=== PATIENT | male | born 1940 | race Caucasian/White ===

== ENCOUNTER → 2018-05-24 09:06 | Outpatient (CLI) | payer MEDICARE, OTHER, SELFPAY ==
[2018-05-24 10:06] LABS: ESR 19 MM/HR (1-20)
[2018-05-24 20:46] LABS: CRP, High Sensitivity 0.93 mg/L
== END ==
PROVIDERS: PCP Nurse Practitioner Family; Visit Provider Internal Medicine Rheumatology
DX: M35.3 Polymyalgia rheumatica (principal)
CPT/HCPCS: 36415; 85652; 86141

== ENCOUNTER → 2018-06-06 08:30 | Outpatient (CLI) | payer MEDICARE, OTHER, SELFPAY | PROVIDERS: PCP Nurse Practitioner Family; Visit Provider Psychiatry & Neurology Neurology | DX: M48.062 Spinal stenosis, lumbar region with neurogenic claudication (principal); E11.42 Type 2 diabetes mellitus with diabetic polyneuropathy; G56.03 Carpal tunnel syndrome, bilateral upper limbs; Z79.4 Long term (current) use of insulin; E53.0 Riboflavin deficiency; D64.9 Anemia, unspecified | CPT/HCPCS: 99213 ==

== ENCOUNTER 2018-06-22 11:29 | Outpatient (RCR) | payer SELFPAY | END 2018-06-22 23:59 | disposition home or self-care (01) | LOC: CR 11:29 | PROVIDERS: PCP Nurse Practitioner Family; Visit Provider Family Medicine | DX: I25.2 Old myocardial infarction (principal); Z95.5 Presence of coronary angioplasty implant and graft; Z51.89 Encounter for other specified aftercare | CPT/HCPCS: S9472 ==

== ENCOUNTER 2018-07-20 10:38 | Outpatient (CLI) | payer MEDICARE, SELFPAY ==
[2018-07-20 12:44] LABS: ESR 16 MM/HR (1-20)
[2018-07-20 21:28] LABS: CRP, High Sensitivity 0.85 mg/L
== END 2018-07-20 10:58 ==
PROVIDERS: PCP Nurse Practitioner Family; Visit Provider Internal Medicine Rheumatology
DX: M35.3 Polymyalgia rheumatica (principal)
CPT/HCPCS: 36415; 85652; 86141

== ENCOUNTER 2018-07-20 13:17 | Outpatient (RCR) | payer SELFPAY | END 2018-07-22 23:59 | disposition home or self-care (01) | LOC: CR 13:17 | PROVIDERS: PCP Nurse Practitioner Family; Visit Provider Family Medicine | DX: Z51.89 Encounter for other specified aftercare (principal) | CPT/HCPCS: S9472 ==

== ENCOUNTER → 2018-08-06 12:24 | Outpatient (BNVA) | payer MEDICARE, OTHER, SELFPAY | PROVIDERS: Visit Provider Internal Medicine Interventional Cardiology | DX: I25.10 Atherosclerotic heart disease of native coronary artery without angina pectoris (principal); I50.30 Unspecified diastolic (congestive) heart failure; I42.9 Cardiomyopathy, unspecified; R06.02 Shortness of breath; I11.0 Hypertensive heart disease with heart failure; E11.9 Type 2 diabetes mellitus without complications; Z79.4 Long term (current) use of insulin | CPT/HCPCS: 99213 ==

== ENCOUNTER 2018-08-22 11:00 | Outpatient (RCR) | payer SELFPAY | END 2018-08-22 23:59 | disposition home or self-care (01) | LOC: CR 11:00 | PROVIDERS: PCP Nurse Practitioner Family; Visit Provider Family Medicine | DX: Z51.89 Encounter for other specified aftercare (principal) | CPT/HCPCS: S9472 ==

== ENCOUNTER 2018-09-21 13:24 | Outpatient (RCR) | payer SELFPAY | END 2018-09-21 23:59 | disposition home or self-care (01) | LOC: CR 13:24 | PROVIDERS: PCP Nurse Practitioner Family; Visit Provider Family Medicine | DX: Z51.89 Encounter for other specified aftercare (principal) | CPT/HCPCS: S9472 ==

== ENCOUNTER 2019-01-15 07:00 | Outpatient (CLI) | payer MEDICARE, OTHER, SELFPAY ==
[2019-01-15 07:38] LABS: HCT 38.8 % (40.0-50.0); HGB 12.6 g/dL (13.5-17.5); Mean Corp. HGB Concentration 32.5 g/dL (32.0-36.0); Mean Corpuscular Hemoglobin 29.6 pg (27.0-33.0); Mean Corpuscular Volume 91.3 fL (80-95); Mean Platelet Volume 9.7 fL (8.0-11.0); Platelet Count 226 x1000/uL (130-400); RBC 4.25 m/cumm (4.50-6.00); RBC Distribution Width 13.9 % (11.8-14.1); White Blood Cell Count 5.47 k/cumm (4.4-10.8)
[2019-01-15 08:36] LABS: ALT 31 U/L (12-78); AST 17 U/L (15-37); Albumin 3.5 g/dL (3.4-5.0); Alkaline Phosphatase 107 U/L (46-116); Anion Gap 6.9 mmol/L (3-11); BUN 28 mg/dL (7-18); Bilirubin, Total 0.4 mg/dL (0.2-1.0); CO2 32.1 mmol/L (21.0-32.0); CREATININE 1.14 mg/dL (0.70-1.30); Calcium 8.8 mg/dL (8.5-10.1); Chloride 104 mmol/L (98-107); Cholesterol 114 mg/dL (50-200); Glucose 103 mg/dL (70-100); HDL Cholesterol 31 mg/dL (40-60); LDL CHOLESTEROL 61 mg/dL (<100); Potassium 4.3 mmol/L (3.5-5.1); Sodium 143 mmol/L (136-145); Total Protein 6.8 g/dL (6.4-8.2); Triglyceride 121 mg/dL (30-150)
[2019-01-15 08:49] LABS: COMMENT (LAB VIEW ONLY) 151.91 mg/dL; Microalb ug/mg Crea 34.9 ug/mg Cr
[2019-01-15 10:51] LABS: Hemoglobin A1C 7.4 % (4.5-6.2)
== END 2019-01-15 07:20 ==
PROVIDERS: PCP Nurse Practitioner Family; Visit Provider Nurse Practitioner Family
DX: E11.40 Type 2 diabetes mellitus with diabetic neuropathy, unspecified (principal); Z79.4 Long term (current) use of insulin; E78.5 Hyperlipidemia, unspecified; Z51.81 Encounter for therapeutic drug level monitoring
CPT/HCPCS: 36415; 80053; 80061; 83721; 85027; 82043; 82570; 83036

== ENCOUNTER 2019-01-18 12:46 | Outpatient (RCR) | payer SELFPAY | END 2019-01-20 23:59 | disposition home or self-care (01) | LOC: CR 12:46 | PROVIDERS: PCP Nurse Practitioner Family; Visit Provider Family Medicine | DX: Z51.89 Encounter for other specified aftercare (principal) ==

== ENCOUNTER 2019-02-13 11:00 | Outpatient (RCR) | payer SELFPAY | END 2019-02-19 23:59 | disposition home or self-care (01) | LOC: CR 11:00 | PROVIDERS: PCP Nurse Practitioner Family; Visit Provider Family Medicine | DX: Z51.89 Encounter for other specified aftercare (principal) | CPT/HCPCS: S9472 ==

== ENCOUNTER → 2019-02-15 09:49 | Outpatient (BNVA) | payer MEDICARE, OTHER, SELFPAY | PROVIDERS: PCP Nurse Practitioner Family; Visit Provider Urology | DX: N40.1 Benign prostatic hyperplasia with lower urinary tract symptoms (principal); E11.40 Type 2 diabetes mellitus with diabetic neuropathy, unspecified; I11.0 Hypertensive heart disease with heart failure; I50.30 Unspecified diastolic (congestive) heart failure; R35.1 Nocturia | CPT/HCPCS: 99213 ==

== ENCOUNTER 2019-03-03 10:23 | Emergency (ER) | payer MEDICARE, OTHER, SELFPAY ==
[2019-03-03 10:21] VITALS: PULSE 75; RESP 13; O2SAT 96
[2019-03-03 10:27] VITALS: BP 159/69; PULSE 68; RESP 17; TEMP 36.8; O2SAT 96
[2019-03-03 10:30] VITALS: PULSE 64; RESP 20; O2SAT 95
[2019-03-03 10:31] VITALS: BP 125/73; PULSE 65; PULSE 70; RESP 12; O2SAT 94
--- NOTE | 2019-03-03 10:39 | DI.RAD_ITS ---
SYMPTOMS/DIAGNOSIS: LEFT EPIGASTRIC CHEST PAIN PA AND LATERAL CHEST: Comparison is made with 1May18. The heart is enlarged and the aorta is mildly tortuous, unchanged. The left diaphragm is again noted to be elevated. There are minimal streaky densities at the left lower lobe which could represent atelectasis or scarring. No definite infiltrate is seen. There is no evidence of effusion or pulmonary edema. Degenerative changes are seen in the spine. IMPRESSION: Left lower lobe atelectasis vs scarring.
[2019-03-03 10:40] VITALS: PULSE 68; RESP 20; O2SAT 94
[2019-03-03 10:40] LABS: Abs Immature Grans 0.01 k/cumm (0.0-0.09); Absolute Basophil Count 0.03 k/cumm (0.0-0.2); Absolute Eosinophil Count 0.21 k/cumm (0.0-0.7); Absolute Lymphocyte Count 0.96 k/cumm (1.2-3.4); Absolute Monocyte Count 0.58 k/cumm (0.11-0.7); Absolute Neutrophil Count 4.89 k/cumm (1.2-6.7); Basophils % 0.4; Eosinophils % 3.1; HGB 13.4 g/dL (13.5-17.5); Immature Grans % 0.1; Lymphocytes % 14.4; Mean Corp. HGB Concentration 34.4 g/dL (32.0-36.0); Mean Corpuscular Hemoglobin 31.5 pg (27.0-33.0); Mean Corpuscular Volume 91.5 fL (80-95); Mean Platelet Volume 9.6 fL (8.0-11.0); Monocytes % 8.7; Neutrophils % 73.3; Platelet Count 234 x1000/uL (130-400); RBC 4.26 m/cumm (4.50-6.00); RBC Distribution Width 13.3 % (11.8-14.1); White Blood Cell Count 6.68 k/cumm (4.4-10.8)
[2019-03-03] MEDS: Mylanta Suspension 30 ML CUP (10:45)
[2019-03-03] MEDS: Lidocaine 2% Viscous 15 ML CUP (10:45)
--- NOTE | 2019-03-03 10:48 | ED.GENADUL_ITS ---
Discharge Plan Disposition Patient Disposition: HOME Condition: Good Discharge Details Chief Complaint: Chest Pain Clinical Impression: Chest pain, GERD (gastroesophageal reflux disease) Primary Care Provider: Michell Bishop ED Provider: [place] Home Meds and New Rx's Prescriptions: No Action dulaglutide 0.75 mg/0.5 mL pen injector 0.75 mg subcut QWEEK Qty: 12 RF: 0 losartan 25 mg tablet 25 mg PO DAILY Qty: 90 RF: 3 Lantus Solostar U-100 Insulin 100 unit/mL (3 mL) insulin pen 60 unit subcut HS Qty: 2 RF: 11 multivitamin [One Daily Multivitamin] 1 EACH tablet 1 ea PO DAILY RF: 0 aspirin [Aspirin Low-Strength] 81 MG tablet,chewable 81 mg PO DAILY RF: 0 OneTouch Ultra Test 1 EACH strip 1 ea Miscellaneous BID RF: 0 cholecalciferol (vitamin D3) 2,000 UNIT tablet 2,000 unit PO DAILY RF: 0 atorvastatin 80 MG tablet 80 mg PO DAILY RF: 0 pantoprazole 20 MG tablet,delayed release (DR/EC) 20 mg PO DAILY Qty: 90 RF: 3 sennosides-docusate sodium [Senna-S] 1 EACH tablet 1 ea PO BID RF: 0 lancets [OneTouch UltraSoft Lancets] 1 EACH misc 1 ea Miscellaneous BID Qty: 200 RF: 11 nitroglycerin 0.4 MG tablet, sublingual 0.4 mg Sublingual PRN Qty: 30 RF: 11 ezetimibe [Zetia] 10 MG tablet 10 mg PO DAILY Qty: 90 RF: 4 Metoprolol Succinate 25 MG TAB.ER.24H 3 tab-cap PO DAILY Qty: 270 RF: 0 isosorbide mononitrate 30 MG tablet extended release 24 hr 60 mg PO DAILY Qty: 180 RF: 3 spironolactone 25 mg tablet 12.5 mg PO DAILY Qty: 90 RF: 0 metformin 1,000 mg tablet 1,000 mg PO BID Qty: 180 RF: 3 hydralazine 10 mg tablet 10 mg PO BID Qty: 180 RF: 3 clopidogrel [Plavix] 75 mg tablet 75 mg PO DAILY Qty: 90 RF: 3 furosemide 20 mg tablet 40 mg PO BID Qty: 180 RF: 3 alfuzosin 10 mg tablet extended release 24 hr 10 mg PO DAILY Qty: 90 RF: 4 finasteride 5 mg tablet 5 mg PO HS Qty: 90 RF: 4 Discharge Instructions Instructions: Chest Pain (ED), Gastroesophageal Reflux Disease (ED) Additional Instructions: Please continue taking your home antiacid medications. Please feel free to add Pepto-Bismol or Maalox as needed for symptomatic relief. Please avoid any spicy foods, tomato-based foods, or citrus foods. Please follow-up promptly with your primary care provider for reassessment. If you notice any worsening of your symptoms, or any new symptoms such as vomiting, diarrhea, fever, chills, shortness of breath, chest pain, numbness, weakness, or fainting , please return immediately to the emergency department for reevaluation. Please follow up with your primary care provider as soon as possible for reassessment and reevaluation. As always, it was a pleasure participating in your medical care today. Referrals: Michell Bishop NP [Primary Care Provider] - Medical Decision Making This is a pleasant 79-year-old male with a past medical history of cardiac disease with 7 stents who takes daily Plavix as well as history of high cholesterol, congestive heart failure diabetes. He presents today for evaluation of atypical chest pain, started at 7 AM and was described as a mild burning sensation. He drank some coffee and this did not improve his symptoms and had a slight progression towards the upward direction in his left chest. There is no exertional component, no associated shortness of breath or pleuritic chest pain. He states that the symptoms are atypical from his previous cardiac episodes. He did take an omeprazole but this did not help his symptoms. He presents now for further evaluation. Pain at this time is very minimal. He still describes it as burning. Exam demonstrates no calf tenderness, reassuring vital signs, and no significant reproducible external chest wall or abdominal tenderness. He has had no vomiting or diarrhea. We will perform a cardiac work-up to rule out ACS with his notable history, as well as started GI cocktail out of concern that his symptoms may be secondary to mild gastritis. Initial EKG shows left bundle branch block is unchanged from prior EKGs. 11:51 AM The patient is feeling much better and his symptoms have completely resolved after GI cocktail. Initial EKG is unchanged, vital signs are notably reassuring. Laboratory work-up demonstrates no white count, no left shift, no bandemia, no fever, historically he has no fever chills. Electrolytes are norm al with a normal lipase, normal troponin. Chest x-ray results do demonstrate evidence of mild opacity in the left lower lobe which may be atelectasis or pneumonia, per virtual radiologist. Pneumonia certainly seems inconsistent with his current presentation with his lack of fever, chills, cough, or sputum production. I feel this is most likely atelectasis versus scarring. With no hypoxemia, or tachypnea and no other signs or symptoms consistent with infectious etiology, I do not think that antibiotic administration is indicated. We will recommend close follow-up and observation on an outpatient basis for any worsening of his symptoms regards to her respiratory component. Currently he has no respiratory complaints whatsoever. 2:18 PM Serial troponins have returned within normal limits, EKGs remain consistently unchanged. Persistent left bundle branch block is there, no other changes or significant abnormalities. The patient's pain is completely resolved after administration of GI cocktail, and he continues to feel very well. He does have an outpatient stress test already scheduled with [facility], we have encouraged him to continue follow-up with this. I feel that his signs and symptoms are clinically inconsistent with ACS, feel that he is stable to be discharged home after negative serial troponins and EKGs and a benign laboratory work-up. Additionally he still shows no clinical evidence of infectious pneumonia. I feel the reading is secondary to scarring and atelectasis but not an infectious etiology I discussed red flags which to return. I have extensively reviewed the treatment plan and discharge instructions with the patient. I have addressed all patient concerns at this time. The patient was made aware of what symptoms to monitor for that would warrant a return to the emergency department. Discussed the plan with the patient, they demonstrate verbal understanding and agreement with our assessment and plan at this time. EKG 10: 28 Rate 66, intervals VA 210, QTc 455, QRS 162, left bundle branch block, negative for SCARBOSSA criteria. EKG 13: 29 Rate 64, VA 208, QTc 470, QRS 164, sinus rhythm, left bundle branch block, negative for SCARBOSSA criteria. Unchanged from prior EKG. EXAM: XR Chest, 2 Views EXAM DATE/TIME: 03/03/2019 10:41 AM CLINICAL HISTORY: 79 years old, male; Signs and symptoms; Other: Left epigastric cp TECHNIQUE: Imaging protocol: XR of the chest, 2 views. COMPARISON: CR CHEST 2 VIEWS PA,LAT 02/20/2018 2:43 PM FINDINGS: Lungs: Mild opacity in the left lower lobe may represent atelectasis or pneumonia. Pleural space: Unremarkable. No pleural effusion. No pneumothorax. Heart/Mediastinum: Stable cardiac silhouette Bones/joints: Osseous structures are stable IMPRESSION: Mild opacity in the left lower lobe may represent atelectasis or pneumonia. Dictated and Authenticated by: Yoanna Merida MD. Ordering:MELISSA Keith MD HPI General Date/Time Provider Initiated Documentation: 03/03/19 10:24 . HPI Narrative: This is an 79-year-old male with a past medical history of 7 cardiac stents, high cholesterol, diabetes, congestive heart failure, who presents today for evaluation of chest pain. The patient states that this morning when he woke up he felt a mild burning sensation in his left upper epigastric region and left lower chest. He ate some food and this did not make it any better. Over the next few hours the pain got slightly worse and moved up into his chest a little bit further, still describing it as a burning pinching-like sensation. He states this is notably different than the previous times when he had his stents placed. He denies any exertional difficulty or worsening of his symptoms with exertion. He denies any shortness of breath, pleuritic chest pain, cough, hemoptysis, fever or chills. He denies any tearing sensation, or radiation to his arm neck or shoulders. He did take a Zantac, but this did not improve his symptoms. He does drink alcohol, 2 to 3 cups of wine per night. He denies any other complaints or modifying factors. Related Data Home Medications Medication Instructions Recorded Confirmed multivitamin [One Daily 1 ea PO DAILY 01/23/13 03/03/19 Multivitamin] aspirin [Aspirin Low-Strength] 81 mg PO DAILY tab 04/03/14 03/03/19 OneTouch Ultra Test strip 12/24/14 03/03/19 cholecalciferol (vitamin D3) 2,000 unit PO DAILY 08/17/16 03/03/19 atorvastatin 80 mg PO DAILY tab-cap 06/08/17 03/03/19 pantoprazole 20 mg PO DAILY #90 tab-cap 07/20/17 03/03/19 sennosides-docusate sodium 1 ea PO BID 10/09/17 03/03/19 [Senna-S] lancets [Onetouch Lancets] #200 ea 04/04/18 03/03/19 nitroglycerin 0.4 mg SUBLINGUAL PRN #30 tab 04/30/18 03/03/19 ezetimibe [Zetia] 10 mg PO DAILY #90 tab-cap 05/21/18 03/03/19 isosorbide mononitrate 60 mg PO DAILY #180 tab 06/18/18 03/03/19 spironolactone 25 mg tablet 12.5 mg PO DAILY #90 tab-cap 07/30/18 03/03/19 metformin 1,000 mg tablet 1,000 mg PO BID #180 tab-cap 08/20/18 03/03/19 dulaglutide 0.75 mg/0.5 mL 0.75 mg SUBCUT QWEEK #12 syringe 09/06/18 03/03/19 subcutaneous pen injector hydralazine 10 mg tablet 10 mg PO BID #180 tab-cap 11/14/18 03/03/19 clopidogrel 75 mg tablet 75 mg PO DAILY #90 tab-cap 12/31/18 03/03/19 insulin glargine (U-100) 100 60 unit SUBCUT HS #2 ml 01/21/19 03/03/19 unit/mL (3 mL) subcutaneous pen losartan 25 mg tablet 25 mg PO DAILY #90 tab-cap 01/21/19 03/03/19 furosemide 20 mg tablet 40 mg PO BID #180 tab-cap 01/23/19 03/03/19 alfuzosin ER 10 mg tablet,extended 10 mg PO DAILY #90 tab-cap 02/18/19 03/03/19 release 24 hr finasteride 5 mg tablet 5 mg PO HS #90 tab-cap 02/18/19 03/03/19 Previous Rx's Medication Instructions Recorded pantoprazole 20 mg PO DAILY #90 tab-cap 07/20/17 lancets [Onetouch Lancets] #200 ea 04/04/18 nitroglycerin 0.4 mg SUBLINGUAL PRN #30 tab 04/30/18 ezetimibe [Zetia] 10 mg PO DAILY #90 tab-cap 05/21/18 isosorbide mononitrate 60 mg PO DAILY #180 tab 06/18/18 spironolactone 25 mg tablet 12.5 mg PO DAILY #90 tab-cap 07/30/18 metformin 1,000 mg tablet 1,000 mg PO BID #180 tab-cap 08/20/18 dulaglutide 0.75 mg/0.5 mL 0.75 mg SUBCUT QWEEK #12 syringe 09/06/18 subcutaneous pen injector hydralazine 10 mg tablet 10 mg PO BID #180 tab-cap 11/14/18 clopidogrel 75 mg tablet 75 mg PO DAILY #90 tab-cap 12/31/18 losartan 25 mg tablet 25 mg PO DAILY #90 tab-cap 01/21/19 furosemide 20 mg tablet 40 mg PO BID #180 tab-cap 01/23/19 alfuzosin ER 10 mg tablet,extended 10 mg PO DAILY #90 tab-cap 02/18/19 release 24 hr finasteride 5 mg tablet 5 mg PO HS #90 tab-cap 02/18/19 Allergies Allergy/AdvReac Type Severity Reaction Status Date / Time No Known Allergies Allergy Unverified 03/03/19 10:29 General Stated Complaint: Chest Pain EDUARDO: 2 Review of Systems Review of Systems All systems reviewed & are unremarkable except as noted in HPI and below PFSH Medical History LBBB (left bundle branch block) (Chronic) BPH (benign prostatic hyperplasia) (Chronic) Type 2 diabetes mellitus with diabetic neuropathy, with long-term current use of insulin (Chronic) Hearing loss, conductive (Chronic) ASCVD (arteriosclerotic cardiovascular disease) (Chronic) Hyperlipidemia, unspecified (Chronic) Obesity (BMI 30-39.9) (Chronic) Severe obstructive sleep apnea (Chronic 04/10/17) Polymyalgia rheumatica (Chronic 08/17/16) 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) Migraine (Chronic 12/15/11) Interstitial lung disease (Chronic 07/28/16) Hypoxemia (Chronic 04/02/17) Essential hypertension (Chronic 02/05/13) Erectile dysfunction (Chronic 12/15/11) Diastolic heart failure (Chronic 02/27/15) Diabetic peripheral neuropathy (Chronic 02/21/18) Carpal tunnel syndrome on both sides (Chronic 03/28/18) GERD (gastroesophageal reflux disease) (Chronic) Hearing loss, sensorineural (Chronic) Actinic keratosis (Resolved 08/04/17) Anemia (Resolved) Basal cell carcinoma of back (Resolved 08/04/17) Coronary syndrome, acute (Resolved) Rectal bleeding (Resolved) UTI (lower urinary tract infection) (Resolved) CAD (coronary artery disease) (09/22/17) DM type 2 (diabetes mellitus, type 2) Diastolic heart failure KS (myocardial infarction) PMR (polymyalgia rheumatica) Unspecified sleep apnea Social History Smoking/Tobacco Use Status: Former Tobacco Use Alcohol Intake: current Alcohol Intake frequency: 0-2 drinks per day Drug use: Never Substance use type: does not use Caregiver/Support person: No Household members: spouse Number of Children: 2 Communication Needs: Hard of Hearing Education Level: high school Pets and animals: Yes Pets and animals: cat(s) Current gender identity: male What type of physical activity do you participate in: other Details: cardiac rehab Frequency: 3-4 times per week Seatbelt use: always Do you feel safe at home: Yes Do you feel safe in your relationship?: Yes Exam Narrative Exam Narrative: 1.Const: Well-nourished, Well-developed, appearing stated age 2.Eyes: PERRL, no conjunctival injection, and symmetrical lids. 3.ENT: Atraumatic external nose and ears. Moist MM. Neck: Symmetric, trachea midline, No thyromegaly. 4.CVS: +S1/S2, No murmurs or gallops. Peripheral pulses 2+ and equal in all extremities. Brisk capillary refill in all extremities. 5.RESP: Unlabored respiratory effort. Clear to auscultation bilaterally. No wheezes rales or rhonchi, no reproducible tenderness 6.GI: Soft, Nontender/Nondistended, No hepatosplenomegaly. No guarding or rebound. 7.MSK: Normocephalic/Atraumatic, Extremities w/o deformity or ttp No cyanosis or clubbing, Normal movement of all extremities, no pain in his calves. 8.Skin: Warm, Dry. No rashes or lesions. 9.Neuro: sports marketing internship II-XII grossly intact. Sensation grossly intact, no focal neurologic deficits. 10.Psych: (AAO) x3. Appropriate mood and affect Course Vital Signs Temperature 36.8 C 03/03/19 10:27 Pulse 68 03/03/19 10:27 Respiratory Rate 17 03/03/19 10:27 Blood Pressure 159/69 H 03/03/19 10:27 Pulse Oximetry 96 03/03/19 10:27 Temperature 36.8 C 03/03/19 10:27 Temperature Source Temporal Artery Scan 03/03/19 10:27 Pulse 68 03/03/19 10:27 Respiratory Rate 20 03/03/19 10:30 Respiratory Effort Non-Labored 03/03/19 10:30 Respiratory Depth Normal 03/03/19 10:30 Respiratory Pattern Normal 03/03/19 10:30 Blood Pressure 159/69 H 03/03/19 10:27 Blood Pressure Position Sitting 03/03/19 10:27 Pulse Oximetry 96 03/03/19 10:27 Oxygen Delivery Method Room Air 03/03/19 10:27 Oxygen Flow Rate 0 03/03/19 10:27 Pain Level 8 03/03/19 10:30 Lab/Test Results Lab/Test Results: Laboratory Tests Range/Units 03/03/19 10:30 WBC (4.4-10.8) k/cumm 6.68 RBC (4.50-6.00) m/cumm 4.26 L Hgb (13.5-17.5) g/dL 13.4 L Hct (40.0-50.0) % 39.0 L MCV (80-95) fL 91.5 MCH (27.0-33.0) pg 31.5 MCHC (32.0-36.0) g/dL 34.4 RDW (11.8-14.1) % 13.3 Plt Count (130-400) x1000/uL 234 MPV (8.0-11.0) fL 9.6 Immature Gran % 0.1 Neutrophils % 73.3 Lymphocytes % 14.4 Monocytes % 8.7 Eosinophils % 3.1 Basophils % 0.4 Absolute Neutrophils (1.2-6.7) k/cumm 4.89 Absolute Lymphocytes (1.2-3.4) k/cumm 0.96 L Absolute Monocytes (0.11-0.7) k/cumm 0.58 Absolute Eosinophils (0.0-0.7) k/cumm 0.21 Absolute Basophils (0.0-0.2) k/cumm 0.03
[2019-03-03 10:55] LABS: ALT 41 U/L (12-78); AST 17 U/L (15-37); Albumin 3.7 g/dL (3.4-5.0); Alkaline Phosphatase 110 U/L (46-116); Anion Gap 7.7 mmol/L (3-11); BUN 26 mg/dL (7-18); Bilirubin, Total 0.4 mg/dL (0.2-1.0); CO2 30.3 mmol/L (21.0-32.0); CREATININE 1.04 mg/dL (0.70-1.30); Calcium 8.8 mg/dL (8.5-10.1); Chloride 100 mmol/L (98-107); Glucose 132 mg/dL (70-100); Sodium 138 mmol/L (136-145); Total Protein 7.6 g/dL (6.4-8.2)
[2019-03-03 10:58] LABS: Lipase 177 U/L (73-393); Troponin I < 0.02 ng/mL (0.00-0.06)
--- NOTE | 2019-03-03 11:26 | DI.VRAD_ITS ---
EXAM: XR Chest, 2 Views EXAM DATE/TIME: 03/03/2019 10:41 AM CLINICAL HISTORY: 79 years old, male; Signs and symptoms; Other: Left epigastric cp TECHNIQUE: Imaging protocol: XR of the chest, 2 views. COMPARISON: CR CHEST 2 VIEWS PA,LAT 02/20/2018 2:43 PM FINDINGS: Lungs: Mild opacity in the left lower lobe may represent atelectasis or pneumonia. Pleural space: Unremarkable. No pleural effusion. No pneumothorax. Heart/Mediastinum: Stable cardiac silhouette Bones/joints: Osseous structures are stable IMPRESSION: Mild opacity in the left lower lobe may represent atelectasis or pneumonia. Dictated and Authenticated by: Yoanna Merida MD. Ordering:MELISSA Keith MD
[2019-03-03 13:47] LABS: Troponin I < 0.02 ng/mL (0.00-0.06)
[2019-03-03 14:22] VITALS: BP 128/61; PULSE 68; RESP 16; O2SAT 98
== END 2019-03-03 14:26 | disposition home or self-care (01) ==
PROVIDERS: Emergency Provider Student in an Organized Health Care Education/Training Program; PCP Nurse Practitioner Family
DX: R07.89 Other chest pain (principal); K21.9 Gastro-esophageal reflux disease without esophagitis; I44.7 Left bundle-branch block, unspecified; I50.9 Heart failure, unspecified; E11.9 Type 2 diabetes mellitus without complications; R91.8 Other nonspecific abnormal finding of lung field; Z79.4 Long term (current) use of insulin
CPT/HCPCS: 36415; 80053; 83690; 93005; 99285; 71046; 84484; 85025; 93010

== ENCOUNTER 2019-03-22 11:58 | Outpatient (RCR) | payer SELFPAY | END 2019-03-22 23:59 | disposition home or self-care (01) | LOC: CR 11:58 | PROVIDERS: PCP Nurse Practitioner Family; Visit Provider Family Medicine | DX: Z51.89 Encounter for other specified aftercare (principal) | CPT/HCPCS: S9472 ==

== ENCOUNTER 2019-04-19 11:31 | Outpatient (RCR) | payer SELFPAY | END 2019-04-21 23:59 | disposition home or self-care (01) | LOC: CR 11:31 | PROVIDERS: PCP Nurse Practitioner Family; Visit Provider Family Medicine | DX: Z51.89 Encounter for other specified aftercare (principal) | CPT/HCPCS: S9472 ==

== ENCOUNTER 2019-05-22 13:38 | Outpatient (RCR) | payer SELFPAY | END 2019-05-22 23:59 | disposition home or self-care (01) | LOC: CR 13:38 | PROVIDERS: PCP Nurse Practitioner Family; Visit Provider Family Medicine | DX: Z51.89 Encounter for other specified aftercare (principal) | CPT/HCPCS: S9472 ==

== ENCOUNTER 2019-06-12 13:13 | Outpatient (RCR) | payer SELFPAY | END 2019-06-22 23:59 | disposition home or self-care (01) | LOC: CR 13:13 | PROVIDERS: PCP Nurse Practitioner Family; Visit Provider Family Medicine | DX: Z51.89 Encounter for other specified aftercare (principal) | CPT/HCPCS: S9472 ==

== ENCOUNTER 2019-06-12 20:52 | Observation (INO) | payer MEDICARE, OTHER, SELFPAY ==
[2019-06-12] VITALS (34 sets, daily range): BP systolic 99–166; BP diastolic 53–78; PULSE 76–106; RESP 15–28; TEMP 36.3–36.6; O2SAT 89–97
--- NOTE | 2019-06-12 20:57 | W.ED.GENAD ---
Discharge Plan Disposition Patient Disposition: [facility] INPATIENT Condition: Good Discharge Details Chief Complaint: Chest Pain Clinical Impression: Chest pain Primary Care Provider: Michell Bishop ED Provider: Tonio Rosenberg [place] Meds and New Rx's Prescriptions: No Action dulaglutide 0.75 mg/0.5 mL pen injector 0.75 mg subcut QWEEK Qty: 12 RF: 0 losartan 25 mg tablet 25 mg PO DAILY Qty: 90 RF: 3 Lantus Solostar U-100 Insulin 100 unit/mL (3 mL) insulin pen 60 unit subcut HS Qty: 2 RF: 11 isosorbide mononitrate 30 mg tablet extended release 24 hr 30 mg PO DAILY Qty: 90 RF: 3 multivitamin [One Daily Multivitamin] 1 EACH tablet 1 ea PO DAILY RF: 0 aspirin [Aspirin Low-Strength] 81 MG tablet,chewable 81 mg PO DAILY RF: 0 (DME) OneTouch Ultra Test 1 EACH strip 1 ea Miscellaneous BID RF: 0 cholecalciferol (vitamin D3) 2,000 UNIT tablet 2,000 unit PO DAILY RF: 0 atorvastatin 80 MG tablet 80 mg PO DAILY RF: 0 pantoprazole 20 MG tablet,delayed release (DR/EC) 20 mg PO DAILY Qty: 90 RF: 3 sennosides-docusate sodium [Senna-S] 1 EACH tablet 1 ea PO BID RF: 0 (DME) lancets [OneTouch UltraSoft Lancets] 1 EACH misc 1 ea Miscellaneous BID Qty: 200 RF: 11 nitroglycerin 0.4 MG tablet, sublingual 0.4 mg Sublingual PRN Qty: 30 RF: 11 ezetimibe [Zetia] 10 MG tablet 10 mg PO DAILY Qty: 90 RF: 4 Metoprolol Succinate 25 MG TAB.ER.24H 3 tab-cap PO DAILY Qty: 270 RF: 0 spironolactone 25 mg tablet 12.5 mg PO DAILY Qty: 90 RF: 0 metformin 1,000 mg tablet 1,000 mg PO BID Qty: 180 RF: 3 alfuzosin 10 mg tablet extended release 24 hr 10 mg PO DAILY Qty: 90 RF: 4 finasteride 5 mg tablet 5 mg PO HS Qty: 90 RF: 4 clopidogrel [Plavix] 75 mg tablet 75 mg PO DAILY Qty: 90 RF: 3 furosemide 20 mg tablet 40 mg PO BID Qty: 180 RF: 3 acetaminophen 500 mg tablet 1,000 mg PO BID PRNRF: 0 hydralazine 10 mg tablet 10 mg PO BID Qty: 180 RF: 3 ranitidine HCl 150 mg tablet 150 mg PO BID Qty: 180 RF: 3 Medical Decision Making Patient presenting with substernal chest pain that reminds him of previous non-STEMI's. Zantac and nitroglycerin at home did not seem to help. Pain ongoing for about 90 minutes. It does seem to have let up now that he is here. His EKG is an old left bundle branch block. He is mildly tachycardic and hypertensive. Will give aspirin, nitroglycerin and lopressor here. Laboratory studies sent. Portable chest x-ray ordered. 22:30 - Patient's labs are good. Anemia is baseline. Troponin is negative. Glucose is high with history of diabetes. Gap and bicarb are fine. Portable chest per prelim radiology report unchanged. Patient is pain free currently after aspirin, NTG and lopressor. Heart rate now in the 80's . Given the patient's cardiac history recommend observation admission for trending of troponin and whether pain recurs or not. Discussed with Dr. Pineda. We did find a scanned stress ECHO from March of this year done at [facility]. This did not show evidence of ischemia at that time. This is reassuring. Patient accepted for observation admission. Medical Records Medical records reviewed: Yes I reviewed the patient's medical records. Lab Data Lab results reviewed: Yes I reviewed the patient's lab results. ECG Data Attestation: I personally reviewed and interpreted this ECG (s) as follows: Prior ECG tracings: available for review Interpretation: Normal sinus rhythm at a rate of 101. Left bundle branch block present. No significant change from previous. HPI General Mode of arrival: ambulatory. Date/Time Provider Initiated Documentation: 06/12/19 20:53. Limitations to Documentation: no limitations. Information obtained by: patient, RN notes reviewed and old records reviewed. HPI Narrative: Patient presents to ED with substernal chest pain ongoing for about 90 minutes now. At its worse there was a little bit of radiation to the left shoulder. It has subsequently become a little bit better. He did take Zantac at home as well as nitroglycerin which he does not think helped. He had a little bit of lightheadedness and sweatiness. He does not feel short of breath. He has no nausea vomiting. He has known coronary disease and has [address] This pain reminds him a little bit of his previous non-STEMI's. He denies any radiation to the neck or back. He denies any fevers or cough. He denies any leg pain or leg swelling. Related Data Home Medications Medication Instructions Recorded Confirmed multivitamin [One Daily 1 ea PO DAILY 01/23/13 06/12/19 Multivitamin] aspirin [Aspirin Low-Strength] 81 mg PO DAILY tab 04/03/14 06/12/19 OneTouch Ultra Test strip 12/24/14 04/22/19 cholecalciferol (vitamin D3) 2,000 unit PO DAILY 08/17/16 06/12/19 atorvastatin 80 mg PO DAILY tab-cap 06/08/17 06/12/19 pantoprazole 20 mg PO DAILY #90 tab-cap 07/20/17 06/12/19 sennosides-docusate sodium 1 ea PO BID 10/09/17 06/12/19 [Senna-S] lancets [Onetouch Lancets] #200 ea 04/04/18 04/22/19 nitroglycerin 0.4 mg SUBLINGUAL PRN #30 tab 04/30/18 06/12/19 ezetimibe [Zetia] 10 mg PO DAILY #90 tab-cap 05/21/18 06/12/19 spironolactone 25 mg tablet 12.5 mg PO DAILY #90 tab-cap 07/30/18 06/12/19 metformin 1,000 mg tablet 1,000 mg PO BID #180 tab-cap 08/20/18 06/12/19 dulaglutide 0.75 mg/0.5 mL 0.75 mg SUBCUT QWEEK #12 syringe 09/06/18 06/12/19 subcutaneous pen injector insulin glargine 100 unit/mL (3 60 unit SUBCUT HS #2 ml 01/21/19 06/12/19 mL) subcutaneous pen losartan 25 mg tablet 25 mg PO DAILY #90 tab-cap 01/21/19 06/12/19 alfuzosin 10 mg tablet,extended 10 mg PO DAILY #90 tab-cap 02/18/19 06/12/19 release 24 hr finasteride 5 mg tablet 5 mg PO HS #90 tab-cap 02/18/19 06/12/19 clopidogrel 75 mg tablet 75 mg PO DAILY #90 tab-cap 03/25/19 06/12/19 furosemide 20 mg tablet 40 mg PO BID #180 tab-cap 03/25/19 06/12/19 acetaminophen 500 mg tablet 1,000 mg PO BID PRN tab 03/29/19 06/12/19 isosorbide mononitrate 30 mg 30 mg PO DAILY #90 tab-cap 04/22/19 06/12/19 tablet,extended release 24 hr hydralazine 10 mg tablet 10 mg PO BID #180 tab-cap 06/03/19 06/12/19 ranitidine HCl 150 mg tablet 150 mg PO BID #180 tab-cap 06/03/19 06/12/19 Previous Rx's Medication Instructions Recorded pantoprazole 20 mg PO DAILY #90 tab-cap 07/20/17 lancets [Onetouch Lancets] #200 ea 04/04/18 nitroglycerin 0.4 mg SUBLINGUAL PRN #30 tab 04/30/18 ezetimibe [Zetia] 10 mg PO DAILY #90 tab-cap 05/21/18 spironolactone 25 mg tablet 12.5 mg PO DAILY #90 tab-cap 07/30/18 metformin 1,000 mg tablet 1,000 mg PO BID #180 tab-cap 08/20/18 dulaglutide 0.75 mg/0.5 mL 0.75 mg SUBCUT QWEEK #12 syringe 09/06/18 subcutaneous pen injector losartan 25 mg tablet 25 mg PO DAILY #90 tab-cap 01/21/19 alfuzosin 10 mg tablet,extended 10 mg PO DAILY #90 tab-cap 02/18/19 release 24 hr finasteride 5 mg tablet 5 mg PO HS #90 tab-cap 02/18/19 clopidogrel 75 mg tablet 75 mg PO DAILY #90 tab-cap 03/25/19 furosemide 20 mg tablet 40 mg PO BID #180 tab-cap 03/25/19 isosorbide mononitrate 30 mg 30 mg PO DAILY #90 tab-cap 04/22/19 tablet,extended release 24 hr hydralazine 10 mg tablet 10 mg PO BID #180 tab-cap 06/03/19 ranitidine HCl 150 mg tablet 150 mg PO BID #180 tab-cap 06/03/19 Allergies Allergy/AdvReac Type Severity Reaction Status Date / Time No Known Allergies Allergy Unverified 06/12/19 20:58 General Stated Complaint: Chest Pain EDUARDO: 2 Review of Systems Review of Systems 08/05 Review of Systems completed and is negative except as stated above in HPI (Systems reviewed: Const, Eyes, ENT, Resp, CV, GI, , MSK, Skin, Neuro) [facility] Medical History Actinic keratosis (Resolved 08/04/17) Anemia (Resolved) ASCVD (arteriosclerotic cardiovascular disease) (Chronic) Basal cell carcinoma of back (Resolved 08/04/17) BPH (benign prostatic hyperplasia) (Chronic) Carpal tunnel syndrome on both sides (Chronic 03/28/18) Diabetic peripheral neuropathy (Chronic 02/21/18) Diastolic heart failure (Chronic 02/27/15) DM type 2 (diabetes mellitus, type 2) Erectile dysfunction (Chronic 12/15/11) Essential hypertension (Chronic 02/05/13) GERD (gastroesophageal reflux disease) (Chronic) Hearing loss, conductive (Chronic) Hearing loss, sensorineural (Chronic) Hyperlipidemia, unspecified (Chronic) Hypoxemia (Chronic 04/02/17) Interstitial lung disease (Chronic 07/28/16) LBBB (left bundle branch block) (Chronic) Migraine (Chronic 12/15/11) 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) Obesity (BMI 30-39.9) (Chronic) Polymyalgia rheumatica (Chronic 08/17/16) Severe obstructive sleep apnea (Chronic 04/10/17) Type 2 diabetes mellitus with diabetic neuropathy, with long-term current use of insulin (Chronic) Surgical History History of heart artery stent (Chronic) Social History Smoking/Tobacco Use Status: Former Tobacco Use Alcohol Intake: current Alcohol Intake frequency: 0-2 drinks per day Drug use: Never Substance use type: does not use Caregiver/Support person: No Household members: spouse Number of Children: 2 Communication Needs: Hard of Hearing Education Level: high school Pets and animals: Yes Pets and animals: cat(s) Current gender identity: male What type of physical activity do you participate in: other Details: cardiac rehab Frequency: 3-4 times per week Seatbelt use: always Do you feel safe at home: Yes Do you feel safe in your relationship?: Yes Exam Narrative Exam Narrative: Vitals: Afebrile. Mildly tachycardic at 101. Hypertensive at 166/73. Normal respiratory rate and room air pulse oximetry. Const: Obese male in NAD. HEENT: NC/AT. Normal facial exam. Eyes: Normal conjunctiva and sclera. Neck: Supple. Trachea midline. Lungs: Normal respiratory effort. Lungs with few crackles at bases. Cor: RRR without murmur/gallop. Good radial pulses. GI: Soft. NT/ND. No guarding or rebound. Neuro: A+O x 3. CN grossly in tact. Good strength and no focal deficit. Ext: No C/C/E. No deformity or tenderness. No calf tenderness. Skin: Warm and dry without rash. Course Vital Signs Temperature 97.9 F 06/12/19 20:54 Pulse 101 H 06/12/19 20:54 Respiratory Rate 18 06/12/19 20:54 Blood Pressure 166/73 H 06/12/19 20:54 Pulse Oximetry 97 06/12/19 20:54 Temperature 97.9 F 06/12/19 20:54 Temperature Source Tympanic 06/12/19 20:54 Pulse 101 H 06/12/19 20:54 Respiratory Rate 18 06/12/19 20:54 Blood Pressure 166/73 H 06/12/19 20:54 Pulse Oximetry 97 06/12/19 20:54 Oxygen Delivery Method Room Air 06/12/19 20:54 Oxygen Flow Rate 0 06/12/19 20:54 Pain Level 6 06/12/19 20:54
[2019-06-12] MEDS: Aspirin 81 MG CHEW (21:11)
[2019-06-12 21:18] LABS: Abs Immature Grans 0.02 k/cumm (0.0-0.09); Absolute Basophil Count 0.03 k/cumm (0.0-0.2); Absolute Eosinophil Count 0.14 k/cumm (0.0-0.7); Absolute Lymphocyte Count 1.29 k/cumm (1.2-3.4); Absolute Monocyte Count 0.66 k/cumm (0.11-0.7); Basophils % 0.4; HCT 38.4 % (40.0-50.0); HGB 12.7 g/dL (13.5-17.5); Immature Grans % 0.3; Lymphocytes % 18.3; Mean Corp. HGB Concentration 33.1 g/dL (32.0-36.0); Mean Corpuscular Volume 93.7 fL (80-95); Mean Platelet Volume 9.8 fL (8.0-11.0); Monocytes % 9.4; Neutrophils % 69.6; Platelet Count 250 x1000/uL (130-400); RBC Distribution Width 13.6 % (11.8-14.1); White Blood Cell Count 7.04 k/cumm (4.4-10.8)
--- NOTE | 2019-06-12 21:21 | DI.RAD_ITS ---
SYMPTOM/DIAGNOSIS: CHEST PAIN CHEST X-RAY: Portable AP view. Comparison 03/03/19 Heart size and pulmonary vasculature are within normal limits. The lungs are clear. There is again seen mild elevation of the left hemidiaphragm which is stable. No effusions or pneumothoraces are identified. No acute osseous abnormality is appreciated. IMPRESSION: No acute pulmonary process.
[2019-06-12 21:35] LABS: INR 0.9 (0.9-1.1); PTT Activated 20.7 sec (21.0-31.4); Prothrombin Time 9.2 sec (9.3-11.0)
[2019-06-12] MEDS: Metoprolol 5 MG/5 ML VIAL IVP (21:38)
[2019-06-12 21:39] LABS: ALT 43 U/L (12-78); AST 12 U/L (15-37); Albumin 3.5 g/dL (3.4-5.0); Alkaline Phosphatase 102 U/L (46-116); Anion Gap 11.1 mmol/L (3-11); BUN 31 mg/dL (7-18); Bilirubin, Total 0.2 mg/dL (0.2-1.0); CO2 25.9 mmol/L (21.0-32.0); CREATININE 1.25 mg/dL (0.70-1.30); Calcium 8.2 mg/dL (8.5-10.1); Chloride 103 mmol/L (98-107); Estimated GFR 55.57 (mL/min/1.73m2); Glucose 338 mg/dL (70-100); Potassium 3.6 mmol/L (3.5-5.1); Sodium 140 mmol/L (136-145); Total Protein 7.1 g/dL (6.4-8.2)
[2019-06-12 21:40] LABS: Troponin I < 0.05 ng/mL (0.00-0.06)
--- NOTE | 2019-06-12 22:00 | DI.VRAD_ITS ---
EXAM: XR Chest, 1 View EXAM DATE/TIME: 06/12/2019 9:11 PM CLINICAL HISTORY: 79 years old, male; Chest pain; Type not specified TECHNIQUE: Imaging protocol: XR of the chest, 1 view. COMPARISON: CR XR CHEST 2V PA LATERAL 03/03/2019 10:55 AM FINDINGS: Lungs: Unremarkable. No consolidation. Pleural space: Unremarkable. No pleural effusion. No pneumothorax. Heart/Mediastinum: Unremarkable. No cardiomegaly. Diaphragm: Persistent minimal elevation of left hemidiaphragm. Bones/joints: Unremarkable. IMPRESSION: No acute findings. Dictated and Authenticated by: Shahriar Tee MD. Ordering:PIO Elizalde MD
--- NOTE | 2019-06-12 22:25 | HPE_ITS ---
Date of service: 06/12/19 Time of Service: 22:25 Assessment and Plan (1) Chest pain at rest: Current visit: Yes Status: Acute unclear as to etiology. While his symptoms (SSCP-pressure w/ heaviness down his left arm) and response to NTG and lack of response to Zantac are concerning for ACS rather than GERD, nevertheless his troponin was negative and he had recent stress dobutamine echo that failed to demonstrate ischemia. I will monitor his rhythm and his symptoms and serial troponin levels. If all troponin levels are negative and he has no further chest pain, then a decision needs to be made as to whether to proceed w/ cath or repeat stress test w/ Lexiscan. The fact that he does not have chest pressure w/ 40 minutes of cardiac rehab 3 x per week bodes against ischemic pain. This still could have been his reflux and he may have had esophageal spasm which would respond to NTG but not necessarily to Zantac. I will keep him on all of his current CV meds (BB, statin, ASA, isosorbide mononitrate) and the day hospitalist can contact his program director/air personality in the a.m. to see what he would want him to do. The patient ordinarily sees Dr. Snell but has not seen him since 2017. The patient is scheduled to see the new [facility] program director/air personality at [facility] in July. (2) ASCVD (arteriosclerotic cardiovascular disease): Current visit: No Status: Chronic as above (3) GERD (gastroesophageal reflux disease): Current visit: No Status: Chronic continue Zantac and Protonix; question of whether or not he needs EGD. May be needed especially in light of negative stress dobutamine. (4) Type 2 diabetes mellitus with diabetic neuropathy, with long-term current use of insulin: Current visit: No Status: Chronic continue his home meds except hold metformin until we have ruled out ACS event. will check A1c and cover w/ sliding scale insulin. History of Present Illness Chief Complaint: chest pain Narrative: 79 yr old male w/ PMH of GERD, CAD s/p 7 prior stents, HTN, type 2 DM complicated by retinopathy, CHF (HFpEF), PMR and exertional dyspnea for which he has had a pulmonary workup demonstrating restrictive lung disease probably secondary to obesity, mild early subpleural ground glass changes c/w ILD, and mild obstructive lung disease and a recent dobutamine stress echo (04/02/2019 @ [facility]) that failed to show any ischemic abimael nges. His medical language specialist put him on Zantac in addition to his Protonix to treat his cough which was felt to be d/t his GERD. Tonight, he presented to the ER w/ acute chest pain occurring after dinner around 7:30 pm after dietary indiscretion of eating pizza, wine, cheese and crackers and ice cream. Initially he thought that this was indigestion so he took his Zantac w/out relief. When he experienced substernal chest tightness w/ some radiating heaviness down his left arm to his elbow, he decided to try NTG x 2 tabs w/out relief of his CP. At that point he decided to come to the hospital. Dr. Tonio Rosenberg treated him w/ lopressor 5 mg IVP, NTG 0.4 mg x 1 tab and ASA 324 mg. His CP resolved. His EKG demonstrates sinus tachycardia at 101 bpm and LBBB (not new). His troponin is <0.05. His CMP is remarkable for elevated glucose of 331 but otherwise is unremarkable. His CBC demonstrates a stable mild anemia w/ Hb 12.7 gm. His CXR showed no acute findings. He remains free of any chest pressure or pain and does not feel dyspneic. He is admitted overnight to monitor his rhythm and symptoms and serial troponin levels. Review of Systems Review of Systems All systems reviewed & are unremarkable except as noted in HPI and below Constitutional Reports system reviewed and no additional complaints, except as docu Cardiovascular Reports as per HPI, Reports chest pain, Reports chest pain at rest, Denies chest pain with activity (pt states that he attends cardiac rehab 3x/wk and does 40 minutes w/o CP), Denies syncope, Reports pedal edema (controlled w/ his diuretics), Denies lightheadedness, Reports radiating jaw, neck or arm pain, Denies palpitations and Reports dyspnea on exertion Respiratory Denies change in phlegm color, Denies chest congestion, Reports cough, Denies excessive phlegm production and Reports dyspnea on exertion Gastrointestinal Denies abdominal pain, Reports belching, Denies melena, Reports dyspepsia, Reports heartburn, Denies nausea and Denies vomiting Neurologic Denies syncope Endocrine Denies palpitations [facility] Medical History (Updated 06/13/19 @ 01:28 by Nikhil Pineda) Actinic keratosis (Resolved 08/04/17) Anemia (Resolved) ASCVD (arteriosclerotic cardiovascular disease) (Chronic) Basal cell carcinoma of back (Resolved 08/04/17) BPH (benign prostatic hyperplasia) (Chronic) Carpal tunnel syndrome on both sides (Chronic 03/28/18) Diabetic peripheral neuropathy (Chronic 02/21/18) Diastolic heart failure (Chronic 02/27/15) DM type 2 (diabetes mellitus, type 2) Erectile dysfunction (Chronic 12/15/11) Essential hypertension (Chronic 02/05/13) GERD (gastroesophageal reflux disease) (Chronic) Hearing loss, conductive (Chronic) Hearing loss, sensorineural (Chronic) Hyperlipidemia, unspecified (Chronic) Hypoxemia (Chronic 04/02/17) Interstitial lung disease (Chronic 07/28/16) LBBB (left bundle branch block) (Chronic) Migraine (Chronic 12/15/11) 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) Obesity (BMI 30-39.9) (Chronic) Polymyalgia rheumatica (Chronic 08/17/16) Severe obstructive sleep apnea (Chronic 04/10/17) Type 2 diabetes mellitus with diabetic neuropathy, with long-term current use of insulin (Chronic) Surgical History (Updated 06/13/19 @ 01:16 by Nikhil Pineda) History of cataract extraction with lens replacement (Acute) History of heart artery stent (Chronic) History of repair of retinal defect by laser photocoagulation (Acute) History of YAG laser capsulotomy of lens (Acute) Family History (Updated 06/13/19 @ 01:17 by Nikhil Pineda) Father Congestive heart failure Brother Congestive heart failure Mother No problems noted. Sister No problems noted. Social History Smoking/Tobacco Use Status: Former Tobacco Use Alcohol Intake: current Alcohol Intake frequency: 0-2 drinks per day Drug use: Never Substance use type: does not use Caregiver/Support person: No Household members: spouse Number of Children: 2 Communication Needs: Hard of Hearing Education Level: high school Pets and animals: Yes Pets and animals: cat(s) Current gender identity: male What type of physical activity do you participate in: other Details: cardiac rehab Frequency: 3-4 times per week Seatbelt use: always Do you feel safe at home: Yes Do you feel safe in your relationship?: Yes Meds Home Medications Medication Instructions Recorded Confirmed Type multivitamin [One Daily 1 ea PO DAILY 01/23/13 06/12/19 History Multivitamin] aspirin [Aspirin Low-Strength] 81 mg PO DAILY tab 04/03/14 06/12/19 History OneTouch Ultra Test strip 12/24/14 04/22/19 History cholecalciferol (vitamin D3) 2,000 unit PO DAILY 08/17/16 06/12/19 History atorvastatin 80 mg PO DAILY tab-cap 06/08/17 06/12/19 History pantoprazole 20 mg PO DAILY #90 tab-cap 07/20/17 06/12/19 Rx sennosides-docusate sodium 1 ea PO BID 10/09/17 06/12/19 History [Senna-S] lancets [Onetouch Lancets] #200 ea 04/04/18 04/22/19 Rx nitroglycerin 0.4 mg SUBLINGUAL PRN #30 tab 04/30/18 06/12/19 Rx Metoprolol Succinate 3 tab-cap PO DAILY #270 tab-cap 05/21/18 06/12/19 Clinic ezetimibe [Zetia] 10 mg PO DAILY #90 tab-cap 05/21/18 06/12/19 Rx spironolactone 25 mg tablet 12.5 mg PO DAILY #90 tab-cap 07/30/18 06/12/19 Rx metformin 1,000 mg tablet 1,000 mg PO BID #180 tab-cap 08/20/18 06/12/19 Rx dulaglutide 0.75 mg/0.5 mL 0.75 mg SUBCUT QWEEK #12 syringe 09/06/18 06/12/19 Rx subcutaneous pen injector insulin glargine 100 unit/mL (3 60 unit SUBCUT HS #2 ml 01/21/19 06/12/19 History mL) subcutaneous pen losartan 25 mg tablet 25 mg PO DAILY #90 tab-cap 01/21/19 06/12/19 Rx alfuzosin 10 mg tablet,extended 10 mg PO DAILY #90 tab-cap 02/18/19 06/12/19 Rx release 24 hr finasteride 5 mg tablet 5 mg PO HS #90 tab-cap 02/18/19 06/12/19 Rx clopidogrel 75 mg tablet 75 mg PO DAILY #90 tab-cap 03/25/19 06/12/19 Rx furosemide 20 mg tablet 40 mg PO BID #180 tab-cap 03/25/19 06/12/19 Rx acetaminophen 500 mg tablet 1,000 mg PO BID PRN tab 03/29/19 06/12/19 History isosorbide mononitrate 30 mg 30 mg PO DAILY #90 tab-cap 04/22/19 06/12/19 Rx tablet,extended release 24 hr hydralazine 10 mg tablet 10 mg PO BID #180 tab-cap 06/03/19 06/12/19 Rx ranitidine HCl 150 mg tablet 150 mg PO BID #180 tab-cap 06/03/19 06/12/19 Rx Allergies Allergy/AdvReac Type Severity Reaction Status Date / Time No Known Allergies Allergy Unverified 06/12/19 20:58 Exam Const General: cooperative, comfortable, no acute distress, well developed and well groomed Nutritional Appearance: obese morbidly obese Orientation: alert, awake and oriented x3 HENMT Head: normal to inspection, no palpable skull fracture, normocephalic and atraumatic General nose exam: external nose normal and nares normal Face and sinus: normal facial exam and face symmetric Mouth: oral mucosae normal, lip normal, tongue normal, oropharynx normal and moist mucous membranes Throat: posterior oropharynx normal and uvula midline Eyes General: appearance normal, both eyes and all related structures Alignment and Position: alignment normal Periorbital: periorbital findings normal Eyelids: eyelids normal Conjunctivae: conjunctivae normal Sclera: sclerae normal Cornea: corneas normal Pupils: PERRL, normal by confrontation and accommodation normal EOM: EOM intact bilaterally Direct ophthalmoscopy: normal light reflex Neck Neck: normal visual inspection, full ROM, no lymphadenopathy, trachea midline, supple and No no JVD Thyroid: thyroid normal Carotids: normal carotid upstroke Lymphatic: no lymphadenopathy noted Resp Effort & Inspection: normal respiratory effort, able to speak in complete sentences and prolonged expiratory phase Auscultation: crackles bilaterally at the base Percussion: percussion normal Cardio Jugular venous pressure: no JVD Palpation: normal PMI Rate: regular rate Rhythm: abnormal rhythm with ectopic beats Heart Sounds: S1 normal, abnormal opening sounds fixed, split S2, no gallops, no murmurs and no rubs Bruits: no abdominal aortic bruits and no carotid bruits Pulses: posterior tibial pulses present bilaterally 1+ and diminished and dorsalis pedis pulses present bilaterally 1+ and diminished General: No CVA tenderness Back/Spine/Pelvis Back: no CVA tenderness Cervical Spine: normal cervical lordosis Thoracic/Lumbar Spine: thoracic and lumbar spine normal to inspection Skin General skin exam: no rashes or lesions noted, elasticity normal and turgor normal Neuro General: alert, awake, oriented x3, moves all extremities and no focal motor deficits Cranial Nerves: PERRL, accommodation normal, EOM intact bilaterally, no nystagmus, facial strength normal, tongue midline, able to rotate head bilaterally, able to elevate shoulders bilaterally and Symmetric palate elevation Cognition: normal cognition Speech: speech normal Motor: muscle tone normal throughout, strength 5/5 throughout and no movement abnormalities noted Extrem General: full ROM, normal capillary refill, no joint enlargement, no clubbing, cyanosis or edema and no calf tenderness Psych Appearance: grossly normal Mental Status: mental status grossly normal Speech and Movement: speech and movement normal Mood: congruent mood Affect: normal affect Attitude: cooperative Thought Process: normal Thought Content: normal Insight: insight good Judgment: judgment good Results Labs : 06/12/19 21:04 06/12/19 21:04 Laboratory Results - last 24 hr 06/12/19 06/12/19 06/12/19 21:04 21:04 21:04 WBC 7.04 RBC 4.10 L Hgb 12.7 L Hct 38.4 L MCV 93.7 MCH 31.0 MCHC 33.1 RDW 13.6 Plt Count 250 MPV 9.8 Immature Gran % 0.3 Neutrophils % 69.6 Lymphocytes % 18.3 Monocytes % 9.4 Eosinophils % 2.0 Basophils % 0.4 Absolute Neutrophils 4.90 Absolute Lymphocytes 1.29 Absolute Monocytes 0.66 Absolute Eosinophils 0.14 Absolute Basophils 0.03 PT 9.2 L INR 0.9 APTT 20.7 L Sodium 140 Potassium 3.6 Chloride 103 Carbon Dioxide 25.9 Anion Gap 11.1 H BUN 31 H Creatinine 1.25 Estimated GFR/1.73 m2 55.57 Glucose 338 H Calcium 8.2 L Magnesium 2.0 Total Bilirubin 0.2 AST 12 L ALT 43 Alkaline Phosphatase 102 Troponin I < 0.05 Total Protein 7.1 Albumin 3.5 Last Vital Signs Temp 36.6 C 06/12/19 20:54 Pulse 89 06/12/19 22:00 Resp 17 06/12/19 22:01 BP 134/72 06/12/19 22:00 Pulse Ox 92 L 06/12/19 22:01
[2019-06-13] VITALS (38 sets, daily range): BP systolic 110–144; BP diastolic 52–113; PULSE 53–163; RESP 14–21; TEMP 36–36.9; O2SAT 91–97
[2019-06-13] MEDS: Enoxaparin 40 MG/0.4 ML SYR SC (00:44)
--- NOTE | 2019-06-13 01:10 | NUR.NOTE ---
Nursing Note: Pt admitted as observation status in Rm 212. Hard of hearing noticed has hearing aides but left it at home. Pt did not want to take lantus as ordered tonight, he claimed that insulin was administered this morning. Latest FS is 194. Denied of chest pain until this time. Both feet is net coordinator colored compared to other parts of the body. Pulses are within normal limit. Call lights at reach.
[2019-06-13 02:10] LABS: NT-proBNP 329 pg/mL
[2019-06-13 02:22] LABS: Troponin I 1.13 ng/mL (0.00-0.06)
[2019-06-13] MEDS: Normal Saline Flush 10 ML SYR IVP ×2 (03:23→15:52)
[2019-06-13 06:55] LABS: Calculated LDL 71 mg/dL; Cholesterol 119 mg/dL (50-200); HDL Cholesterol 38 mg/dL (40-60); TSH (W/Ref FT4) 2.91 uIU/mL (0.36-3.74); Triglyceride 50 mg/dL (30-150)
[2019-06-13 07:04] LABS: Troponin I 2.83 ng/mL (0.00-0.06)
[2019-06-13 07:16] LABS: Hemoglobin A1C 7.9 % (4.5-6.2)
--- NOTE | 2019-06-13 08:17 | INITIAL_ITS ---
- If Service Date Differs Date of service: 06/13/19 Time of Service: 08:17 Care Management Initial Assess REASON FOR HOSPITALIZATION:: Chest Pain PAST MEDICAL HISTORY/PAST SURGICAL HISTORY:: Medical History (Updated 06/13/19 @ 01:28 by Nikhil Pineda). Actinic keratosis (Resolved 08/04/17). Anemia (Resolved). ASCVD (arteriosclerotic cardiovascular disease) (Chronic). Basal cell carcinoma of back (Resolved 08/04/17). BPH (benign prostatic hyperplasia) (Chronic). Carpal tunnel syndrome on both sides (Chronic 03/28/18). Diabetic peripheral neuropathy (Chronic 02/21/18). Diastolic heart failure (Chronic 02/27/15). DM type 2 (diabetes mellitus, type 2). Erectile dysfunction (Chronic 12/15/11). Essential hypertension (Chronic 02/05/13). GERD (gastroesophageal reflux disease) (Chronic). Hearing loss, conductive (Chronic). Hearing loss, sensorineural (Chronic). Hyperlipidemia, unspecified (Chronic). Hypoxemia (Chronic 04/02/17). Interstitial lung disease (Chronic 07/28/16). LBBB (left bundle branch block) (Chronic). Migraine (Chronic 12/15/11). 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 Obesity (BMI 30-39.9) (Chronic). Polymyalgia rheumatica (Chronic 08/17/16). Severe obstructive sleep apnea (Chronic 04/10/17). Type 2 diabetes mellitus with diabetic neuropathy, with long-term current use of insulin (Chronic). Surgical History (Updated 06/13/19 @ 01:16 by Nikhil Pineda). History of cataract extraction with lens replacement (Acute). History of heart artery stent (Chronic). History of repair of retinal defect by laser photocoagulation (Acute). History of YAG laser capsulotomy of lens (Acute) PREVIOUS FUNCTIONAL STATUS/SOCIAL/FAMILY SUPPORTS:: Lasha lives in a single family home in [facility] with his Ceci. They enjoy single level living but do have a large finished recreation area/office in the finished basement. Lasha and Ceci have 2 children that live locally and one grandson. They also own a home in [place] and have a place on [address]. Lasha and his are active and independent and both still drive. 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 CURRENT FUNCTIONAL STATUS:: Lasha was sitting up in bed when CM came to meet with him. He was pleasant and readily engaged in conversation. Lasha is being transferred to [facility] this afternoon for additional testing and possibe intervention for his coronary disease. ADVANCE DIRECTIVES:: None on file Has patient been provided with information about the portal?: No Did the patient sign up for the portal?: Yes (previously) CODE STATUS:: Full Code INSURANCE COVERAGE / FINANCIAL ISSUES:: Medicare. [employer] CURRENT HOME/COMMUNITY SERVICES/EQUIPMENT:: none currently PRIMARY CARE PHYSICIAN:: Michell Bishop POTENTIAL DISCHARGE NEEDS:: follow up with PCP, Cardiology and discharge plan of care PATIENT/FAMILY EDUCATION NEEDS:: Discharge plan, limitations, follow up plan, Ask Me Three. ANTICIPATED BARRIERS TO DISCHARGE:: none TRANSPORTATION:: via private vehicle with family PLAN:: Lasha will be transferred to [facility] this afternoon for further evaluation and treatment of his chest pain. Lasha has an extensiver cardiac history with 7 stents. He states he expects he will have an eighth stent placed tomorrow. Transport will be by ambulance coordinated by the nursing transportation maintenance supervisor.
--- NOTE | 2019-06-13 09:00 | MERGE_ITS ---
*[facility]* *[facility]* [address] [place] [address] Date of study: 06/13/2019 Transthoracic Echocardiography M-mode, complete 2D, complete spectral Doppler, and color Doppler *STUDY CONCLUSIONS* Summary: 1. Left ventricle: The cavity size was normal. Wall thickness was increased in a pattern of moderate to severe LVH. Systolic function was at the lower limits of normal. The estimated ejection fraction was 50-55%. Severe hypokinesis of the inferolateral and inferior myocardium. Hypokinesis of the apicalinferoseptal and apical myocardium. 2. Right ventricle: The cavity size was normal. Systolic function was low normal. 3. Ventricular septum: Septal motion showed paradoxical motion consistent with Bundle Branch Block. 4. Pulmonary arteries: Pulmonary systolic pressure was increased, in the range of 40mm Hg to 45mm Hg. 5. Inferior vena cava: The vessel was patent and normal in size. The respirophasic diameter changes were in the normal range (greater than or equal to 50%), consistent with normal central venous pressure. *PATIENT PRESENTATION* Height: 182.9cm (72in ) S/D Pressure: 137 / 58 Weight: 107kg (235.5lb ) BSA: 2.36m^2 Test start time: 09:20 AM. Test stop time: 10:15 AM. PERFORMING Unknown PERFORMING [facility] CONSULTING Yoan Pineda ORDERING Yoan Pineda REFERRING Yoan Pineda MANAGER OF ENGINEERING RT Loy (R)(CT), JEAN *PROCEDURE DATA* Procedure information: The patient was identified by two identifiers. This study was interpreted by [facility]. Pertinent images and digital data are archived for permanent storage and are available for subsequent review. Comparison was made to the study of 01/30/2018. Study status: Routine. Transthoracic echocardiography. M-mode, complete 2D, complete spectral Doppler, and color Doppler. A Transthoracic Echocardiogram was performed. Scanning was performed from the parasternal, apical, subcostal, and suprasternal notch acoustic windows. Images were obtained using an [id number] cardiac ultrasound machine. Image quality was adequate. Study completion: The patient tolerated the procedure well. There were no complications. History: PMH: Elevated troponin. *CARDIAC ANATOMY* Left ventricle: The cavity size was normal. Wall thickness was increased in a pattern of moderate to severe LVH. Systolic function was at the lower limits of normal. The estimated ejection fraction was 50-55%. Regional wall motion abnormalities: Severe hypokinesis of the inferolateral and inferior myocardium. Hypokinesis of the apicalinferoseptal and apical myocardium. Aortic valve: Trileaflet; mildly thickened leaflets. Mobility was not restricted. Doppler: Transvalvular velocity was within the normal range. There was no stenosis. There was no significant regurgitation. VTI ratio of LVOT to aortic valve: 0.86. Valve area (VTI): 2.9cm^2. Indexed valve area (VTI): 1.2cm^2/m^2. Peak velocity ratio of LVOT to aortic valve: 0.87. Valve area (Vmax): 2.9cm^2. Indexed valve area (Vmax): 1.2cm^2/m^2. Mean velocity ratio of LVOT to aortic valve: 0.83. Valve area (Vmean): 2.8cm^2. Indexed valve area (Vmean): 1.2cm^2/m^2. Mean gradient (S): 3.4mm Hg. Peak gradient (S): 5.4mm Hg. Aorta: Aortic root: The aortic root was mildly dilated. Ascending aorta: The ascending aorta was normal in size. Mitral valve: Mildly calcified annulus. Mildly thickened leaflets. Mobility was not restricted. Doppler: Transvalvular velocity was within the normal range. There was no evidence for stenosis. There was mild regurgitation. Valve area by pressure half-time: 3.2cm^2. Indexed valve area by pressure half-time: 1.4cm^2/m^2. Peak gradient (D): 2.1mm Hg. Left atrium: The atrium was normal in size. Right ventricle: The cavity size was normal. Systolic function was low normal. Ventricular septum: Septal motion showed paradoxical motion consistent with Bundle Branch Block. Pulmonic valve: The pulmonary valve appears to be grossly normal. Doppler: Transvalvular velocity was within the normal range. There was no evidence for stenosis. There was trivial regurgitation. Tricuspid valve: Structurally normal valve. Doppler: Transvalvular velocity was within the normal range. There was no evidence for stenosis. There was mild-moderate regurgitation. Pulmonary artery: Poorly visualized. Pulmonary systolic pressure was increased, in the range of 40mm Hg to 45mm Hg. Right atrium: The atrium was normal in size. Pericardium: There was no pericardial effusion. Systemic veins: Inferior vena cava: Well visualized. The vessel was patent and normal in size. The respirophasic diameter changes were in the normal range (greater than or equal to 50%), consistent with normal central venous pressure. Measurements Left ventricle Value 01/30/2018 Reference LV ID, ED, PLAX 5.2 cm 5.0 3.5 - 6.0 LV ID, ES, PLAX 3.9 cm 3.6 2.1 - 4.0 LV PW thickness, ED, PLAX 1.5 cm 1.5 LV end-diastolic volume, 109 ml 100 1-p A2C LV ejection fraction, 1-p 58 % 49 A2C LV end-diastolic volume, 178 ml 106 1-p A4C LV ejection fraction, 1-p 53 % 51 A4C LV e', lateral 0.056 m/sec 0.057 LV E/e', lateral 13 10 LV e', medial 0.047 m/sec 0.039 LV E/e', medial 15 15 LV e', average 0.052 m/sec 0.048 LV E/e', average 14 12 Ventricular septum Value 01/30/2018 Reference IVS thickness, ED, PLAX 1.8 cm 1.7 LVOT Value 01/30/2018 Reference LVOT ID, A-P 2.1 cm 2.1 LVOT area 3.4 cm^2 3.5 LVOT peak velocity, S 1.01 m/sec 1.01 LVOT mean velocity, S 0.75 m/sec 0.64 LVOT VTI, S 24.2 cm 19.8 LVOT peak gradient, S 4.1 mm Hg 4.1 LVOT mean gradient, S 2.4 mm Hg 1.9 Stroke volume (SV), LVOT 82 ml 69 DP Stroke index (SV/bsa), 35 ml/m^2 30 LVOT DP Aortic valve Value 01/30/2018 Reference Aortic valve peak 1.2 m/sec 1.2 velocity, S Aortic valve mean 0.9 m/sec 0.9 velocity, S Aortic valve VTI, S 28.0 cm 24.4 Aortic mean gradient, S 3.4 mm Hg 3.4 Aortic peak gradient, S 5.4 mm Hg VTI ratio, LVOT/AV 0.86 0.81 Aortic valve area, VTI 2.9 cm^2 2.8 Velocity ratio, peak, 0.87 0.84 LVOT/AV Aortic valve area, peak 2.9 cm^2 2.9 velocity Velocity ratio, mean, 0.83 0.72 LVOT/AV Aortic valve area, mean 2.8 cm^2 2.5 velocity Aortic valve area/bsa, 1.2 cm^2/m^2 1.1 mean velocity Aorta Value 01/30/2018 Reference Aortic root ID, ED 3.8 cm 3.9 Ascending aorta ID, A-P, S 3.7 cm 3.5 Left atrium Value 01/30/2018 Reference LA ID, A-P, ES 4.0 cm 3.6 LA ID/bsa, A-P 1.7 cm/m^2 1.6 <=2.2 LA volume/bsa, ES, 1-p A4C 29 ml/m^2 25 LA volume, ES, 2-p 62 ml 41 LA volume/bsa, ES, 2-p 26 ml/m^2 18 LA/aortic root ratio 1.04 0.93 Mitral valve Value 01/30/2018 Reference Mitral E-wave peak 0.72 m/sec 0.59 velocity Mitral A-wave peak 1.05 m/sec 1.04 velocity Mitral deceleration time (H) 234 ms 235 150 - 230 Mitral pressure half-time 68 ms 68 Mitral peak gradient, D 2.1 mm Hg Mitral E/A ratio, peak 0.69 0.57 Mitral valve area, PHT, DP 3.2 cm^2 3.2 Pulmonary veins Value 01/30/2018 Reference Pulmonary vein peak 0.75 m/sec 0.66 velocity, S Pulmonary vein peak 0.46 m/sec 0.41 velocity, D Pulmonary vein velocity 1.61 1.6 ratio, peak, S/D Pulmonary vein A-wave 0.46 m/sec 0.39 reversal peak velocity Pulmonary vein A-wave 152 ms 182 reversal duration Tricuspid valve Value 01/30/2018 Reference Tricuspid regurg peak 3.2 m/sec 2.9 velocity Tricuspid peak RV-RA 41.6 mm Hg 34.4 gradient Right atrium Value 01/30/2018 Reference RA area, ES, A4C 12.6 cm^2 12.8 8.3 - 19.5 Legend: (L) and (H) rachel values outside specified reference range. I have personally reviewed the images and have reviewed and edited the reported findings. Electronically signed by Harinder Brush 06/13/2019 11:47
[2019-06-13] MEDS: Spironolactone 25 MG TAB 12.5 MG PO (09:04)
[2019-06-13] MEDS: Ezetimibe 10 MG TAB PO (09:05)
[2019-06-13] MEDS: predniSONE 5 MG TAB PO (09:05)
[2019-06-13] MEDS: Clopidogrel 75 MG TAB PO (09:05)
[2019-06-13] MEDS: Potassium Chloride 20 MEQ TABCR 40 MEQ PO (09:05)
[2019-06-13] MEDS: Sennosides/Docusate Sodium TAB 1 TAB PO (09:06)
[2019-06-13] MEDS: hydrALAZINE 10 MG TAB PO (09:07)
[2019-06-13] MEDS: Furosemide 20 MG TAB 40 MG PO (09:07)
[2019-06-13] MEDS: Multivitamin TAB 1 TAB PO (09:07)
[2019-06-13] MEDS: Pantoprazole 20 MG TABCR PO (09:08)
[2019-06-13] MEDS: Losartan 25 MG TAB PO (09:08)
[2019-06-13] MEDS: Isosorbide Mononitrate 30 MG TABCR PO (09:08)
[2019-06-13] MEDS: Atorvastatin 40 MG TAB 80 MG PO (09:08)
[2019-06-13] MEDS: Aspirin 81 MG CHEW PO (09:09)
[2019-06-13] MEDS: Metoprolol CR 25 MG TABCR 75 MG PO (09:09)
[2019-06-13 09:45] LABS: PTT Activated 49.9 sec (21.0-31.4)
[2019-06-13 11:33] LABS: Troponin I 2.63 ng/mL (0.00-0.06)
[2019-06-13] MEDS: Insulin Aspart 300 UNITS/3 ML PEN SC (11:54)
--- NOTE | 2019-06-13 13:59 | W.PM.DS.N ---
Date of service: 06/13/19 Time of Service: 13:59 DS: Diagnosis Discharge Diagnosis (1) Chest pain at rest: Status: Acute (2) ASCVD (arteriosclerotic cardiovascular disease): Status: Chronic (3) GERD (gastroesophageal reflux disease): Status: Chronic (4) Type 2 diabetes mellitus with diabetic neuropathy, with long-term current use of insulin: Status: Chronic (5) NSTEMI (non-ST elevated myocardial infarction): Status: Acute Discharge Plan Disposition Patient Disposition: [facility] Condition: Stable Discharge Details Chief Complaint: Chest Pain Clinical Impression: Chest pain Reason For Visit: CHEST PAIN Admit Date/Time: 06/12/19 22:26 Admit Provider: Nikhil Pineda Attending Provider: Nikhil Pineda Primary Care Provider: Michell Bishop ED Provider: Tonio Rosenberg [facility] Course Hospital Course: Chief Complaint: Chest Pain HPI: 79 year old man with a prior history of CAD and DM, admitted from [facility] Emergency Department on 06/12 with complaints of Chest Pain. Mr. Pedro has a Past Medical History significant for CAD with a reported 7 prior stent. 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 Review of other records indicates probable mild or early pulmonary fibrosis on the basis of potential chronic aspiration in the setting of significant GERD. The patient presented with complaints of substernal chest pain following dinner, with radiation down his LUE. NTG at home failed to relieve his discomfort. Upon presentation to the ED he was noted to be mildly tachycardic, with essentially normal or unchanged labs (chronic mild anemia, Blood Sugar elevated at >300). ECG demonstrated unchanged LBBB, CXR without pathology, and initial troponin undetectable. His chest pain subsided with administration of NTG X1 and IV Lopressor. Of note, Mr. Pedro had undergone a negative stress ECHO in March of this year at [facility]. The patient was referred for admission to rule out for ACS. Shortly after admission Mr. Pedro's second troponin returned positive at 1.1, and he was initiated on a heparin drip. He was continued on his home regimen DAPT with ASA and Clopidogrel, high potency statin, and BB therapy. He is also on long acting nitrate, and was continued on prn NTG and Morphine. His next troponin returned higher at 2.8, but with patient remaining Chest Pain free. ECHO was performed, with LVEF 50-55%, severe hypokinesis of the inferolateral and inferior myocardium, as well as hypokinesis of the apicalinferoseptal and apical myocardium (in comparison, ECHO from March showed mid anteroseptal, mid inferoseptal, apical septal, and apical inferior wall segments as 'unchanged'). He remains asymptomatic, with repeat serial troponin stabilizing at 2.6. Given patient's history and current elevation in troponin he was accepted in transfer to [facility] for likely diagnostic LHC. He is asymptomatic at time of discharge. Home Meds and New Rx's Prescriptions: Continued dulaglutide 0.75 mg/0.5 mL pen injector 0.75 mg subcut QWEEK Qty: 12 RF: 0 losartan 25 mg tablet 25 mg PO DAILY Qty: 90 RF: 3 Lantus Solostar U-100 Insulin 100 unit/mL (3 mL) insulin pen 60 unit subcut HS Qty: 2 RF: 11 isosorbide mononitrate 30 mg tablet extended release 24 hr 30 mg PO DAILY Qty: 90 RF: 3 multivitamin [One Daily Multivitamin] 1 EACH tablet 1 ea PO DAILY RF: 0 aspirin [Aspirin Low-Strength] 81 MG tablet,chewable 81 mg PO DAILY RF: 0 (DME) OneTouch Ultra Test 1 EACH strip 1 ea Miscellaneous BID RF: 0 cholecalciferol (vitamin D3) 2,000 UNIT tablet 2,000 unit PO DAILY RF: 0 atorvastatin 80 MG tablet 80 mg PO DAILY RF: 0 pantoprazole 20 MG tablet,delayed release (DR/EC) 20 mg PO DAILY Qty: 90 RF: 3 sennosides-docusate sodium [Senna-S] 1 EACH tablet 1 ea PO BID RF: 0 (DME) lancets [OneTouch UltraSoft Lancets] 1 EACH misc 1 ea Miscellaneous BID Qty: 200 RF: 11 nitroglycerin 0.4 MG tablet, sublingual 0.4 mg Sublingual PRN Qty: 30 RF: 11 ezetimibe [Zetia] 10 MG tablet 10 mg PO DAILY Qty: 90 RF: 4 Metoprolol Succinate 25 MG TAB.ER.24H 3 tab-cap PO DAILY Qty: 270 RF: 0 spironolactone 25 mg tablet 12.5 mg PO DAILY Qty: 90 RF: 0 metformin 1,000 mg tablet 1,000 mg PO BID Qty: 180 RF: 3 alfuzosin 10 mg tablet extended release 24 hr 10 mg PO DAILY Qty: 90 RF: 4 finasteride 5 mg tablet 5 mg PO HS Qty: 90 RF: 4 clopidogrel [Plavix] 75 mg tablet 75 mg PO DAILY Qty: 90 RF: 3 furosemide 20 mg tablet 40 mg PO BID Qty: 180 RF: 3 acetaminophen 500 mg tablet 1,000 mg PO BID PRNRF: 0 hydralazine 10 mg tablet 10 mg PO BID Qty: 180 RF: 3 ranitidine HCl 150 mg tablet 150 mg PO BID Qty: 180 RF: 3 Discharge Instructions Activity:: OOB to chair Equipment/Supplies:: No Equipment Needed Diet:: Cardiac Diet Discharge Orders Discharge Orders: Discharge Order (Routine); Ordered 06/13/19 Ordered By: Tyler Kowalski Exam Narrative Exam Narrative: General: Patient appears comfortable, AAOX3, NAD Neck: Supple CV: Regular, nontachycardic, S1S2, No rubs, murmurs, or gallops. Pulmonary: Clear to auscultation bilaterally, no crackles, wheezing, or rhonchi Abdomen: + Bowel Sounds, soft, nontender, nondistended Vascular: No lower extremity edema Psych: Normal mood and affect. DS: Data Vitals/I&O Vitals and I&O: Vital Signs Temperature 36.7 C 06/13/19 12:18 Temperature Source Temporal Artery Scan 06/13/19 12:18 Pulse 62 06/13/19 12:18 Pulse 74 06/13/19 09:01 Respiratory Rate 18 06/13/19 12:18 Respiratory Effort 06/13/19 12:18 Respiratory Depth Normal 06/13/19 12:18 Respiratory Pattern Normal 06/13/19 12:18 Blood Pressure 137/75 06/13/19 12:18 Blood Pressure Mean 95 06/13/19 12:18 Blood Pressure Position Supine 06/13/19 12:18 Pulse Oximetry 96 06/13/19 12:18 Oxygen Delivery Method Room Air 06/13/19 12:18 Oxygen Flow Rate 0 06/13/19 12:18 Pain Level 0 06/13/19 12:18 Intake & Output 06/12/19 06/13/19 06/13/19 23:59 11:59 23:59 Intake Total 462.333 / 702.333 240 / 702.333 Output Total 375 / 525 150 / 525 Balance 87.333 / 177.333 90 / 177.333 Weight 107.1 kg 103.8 kg Intake: IV 62.333 / 62.333 Oral 400 / 640 240 / 640 Output: Urine 375 / 525 150 / 525 Other: Urine Color Yellow Yellow Urine Appearance Clear Clear Completed studies during hospitalization [Text1]: Exam(s) a US:US echocardiogram Date of study: 06/13/2019 Transthoracic Echocardiography M-mode, complete 2D, complete spectral Doppler, and color Doppler *STUDY CONCLUSIONS* Summary: 1. Left ventricle: The cavity size was normal. Wall thickness was increased in a pattern of moderate to severe LVH. Systolic function was at the lower limits of normal. The estimated ejection fraction was 50-55%. Severe hypokinesis of the inferolateral and inferior myocardium. Hypokinesis of the apicalinferoseptal and apical myocardium. 2. Right ventricle: The cavity size was normal. Systolic function was low normal. 3. Ventricular septum: Septal motion showed paradoxical motion consistent with Bundle Branch Block. 4. Pulmonary arteries: Pulmonary systolic pressure was increased, in the range of 40mm Hg to 45mm Hg. 5. Inferior vena cava: The vessel was patent and normal in size. The respirophasic diameter changes were in the normal range (greater than or equal to 50%), consistent with normal central venous pressure. Exam(s) 06/12/2019 a RAD:XR portable chest AP SYMPTOM/DIAGNOSIS: CHEST PAIN CHEST X-RAY: Portable AP view. Comparison 03/03/19 Heart size and pulmonary vasculature are within normal limits. The lungs are clear. There is again seen mild elevation of the left hemidiaphragm which is stable. No effusions or pneumothoraces are identified. No acute osseous abnormality is appreciated. IMPRESSION: No acute pulmonary process. Labs on day of discharge: Labs from last 24 hours 06/13/19 06/13/19 06/13/19 10:35 09:15 06:20 WBC RBC Hgb Hct MCV MCH MCHC RDW Plt Count MPV Immature Gran % Neutrophils % Lymphocytes % Monocytes % Eosinophils % Basophils % Absolute Neutrophils Absolute Lymphocytes Absolute Monocytes Absolute Eosinophils Absolute Basophils PT INR APTT 49.9 H Sodium Potassium Chloride Carbon Dioxide Anion Gap BUN Creatinine Estimated GFR/1.73 m2 Glucose Hemoglobin A1c 7.9 H Calcium Magnesium Total Bilirubin AST ALT Alkaline Phosphatase Troponin I 2.63 H* NT-Pro-B Natriuret Pep Total Protein Albumin Triglycerides Total Cholesterol LDL Cholesterol, Calc HDL Cholesterol TSH 06/13/19 06/13/19 06/13/19 06:20 05:35 01:40 WBC RBC Hgb Hct MCV MCH MCHC RDW Plt Count MPV Immature Gran % Neutrophils % Lymphocytes % Monocytes % Eosinophils % Basophils % Absolute Neutrophils Absolute Lymphocytes Absolute Monocytes Absolute Eosinophils Absolute Basophils PT INR APTT Sodium Potassium Chloride Carbon Dioxide Anion Gap BUN Creatinine Estimated GFR/1.73 m2 Glucose Hemoglobin A1c Calcium Magnesium Total Bilirubin AST ALT Alkaline Phosphatase Troponin I 2.83 H* NT-Pro-B Natriuret Pep 329 H Total Protein Albumin Triglycerides 50 Cancelled Total Cholesterol 119 Cancelled LDL Cholesterol, Calc 71 Cancelled HDL Cholesterol 38 L Cancelled TSH 2.91 06/13/19 06/12/19 06/12/19 01:40 21:04 21:04 WBC 7.04 RBC 4.10 L Hgb 12.7 L Hct 38.4 L MCV 93.7 MCH 31.0 MCHC 33.1 RDW 13.6 Plt Count 250 MPV 9.8 Immature Gran % 0.3 Neutrophils % 69.6 Lymphocytes % 18.3 Monocytes % 9.4 Eosinophils % 2.0 Basophils % 0.4 Absolute Neutrophils 4.90 Absolute Lymphocytes 1.29 Absolute Monocytes 0.66 Absolute Eosinophils 0.14 Absolute Basophils 0.03 PT 9.2 L INR 0.9 APTT 20.7 L Sodium Potassium Chloride Carbon Dioxide Anion Gap BUN Creatinine Estimated GFR/1.73 m2 Glucose Hemoglobin A1c Calcium Magnesium Total Bilirubin AST ALT Alkaline Phosphatase Troponin I 1.13 H* NT-Pro-B Natriuret Pep Total Protein Albumin Triglycerides Total Cholesterol LDL Cholesterol, Calc HDL Cholesterol TSH 06/12/19 21:04 WBC RBC Hgb Hct MCV MCH MCHC RDW Plt Count MPV Immature Gran % Neutrophils % Lymphocytes % Monocytes % Eosinophils % Basophils % Absolute Neutrophils Absolute Lymphocytes Absolute Monocytes Absolute Eosinophils Absolute Basophils PT INR APTT Sodium 140 Potassium 3.6 Chloride 103 Carbon Dioxide 25.9 Anion Gap 11.1 H BUN 31 H Creatinine 1.25 Estimated GFR/1.73 m2 55.57 Glucose 338 H Hemoglobin A1c Calcium 8.2 L Magnesium 2.0 Total Bilirubin 0.2 AST 12 L ALT 43 Alkaline Phosphatase 102 Troponin I < 0.05 NT-Pro-B Natriuret Pep Total Protein 7.1 Albumin 3.5 Triglycerides Total Cholesterol LDL Cholesterol, Calc HDL Cholesterol TSH [facility] Medical History Actinic keratosis (Resolved 08/04/17) Anemia (Resolved) ASCVD (arteriosclerotic cardiovascular disease) (Chronic) Basal cell carcinoma of back (Resolved 08/04/17) BPH (benign prostatic hyperplasia) (Chronic) Carpal tunnel syndrome on both sides (Chronic 03/28/18) Diabetic peripheral neuropathy (Chronic 02/21/18) Diastolic heart failure (Chronic 02/27/15) DM type 2 (diabetes mellitus, type 2) Erectile dysfunction (Chronic 12/15/11) Essential hypertension (Chronic 02/05/13) GERD (gastroesophageal reflux disease) (Chronic) Hearing loss, conductive (Chronic) Hearing loss, sensorineural (Chronic) Hyperlipidemia, unspecified (Chronic) Hypoxemia (Chronic 04/02/17) Interstitial lung disease (Chronic 07/28/16) LBBB (left bundle branch block) (Chronic) Migraine (Chronic 12/15/11) 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 Sister No problems noted. Social History Smoking/Tobacco Use Status: Former Tobacco Use Alcohol Intake: current Alcohol Intake frequency: 0-2 drinks per day Drug use: Never Substance use type: does not use Caregiver/Support person: No Household members: spouse Number of Children: 2 Communication Needs: Hard of Hearing Education Level: high school Pets and animals: Yes Pets and animals: cat(s) Current gender identity: male What type of physical activity do you participate in: other Details: cardiac rehab Frequency: 3-4 times per week Seatbelt use: always Do you feel safe at home: Yes Do you feel safe in your relationship?: Yes
== END 2019-06-13 16:20 | disposition short-term general hospital (02) ==
LOC: ER 22:38 → MS 22:56 → ICU 06-13 03:36
PROVIDERS: Admitting Provider Internal Medicine; Emergency Provider Emergency Medicine; PCP Nurse Practitioner Family; Visit Provider Internal Medicine
DX: I25.10 Atherosclerotic heart disease of native coronary artery without angina pectoris; K21.9 Gastro-esophageal reflux disease without esophagitis; E11.42 Type 2 diabetes mellitus with diabetic polyneuropathy; Z79.4 Long term (current) use of insulin; I21.4 Non-ST elevation (NSTEMI) myocardial infarction; I50.32 Chronic diastolic (congestive) heart failure; I11.0 Hypertensive heart disease with heart failure
CPT/HCPCS: 36415; 80053; 80061; 83721; 93005; 93306; 99220; 99239; 99285; J1650; 71045; 83036; 83735; 83880; 84443; 84484; 85025; 85610; 85730; 93010; 99217; G0378; J7512

== ENCOUNTER 2019-07-22 09:00 | Outpatient (RCR) | payer MEDICARE, OTHER, SELFPAY | END 2019-07-22 23:59 | disposition home or self-care (01) | LOC: CR 09:00 | PROVIDERS: PCP Nurse Practitioner Family; Visit Provider Family Medicine | DX: Z51.89 Encounter for other specified aftercare (principal); I25.2 Old myocardial infarction | CPT/HCPCS: S9472 ==

== ENCOUNTER → 2019-07-30 08:49 | Outpatient (BNVA) | payer MEDICARE, OTHER, SELFPAY | PROVIDERS: PCP Nurse Practitioner Family; Referring Provider Nurse Practitioner Family; Visit Provider Internal Medicine Cardiovascular Disease | DX: E78.5 Hyperlipidemia, unspecified (principal); I25.10 Atherosclerotic heart disease of native coronary artery without angina pectoris; I10 Essential (primary) hypertension; E11.42 Type 2 diabetes mellitus with diabetic polyneuropathy; Z79.4 Long term (current) use of insulin | CPT/HCPCS: 99205; 99215 ==

== ENCOUNTER 2019-07-31 23:16 | Inpatient (IN) | payer MEDICARE, OTHER, SELFPAY ==
--- NOTE | 2019-07-31 00:30 | DI.RAD_ITS ---
EXAM: XR CHEST 2V PA LATERAL INDICATION: chest pain. COMPARISON: XR PORTABLE CHEST AP from 06/12/2019 TECHNIQUE: 2D digital imaging was performed. FINDINGS: The heart is mildly enlarged. Lungs are predominantly clear. No pleural effusion seen. IMPRESSION: No evidence of acute process.
[2019-07-31 23:31] VITALS: BP 154/58; PULSE 96; RESP 18; TEMP 36.3; O2SAT 95
--- NOTE | 2019-07-31 23:37 | W.ED.GENAD ---
Discharge Plan Disposition Patient Disposition: [facility] INPATIENT Condition: Fair Discharge Details Chief Complaint: Chest Pain Clinical Impression: Chest pain Primary Care Provider: Michell Bishop ED Provider: Tonio Rosenberg Bell Meds and New Rx's Prescriptions: No Action dulaglutide 0.75 mg/0.5 mL pen injector 0.75 mg subcut QWEEK Qty: 12 RF: 0 Lantus Solostar U-100 Insulin 100 unit/mL (3 mL) insulin pen 61 unit subcut HS Qty: 2 RF: 11 losartan 100 mg tablet 100 mg PO DAILY Qty: 90 RF: 3 prednisone 5 mg tablet 5 mg PO DAILY RF: 0 isosorbide mononitrate 30 mg tablet extended release 24 hr 30 mg PO DAILY Qty: 90 RF: 3 multivitamin [One Daily Multivitamin] 1 EACH tablet 1 ea PO DAILY RF: 0 aspirin [Aspirin Low-Strength] 81 MG tablet,chewable 81 mg PO DAILY RF: 0 (DME) OneTouch Ultra Test 1 EACH strip 1 ea Miscellaneous BID RF: 0 cholecalciferol (vitamin D3) 2,000 UNIT tablet 2,000 unit PO DAILY RF: 0 atorvastatin 80 MG tablet 80 mg PO DAILY RF: 0 pantoprazole 20 MG tablet,delayed release (DR/EC) 20 mg PO DAILY Qty: 90 RF: 3 sennosides-docusate sodium [Senna-S] 1 EACH tablet 1 ea PO BID RF: 0 (DME) lancets [OneTouch UltraSoft Lancets] 1 EACH misc 1 ea Miscellaneous BID Qty: 200 RF: 11 nitroglycerin 0.4 MG tablet, sublingual 0.4 mg Sublingual PRN Qty: 30 RF: 11 ezetimibe [Zetia] 10 MG tablet 10 mg PO DAILY Qty: 90 RF: 4 Metoprolol Succinate 25 MG TAB.ER.24H 3 tab-cap PO DAILY Qty: 270 RF: 0 spironolactone 25 mg tablet 12.5 mg PO DAILY Qty: 90 RF: 0 metformin 1,000 mg tablet 1,000 mg PO BID Qty: 180 RF: 3 alfuzosin 10 mg tablet extended release 24 hr 10 mg PO DAILY Qty: 90 RF: 4 finasteride 5 mg tablet 5 mg PO HS Qty: 90 RF: 4 clopidogrel [Plavix] 75 mg tablet 75 mg PO DAILY Qty: 90 RF: 3 furosemide 20 mg tablet 40 mg PO BID Qty: 180 RF: 3 acetaminophen 500 mg tablet 1,000 mg PO BID PRNRF: 0 hydralazine 10 mg tablet 10 mg PO BID Qty: 180 RF: 3 Medical Decision Making 79-year-old male with known coronary disease with multiple stents presenting with chest pain that occurred at rest. Currently pain-free. EKG from triage shows old left bundle branch block. IV established and laboratory studies sent. Chest x-ray ordered. He is on aspirin and Plavix which he takes daily and did take today. Patient laboratory studies significant for mild anemia which is baseline. He has some renal insufficiency which is also baseline. Blood sugar little high at 236. First troponin negative. Chest x-ray unremarkable per my review as well as preliminary radiology read. Given the patient's previous cardiac history and recent stent placement in May with chest pain radiating to left arm for half an hour, we will admit for observation, serial enzymes and EKGs, consideration for stress testing. Case discussed with hospitalist who is in agreement. Medical Records Medical records reviewed: Yes I reviewed the patient's medical records. Lab Data Lab results reviewed: Yes I reviewed the patient's lab results. ECG Data Attestation: I personally reviewed and interpreted this ECG (s) as follows: Prior ECG tracings: available for review Interpretation: Normal sinus rhythm at 97. First-degree heart block as well as left bundle branch block. Unchanged from previous. HPI General Mode of arrival: ambulatory. Date/Time Provider Initiated Documentation: 07/31/19 23:36. Limitations to Documentation: no limitations. Information obtained by: patient, RN notes reviewed and old records reviewed. HPI Narrative: Patient presents to emergency department with complaint of chest pain radiating to left arm. Patient has a prior history of cardiac disease with multiple caths and stents. Most recently in May of this year he had 2 stents placed. He developed chest pain at rest tonight. It radiated into the left arm.. There was some associated lightheadedness and diaphoresis. There was no associated shortness of breath or nausea. Reminded him a little of his previous angina. It did resolve after about half an hour or so. He has been going to cardiac rehab without issues. He has not been ill recently. There is no fever or cough. There was no neck or back pain. He is currently pain-free. Related Data Home Medications Medication Instructions Recorded Confirmed multivitamin [One Daily 1 ea PO DAILY 01/23/13 07/31/19 Multivitamin] aspirin [Aspirin Low-Strength] 81 mg PO DAILY tab 04/03/14 07/31/19 OneTouch Ultra Test strip 12/24/14 07/31/19 cholecalciferol (vitamin D3) 2,000 unit PO DAILY 08/17/16 07/31/19 atorvastatin 80 mg PO DAILY tab-cap 06/08/17 07/31/19 pantoprazole 20 mg PO DAILY #90 tab-cap 07/20/17 07/31/19 sennosides-docusate sodium 1 ea PO BID 10/09/17 07/31/19 [Senna-S] lancets [[facility] UltraSoft #200 ea 04/04/18 07/31/19 Lancets] nitroglycerin 0.4 mg SUBLINGUAL PRN #30 tab 04/30/18 07/31/19 ezetimibe [Zetia] 10 mg PO DAILY #90 tab-cap 05/21/18 07/31/19 spironolactone 25 mg tablet 12.5 mg PO DAILY #90 tab-cap 07/30/18 07/31/19 metformin 1,000 mg tablet 1,000 mg PO BID #180 tab-cap 08/20/18 07/31/19 dulaglutide 0.75 mg/0.5 mL 0.75 mg SUBCUT QWEEK #12 syringe 09/06/18 07/31/19 subcutaneous pen injector alfuzosin 10 mg tablet,extended 10 mg PO DAILY #90 tab-cap 02/18/19 07/31/19 release 24 hr finasteride 5 mg tablet 5 mg PO HS #90 tab-cap 02/18/19 07/31/19 clopidogrel 75 mg tablet 75 mg PO DAILY #90 tab-cap 03/25/19 07/31/19 furosemide 20 mg tablet 40 mg PO BID #180 tab-cap 03/25/19 07/31/19 acetaminophen 500 mg tablet 1,000 mg PO BID PRN tab 03/29/19 07/31/19 isosorbide mononitrate 30 mg 30 mg PO DAILY #90 tab-cap 04/22/19 07/31/19 tablet,extended release 24 hr hydralazine 10 mg tablet 10 mg PO BID #180 tab-cap 06/03/19 07/31/19 prednisone 5 mg tablet 5 mg PO DAILY 06/28/19 07/31/19 insulin glargine 100 unit/mL (3 61 unit SUBCUT HS #2 ml 07/30/19 07/31/19 mL) subcutaneous pen losartan 100 mg tablet 100 mg PO DAILY #90 tab 07/30/19 07/31/19 Previous Rx's Medication Instructions Recorded pantoprazole 20 mg PO DAILY #90 tab-cap 07/20/17 lancets [OneTouch UltraSoft #200 ea 04/04/18 Lancets] nitroglycerin 0.4 mg SUBLINGUAL PRN #30 tab 04/30/18 ezetimibe [Zetia] 10 mg PO DAILY #90 tab-cap 05/21/18 spironolactone 25 mg tablet 12.5 mg PO DAILY #90 tab-cap 07/30/18 metformin 1,000 mg tablet 1,000 mg PO BID #180 tab-cap 08/20/18 dulaglutide 0.75 mg/0.5 mL 0.75 mg SUBCUT QWEEK #12 syringe 09/06/18 subcutaneous pen injector alfuzosin 10 mg tablet,extended 10 mg PO DAILY #90 tab-cap 02/18/19 release 24 hr finasteride 5 mg tablet 5 mg PO HS #90 tab-cap 02/18/19 clopidogrel 75 mg tablet 75 mg PO DAILY #90 tab-cap 03/25/19 furosemide 20 mg tablet 40 mg PO BID #180 tab-cap 03/25/19 isosorbide mononitrate 30 mg 30 mg PO DAILY #90 tab-cap 04/22/19 tablet,extended release 24 hr hydralazine 10 mg tablet 10 mg PO BID #180 tab-cap 06/03/19 losartan 100 mg tablet 100 mg PO DAILY #90 tab 07/30/19 Allergies Allergy/AdvReac Type Severity Reaction Status Date / Time No Known Allergies Allergy Unverified 07/31/19 23:33 General Stated Complaint: Chest Pain EDUARDO: 2 Review of Systems Review of Systems Narrative: 08/05 Review of Systems completed and is negative except as stated above in HPI (Systems reviewed: Const, Eyes, ENT, Resp, CV, GI, , MSK, Skin, Neuro) [facility] Medical History Actinic keratosis (Resolved 08/04/17) scattered on face Anemia (Resolved) a. With heme-positive stool. ASCVD (arteriosclerotic cardiovascular disease) (Chronic) Stenting in 2004 and 2005; 04/02/14 NSTEMI: KECIA to LCX and LAD ([facility], Dr. Watkins); 03/16/16 NSTEMI: KECIA to LCX (85% stenosis) with LVEH 61% ([facility] [place]); DSE @ [facility] 04/02/2019: no ischemic changes on post stress echo. LVEF 60% mild LVH; no change in resting regional wall motion abnormalities (see details under diastolic CHF heading); 06/14/19 stent x2 and angioplastyx1 2019: INDEFINITE DAPT with ASA and Plavix! Basal cell carcinoma of back (Resolved 08/04/17) midline upper back BPH (benign prostatic hyperplasia) (Chronic) Carpal tunnel syndrome on both sides (Chronic 03/28/18) Diabetic peripheral neuropathy (Chronic 02/21/18) Diastolic heart failure (Chronic 02/27/15) Echo 01/2015 EF 50% mild-mod diastolic dysfx; TTE and DSE: 04/02/2019 @ [facility] [place]: global normal LV systolic fxn, LVEF 60%, mild LVH,RWMA w/ HK of mid ant-septal, mid infero-septal, apical septal, apical inferior wall segments; mod. LAE, RV not well seen, LYNDSEY mild, tricuspid AV w/out stenosis or AI, MAC w/out MS; doppler inadequate for assessment of MR, TR not able to be assessed, mild aortic root dilatation. Stress echo failed to demonstrate ischemic changes. DM type 2 (diabetes mellitus, type 2) Erectile dysfunction (Chronic 12/15/11) Essential hypertension (Chronic 02/05/13) GERD (gastroesophageal reflux disease) (Chronic) 05/15/2012 EGD (Dr. 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) NSTEMI (non-ST elevated myocardial infarction) (Inactive ~06/13/19) Cardiac cath 06/14/19, Stent x2 and angioplasty; dual antiplatelet therapy indefinitely Obesity (BMI 30-39.9) (Chronic) Polymyalgia rheumatica (Chronic 08/17/16) [facility] [place] Rheumatology 08/16/16: Dr Villalta; Prednisone Rx Severe obstructive sleep apnea (Chronic 04/10/17) [facility] [place] Sleep Medicine BiPAP Type 2 diabetes mellitus with diabetic neuropathy, with long-term current use of insulin (Chronic) Co-managed with [facility] Endo (Dr. Reis); HbA1c goal </= 7.5-8% Surgical History History of cataract extraction with lens replacement (Acute) History of heart artery stent (Chronic) repeated 06/14/19 History of repair of retinal defect by laser photocoagulation (Acute) History of YAG laser capsulotomy of lens (Acute) Social History Smoking/Tobacco Use Status: Former Tobacco Use Alcohol Intake: current Alcohol Intake frequency: 0-2 drinks per day Drug use: Never Substance use type: does not use Caregiver/Support person: No Household members: spouse Number of Children: 2 Communication Needs: Hard of Hearing Education Level: high school Pets and animals: Yes Pets and animals: cat(s) Current gender identity: male What type of physical activity do you participate in: other Details: cardiac rehab Frequency: 3-4 times per week Seatbelt use: always Do you feel safe at home: Yes Do you feel safe in your relationship?: Yes Exam Narrative Exam Narrative: Vitals: Afebrile. Mildly hypertensive with high normal heart rate. Normal room air pulse oximetry. Const: WDWN elderly male in NAD. HEENT: NC/AT. Normal facial exam. Eyes: Normal conjunctiva and sclera. Neck: Supple. Trachea midline. Lungs: Normal respiratory effort. Lungs are clear. Cor: RRR without murmur/gallop. Good radial pulses. GI: Soft. NT/ND. No guarding or rebound. Neuro: A+O x 3. CN grossly in tact. Good strength and no focal deficit. Ext: No C/C/E. Skin: Warm and dry without rash. Course Vital Signs Vital signs: Vital Signs Temperature 97.3 F L 07/31/19 23:31 Pulse 96 H 07/31/19 23:31 Respiratory Rate 18 07/31/19 23:31 Blood Pressure 154/58 H 07/31/19 23:31 Pulse Oximetry 95 07/31/19 23:31 Temperature 97.3 F L 07/31/19 23:31 Temperature Source Temporal Artery Scan 07/31/19 23:31 Pulse 96 H 07/31/19 23:31 Respiratory Rate 18 07/31/19 23:31 Blood Pressure 154/58 H 07/31/19 23:31 Blood Pressure Position Supine 07/31/19 23:31 Pulse Oximetry 95 07/31/19 23:31 Oxygen Delivery Method Room Air 07/31/19 23:31 Oxygen Flow Rate 0 07/31/19 23:31 Pain Level 2 07/31/19 23:31
[2019-07-31 23:42] VITALS: RESP 16
[2019-08-01] VITALS (12 sets, daily range): BP systolic 110–148; BP diastolic 60–78; PULSE 62–86; RESP 18–28; TEMP 36.4–36.8; O2SAT 91–96
[2019-08-01 00:03] LABS: Abs Immature Grans 0.01 k/cumm (0.0-0.09); Absolute Basophil Count 0.02 k/cumm (0.0-0.2); Absolute Eosinophil Count 0.13 k/cumm (0.0-0.7); Absolute Lymphocyte Count 1.46 k/cumm (1.2-3.4); Absolute Monocyte Count 0.72 k/cumm (0.11-0.7); Absolute Neutrophil Count 4.06 k/cumm (1.2-6.7); Basophils % 0.3; HCT 37.7 % (40.0-50.0); HGB 12.4 g/dL (13.5-17.5); Immature Grans % 0.2; Lymphocytes % 22.8; Mean Corp. HGB Concentration 32.9 g/dL (32.0-36.0); Mean Corpuscular Hemoglobin 30.8 pg (27.0-33.0); Mean Corpuscular Volume 93.8 fL (80-95); Mean Platelet Volume 9.4 fL (8.0-11.0); Monocytes % 11.3; Neutrophils % 63.4; Platelet Count 264 x1000/uL (130-400); RBC 4.02 m/cumm (4.50-6.00); RBC Distribution Width 13.9 % (11.8-14.1)
[2019-08-01 00:17] LABS: ALT 43 U/L (16-63); AST 21 U/L (15-37); Albumin 3.6 g/dL (3.4-5.0); Alkaline Phosphatase 100 U/L (46-116); Anion Gap 6.8 mmol/L (3-11); BUN 28 mg/dL (7-18); Bilirubin, Total 0.3 mg/dL (0.2-1.0); CO2 31.2 mmol/L (21.0-32.0); CREATININE 1.31 mg/dL (0.70-1.30); Calcium 8.5 mg/dL (8.5-10.1); Chloride 102 mmol/L (98-107); Estimated GFR 52.65 (mL/min/1.73m2); Glucose 236 mg/dL (70-100); Magnesium 2.1 mg/dL (1.8-2.4); Potassium 3.8 mmol/L (3.5-5.1); Sodium 140 mmol/L (136-145)
[2019-08-01 00:31] LABS: Troponin I < 0.05 ng/mL (0.00-0.06)
--- NOTE | 2019-08-01 00:53 | DI.VRAD_ITS ---
PROCEDURE INFORMATION: Exam: XR Chest, 2 Views Exam date and time: 07/31/2019 12:20 AM Clinical history: 79 years old, male; Chest pain; Type not specified; Prior surgery; Surgery date: 1-6 months; Surgery type: Heart stent placement 05/2019 TECHNIQUE: Imaging protocol: XR of the chest Views: 2 views. COMPARISON: [place] XR PORTABLE CHEST AP 06/12/2019 9:20 PM FINDINGS: Lungs: Unremarkable. No consolidation. Pleural space: Unremarkable. No pleural effusion. No pneumothorax. Heart/Mediastinum: Unremarkable. No cardiomegaly. Bones/joints: Unremarkable. IMPRESSION: No acute findings. Dictated and Authenticated by: Elio Goode MD. Ordering:PIO Elizalde MD
[2019-08-01 05:18] LABS: Troponin I 0.06 ng/mL (0.00-0.06)
[2019-08-01 06:17] LABS: NT-proBNP 260 pg/mL
[2019-08-01 07:22] LABS: Platelet Count 257 x1000/uL (130-400)
--- NOTE | 2019-08-01 08:40 | W.PM.HP.N ---
Date of service: 08/01/19 Time of Service: 08:40 Assessment and Plan Assessment and plan (1) Chest pain due to CAD: Status: Acute Assessment and plan: currently he is pain free. I have resumed his home medications including metoprolol, isosorbide mononitrate, plavix and ASA and begun him on heparin. We will continue to check troponin levels until plateaued and declining. check echo for new RWMA and consult w/ cardiology as to whether or not to send him for repeat cardiac cath versus low level stress MPI if his troponins decline. (2) NSTEMI (non-ST elevated myocardial infarction): Status: Suspected Assessment and plan: his troponin levels have not reached threshold yet for declaring this an CO however the rise in his troponin from normal to 0.2 is suspicious, although he remains asymptomatic this morning. We will need to see how high his troponin peaks. In the interim we will consult cardiology to assist in adjustment of his meds (beta blockers, nitrates) and begin him on heparin. continue w/ plavix and asa for his KECIA stents. (3) Type 2 diabetes mellitus with diabetic neuropathy, with long-term current use of insulin: Status: Chronic Assessment and plan: hold metformin for now but otherwise continue his insulin regimen and use sliding scale novolog for coverage of high readings. (4) Severe obstructive sleep apnea: Status: Chronic Assessment and plan: continue his home BIPAP (5) ASCVD (arteriosclerotic cardiovascular disease): Status: Chronic Assessment and plan: evaluation as above. continue zetia and atorvastatin. Could consider changing to Repatha however his last lipid profile on 06/13/2019 showed good control w/ LDL of 71. However this was in setting of an acute NSTEMI. (6) Essential hypertension: Status: Chronic Assessment and plan: continue his losartan and hydralazine and furosemide and metoprolol. BP appears to be well controlled. History of Present Illness History of Present Illness Chief Complaint: chest pain Narrative: 79 yr old male w/ PMH CAD including multiple stents (9 total including 2 KECIA stents of his OM2 after PTCA of his L. circumflex after NSTEMI June 13, 2019, @ [facility]), mild ischemic CM w/ LVEF 45%, mild-mod. diastolic heart failure w/ LVH, DM w/ peripheral neuropathy, HTN, BPH, GERD, ILD, KYLIE (severe, wears bipap), who presented to [facility] ER with acute left sided chest pressure w/ radiation into his L. upper arm occuring at rest last night. Symptoms were accompanied w/ some diaphoresis but no dyspnea, nausea or vomiting nor abdominal pain. Symptoms resolved spontaneously after about 30 to 40 minutes. He did not take any NTG and his symptoms had dissipated by the time he arrived to the ER at 23:30. He has been free of any chest pain/pressure or dyspnea since arriving to the hospital and has had no further symptoms since admission to the hospital. Workup in the ER included EKG that demonstrated a chronic LBBB w/ SR rate of 97 bpm. Labs including initial troponin I that was <0.05 but evaristo to 0.06 at 4 am and is now elevated at 0.20. CBC demonstrates a stable chronic anemia w/ Hb 12.4 gm, otherwise normal CBC. CMP that was remarkable for azotemia w/ BUN 28 and creatinine of 1.31 (both are at his baseline) and elevated glucose of 236. He was admitted for evaluation of possible ACS. He was suppose to have a Lexiscan stress MPI if his troponins were all negative but as his last troponin is on the rise, he will be heparinized, further troponins will be monitored until they plateau and are declining. An echo has been ordered to look for any new RWMA and cardiology has been consulted to evaluate him. He may need repeat cardiac cath to look for acute stent thrombosis. Review of Systems Review of Systems ROS Unobtainable: All systems reviewed & are unremarkable except as noted in HPI and below [facility] Medical History Actinic keratosis (Resolved 08/04/17) scattered on face Anemia (Resolved) a. With heme-positive stool. ASCVD (arteriosclerotic cardiovascular disease) (Chronic) Stenting in 2004 and 2005; 04/02/14 NSTEMI: KECIA to LCX and LAD ([facility], Dr. Watkins); 03/16/16 NSTEMI: KECIA to LCX (85% stenosis) with LVEH 61% ([facility]); DSE @ [facility] 04/02/2019: no ischemic changes on post stress echo. LVEF 60% mild LVH; no change in resting regional wall motion abnormalities (see details under diastolic CHF heading); 8/23/19 stent x2 and angioplastyx1 2019: INDEFINITE DAPT with ASA and Plavix! Basal cell carcinoma of back (Resolved 08/04/17) midline upper back BPH (benign prostatic hyperplasia) (Chronic) Carpal tunnel syndrome on both sides (Chronic 03/28/18) Diabetic peripheral neuropathy (Chronic 02/21/18) Diastolic heart failure (Chronic 02/27/15) Echo 01/2015 EF 50% mild-mod diastolic dysfx; TTE and DSE: 04/02/2019 @ [facility]: global normal LV systolic fxn, LVEF 60%, mild LVH,RWMA w/ HK of mid ant-septal, mid infero-septal, apical septal, apical inferior wall segments; mod. LAE, RV not well seen, LYNDSEY mild, tricuspid AV w/out stenosis or AI, MAC w/out MS; doppler inadequate for assessment of MR, TR not able to be assessed, mild aortic root dilatation. Stress echo failed to demonstrate ischemic changes. DM type 2 (diabetes mellitus, type 2) Erectile dysfunction (Chronic 12/15/11) Essential hypertension (Chronic 02/05/13) GERD (gastroesophageal reflux disease) (Chronic) 05/15/2012 EGD (Dr. Baird): chronic gastritis and esophagitis Hearing loss, conductive (Chronic) Hearing loss, sensorineural (Chronic) Hyperlipidemia, unspecified (Chronic) Hypoxemia (Chronic 04/02/17) Per [facility] Sleep Medicine Interstitial lung disease (Chronic 07/28/16) LBBB (left bundle branch block) (Chronic) Migraine (Chronic 12/15/11) 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) NSTEMI (non-ST elevated myocardial infarction) (Inactive ~06/13/19) Cardiac cath 06/14/19, Stent x2 and angioplasty; dual antiplatelet therapy indefinitely Obesity (BMI 30-39.9) (Chronic) Polymyalgia rheumatica (Chronic 08/17/16) [facility] Rheumatology 08/16/16: Dr Villalta; Prednisone Rx Severe obstructive sleep apnea (Chronic 04/10/17) [facility] Sleep Medicine BiPAP Type 2 diabetes mellitus with diabetic neuropathy, with long-term current use of insulin (Chronic) Co-managed with [facility] Endo (Dr. Reis); HbA1c goal </= 7.5-8% Surgical History History of cataract extraction with lens replacement (Acute) History of heart artery stent (Chronic) repeated 06/14/19 History of repair of retinal defect by laser photocoagulation (Acute) History of YAG laser capsulotomy of lens (Acute) Social History Smoking/Tobacco Use Status: Former Tobacco Use Alcohol Intake: current Alcohol Intake frequency: 0-2 drinks per day Drug use: Never Substance use type: does not use Caregiver/Support person: No Household members: spouse Number of Children: 2 Communication Needs: Hard of Hearing Education Level: high school Pets and animals: Yes Pets and animals: cat(s) Current gender identity: male What type of physical activity do you participate in: other Details: cardiac rehab Frequency: 3-4 times per week Seatbelt use: always Do you feel safe at home: Yes Do you feel safe in your relationship?: Yes Meds Home Medications and Allergies Home Medications Medication Instructions Recorded Confirmed Type multivitamin [One Daily 1 ea PO DAILY 01/23/13 07/31/19 History Multivitamin] aspirin [Aspirin Low-Strength] 81 mg PO DAILY tab 04/03/14 07/31/19 History OneTouch Ultra Test strip 12/24/14 07/31/19 History cholecalciferol (vitamin D3) 2,000 unit PO DAILY 08/17/16 07/31/19 History atorvastatin 80 mg PO DAILY tab-cap 06/08/17 07/31/19 History pantoprazole 20 mg PO DAILY #90 tab-cap 07/20/17 07/31/19 Rx sennosides-docusate sodium 1 ea PO BID 10/09/17 07/31/19 History [Senna-S] lancets [OneTouch UltraSoft #200 ea 04/04/18 07/31/19 Rx Lancets] nitroglycerin 0.4 mg SUBLINGUAL PRN #30 tab 04/30/18 07/31/19 Rx Metoprolol Succinate 3 tab-cap PO DAILY #270 tab-cap 05/21/18 07/31/19 Clinic ezetimibe [Zetia] 10 mg PO DAILY #90 tab-cap 05/21/18 07/31/19 Rx spironolactone 25 mg tablet 12.5 mg PO DAILY #90 tab-cap 07/30/18 07/31/19 Rx metformin 1,000 mg tablet 1,000 mg PO BID #180 tab-cap 08/20/18 07/31/19 Rx dulaglutide 0.75 mg/0.5 mL 0.75 mg SUBCUT QWEEK #12 syringe 09/06/18 07/31/19 Rx subcutaneous pen injector alfuzosin 10 mg tablet,extended 10 mg PO DAILY #90 tab-cap 02/18/19 07/31/19 Rx release 24 hr finasteride 5 mg tablet 5 mg PO HS #90 tab-cap 02/18/19 07/31/19 Rx clopidogrel 75 mg tablet 75 mg PO DAILY #90 tab-cap 03/25/19 07/31/19 Rx furosemide 20 mg tablet 40 mg PO BID #180 tab-cap 03/25/19 07/31/19 Rx acetaminophen 500 mg tablet 1,000 mg PO BID PRN tab 03/29/19 07/31/19 History isosorbide mononitrate 30 mg 30 mg PO DAILY #90 tab-cap 04/22/19 07/31/19 Rx tablet,extended release 24 hr hydralazine 10 mg tablet 10 mg PO BID #180 tab-cap 06/03/19 07/31/19 Rx prednisone 5 mg tablet 5 mg PO DAILY 06/28/19 07/31/19 History insulin glargine 100 unit/mL (3 61 unit SUBCUT HS #2 ml 07/30/19 07/31/19 History mL) subcutaneous pen losartan 100 mg tablet 100 mg PO DAILY #90 tab 07/30/19 07/31/19 Rx Allergies Allergy/AdvReac Type Severity Reaction Status Date / Time No Known Allergies Allergy Unverified 07/31/19 23:33 Exam Const General: cooperative and no acute distress Nutritional Appearance: obese Orientation: alert, awake and oriented x3 Neck Neck: normal visual inspection, full ROM, no lymphadenopathy, trachea midline, supple and no JVD Thyroid: thyroid normal Carotids: normal carotid upstroke Lymphatic: no lymphadenopathy noted Chest Chest: normal inspection of the chest and normal palpation of entire chest wall Resp Effort & Inspection: normal respiratory effort and able to speak in complete sentences Auscultation: rales bilaterally at the base Percussion: percussion normal Cardio Jugular venous pressure: no JVD Palpation: normal PMI Rate: regular rate Rhythm: regular rhythm Heart Sounds: S1 normal, abnormal opening sounds fixed, split S2, no murmurs and no rubs Bruits: no abdominal aortic bruits and no carotid bruits Pulses: posterior tibial pulses present bilaterally diminished and dorsalis pedis pulses present bilaterally diminished GI Inspection: obesity Palpation: soft, no hepatosplenomegaly and hernia umbilical Percussion: normal to percussion Auscultation: normal bowel sounds Rectal Exam: deferred Skin General skin exam: no rashes or lesions noted, elasticity normal and turgor normal Neuro General: alert, awake, oriented x3, moves all extremities and no focal motor deficits Cognition: normal cognition Speech: speech normal Motor: muscle tone normal throughout, strength 5/5 throughout and no movement abnormalities noted Sensory Exam: no sensory deficits noted Extrem General: full ROM, normal capillary refill, no joint enlargement, no calf tenderness, no cyanosis and pedal edema bilaterally (trace to 1+ over ankles and feet) Psych Appearance: grossly normal Mental Status: mental status grossly normal Speech and Movement: speech and movement normal Mood: congruent mood Affect: normal affect Attitude: cooperative Thought Process: normal Thought Content: normal Insight: insight good Judgment: judgment good Results Imaging Chest x-ray: report reviewed (IMPRESSION: No acute findings. Dictated and Authenticated by: Elio Goode MD.) EKG: image reviewed Labs Result diagrams: 08/01/19 07:05 07/31/19 23:40 Labs: Laboratory Results - last 24 hr 07/31/19 07/31/19 08/01/19 23:40 23:40 04:15 WBC 6.40 RBC 4.02 L Hgb 12.4 L Hct 37.7 L MCV 93.8 MCH 30.8 MCHC 32.9 RDW 13.9 Plt Count 264 MPV 9.4 Immature Gran % 0.2 Neutrophils % 63.4 Lymphocytes % 22.8 Monocytes % 11.3 Eosinophils % 2.0 Basophils % 0.3 Absolute Neutrophils 4.06 Absolute Lymphocytes 1.46 Absolute Monocytes 0.72 H Absolute Eosinophils 0.13 Absolute Basophils 0.02 Sodium 140 Potassium 3.8 Chloride 102 Carbon Dioxide 31.2 Anion Gap 6.8 BUN 28 H Creatinine 1.31 H Estimated GFR/1.73 m2 52.65 Glucose 236 H Calcium 8.5 Magnesium 2.1 Total Bilirubin 0.3 AST 21 ALT 43 Alkaline Phosphatase 100 Troponin I < 0.05 0.06 NT-Pro-B Natriuret Pep Total Protein 7.0 Albumin 3.6 08/01/19 08/01/19 08/01/19 04:15 07:05 07:05 WBC RBC Hgb Hct MCV MCH MCHC RDW Plt Count 257 MPV Immature Gran % Neutrophils % Lymphocytes % Monocytes % Eosinophils % Basophils % Absolute Neutrophils Absolute Lymphocytes Absolute Monocytes Absolute Eosinophils Absolute Basophils Sodium Potassium Chloride Carbon Dioxide Anion Gap BUN Creatinine Estimated GFR/1.73 m2 Glucose Calcium Magnesium Total Bilirubin AST ALT Alkaline Phosphatase Troponin I 0.20 H* NT-Pro-B Natriuret Pep 260 Total Protein Albumin Last Vital Signs Temp 36.8 C 08/01/19 06:45 Pulse 62 08/01/19 07:00 Resp 20 08/01/19 06:45 BP 138/76 08/01/19 06:45 Pulse Ox 96 08/01/19 06:45
[2019-08-01 08:46] LABS: Hemoglobin A1C 7.3 % (4.5-6.2)
[2019-08-01] MEDS: Aspirin 81 MG CHEW PO (08:56)
[2019-08-01] MEDS: Atorvastatin 40 MG TAB 80 MG PO (08:56)
[2019-08-01] MEDS: Metoprolol CR 25 MG TABCR 75 MG PO (08:56)
[2019-08-01] MEDS: Clopidogrel 75 MG TAB PO (08:57)
[2019-08-01] MEDS: Multivitamin TAB 1 TAB PO (08:57)
[2019-08-01] MEDS: Furosemide 20 MG TAB 40 MG PO ×2 (08:57→15:37)
[2019-08-01] MEDS: hydrALAZINE 10 MG TAB PO ×2 (08:57→20:29)
[2019-08-01] MEDS: Losartan 50 MG TAB 100 MG PO (08:57)
[2019-08-01] MEDS: Isosorbide Mononitrate 30 MG TABCR PO (08:57)
[2019-08-01] MEDS: Pantoprazole 20 MG TABCR PO (08:58)
[2019-08-01] MEDS: Sennosides/Docusate Sodium TAB 1 TAB PO ×2 (08:58→20:29)
[2019-08-01] MEDS: predniSONE 5 MG TAB PO (08:58)
[2019-08-01] MEDS: Ezetimibe 10 MG TAB PO (08:58)
[2019-08-01] MEDS: Cholecalciferol (Vitamin D3) 1,000 UNIT TAB 2000 UNITS PO (08:59)
[2019-08-01] MEDS: Spironolactone 25 MG TAB 12.5 MG PO (08:59)
[2019-08-01] MEDS: Insulin Aspart 300 UNITS/3 ML PEN SC ×3 (08:59→17:04)
--- NOTE | 2019-08-01 09:00 | CCONE_ITS ---
Assessment and Plan Assessment and plan (1) LBBB (left bundle branch block): Status: Chronic (2) Essential hypertension: Status: Chronic (3) NSTEMI (non-ST elevated myocardial infarction): Start date: 08/01/19 Status: Acute Assessment and plan: 1. Non-STEMI. Troponin elevated to 0.2 this morning up from 0.0 yesterday. Patient currently denies any additional episodes of chest pain shortness of breath nausea or diaphoresis. Given the patient's description of the incident I wonder if he had an arrhythmia that briefly caused ischemia given his significant coronary artery disease. Alternatively this could be a type I non- STEMI given the typical nature of the pain. I discussed at length with the patient the options of going down to [facility] for a cath directly and the likelihood that they would find something but it would be unclear whether or not that was the culprit lesion versus opting for medical management and continuing trending of his troponins with the idea that if he developed more chest pain or troponins continue to rise we would send him at that point to cath. Patient feels more comfortable with medical management at this time. ?Start heparin drip ?We will load with 300 mg of Plavix as the patient has been on 75 daily ?Full dose aspirin x1 ?Continue metoprolol ?Continue isosorbide mononitrate ?We will obtain echo this morning 2. History of cardiomyopathy EF 45 to 50% on last echo. Patient is well compensated this morning ?We will continue all home medication at this time. Plan discussed with the hospitalist cardiology will be involved as needed going forward. Please call or page with any additional questions History of Present Illness History of Present Illness Chief Complaint: chest pain Narrative: Mr. Pedro is an 79-year-old male with a complex cardiac history including 9 stents over the course of the last 15 years as well as a mildly reduced EF from ischemic cardiomyopathy, hypertension hyperlipidemia diabetes who presented to the emergency room last night with left shoulder arm and chest pain. He says this is typical of his cardiac chest pain.He has had multiple stenting procedures in the past he is well aware of what his pain normally is. He said the pain lasted about 10 minutes and was brought on at rest. He had any pain like that earlier in the day but tried to take his pulse and his apple watch could not read it. He said that at that point after trying multiple attempts he came in. Initially in the emergency room he was found to be in normal sinus rhythm with a left bundle branch block which is not new for him. Initial troponin and additional work-up were negative in the emergency room. He did not have any arrhythmias detected. This morning the patient states he has not had any additional episodes of chest pain and it feels fairly well. He has been up and about and denies shortness of breath nausea or vomiting. This morning's labs show a small troponin bump to 0.2. Unchanged. Echocardiogram is pending. Consults Consult date: 08/01/19 Review of Systems Review of Systems ROS Unobtainable: All systems reviewed & are unremarkable except as noted in HPI and below [facility] Medical History Actinic keratosis (Resolved 08/04/17) scattered on face Anemia (Resolved) a. With heme-positive stool. ASCVD (arteriosclerotic cardiovascular disease) (Chronic) Stenting in 2004 and 2005; 04/02/14 NSTEMI: KECIA to LCX and LAD ([facility], Dr. Watkins); 03/16/16 NSTEMI: KECIA to LCX (85% stenosis) with LVEH 61% ([facility] [place] DSE @ [facility] [place] 04/02/2019: no ischemic changes on post stress echo. LVEF 60% mild LVH; no change in resting regional wall motion abnormalities (see details under diastolic CHF heading); 06/14/19 stent x2 and angioplastyx1 2019: INDEFINITE DAPT with ASA and Plavix! Basal cell carcinoma of back (Resolved 08/04/17) midline upper back BPH (benign prostatic hyperplasia) (Chronic) Carpal tunnel syndrome on both sides (Chronic 03/28/18) Diabetic peripheral neuropathy (Chronic 02/21/18) Diastolic heart failure (Chronic 02/27/15) Echo 01/2015 EF 50% mild-mod diastolic dysfx; TTE and DSE: 04/02/2019 @ [facility] [place]: global normal LV systolic fxn, LVEF 60%, mild LVH,RWMA w/ HK of mid ant-septal, mid infero-septal, apical septal, apical inferior wall segments; mod. LAE, RV not well seen, LYNDSEY mild, tricuspid AV w/out stenosis or AI, MAC w/out MS; doppler inadequate for assessment of MR, TR not able to be assessed, mild aortic root dilatation. Stress echo failed to demonstrate ischemic changes. DM type 2 (diabetes mellitus, type 2) Erectile dysfunction (Chronic 12/15/11) Essential hypertension (Chronic 02/05/13) GERD (gastroesophageal reflux disease) (Chronic) 05/15/2012 EGD (Dr. Baird): chronic gastritis and esophagitis Hearing loss, conductive (Chronic) Hearing loss, sensorineural (Chronic) Hyperlipidemia, unspecified (Chronic) Hypoxemia (Chronic 04/02/17) Per [facility] [place] Sleep Medicine Interstitial lung disease (Chronic 07/28/16) LBBB (left bundle branch block) (Chronic) Migraine (Chronic 12/15/11) 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) NSTEMI (non-ST elevated myocardial infarction) (Inactive ~06/13/19) Cardiac cath 06/14/19, Stent x2 and angioplasty; dual antiplatelet therapy indefinitely Obesity (BMI 30-39.9) (Chronic) Polymyalgia rheumatica (Chronic 08/17/16) [facility] [place] Rheumatology 08/16/16: Dr Villalta; Prednisone Rx Severe obstructive sleep apnea (Chronic 04/10/17) [facility] [place] Sleep Medicine BiPAP Type 2 diabetes mellitus with diabetic neuropathy, with long-term current use of insulin (Chronic) Co-managed with [facility] [place] Endo (Dr. Reis); HbA1c goal </= 7.5-8% Surgical History History of cataract extraction with lens replacement (Acute) History of heart artery stent (Chronic) repeated 06/14/19 History of repair of retinal defect by laser photocoagulation (Acute) History of YAG laser capsulotomy of lens (Acute) Social History Smoking/Tobacco Use Status: Former Tobacco Use Alcohol Intake: current Alcohol Intake frequency: 0-2 drinks per day Drug use: Never Substance use type: does not use Caregiver/Support person: No Household members: spouse Number of Children: 2 Communication Needs: Hard of Hearing Education Level: high school Pets and animals: Yes Pets and animals: cat(s) Current gender identity: male What type of physical activity do you participate in: other Details: cardiac rehab Frequency: 3-4 times per week Seatbelt use: always Do you feel safe at home: Yes Do you feel safe in your relationship?: Yes Exam Const General: comfortable and no acute distress [facility] Head: normocephalic and atraumatic Eyes General: appearance normal, both eyes and all related structures Resp Effort & Inspection: normal respiratory effort Auscultation: clear to auscultation bilaterally Cardio Jugular venous pressure: no JVD Palpation: normal PMI Rate: regular rate Rhythm: regular rhythm Heart Sounds: S1 normal and S2 normal (No Murmurs, Rubs or Gallops) GI Palpation: soft Auscultation: normoactive bowel sounds Skin General skin exam: no rashes or lesions noted Extrem General: normal to inspection and no clubbing, cyanosis or edema Psych Appearance: grossly normal Results Last Vital Signs Temp 36.4 C L 08/01/19 07:00 Pulse 62 08/01/19 07:00 Resp 18 08/01/19 07:00 BP 126/69 08/01/19 07:00 Pulse Ox 96 08/01/19 07:00 Labs Result diagrams: 08/01/19 07:05 07/31/19 23:40 Labs: Laboratory Results - last 24 hr 07/31/19 07/31/19 08/01/19 23:40 23:40 04:15 WBC 6.40 RBC 4.02 L Hgb 12.4 L Hct 37.7 L MCV 93.8 MCH 30.8 MCHC 32.9 RDW 13.9 Plt Count 264 MPV 9.4 Immature Gran % 0.2 Neutrophils % 63.4 Lymphocytes % 22.8 Monocytes % 11.3 Eosinophils % 2.0 Basophils % 0.3 Absolute Neutrophils 4.06 Absolute Lymphocytes 1.46 Absolute Monocytes 0.72 H Absolute Eosinophils 0.13 Absolute Basophils 0.02 Sodium 140 Potassium 3.8 Chloride 102 Carbon Dioxide 31.2 Anion Gap 6.8 BUN 28 H Creatinine 1.31 H Estimated GFR/1.73 m2 52.65 Glucose 236 H Calcium 8.5 Magnesium 2.1 Total Bilirubin 0.3 AST 21 ALT 43 Alkaline Phosphatase 100 Troponin I < 0.05 0.06 NT-Pro-B Natriuret Pep Total Protein 7.0 Albumin 3.6 08/01/19 08/01/19 08/01/19 04:15 07:05 07:05 WBC RBC Hgb Hct MCV MCH MCHC RDW Plt Count 257 MPV Immature Gran % Neutrophils % Lymphocytes % Monocytes % Eosinophils % Basophils % Absolute Neutrophils Absolute Lymphocytes Absolute Monocytes Absolute Eosinophils Absolute Basophils Sodium Potassium Chloride Carbon Dioxide Anion Gap BUN Creatinine Estimated GFR/1.73 m2 Glucose Calcium Magnesium Total Bilirubin AST ALT Alkaline Phosphatase Troponin I 0.20 H* NT-Pro-B Natriuret Pep 260 Total Protein Albumin EKG interpretations EKG EKG results cardiology: sinus rhythm Blocks, axis, hypertrophy, ST abn AV and intraventricular conduction: 1 AV block and left bundle branch block (fixed/intermittent, complete/incomplete) QRS axis and voltage: left axis deviation (-30 to -90)
[2019-08-01] MEDS: Clopidogrel 300 MG TAB PO (09:20)
--- NOTE | 2019-08-01 09:40 | DI.US_ITS ---
APPROVED REPORT EXAM: Comprehensive 2D, Doppler, and color-flow Echocardiogram Patient Location: In-Patient Regulator Operator: CHANTE Granado (AE) Rhythm: LBBB Indications: CP rising troponin, eval LV function Left Ventricle The left ventricle is normal. Left ventricular systolic function is moderately decreased. The posteri or wall thickness is moderately increased. The septal thickness is severely increased. Regional wall motion abnormalities are noted. There is severe hypokinesis of the anteroseptal wall. There is severe hypokinesis of the inferolateral and lateral field. There is hypokinesis of the inferior septum. The re is severe hypokinesis of the apex There is impaired relaxation with grade 2 diastolic dysfunction. LVEF is 45-49%. Right Ventricle Right ventricle is mildly dilated. The right ventricular systolic function is normal. Atria Left atrium is mildly dilated. The right atrium size is normal. Aortic Valve Aortic valve is trileaflet. Aortic valve leaflets are sclerotic but open well. There is no aortic sandra vular stenosis. No aortic regurgitation is present. Mitral Valve The mitral valve is thickened but opens well. No evidence of mitral valve stenosis. Mild mitral regur gitation. Tricuspid Valve The tricuspid valve is normal in structure. Mild tricuspid regurgitation. Peak TR velocity is 3.1 m/ s RVSP is estimated to be between 40 and 45mmHg Pulmonic Valve Pulmonic valve is not well visualized. Great Vessels Aortic root is mildly dilated. The aortic root size is dilated. The IVC is normal in size and collap ses >50% with inspiration. Pericardium There is no pericardial effusion. 2D Dimensions IVSd 1.8 cm M: 0.6-1.2 LA Volume Index A4C 39.0 mL/m2 PWd 1.4 cm M: 0.6 - 1.2 LA Area A4C 25.0 cm2 LVDd 4.5 cm M: 4.2 - 5.9 LVDs 3.6 cm M: 2.5 - 4.0 Aortic Root 3.8 cm M: 3.1 - 3.7 RA Area A4C 15.0 cm2 LVOT 2.1 cm (M/F) 1.5-2.5 Ascending Aorta 3.6 cm M: 2.6 - 3.4 LVEF (Gil's) 48.7 % M: 52 - 72 FS 19.9 % LV Diastology E/A Ratio 0.6 MED E' 0.1 (<0.07 m/s) LV E/e MED 10.0 (>14) LAT E' 0.1 (<0.1 m/s) LV E/e LAT 10.5 (>14) Aortic Valve LVOT Peak Zak. 1.0 m/s LVOT Peak Gr. 3.8 mmHg LVOT Mean Gr. 1.6 mmHg LVOT VTI 0.2 m BRANDI (VTI) 3.1 (2.5-4.5 cm2) AV Regurg PHT 1.4 msec BRANDI (VTI) Index 1.4 cm/m2 Mitral Valve MV E Max Zak. 0.5 (0.4-1.3 m/s) MV A Velocity 0.9 (0.4-1.3 m/s) E/A Ratio 0.6 MV Decel. Time 290.0 (160-240 msec) MV PHT 84.0 msec MVA PHT 2.6 cm2 Tricuspid Valve TR P. Velocity 3.0 m/s TR P. Gradient 36.4 mmHg Conclusion Left Ventricle : The left ventricle is normal. The posterior wall thickness is moderately increased. The septal thickness is severely increased. There is impaired relaxation with grade 2 diastolic dysfu nction. Left ventricular systolic function is moderately decreased. Regional wall motion abnormalities are noted. There is severe hypokinesis of the anteroseptal wall. There is severe hypokinesis of the inferolateral and lateral field. There is hypokinesis of the inf erior septum. There is severe hypokinesis of the apex Right Ventricle : Right ventricle is mildly dilated. The right ventricular systolic function is jammie l. Atria : Left atrium is mildly dilated. The right atrium size is normal. Aortic Valve : Aortic valve is trileaflet. Aortic valve leaflets are sclerotic but open well. No aort ic regurgitation is present. There is no aortic valvular stenosis. Mitral Valve : The mitral valve is thickened but opens well. Mild mitral regurgitation. No evidence o f mitral valve stenosis. Tricuspid Valve : The tricuspid valve is normal in structure. Mild tricuspid regurgitation. Peak TR velocity is 3.1 m/s. RVSP is estimated to be 40 -45mmHg Pulmonic Valve : Pulmonic valve is not well visualized. Great Vessels : Aortic root is mildly dilated. The aortic root size is dilated. Pericardium : There is no pericardial effusion. Great Vessels : The IVC is normal in size and collapses >50% with inspiration. Compared to echocardiogram from May 2019: There is no significant change in wall motion abnormalit ies or general function.
[2019-08-01 10:42] LABS: Prothrombin Time 10.2 sec (9.3-11.0)
[2019-08-01 10:45] LABS: PTT Activated 22.3 sec (21.0-31.4)
[2019-08-01 11:39] LABS: Troponin I 0.24 ng/mL (0.00-0.06)
[2019-08-01 11:58] LABS: Anion Gap 5.8 mmol/L (3-11); BUN 26 mg/dL (7-18); CO2 32.2 mmol/L (21.0-32.0); CREATININE 1.15 mg/dL (0.70-1.30); Calcium 8.4 mg/dL (8.5-10.1); Chloride 103 mmol/L (98-107); Glucose 157 mg/dL (70-100); Potassium 4.1 mmol/L (3.5-5.1); Sodium 141 mmol/L (136-145)
--- NOTE | 2019-08-01 12:21 | INITIAL_ITS ---
- If Service Date Differs Date of service: 08/01/19 Time of Service: 12:21 Care Management Initial Assess REASON FOR HOSPITALIZATION:: Chest pain. PAST MEDICAL HISTORY/PAST SURGICAL HISTORY:: Medical History: Actinic keratosis scattered on face; anemia with heme-positive stool; ASCVD (arteriosclerotic cardiovascular disease), stenting in 2004 and 2005; 04/02/14 NSTEMI: KECIA to LCX and LAD ([facility], Dr. Watkins); 03/16/16 NSTEMI: KECIA to LCX (85% stenosis) with [place]H 61[place] [place] [facility] [place]: no ischemic changes on post stress echo. LVEF 60% mild LVH; no change in resting regional wall motion abnormalities (see details under diastolic CHF heading); 06/14/19 stent x2 and angioplastyx1; 2019: INDEFINITE DAPT with ASA and Plavix; basal cell carcinoma of back, midline upper back; BPH (benign prostatic hyperplasia); carpal tunnel syndrome on both sides; diabetic peripheral neuropathy; diastolic heart failure; echo 01/2015 EF 50% mild-mod diastolic dysfx; TTE and DSE: [place]02[place] [facility] [place] global normal LV systolic fxn, LVEF 60%, mild LVH,RWMA w/ HK of mid ant-septal, mid infero- septal, apical septal, apical inferior wall segments; mod. LAE, RV not well seen, LYNDSEY mild, tricuspid AV w/out stenosis or AI, MAC w/out MS; doppler inadequate for assessment of MR, TR not able to be assessed, mild aortic root dilatation. Stress echo failed to demonstrate ischemic changes. DM type 2 (diabetes mellitus, type 2); erectile dysfunction; essential hypertension; GERD (gastroesophageal reflux disease); 05/15/2012 EGD (Dr. Baird): chronic gastritis and esophagitis. Hearing loss, conductive; hearing loss, sensorineural; hyperlipidemia, unspecified; hypoxemia; per [facility] [place]; interstitial lung disease; LBBB (left bundle branch block); migraine; neurogenic claudication due to lumbar spinal stenosis; NSTEMI (non-ST elevated myocardial infarction); cardiac cath 06/14/19, Stent x2 and angioplasty; dual antiplatelet therapy indefinitely; obesity (BMI 30-39.9); polymyalgia rheumatica; [facility] [place] 08/16/16: Dr Villalta; Prednisone Rx; severe obstructive sleep apnea; [facility] [place] [facility]; BiPAP; and type 2 diabetes mellitus with diabetic neuropathy, with long-term current use of insulin; co-managed with [facility] [place] (Dr. Reis); HbA1c goal </= 7.5-8%. Surgical History: History of cataract extraction with lens replacement; history of heart artery stent, repeated 06/14/19; history of repair of retinal defect by laser photocoagulation; and history of YAG laser capsulotomy of lens. PREVIOUS FUNCTIONAL STATUS/SOCIAL/FAMILY SUPPORTS:: Lasha lives in his own home in [place] [facility] with his , Ceci. The couple also has a home in [place] and a place on [address]. Lasha and Ceci have 2 children who live locally and a grandson. Lasha and his are active and independent and both still drive. 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 His who is present in the room mentions that it's time for him to slow down. CURRENT FUNCTIONAL STATUS:: Lasha is sitting in a chair when meets with him. He is pleasant and easily engages in conversation. He reports that he met with Dr. Palafox, electrotype finisher, this morning and is hopeful that he will be discharged home sometime tomorrow. ADVANCE DIRECTIVES:: None on file at [facility]. Has patient been provided with information about the portal?: Yes Did the patient sign up for the portal?: Yes CODE STATUS:: Full Code INSURANCE COVERAGE / FINANCIAL ISSUES:: Medicare and [employer]. CURRENT HOME/COMMUNITY SERVICES/EQUIPMENT:: None currently. PRIMARY CARE PHYSICIAN:: Michell Bishop NP. POTENTIAL DISCHARGE NEEDS:: Follow-up with PCP and electrotype finisher. PATIENT/FAMILY EDUCATION NEEDS:: Discharge plan, limitations, follow up plan, and ask me three. ANTICIPATED BARRIERS TO DISCHARGE:: None. TRANSPORTATION:: Spouse will provide transportation via private vehicle. PLAN:: Lasha will discharge home when medically cleared by provider. Anticipate no additional services needed at time of discharge. Family members will transport patient home.
--- NOTE | 2019-08-01 14:04 | PHARADMIT ---
Addendum entered by Neo Foreman III 08/02/19 15:52: Pharmacy Note Subjective Question whether to transfer to [facility], for now he is staying here. Objective VS-OK Lytes,SCr-OK Troponins 0.20^0.24^0.25 ^0.14 FSBS-184 on Aspart, Glargine, Wgt-103 Assessment Heparin drip continues Plan No new MD note yet today. Original Note: Admission Pharmacy Clinical Review Chest Pain - NSTEMI Code Status Full Code Current Weight 103.3 kg Renally Cleared and Narrow Therapeutic Index Meds CrCl ~63.7 using abw QTc Value / Action Taken QTc 447 BP Control, Fever BP 131/64, afebrile Electrolytes reviewed Na 141, K+ 4.1, Mag 2.0 DVT Prophylaxis Heparin gtt Opiate Usage / Scheduled Bowel Regimen Ordered None Plt/SCr for Heparin / Enoxaparin Plt 257, Scr 1.15 INR for Warfarin H/H stable, WBC/Bands H/H 12.4/37.7, WBC 6.4 Antibiotic appropriateness n/a Cultures and Sensitivities Surgical ABX d/c within 24 hr DM control / Insulin Dosing Aspart per SS, Glargine 61 units HS Heart Failure (Check EF%) (MARLA's, B-Block, Diuretics) EF 45-50% on last echo IV to PO Switch Home Meds Reviewed Yes -- all ok Home Meds Not Ordered Metformin Comments Trending troponin Medical management vs. cath @ [facility] Started heparin drip and loaded with 300mg plavix in addition to his daily 75mg and aspirin x1 Echo this AM
[2019-08-01 15:31] LABS: Troponin I 0.25 ng/mL (0.00-0.06)
--- NOTE | 2019-08-01 18:10 | W.PM.PROGNOT ---
Date of Service Date of service: 08/01/19 Time of Service: 18:11 Subjective Subjective Interval history since last seen: Mr Pedro had not had any chest pain today, he states. He is still not sure whether or not he wants to be [place] [facility], states he will think about it and let me know in am. His latest troponin is 0.25. Will recheck in am. He is on heparin gtt and received a loading dose of plavix in addition to his regular home plavix. Objective Objective Clinical Data: Abnormal lab results 07/31/19 07/31/19 08/01/19 Range/Units 23:40 23:40 07:05 RBC 4.02 L (4.50-6.00) m/cumm Hgb 12.4 L (13.5-17.5) g/dL Hct 37.7 L (40.0-50.0) % Absolute Monocytes 0.72 H (0.11-0.7) k/cumm Carbon Dioxide (21.0-32.0) mmol/L BUN 28 H (7-18) mg/dL Creatinine 1.31 H (0.70-1.30) mg/dL Glucose 236 H (70-100) mg/dL Hemoglobin A1c (4.5-6.2) % Calcium (8.5-10.1) mg/dL Troponin I 0.20 H* (0.00-0.06) ng/mL 08/01/19 08/01/19 08/01/19 Range/Units 07:05 11:00 14:55 RBC (4.50-6.00) m/cumm Hgb (13.5-17.5) g/dL Hct (40.0-50.0) % Absolute Monocytes (0.11-0.7) k/cumm Carbon Dioxide 32.2 H (21.0-32.0) mmol/L BUN 26 H (7-18) mg/dL Creatinine (0.70-1.30) mg/dL Glucose 157 H D (70-100) mg/dL Hemoglobin A1c 7.3 H (4.5-6.2) % Calcium 8.4 L (8.5-10.1) mg/dL Troponin I 0.24 H* 0.25 H* (0.00-0.06) ng/mL Vital Signs Temperature 36.4 C L 08/01/19 16:30 Temperature Source Tympanic 08/01/19 16:30 Pulse 63 08/01/19 16:30 Pulse Rhythm Regular 08/01/19 16:00 Pulse 86 08/01/19 01:42 Respiratory Rate 19 08/01/19 16:30 Respiratory Effort Non-Labored 08/01/19 16:00 Respiratory Depth Normal 08/01/19 16:00 Respiratory Pattern Normal 08/01/19 16:00 Blood Pressure 110/66 08/01/19 16:30 Blood Pressure Position Supine 07/31/19 23:31 Pulse Oximetry 95 08/01/19 16:30 Oxygen Delivery Method Room Air 08/01/19 16:30 Oxygen Flow Rate 0 08/01/19 16:30 Pain Level 0 08/01/19 16:30 Intake & Output 07/31/19 08/01/19 08/01/19 23:59 11:59 23:59 Intake Total 480 / 480 Output Total 280 / 280 Balance 480 / 200 -280 / 200 Weight 105 kg 103.3 kg Intake: Oral 480 / 480 Output: Urine 280 / 280 Other: Urine Color Yellow Urine Appearance Clear Clear Comment Pt voiding ad sudarshan Voiding Methods Toilet Urinal Laboratory Results WBC 6.40 k/cumm (4.4-10.8) 07/31/19 23:40 RBC 4.02 m/cumm (4.50-6.00) L 07/31/19 23:40 Hgb 12.4 g/dL (13.5-17.5) L 07/31/19 23:40 Hct 37.7 % (40.0-50.0) L 07/31/19 23:40 MCV 93.8 fL (80-95) 07/31/19 23:40 MCH 30.8 pg (27.0-33.0) 07/31/19 23:40 MCHC 32.9 g/dL (32.0-36.0) 07/31/19 23:40 RDW 13.9 % (11.8-14.1) 07/31/19 23:40 Plt Count 257 x1000/uL (130-400) 08/01/19 07:05 MPV 9.4 fL (8.0-11.0) 07/31/19 23:40 Immature Gran % 0.2 07/31/19 23:40 Neutrophils % 63.4 07/31/19 23:40 Lymphocytes % 22.8 07/31/19 23:40 Monocytes % 11.3 07/31/19 23:40 Eosinophils % 2.0 07/31/19 23:40 Basophils % 0.3 07/31/19 23:40 Absolute Neutrophils 4.06 k/cumm (1.2-6.7) 07/31/19 23:40 Absolute Lymphocytes 1.46 k/cumm (1.2-3.4) 07/31/19 23:40 Absolute Monocytes 0.72 k/cumm (0.11-0.7) H 07/31/19 23:40 Absolute Eosinophils 0.13 k/cumm (0.0-0.7) 07/31/19 23:40 Absolute Basophils 0.02 k/cumm (0.0-0.2) 07/31/19 23:40 PT 10.2 sec (9.3-11.0) 08/01/19 10:20 INR 1.0 (0.9-1.1) 08/01/19 10:20 APTT 22.3 sec (21.0-31.4) 08/01/19 10:20 Sodium 141 mmol/L (136-145) 08/01/19 11:00 Potassium 4.1 mmol/L (3.5-5.1) 08/01/19 11:00 Chloride 103 mmol/L (98-107) 08/01/19 11:00 Carbon Dioxide 32.2 mmol/L (21.0-32.0) H 08/01/19 11:00 Anion Gap 5.8 mmol/L (3-11) 08/01/19 11:00 BUN 26 mg/dL (7-18) H 08/01/19 11:00 Creatinine 1.15 mg/dL (0.70-1.30) 08/01/19 11:00 Estimated GFR/1.73 m2 >= 60.00 (mL/min/1.73m2) 08/01/19 11:00 Glucose 157 mg/dL (70-100) H D 08/01/19 11:00 Hemoglobin A1c 7.3 % (4.5-6.2) H 08/01/19 07:05 Calcium 8.4 mg/dL (8.5-10.1) L 08/01/19 11:00 Magnesium 2.0 mg/dL (1.8-2.4) 08/01/19 11:00 Total Bilirubin 0.3 mg/dL (0.2-1.0) 07/31/19 23:40 AST 21 U/L (15-37) 07/31/19 23:40 ALT 43 U/L (16-63) 07/31/19 23:40 Alkaline Phosphatase 100 U/L (46-116) 07/31/19 23:40 Troponin I 0.25 ng/mL (0.00-0.06) H* 08/01/19 14:55 NT-Pro-B Natriuret Pep 260 pg/mL (-299) 08/01/19 04:15 Total Protein 7.0 g/dL (6.4-8.2) 07/31/19 23:40 Albumin 3.6 g/dL (3.4-5.0) 07/31/19 23:40
[2019-08-01 18:20] LABS: PTT Activated 55.9 sec (21.0-31.4)
[2019-08-01] MEDS: Finasteride 5 MG TAB PO (21:49)
[2019-08-02] VITALS (9 sets, daily range): BP systolic 113–147; BP diastolic 62–76; PULSE 58–76; RESP 17–19; TEMP 36.2–36.5; O2SAT 93–96
[2019-08-02 07:25] LABS: PTT Activated 45.6 sec (21.0-31.4)
[2019-08-02 07:31] LABS: Anion Gap 6.7 mmol/L (3-11); BUN 25 mg/dL (7-18); CO2 31.3 mmol/L (21.0-32.0); CREATININE 1.07 mg/dL (0.70-1.30); Calcium 8.5 mg/dL (8.5-10.1); Chloride 101 mmol/L (98-107); Glucose 139 mg/dL (70-100); Magnesium 2.1 mg/dL (1.8-2.4); Potassium 3.9 mmol/L (3.5-5.1); Sodium 139 mmol/L (136-145)
[2019-08-02 07:35] LABS: Troponin I 0.14 ng/mL (0.00-0.06)
[2019-08-02] MEDS: Atorvastatin 40 MG TAB 80 MG PO (08:10)
[2019-08-02] MEDS: Cholecalciferol (Vitamin D3) 1,000 UNIT TAB 2000 UNITS PO (08:10)
[2019-08-02] MEDS: Furosemide 20 MG TAB 40 MG PO ×2 (08:10→15:07)
[2019-08-02] MEDS: predniSONE 5 MG TAB PO (08:10)
[2019-08-02] MEDS: Losartan 50 MG TAB 100 MG PO (08:10)
[2019-08-02] MEDS: Multivitamin TAB 1 TAB PO (08:10)
[2019-08-02] MEDS: Isosorbide Mononitrate 30 MG TABCR PO (08:10)
[2019-08-02] MEDS: Pantoprazole 20 MG TABCR PO (08:10)
[2019-08-02] MEDS: Sennosides/Docusate Sodium TAB 1 TAB PO ×2 (08:10→19:49)
[2019-08-02] MEDS: Spironolactone 25 MG TAB 12.5 MG PO (08:10)
[2019-08-02] MEDS: hydrALAZINE 10 MG TAB PO ×2 (08:10→19:49)
[2019-08-02] MEDS: Metoprolol CR 25 MG TABCR 75 MG PO (08:10)
[2019-08-02] MEDS: Clopidogrel 75 MG TAB PO (08:11)
[2019-08-02] MEDS: Aspirin 81 MG CHEW PO (08:11)
[2019-08-02] MEDS: Ezetimibe 10 MG TAB PO (08:11)
[2019-08-02] MEDS: Insulin Aspart 300 UNITS/3 ML PEN SC ×5 (08:14→17:09)
[2019-08-02] MEDS: Insulin Glargine 300 UNITS/3 ML PEN 61 UNITS SC (08:15)
--- NOTE | 2019-08-02 09:35 | NUR.NOTE ---
Nursing Note: Metoprolol (1 pill) found under pt's bed. Pt took three metoprolol in chair this morning. Unsure when found pill was to be taken.
--- NOTE | 2019-08-02 11:48 | CMPROGNOTE_ITS ---
- If Service Date Differs Date of service: 08/02/19 Time of Service: 11:50 Care Management Progress Note S/O: Librado remains acute today with no change in status. He continues to be followed by cardiology. Anticipate no services needed upon discharge. A: Librado is an 79 yo man admitted to [facility] 08/01/19 for chest pain. P: Librado will be discharged home when medically cleared by provider. Family members will transport patient home upon discharge.
--- NOTE | 2019-08-02 13:14 | W.INDIABCONS ---
Date of service: 08/02/19 Time of Service: 13:14 Diabetes Inpatient Consult DESCRIPTION/ASSESSMENT: Appreciate diabetes consult for mr. Pedro, 79 years old who is hospitalized with cardiovascular concerns. BMI 30 A1c 7.3 - lowest since 2013 At home he manages diabetes with Metformin and 61u Lantus. He receives current basal dose here in addition to 1 unit insulin for 10 grams carbohydrate and moderate insulin correction. He is eating ~30 grams carb per meal and 100% of offered foods. Blood sugars 130-184 this hospitization. Blood sugars well managed at this time. INTERVENTION: No intervention suggested for glycemic control here at this time. He is known to outpatient diabetes self management seen in the past. No intervention warranted at this time. PLAN: Follow blood sugars Time Spent in Nutritional Counseling and Treatment: 0 minutes
--- NOTE | 2019-08-02 18:11 | W.PM.DS.N ---
Date of service: 08/02/19 Time of Service: 18:12 DS: Diagnosis Discharge Diagnosis (1) NSTEMI (non-ST elevated myocardial infarction): Status: Suspected (2) Chest pain due to CAD: Status: Acute (3) Type 2 diabetes mellitus with diabetic neuropathy, with long-term current use of insulin: Status: Chronic (4) Severe obstructive sleep apnea: Status: Chronic (5) ASCVD (arteriosclerotic cardiovascular disease): Status: Chronic (6) Essential hypertension: Status: Chronic (7) LBBB (left bundle branch block): Status: Chronic Discharge Plan Disposition Condition: Fair Discharge Details Chief Complaint: Chest Pain Clinical Impression: Chest pain Reason For Visit: CHEST PAIN Admit Date/Time: 08/02/19 18:25 Admit Provider: Nikhil Pineda Attending Provider: Nikhil Pineda Primary Care Provider: Michell Bishop ED Provider: [facility] Hospital Course: Mr Pedro is an 79 year old male with PMHx of CAD s/p 9 stents, 2 of which were most receltly placed at [facility] in May of 2019, as well as ischemic cardiomyopathy, mild chronic systolic CHF with EF of 45-49%, chronic LBBB, IDDM2, KYLIE, PMR on chronic prednisone, who was admitted to [facility] hospitalist service on 08/01/19 with chest pain at rest, now known to have been an NSTEMI. The patient's troponin went up to 0.25 from negative on presentation. His EKGs show his old LBBB. He was evaluated by cardiology, recommended to be loaded with plavix, maintained on his regular plavix dose, and started on heparin drip. Transfer for a cardiac cath was recommended, but the patient initially refused. He was monitored on telemetry, and his troponin was repeated again this morning and went down to 0.14. The patient did not have any arrhythmic events on tele. Today, after thinking about it, he has decided that he is in agreement to be transferred to [facility] for further cardiology evaluation and treatment. He was accepted in transfer by Dr Vieira of cardiology service at [facility], whose assistance is much appreciated. The patient is hemodynamically stable for transfer. Care for patient as well as completion of his transfer paperwork/discharge summary took 1 hour on the day of transfer. Home Meds and New Rx's Prescriptions: New heparin (porcine) in 5 % dex 25,000 unit/250 mL(100 unit/mL) Parenteral Solution 25,000 units IV INFUSION Qty: 0 RF: 0 Continued dulaglutide 0.75 mg/0.5 mL pen injector 0.75 mg subcut QWEEK Qty: 12 RF: 0 Lantus Solostar U-100 Insulin 100 unit/mL (3 mL) insulin pen 61 unit subcut HS Qty: 2 RF: 11 losartan 100 mg tablet 100 mg PO DAILY Qty: 90 RF: 3 prednisone 5 mg tablet 5 mg PO DAILY RF: 0 isosorbide mononitrate 30 mg tablet extended release 24 hr 30 mg PO DAILY Qty: 90 RF: 3 multivitamin [One Daily Multivitamin] 1 EACH tablet 1 ea PO DAILY RF: 0 aspirin [Aspirin Low-Strength] 81 MG tablet,chewable 81 mg PO DAILY RF: 0 (DME) OneTouch Ultra Test 1 EACH strip 1 ea Miscellaneous BID RF: 0 cholecalciferol (vitamin D3) 2,000 UNIT tablet 2,000 unit PO DAILY RF: 0 atorvastatin 80 MG tablet 80 mg PO DAILY RF: 0 pantoprazole 20 MG tablet,delayed release (DR/EC) 20 mg PO DAILY Qty: 90 RF: 3 sennosides-docusate sodium [Senna-S] 1 EACH tablet 1 ea PO BID RF: 0 (DME) lancets [OneTouch UltraSoft Lancets] 1 EACH misc 1 ea Miscellaneous BID Qty: 200 RF: 11 nitroglycerin 0.4 MG tablet, sublingual 0.4 mg Sublingual PRN Qty: 30 RF: 11 ezetimibe [Zetia] 10 MG tablet 10 mg PO DAILY Qty: 90 RF: 4 Metoprolol Succinate 25 MG TAB.ER.24H 3 tab-cap PO DAILY Qty: 270 RF: 0 spironolactone 25 mg tablet 12.5 mg PO DAILY Qty: 90 RF: 0 metformin 1,000 mg tablet 1,000 mg PO BID Qty: 180 RF: 3 alfuzosin 10 mg tablet extended release 24 hr 10 mg PO DAILY Qty: 90 RF: 4 finasteride 5 mg tablet 5 mg PO HS Qty: 90 RF: 4 clopidogrel [Plavix] 75 mg tablet 75 mg PO DAILY Qty: 90 RF: 3 furosemide 20 mg tablet 40 mg PO BID Qty: 180 RF: 3 acetaminophen 500 mg tablet 1,000 mg PO BID PRNRF: 0 hydralazine 10 mg tablet 10 mg PO BID Qty: 180 RF: 3 Discharge Instructions Stand Alone Forms: Nursing Discharge Form Referrals: Michell Bishop NP [Primary Care Provider] - Activity:: OOB to chair Equipment/Supplies:: No Equipment Needed Diet:: heart healthy carb consistent DS: Summary Status at Discharge Functional status at discharge: independent ambulation Overall status at discharge: patient is not back to baseline Mental Status: mental status grossly normal Speech and Movement: speech and movement normal Mood: congruent mood Affect: normal affect Exam Narrative Exam Narrative: General: very pleasant elderly male, A&Ox3, sitting comfortably in a chair HEENT: EOMI, MMM Heart: RRR, no m/r/g Lungs: quiet crackles at B bases (patient's chronic due to his chronic pulmonary fibrosis) GI: abdomen is soft, nontender, nondistended Extremities: no e/c/c BLE's Psych Mental Status: mental status grossly normal Speech and Movement: speech and movement normal Mood: congruent mood Affect: normal affect DS: Data Vitals/I&O Vitals and I&O: Vital Signs Temperature 36.4 C L 08/02/19 15:10 Temperature Source Tympanic 08/02/19 15:10 Pulse 67 08/02/19 15:38 Pulse Rhythm Regular 08/02/19 08:35 Pulse 86 08/01/19 01:42 Respiratory Rate 18 08/02/19 15:10 Respiratory Effort Non-Labored 08/02/19 08:35 Respiratory Depth Normal 08/02/19 08:35 Respiratory Pattern Normal 08/02/19 08:35 Blood Pressure 114/65 08/02/19 15:10 Blood Pressure Position Supine 07/31/19 23:31 Pulse Oximetry 96 08/02/19 15:10 Oxygen Delivery Method Room Air 08/02/19 15:10 Oxygen Flow Rate 0 08/02/19 15:10 Pain Level 0 08/02/19 15:10 Intake & Output 08/01/19 08/02/19 08/02/19 23:59 11:59 23:59 Intake Total 250 / 730 647 / 1367 720 / 1367 Output Total 280 / 280 1475 / 1475 Balance -30 / 450 -828 / -108 720 / -108 Weight 103 kg Intake: IV 167 / 167 Oral 240 / 720 480 / 1200 720 / 1200 Output: Urine 280 / 280 1475 / 1475 Other: Urine Color Yellow Yellow Urine Appearance Clear Clear Urine Odor Normal Comment Pt voiding ad sudarshan in toilet and urinal. No hat in toilet; no measurement. Voiding Methods Urinal Toilet Data Completed and Pending Completed studies during hospitalization [Text1]: Echo; Left Ventricle : The left ventricle is normal. The posterior wall thickness is moderately increased. The septal thickness is severely increased. There is impaired relaxation with grade 2 diastolic dysfunction. Left ventricular systolic function is moderately decreased. Regional wall motion abnormalities are noted. There is severe hypokinesis of the anteroseptal wall. There is severe hypokinesis of the inferolateral and lateral field. There is hypokinesis of the inferior septum. There is severe hypokinesis of the apex Right Ventricle : Right ventricle is mildly dilated. The right ventricular systolic function is normal. Atria : Left atrium is mildly dilated. The right atrium size is normal. Aortic Valve : Aortic valve is trileaflet. Aortic valve leaflets are sclerotic but open well. No aortic regurgitation is present. There is no aortic valvular stenosis. Mitral Valve : The mitral valve is thickened but opens well. Mild mitral regurgitation. No evidence of mitral valve stenosis. Tricuspid Valve : The tricuspid valve is normal in structure. Mild tricuspid regurgitation. Peak TR velocity is 3.1 m/s. RVSP is estimated to be 40 -45mmHg Pulmonic Valve : Pulmonic valve is not well visualized. Great Vessels : Aortic root is mildly dilated. The aortic root size is dilated. Pericardium : There is no pericardial effusion. Great Vessels : The IVC is normal in size and collapses >50% with inspiration. Compared to echocardiogram from May 2019: There is no significant change in wall motion abnormalities or general function. CXR: No evidence of acute process. Labs on day of discharge: Labs from last 24 hours 08/02/19 08/02/19 08/01/19 06:45 06:45 17:45 APTT 45.6 H 55.9 H D Sodium 139 Potassium 3.9 Chloride 101 Carbon Dioxide 31.3 Anion Gap 6.7 BUN 25 H Creatinine 1.07 Estimated GFR/1.73 m2 >= 60.00 Glucose 139 H Calcium 8.5 Magnesium 2.1 Troponin I 0.14 H* PFSH Medical History Actinic keratosis (Resolved 08/04/17) scattered on face Anemia (Resolved) a. With heme-positive stool. ASCVD (arteriosclerotic cardiovascular disease) (Chronic) Stenting in 2004 and 2005; 04/02/14 NSTEMI: KECIA to LCX and LAD ([facility], Dr. Watkins); 03/16/16 NSTEMI: KECIA to LCX (85% stenosis) with LVEH 61% ([facility]); DSE @ [facility] 04/02/2019: no ischemic changes on post stress echo. LVEF 60% mild LVH; no change in resting regional wall motion abnormalities (see details under diastolic CHF heading); 06/14/19 stent x2 and angioplastyx1 2019: INDEFINITE DAPT with ASA and Plavix! Basal cell carcinoma of back (Resolved 08/04/17) midline upper back BPH (benign prostatic hyperplasia) (Chronic) Carpal tunnel syndrome on both sides (Chronic 03/28/18) Diabetic peripheral neuropathy (Chronic 02/21/18) Diastolic heart failure (Chronic 02/27/15) Echo 01/2015 EF 50% mild-mod diastolic dysfx; TTE and DSE: 04/02/2019 @ [facility]: global normal LV systolic fxn, LVEF 60%, mild LVH,RWMA w/ HK of mid ant-septal, mid infero-septal, apical septal, apical inferior wall segments; mod. LAE, RV not well seen, LYNDSEY mild, tricuspid AV w/out stenosis or AI, MAC w/out MS; doppler inadequate for assessment of MR, TR not able to be assessed, mild aortic root dilatation. Stress echo failed to demonstrate ischemic changes. DM type 2 (diabetes mellitus, type 2) Erectile dysfunction (Chronic 12/15/11) Essential hypertension (Chronic 02/05/13) GERD (gastroesophageal reflux disease) (Chronic) 05/15/2012 EGD (Dr. 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 Reis); HbA1c goal </= 7.5-8% Surgical History History of cataract extraction with lens replacement (Acute) History of heart artery stent (Chronic) repeated 06/14/19 History of repair of retinal defect by laser photocoagulation (Acute) History of YAG laser capsulotomy of lens (Acute) Social History Smoking/Tobacco Use Status: Former Tobacco Use Alcohol Intake: current Alcohol Intake frequency: 0-2 drinks per day Drug use: Never Substance use type: does not use Caregiver/Support person: No Household members: spouse Number of Children: 2 Communication Needs: Hard of Hearing Education Level: high school Pets and animals: Yes Pets and animals: cat(s) Current gender identity: male What type of physical activity do you participate in: other Details: cardiac rehab Frequency: 3-4 times per week Seatbelt use: always Do you feel safe at home: Yes Do you feel safe in your relationship?: Yes
== END 2019-08-02 19:40 | disposition short-term general hospital (02) | DRG 281 ==
LOC: ER 08-01 02:08 → MS 08-01 02:24
PROVIDERS: Admitting Provider Internal Medicine; Emergency Provider Emergency Medicine; PCP Nurse Practitioner Family; Visit Provider Internal Medicine
DX: I21.4 Non-ST elevation (NSTEMI) myocardial infarction (principal); I50.22 Chronic systolic (congestive) heart failure; Z95.5 Presence of coronary angioplasty implant and graft; I25.10 Atherosclerotic heart disease of native coronary artery without angina pectoris; E11.42 Type 2 diabetes mellitus with diabetic polyneuropathy; Z79.4 Long term (current) use of insulin; G47.33 Obstructive sleep apnea (adult) (pediatric); I44.7 Left bundle-branch block, unspecified; I25.5 Ischemic cardiomyopathy; I11.0 Hypertensive heart disease with heart failure; M35.3 Polymyalgia rheumatica; Z79.52 Long term (current) use of systemic steroids; Z79.02 Long term (current) use of antithrombotics/antiplatelets; N40.0 Benign prostatic hyperplasia without lower urinary tract symptoms; K21.9 Gastro-esophageal reflux disease without esophagitis; Z71.3 Dietary counseling and surveillance
CPT/HCPCS: 36415; 80048; 80053; 93005; 93306; 99215; 99220; 99223; 99239; 99255; 99285; NC; 71046; 83036; 83735; 83880; 84484; 85025; 85049; 85610; 85730; 93010; G0378; J7512

== ENCOUNTER 2019-08-21 11:43 | Outpatient (RCR) | payer MEDICARE, OTHER, SELFPAY | END 2019-08-22 23:59 | disposition home or self-care (01) | LOC: CR 11:43 | PROVIDERS: PCP Nurse Practitioner Family; Visit Provider Family Medicine | DX: I25.2 Old myocardial infarction (principal); Z51.89 Encounter for other specified aftercare | CPT/HCPCS: S9472 ==

== ENCOUNTER 2019-09-18 11:35 | Outpatient (RCR) | payer MEDICARE, OTHER, SELFPAY | END 2019-09-21 23:59 | disposition home or self-care (01) | LOC: CR 11:35 | PROVIDERS: PCP Nurse Practitioner Family; Visit Provider Family Medicine | DX: I25.2 Old myocardial infarction (principal); Z51.89 Encounter for other specified aftercare; Z95.5 Presence of coronary angioplasty implant and graft | CPT/HCPCS: S9472 ==

== ENCOUNTER → 2019-09-18 11:37 | Outpatient (BNVA) | payer MEDICARE, OTHER, SELFPAY | PROVIDERS: PCP Nurse Practitioner Family; Referring Provider Nurse Practitioner Family; Visit Provider Internal Medicine Cardiovascular Disease | DX: I11.0 Hypertensive heart disease with heart failure (principal); I25.10 Atherosclerotic heart disease of native coronary artery without angina pectoris; Z95.818 Presence of other cardiac implants and grafts; I25.5 Ischemic cardiomyopathy; E78.5 Hyperlipidemia, unspecified; E11.40 Type 2 diabetes mellitus with diabetic neuropathy, unspecified; Z79.4 Long term (current) use of insulin; I50.9 Heart failure, unspecified | CPT/HCPCS: 99214 ==

== ENCOUNTER 2019-10-18 14:21 | Outpatient (RCR) | payer MEDICARE, OTHER, SELFPAY | END 2019-10-22 23:59 | disposition home or self-care (01) | LOC: CR 14:21 | PROVIDERS: PCP Nurse Practitioner Family; Visit Provider Family Medicine | DX: I25.2 Old myocardial infarction (principal); Z51.89 Encounter for other specified aftercare | CPT/HCPCS: S9472 ==

== ENCOUNTER 2020-01-22 11:41 | Emergency (ER) | payer MEDICARE, OTHER, SELFPAY ==
[2020-01-22] VITALS (28 sets, daily range): BP systolic 125–159; BP diastolic 56–75; PULSE 69–94; RESP 11–31; TEMP 36.8; O2SAT 85–96
--- NOTE | 2020-01-22 12:01 | ED.GENADUL_ITS ---
Discharge Plan Disposition Patient Disposition: HOME Condition: Good Discharge Details Chief Complaint: SOB Clinical Impression: Chronic chest pain, Chronic dyspnea, Chronic stable angina Primary Care Provider: Michell Bishop ED Provider: Yancy Keller Home Meds and New Rx's Prescriptions: New isosorbide mononitrate 60 mg tablet extended release 24 hr 60 mg PO DAILY Qty: 30 RF: 0 metoprolol succinate 100 mg tablet extended release 24 hr 100 mg PO DAILY Qty: 30 RF: 0 Continued dulaglutide 0.75 mg/0.5 mL pen injector 0.75 mg subcut QWEEK Qty: 12 RF: 0 Lantus Solostar U-100 Insulin 100 unit/mL (3 mL) insulin pen 61 unit subcut HS Qty: 2 RF: 11 prednisone 5 mg tablet 5 mg PO DAILY RF: 0 polyethylene glycol 3350 [Miralax] 17 gram/dose powder 17 gm PO DAILY PRN (Reason: constipation) Qty: 119 RF: 0 (DME) lancets Misc See Rx Instructions .ROUTE .MEDSUPPLY Qty: 100 RF: 3 multivitamin [One Daily Multivitamin] 1 EACH tablet 1 ea PO DAILY RF: 0 aspirin [Aspirin Low-Strength] 81 MG tablet,chewable 81 mg PO DAILY RF: 0 (DME) blood sugar diagnostic [CognovantTouch Ultra Test] 1 EACH strip 1 ea Miscellaneous BID RF: 0 cholecalciferol (vitamin D3) 2,000 UNIT tablet 2,000 unit PO DAILY RF: 0 ezetimibe [Zetia] 10 MG tablet 10 mg PO DAILY Qty: 90 RF: 4 alfuzosin 10 mg tablet extended release 24 hr 10 mg PO DAILY Qty: 90 RF: 4 clopidogrel [Plavix] 75 mg tablet 75 mg PO DAILY Qty: 90 RF: 3 acetaminophen 500 mg tablet 1,000 mg PO BID PRNRF: 0 hydralazine 10 mg tablet 10 mg PO BID Qty: 180 RF: 3 losartan 100 mg tablet 100 mg PO DAILY Qty: 90 RF: 3 atorvastatin 80 mg tablet 80 mg PO DAILY Qty: 90 RF: 3 metoprolol succinate 25 mg tablet extended release 24 hr 75 mg PO DAILY Qty: 270 RF: 3 pantoprazole 20 mg tablet,delayed release (DR/EC) 20 mg PO DAILY Qty: 90 RF: 3 nitroglycerin 0.4 mg tablet, sublingual 0.4 mg SL Q5M MDD 3 doses PRN (Reason: chest pain) Qty: 30 RF: 3 finasteride 5 mg tablet 5 mg PO HS Qty: 90 RF: 4 Myrbetriq 50 mg tablet extended release 24 hr 50 mg PO Q24H Qty: 90 RF: 4 furosemide 20 mg tablet 40 mg PO BID Qty: 180 RF: 3 metformin 1,000 mg tablet 1,000 mg PO BID Qty: 180 RF: 3 (DME) PT ([place]) Qty: 1 RF: 0 spironolactone 25 mg tablet 12.5 mg PO DAILY Qty: 45 RF: 3 Discontinued isosorbide mononitrate 30 mg tablet extended release 24 hr 30 mg PO DAILY Qty: 90 RF: 3 Metoprolol Succinate 25 MG TAB.ER.24H 3 tab-cap PO DAILY Qty: 270 RF: 0 Discharge Instructions Instructions: Angina (ED), Chest Pain (ED), Dyspnea (ED) Additional Instructions: Stop taking your Imdur 30 mg daily. Start taking Imdur 60mg once daily tomorrow. Stop taking your Metoprolol 75mg daily. Start taking Metoprolol 100mg daily tomorrow. Call your cardiology office tomorrow to see if you need an earlier appointment than February 02. Return to the emergency department if you develop any worsening or new concerning symptoms. Discharge Data Discharge Date/Time-TO BE ENTERED AT DEPARTURE: 01/22/20 15:37 Discharge Physician: Yancy Keller Medical Decision Making 1155 -- 79-year-old male with a history of ASCVD, BPH, diabetes, hypertension, GERD, NSTEMI with 9 cardiac stents, severe obstructive sleep apnea who presents with intermittent chest pain and shortness of breath for the past 3 weeks. He also admits to dry cough that is mild occurring almost every day for the past year. EKG notes a rate of 84, sinus, first-degree block and left bundle branch block with no ischemic changes and acute change from previous. Patient appears in no acute distress. He denies any symptoms at present. Blood pressure mildly hypertensive but otherwise vitals within normal limits. Lungs clear. 1+ pitting bilateral lower extremity edema. Differential diagnosis also includes pneumonia, CHF, musculoskeletal chest pain. Patient denies any tearing chest pain so doubt dissection. Denies any recent travel or recent surgery and has no evidence of hypoxia or tachycardia, so doubt PE. History and presentation not consistent with coded as he denies any fever and his cough has been chronic. Will check screening labs and chest x-ray. 1310 -- Labs and imaging reviewed and unremarkable. Normal white blood cell count, troponin, BNP. Chest x-ray negative. 1500 --Case discussed with [facility] cardiology -recommend increasing patient's Imdur from 30 mg daily to 60 mg daily and increasing his metoprolol from 75 mg daily to 100 mg daily. Recommend giving an additional 30 mg of Imdur here and have patient ambulate to see if he develops chest pain. If chest pain-free, okay to discharge home. Patient ambulated after Imdur and no report of symptoms. Patient has an appointment with cardiology on February 02. Patient advised to call cardiology tomorrow to see if need earlier follow-up. [facility] cardiology states she will forward information to Dr. Palafox. Patient advised to return here with any concerns. Medical Records Medical records reviewed: Yes I reviewed the patient's medical records. Imaging Data Radiologic Study: Radiologist's impression: XR CHEST 2V PA LATERAL CLINICAL HISTORY: cough, sob, r/o acute disease TECHNIQUE: 2D digital imaging was performed. COMPARISON: XR CHEST 2V PA LATERAL from 08/01/2019 FINDINGS: The heart is mildly enlarged and the aorta is tortuous, unchanged. There is stable mild elevation of the left diaphragm. And the lungs are not well inflated on the lateral view. No infiltrate, effusion or pulmonary edema is seen. IMPRESSION: No acute abnormality. Lab Data Lab results reviewed: Yes I reviewed the patient's lab results. Labs: Laboratory Tests Range/Units 01/22/20 01/22/20 12:30 12:30 WBC (4.4-10.8) k/cumm 6.52 RBC (4.50-6.00) m/cumm 3.87 L Hgb (13.5-17.5) g/dL 11.9 L Hct (40.0-50.0) % 35.7 L MCV (80-95) fL 92.2 MCH (27.0-33.0) pg 30.7 MCHC (32.0-36.0) g/dL 33.3 RDW (11.8-14.1) % 13.6 Plt Count (130-400) x1000/uL 231 MPV (8.0-11.0) fL 9.8 Immature Gran % % 0.3 Neutrophils % 69.1 Lymphocytes % 17.5 Monocytes % 10.3 Eosinophils % 2.5 Basophils % 0.3 Absolute Neutrophils (1.2-6.7) k/cumm 4.51 Absolute Lymphocytes (1.2-3.4) k/cumm 1.14 L Absolute Monocytes (0.11-0.7) k/cumm 0.67 Absolute Eosinophils (0.0-0.7) k/cumm 0.16 Absolute Basophils (0.0-0.2) k/cumm 0.02 Sodium (136-145) mmol/L 138 Potassium (3.5-5.1) mmol/L 4.2 Chloride (98-107) mmol/L 102 Carbon Dioxide (21.0-32.0) mmol/L 28.7 Anion Gap (3-11) mmol/L 7.3 BUN (7-18) mg/dL 34 H Creatinine (0.70-1.30) mg/dL 1.41 H Estimated GFR/1.73 m2 (mL/min/1.73m2) 48.36 Glucose (74-106) mg/dL 192 H Calcium (8.5-10.1) mg/dL 8.6 Magnesium (1.8-2.4) mg/dL 2.0 Total Bilirubin (0.2-1.0) mg/dL 0.5 AST (15-37) U/L 22 ALT (16-63) U/L 38 Alkaline Phosphatase (46-116) U/L 101 Troponin I (<0.06) ng/Ml < 0.05 NT-Pro-B Natriuret Pep (<300) pg/mL 265 Total Protein (6.4-8.2) g/dL 6.7 Albumin (3.4-5.0) g/dL 3.4 ECG Data Attestation: I personally reviewed and interpreted this ECG (s) as follows: Interpretation: Rate of 84, sinus, first-degree block. Left bundle branch block. No acute ischemic change. No acute change from previous EKG. QTc 485. HPI General Mode of arrival: ambulatory . Date/Time Provider Initiated Documentation: 01/22/20 11:50 . Limitations to Documentation: no limitations . Information obtained by: patient . HPI Narrative: Patient is an 79-year-old male with a history of ASCVD, hypertension, diabetes, hyperlipidemia, CHF, NSTEMI and 9 cardiac stents who presents to the ED with a complaint of chest pain and shortness of breath for the past 3 weeks. Patient states the chest pain is substernal and feels like pressure with occasional radiation to his left arm. He denies any chest pain or shortness of breath or any other symptoms at present. Patient states he has an appointment with his manager action here on January 26 but called there today due to his symptoms and they advised he come to the ER for evaluation. Patient does admit to an intermittent dry cough for the past year. He denies any fever and states he has had a normal appetite. Patient traveled from [place] over 2 weeks ago. Patient states he has taken nitro 3 times weekly for a long time and states he has taken this in the past week with some relief of his pain. He states his chest pressure is also relieved with rest. He states he needs 2 pillows at night to help with sleep due to shortness of breath when laying flat but he states this is not new. Related Data Home Medications Medication Instructions Recorded Confirmed multivitamin [One Daily 1 ea PO DAILY 01/23/13 01/22/20 Multivitamin] aspirin [Aspirin Low-Strength] 81 mg PO DAILY tab 04/03/14 01/22/20 blood sugar diagnostic [OneTouch strip 12/24/14 01/22/20 Ultra Test] cholecalciferol (vitamin D3) 2,000 unit PO DAILY 08/17/16 01/22/20 ezetimibe [Zetia] 10 mg PO DAILY #90 tab-cap 05/21/18 01/22/20 dulaglutide 0.75 mg/0.5 mL 0.75 mg SUBCUT QWEEK #12 syringe 09/06/18 01/22/20 subcutaneous pen injector alfuzosin 10 mg tablet,extended 10 mg PO DAILY #90 tab-cap 02/18/19 01/22/20 release 24 hr clopidogrel 75 mg tablet 75 mg PO DAILY #90 tab-cap 03/25/19 01/22/20 acetaminophen 500 mg tablet 1,000 mg PO BID PRN tab 03/29/19 01/22/20 hydralazine 10 mg tablet 10 mg PO BID #180 tab-cap 06/03/19 01/22/20 prednisone 5 mg tablet 5 mg PO DAILY 06/28/19 01/22/20 insulin glargine 100 unit/mL (3 61 unit SUBCUT HS #2 ml 07/30/19 01/22/20 mL) subcutaneous pen losartan 100 mg tablet 100 mg PO DAILY #90 tab 08/12/19 01/22/20 atorvastatin 80 mg tablet 80 mg PO DAILY #90 tab-cap 08/16/19 01/22/20 metoprolol succinate 25 mg 75 mg PO DAILY #270 tab-cap 08/16/19 01/22/20 tablet,extended release 24 hr nitroglycerin 0.4 mg sublingual 0.4 mg SL Q5M PRN #30 tab-cap MDD 08/16/19 01/22/20 tablet 3 doses pantoprazole 20 mg tablet,delayed 20 mg PO DAILY #90 tab-cap 08/16/19 01/22/20 release lancets #100 each 09/05/19 01/22/20 polyethylene glycol 3350 17 17 gm PO DAILY PRN #119 gm 09/05/19 01/22/20 gram/dose oral powder finasteride 5 mg tablet 5 mg PO HS #90 tab-cap 09/30/19 01/22/20 mirabegron 50 mg tablet,extended 50 mg PO Q24H #90 tab 10/04/19 01/22/20 release 24 hr furosemide 20 mg tablet 40 mg PO BID #180 tab-cap 10/10/19 01/22/20 metformin 1,000 mg tablet 1,000 mg PO BID #180 tab-cap 10/21/19 01/22/20 PT (Ge) #1 ea 11/05/19 01/22/20 spironolactone 25 mg tablet 12.5 mg PO DAILY #45 tab-cap 01/20/20 01/22/20 isosorbide mononitrate 60 mg PO DAILY #30 tab 01/22/20 metoprolol succinate 100 mg PO DAILY #30 tab 01/22/20 Previous Rx's Medication Instructions Recorded ezetimibe [Zetia] 10 mg PO DAILY #90 tab-cap 05/21/18 dulaglutide 0.75 mg/0.5 mL 0.75 mg SUBCUT QWEEK #12 syringe 09/06/18 subcutaneous pen injector alfuzosin 10 mg tablet,extended 10 mg PO DAILY #90 tab-cap 02/18/19 release 24 hr clopidogrel 75 mg tablet 75 mg PO DAILY #90 tab-cap 03/25/19 hydralazine 10 mg tablet 10 mg PO BID #180 tab-cap 06/03/19 losartan 100 mg tablet 100 mg PO DAILY #90 tab 08/12/19 atorvastatin 80 mg tablet 80 mg PO DAILY #90 tab-cap 08/16/19 metoprolol succinate 25 mg 75 mg PO DAILY #270 tab-cap 08/16/19 tablet,extended release 24 hr nitroglycerin 0.4 mg sublingual 0.4 mg SL Q5M PRN #30 tab-cap MDD 08/16/19 tablet 3 doses pantoprazole 20 mg tablet,delayed 20 mg PO DAILY #90 tab-cap 08/16/19 release lancets #100 each 09/05/19 polyethylene glycol 3350 17 17 gm PO DAILY PRN #119 gm 09/05/19 gram/dose oral powder finasteride 5 mg tablet 5 mg PO HS #90 tab-cap 09/30/19 mirabegron 50 mg tablet,extended 50 mg PO Q24H #90 tab 10/04/19 release 24 hr furosemide 20 mg tablet 40 mg PO BID #180 tab-cap 10/10/19 metformin 1,000 mg tablet 1,000 mg PO BID #180 tab-cap 10/21/19 PT (Ge) #1 ea 11/05/19 spironolactone 25 mg tablet 12.5 mg PO DAILY #45 tab-cap 01/20/20 isosorbide mononitrate 60 mg PO DAILY #30 tab 01/22/20 metoprolol succinate 100 mg PO DAILY #30 tab 01/22/20 Allergies Allergy/AdvReac Type Severity Reaction Status Date / Time No Known Allergies Allergy Verified 01/22/20 11:50 General Stated Complaint: SOB EDUARDO: 3 Review of Systems All systems reviewed & are unremarkable except as noted in HPI and below Constitutional Constitutional: Reports as per HPI, Denies chills and Denies fever(s) Eyes Eyes: Denies blurry vision ENT Ears, Nose, Mouth, and Throat: Denies dizziness, Denies sore throat and Denies throat swelling Cardiovascular Cardiovascular: Reports chest pain and Reports dyspnea Respiratory Respiratory: Denies cough and Reports dyspnea Gastrointestinal Gastrointestinal: Denies abdominal pain, Denies diarrhea and Denies vomiting Genitourinary Genitourinary: Denies hematuria and Denies dysuria Musculoskeletal Musculoskeletal: Denies back pain and Denies numbness Integumentary/Breasts Skin/Breast: Denies lesions and Denies rash Neurologic Neurologic: Denies dizziness, Denies localized weakness and Denies numbness Allergic/Immunologic Allergic/Immunologic: Denies throat swelling [facility] Social History (Updated 09/18/19 @ 11:48 by Ashley Powell RN) Smoking/Tobacco Use Status: Former Tobacco Use Quit Date: 10/23/84 Pack-years: 25 Tobacco: How many years used: 25 Alcohol Intake: current Alcohol Intake frequency: 0-2 drinks per day Drug use: Never Substance use type: does not use Caregiver/Support person: No Household members: spouse Number of Children: 2 Communication Needs: Hard of Hearing Education Level: high school Pets and animals: Yes Pets and animals: cat(s) Current gender identity: male What type of physical activity do you participate in: other Details: cardiac rehab Frequency: 3-4 times per week Seatbelt use: always Do you feel safe at home: Yes Do you feel safe in your relationship?: Yes Exam Const General: cooperative and no acute distress Nutritional Appearance: obese centrally obese Orientation: alert, awake and oriented x3 HENMT Head: normal to inspection Face and sinus: normal facial exam Eyes General: appearance normal, both eyes and all related structures Neck Neck: normal visual inspection and No submandibular swelling Lymphatic: no lymphadenopathy noted Chest Chest: normal inspection of the chest and no tenderness Resp Effort & Inspection: normal respiratory effort and able to speak in complete sentences Auscultation: clear to auscultation bilaterally Cardio Rate: regular rate Rhythm: regular rhythm GI Inspection: normal to inspection and obesity Palpation: soft, not firm, not rigid and nontender Auscultation: normal bowel sounds Skin General skin exam: no rashes or lesions noted Neuro General: patient alert, patient awake and patient oriented x3 Cognition: normal cognition Speech: speech normal Motor: muscle tone normal throughout Sensory Exam: no sensory deficits noted Extrem General: normal to inspection, full ROM, capillary refill normal, no calf tenderness bilaterally and edema Laterality: bilateral (1+ pitting) Psych Appearance: grossly normal Mental Status: mental status grossly normal Speech and Movement: speech and movement normal Affect: normal affect Course Vital Signs Vital signs: Vital Signs Temperature 98.2 F 01/22/20 11:46 Pulse 76 01/22/20 11:46 Respiratory Rate 16 01/22/20 11:46 Blood Pressure 144/69 H 01/22/20 11:46 Pulse Oximetry 96 01/22/20 11:46 Temperature 98.2 F 01/22/20 11:46 Temperature Source Tympanic 01/22/20 11:46 Pulse 76 01/22/20 11:46 Respiratory Rate 16 01/22/20 11:46 Respiratory Effort Non-Labored 01/22/20 11:49 Blood Pressure 144/69 H 01/22/20 11:46 Blood Pressure Position Sitting 01/22/20 11:46 Pulse Oximetry 96 01/22/20 11:46 Oxygen Delivery Method Room Air 01/22/20 11:46 Oxygen Flow Rate 0 01/22/20 11:46 Pain Level 0 01/22/20 11:46
--- NOTE | 2020-01-22 12:15 | DI.RAD_ITS ---
EXAM: XR CHEST 2V PA LATERAL CLINICAL HISTORY: cough, sob, r/o acute disease TECHNIQUE: 2D digital imaging was performed. COMPARISON: XR CHEST 2V PA LATERAL from 08/01/2019 FINDINGS: The heart is mildly enlarged and the aorta is tortuous, unchanged. There is stable mild elevation of the left diaphragm. And the lungs are not well inflated on the lateral view. No infiltrate, effusi on or pulmonary edema is seen. IMPRESSION: No acute abnormality.
[2020-01-22 12:37] LABS: Abs Immature Grans 0.02 k/cumm (0.0-0.09); Absolute Basophil Count 0.02 k/cumm (0.0-0.2); Absolute Eosinophil Count 0.16 k/cumm (0.0-0.7); Absolute Lymphocyte Count 1.14 k/cumm (1.2-3.4); Absolute Monocyte Count 0.67 k/cumm (0.11-0.7); Absolute Neutrophil Count 4.51 k/cumm (1.2-6.7); Basophils % 0.3; Eosinophils % 2.5; HCT 35.7 % (40.0-50.0); HGB 11.9 g/dL (13.5-17.5); Immature Grans % 0.3 %; Lymphocytes % 17.5; Mean Corp. HGB Concentration 33.3 g/dL (32.0-36.0); Mean Corpuscular Hemoglobin 30.7 pg (27.0-33.0); Mean Corpuscular Volume 92.2 fL (80-95); Mean Platelet Volume 9.8 fL (8.0-11.0); Monocytes % 10.3; Neutrophils % 69.1; Platelet Count 231 x1000/uL (130-400); RBC 3.87 m/cumm (4.50-6.00); RBC Distribution Width 13.6 % (11.8-14.1); White Blood Cell Count 6.52 k/cumm (4.4-10.8)
[2020-01-22 12:59] LABS: ALT 38 U/L (16-63); AST 22 U/L (15-37); Albumin 3.4 g/dL (3.4-5.0); Alkaline Phosphatase 101 U/L (46-116); Anion Gap 7.3 mmol/L (3-11); BUN 34 mg/dL (7-18); Bilirubin, Total 0.5 mg/dL (0.2-1.0); CO2 28.7 mmol/L (21.0-32.0); CREATININE 1.41 mg/dL (0.70-1.30); Calcium 8.6 mg/dL (8.5-10.1); Chloride 102 mmol/L (98-107); Estimated GFR 48.36 (mL/min/1.73m2); Glucose 192 mg/dL (74-106); NT-proBNP 265 pg/mL (<300); Potassium 4.2 mmol/L (3.5-5.1); Sodium 138 mmol/L (136-145); Total Protein 6.7 g/dL (6.4-8.2)
[2020-01-22 13:01] LABS: Troponin I < 0.05 ng/Ml (<0.06)
[2020-01-22] MEDS: Isosorbide Mononitrate 30 MG TABCR PO (14:52)
== END 2020-01-22 15:37 | disposition home or self-care (01) ==
LOC: ER 13:48
PROVIDERS: Emergency Provider Physician Assistant; PCP Nurse Practitioner Family
DX: R07.89 Other chest pain (principal); R06.09 Other forms of dyspnea; I25.118 Atherosclerotic heart disease of native coronary artery with other forms of angina pectoris; I10 Essential (primary) hypertension; E11.9 Type 2 diabetes mellitus without complications; I25.2 Old myocardial infarction; Z95.5 Presence of coronary angioplasty implant and graft; G47.33 Obstructive sleep apnea (adult) (pediatric)
CPT/HCPCS: 80053; 93005; 99284; 71046; 83735; 83880; 84484; 85025; 93010

== ENCOUNTER → 2020-02-03 10:22 | Outpatient (BNVA) | payer MEDICARE, OTHER, SELFPAY | PROVIDERS: PCP Nurse Practitioner Family; Referring Provider Nurse Practitioner Family; Visit Provider Internal Medicine Cardiovascular Disease | DX: I20.8 Other forms of angina pectoris (principal); R07.9 Chest pain, unspecified; G89.29 Other chronic pain; E11.40 Type 2 diabetes mellitus with diabetic neuropathy, unspecified; Z79.4 Long term (current) use of insulin | CPT/HCPCS: 99214; 99443 ==

== ENCOUNTER → 2020-03-05 11:45 | Outpatient (BNVA) | payer MEDICARE, OTHER, SELFPAY | PROVIDERS: PCP Nurse Practitioner Family; Referring Provider Nurse Practitioner Family; Visit Provider Internal Medicine Cardiovascular Disease | DX: I44.7 Left bundle-branch block, unspecified (principal); I25.10 Atherosclerotic heart disease of native coronary artery without angina pectoris; I50.30 Unspecified diastolic (congestive) heart failure; I10 Essential (primary) hypertension; I11.0 Hypertensive heart disease with heart failure; E11.42 Type 2 diabetes mellitus with diabetic polyneuropathy | CPT/HCPCS: 99214; 99443 ==

== ENCOUNTER 2020-03-06 18:43 | Outpatient (REF) | payer MEDICARE, OTHER, SELFPAY ==
[2020-03-06 20:47] LABS: COMMENT (LAB VIEW ONLY) 105.29 mg/dL; Microalb ug/mg Crea 5.5 ug/mg Cr
== END 2020-03-06 19:03 ==
LOC: LBN 18:43
PROVIDERS: PCP Nurse Practitioner Family; Visit Provider Nurse Practitioner Family
DX: E11.9 Type 2 diabetes mellitus without complications (principal)
CPT/HCPCS: 82043; 82570

== ENCOUNTER → 2020-03-24 15:20 | Outpatient (BNVA) | payer MEDICARE, OTHER, SELFPAY | PROVIDERS: PCP Nurse Practitioner Family; Referring Provider Nurse Practitioner Family; Visit Provider Urology | DX: N40.0 Benign prostatic hyperplasia without lower urinary tract symptoms (principal); I11.0 Hypertensive heart disease with heart failure; I50.9 Heart failure, unspecified; E11.42 Type 2 diabetes mellitus with diabetic polyneuropathy; Z79.4 Long term (current) use of insulin | CPT/HCPCS: 99213 ==

== ENCOUNTER → 2020-03-27 13:05 | Outpatient (BNVA) | payer MEDICARE, OTHER, SELFPAY | PROVIDERS: PCP Nurse Practitioner Family; Referring Provider Nurse Practitioner Family; Visit Provider Internal Medicine Cardiovascular Disease | DX: I25.10 Atherosclerotic heart disease of native coronary artery without angina pectoris (principal); E78.5 Hyperlipidemia, unspecified; I11.0 Hypertensive heart disease with heart failure; E11.42 Type 2 diabetes mellitus with diabetic polyneuropathy; I50.30 Unspecified diastolic (congestive) heart failure; Z79.4 Long term (current) use of insulin | CPT/HCPCS: 99214 ==

== ENCOUNTER 2020-04-15 11:43 | Emergency (ER) | payer MEDICARE, OTHER, SELFPAY ==
[2020-04-15 11:47] VITALS: BP 117/58; PULSE 82; RESP 18; TEMP 36.6; O2SAT 95
--- NOTE | 2020-04-15 12:33 | NUR.NOTE ---
skin wound cleanseed with normal saline and dressed with band aide per PA order. left uriarte redness area outlined with skin marking pen. Nursing Note:
--- NOTE | 2020-04-17 16:18 | ED.GENADUL_ITS ---
Discharge Plan Disposition Patient Disposition: HOME Condition: Stable Discharge Details Chief Complaint: Cellulitis Clinical Impression: Infected skin tear Primary Care Provider: Michell Bishop ED Provider: Laury Yusuf Home Meds and New Rx's Prescriptions: New cephalexin 500 mg capsule 500 mg PO QID Qty: 40 RF: 0 mupirocin 2 % ointment 1 applic TP TID Qty: 15 RF: 0 No Action dulaglutide 0.75 mg/0.5 mL pen injector 0.75 mg subcut QWEEK Qty: 12 RF: 0 Lantus Solostar U-100 Insulin 100 unit/mL (3 mL) insulin pen 61 unit subcut HS Qty: 2 RF: 11 ranolazine 500 mg tablet extended release 12 hr 500 mg PO BID Qty: 180 RF: 3 polyethylene glycol 3350 [Miralax] 17 gram/dose powder 17 gm PO DAILY PRN (Reason: constipation) Qty: 119 RF: 0 (DME) lancets Misc See Rx Instructions .ROUTE .MEDSUPPLY Qty: 100 RF: 3 triamcinolone acetonide 0.5 % cream 1 applic TP .BID-QID Qty: 15 RF: 0 clopidogrel [Plavix] 75 mg tablet 75 mg PO DAILY Qty: 90 RF: 3 alfuzosin 10 mg tablet extended release 24 hr 10 mg PO DAILY Qty: 90 RF: 4 finasteride 5 mg tablet 5 mg PO HS Qty: 90 RF: 4 multivitamin [One Daily Multivitamin] 1 EACH tablet 1 ea PO DAILY RF: 0 aspirin [Aspirin Low-Strength] 81 MG tablet,chewable 81 mg PO DAILY RF: 0 (DME) blood sugar diagnostic [MarkTendTouch Ultra Test] 1 EACH strip 1 ea Miscellaneous BID RF: 0 cholecalciferol (vitamin D3) 2,000 UNIT tablet 2,000 unit PO DAILY RF: 0 ezetimibe [Zetia] 10 MG tablet 10 mg PO DAILY Qty: 90 RF: 4 acetaminophen 500 mg tablet 1,000 mg PO BID PRNRF: 0 hydralazine 10 mg tablet 10 mg PO BID Qty: 180 RF: 3 losartan 100 mg tablet 100 mg PO DAILY Qty: 90 RF: 3 atorvastatin 80 mg tablet 80 mg PO DAILY Qty: 90 RF: 3 pantoprazole 20 mg tablet,delayed release (DR/EC) 20 mg PO DAILY Qty: 90 RF: 3 nitroglycerin 0.4 mg tablet, sublingual 0.4 mg SL Q5M MDD 3 doses PRN (Reason: chest pain) Qty: 30 RF: 3 Myrbetriq 50 mg tablet extended release 24 hr 50 mg PO Q24H Qty: 90 RF: 4 Hold Instructions: Home Medication placed on hold at Doctor's office furosemide 20 mg tablet 40 mg PO BID Qty: 180 RF: 3 metformin 1,000 mg tablet 1,000 mg PO BID Qty: 180 RF: 3 (DME) PT (Ge) Qty: 1 RF: 0 spironolactone 25 mg tablet 12.5 mg PO DAILY Qty: 45 RF: 6 isosorbide mononitrate 60 mg tablet extended release 24 hr 60 mg PO DAILY Qty: 30 RF: 0 metoprolol succinate 100 mg tablet extended release 24 hr 100 mg PO DAILY Qty: 30 RF: 0 Discharge Instructions Instructions: Wound Infection (ED) Additional Instructions: Wash area gently with soap and water once or twice daily. Apply topical antibiotic ointment to the wound 3 times daily. Use oral antibiotics as prescribed. Observe for any signs of expanding redness to the uriarte as discussed. Observe for any elevation of your blood sugars, fevers, chills or ill feeling. Recheck with your primary care doctor next week as discussed. Return for any worsening, concerns or alarming symptoms sooner if needed Discharge Data Discharge Date/Time-TO BE ENTERED AT DEPARTURE: 04/15/20 12:34 Medical Decision Making Is a very pleasant 80-year-old patient presenting for a skin tear to the left anterior uriarte. Please see HPI for remainder of details. Patient reports a 5- day history of skin tear. On exam has mild inversion of the skin at the site of the small flap on the pretibial uriarte with surrounding cellulitis consistent with a skin tear which is focally infected. Patient has no evidence of bony injury of the lower extremity. No calf pain with palpation. Patient reports his baseline swelling in his lower extremity which seems unchanged. Patient is diabetic concern with infection. We will plan to treat appropriately for cellulitis with both topical and oral medications. Reviewed patient's renal function which should support the use of Keflex without difficulty. We discussed the use of antibiotics, wound management. Patient agrees with this plan of care. Signs and symptoms or return were discussed. Skin was marked with a skin marker for comparison purposes. The patient was stable and requested discharge. Prior to discharge, my usual and customary return precautions were reviewed with the patient - this included follow-up instructions and reasons to return to the Emergency Department if conditions worsens, does not improve as expected, or other new concerns arise. HPI General Date/Time Provider Initiated Documentation: 04/15/20 11:58 . HPI Narrative: Is a very pleasant 80-year-old patient presenting to the emergency room for concern of a infected skin tear on the left pretibial uriarte. Patient reports that he accidentally cut his left uriarte approximately 5 days ago on a cardboard box. Patient sustained a skin tear focally which is approximately 1.5 cm. Patient has a mild inversion of the skin. Patient reports he has been developing increase in redness in the last few days and is concerned with the possibility of cellulitis. Patient is a type II diabetic and wants to be cautious with the possibility of a developing infection. Patient otherwise reports he feels well. Denies any fevers, chills, nausea, vomiting, chest pain, difficulty breathing shortness of breath or wheezing. Patient denies any obvious Covid symptoms or signs of infection. Denies any pain when ambulating or limping gait. No new numbness, tingling or weakness. Patient reports baseline swelling of his lower extremities typically worse in the left, unchanged. Patient denies any other concerns or complaints at this time. Patient's tetanus is reported to be up-to-date. No other concerns or complaints. Related Data Home Medications Medication Instructions Recorded Confirmed multivitamin [One Daily 1 ea PO DAILY 01/23/13 03/27/20 Multivitamin] aspirin [Aspirin Low-Strength] 81 mg PO DAILY tab 04/03/14 03/27/20 blood sugar diagnostic [OneTouch strip 12/24/14 03/27/20 Ultra Test] cholecalciferol (vitamin D3) 2,000 unit PO DAILY 08/17/16 03/27/20 ezetimibe [Zetia] 10 mg PO DAILY #90 tab-cap 05/21/18 03/27/20 dulaglutide 0.75 mg/0.5 mL 0.75 mg SUBCUT QWEEK #12 syringe 09/06/18 03/27/20 subcutaneous pen injector acetaminophen 500 mg tablet 1,000 mg PO BID PRN tab 03/29/19 03/27/20 hydralazine 10 mg tablet 10 mg PO BID #180 tab-cap 06/03/19 03/27/20 insulin glargine 100 unit/mL (3 61 unit SUBCUT HS #2 ml 07/30/19 03/27/20 mL) subcutaneous pen losartan 100 mg tablet 100 mg PO DAILY #90 tab 08/12/19 03/27/20 atorvastatin 80 mg tablet 80 mg PO DAILY #90 tab-cap 08/16/19 03/27/20 nitroglycerin 0.4 mg sublingual 0.4 mg SL Q5M PRN #30 tab-cap MDD 08/16/19 03/27/20 tablet 3 doses pantoprazole 20 mg tablet,delayed 20 mg PO DAILY #90 tab-cap 08/16/19 03/27/20 release lancets #100 each 09/05/19 03/27/20 polyethylene glycol 3350 17 17 gm PO DAILY PRN #119 gm 09/05/19 03/27/20 gram/dose oral powder mirabegron 50 mg tablet,extended 50 mg PO Q24H #90 tab 10/04/19 03/27/20 release 24 hr furosemide 20 mg tablet 40 mg PO BID #180 tab-cap 10/10/19 03/27/20 metformin 1,000 mg tablet 1,000 mg PO BID #180 tab-cap 10/21/19 03/27/20 PT (Ge) #1 ea 11/05/19 03/27/20 isosorbide mononitrate 60 mg PO DAILY #30 tab 01/22/20 03/27/20 metoprolol succinate 100 mg PO DAILY #30 tab 01/22/20 03/27/20 ranolazine 500 mg tablet,extended 500 mg PO BID #180 tab 02/03/20 03/27/20 release,12 hr clopidogrel 75 mg tablet 75 mg PO DAILY #90 tab-cap 03/06/20 03/27/20 triamcinolone acetonide 0.5 % 1 applic TP .BID-QID #15 gm 03/06/20 03/27/20 topical cream alfuzosin 10 mg tablet,extended 10 mg PO DAILY #90 tab-cap 03/24/20 03/27/20 release 24 hr finasteride 5 mg tablet 5 mg PO HS #90 tab-cap 03/24/20 03/27/20 spironolactone 25 mg tablet 12.5 mg PO DAILY #45 tab-cap 04/14/20 cephalexin 500 mg PO QID #40 cap 04/15/20 mupirocin 1 applic TP TID #15 gm 04/15/20 Previous Rx's Medication Instructions Recorded ezetimibe [Zetia] 10 mg PO DAILY #90 tab-cap 05/21/18 dulaglutide 0.75 mg/0.5 mL 0.75 mg SUBCUT QWEEK #12 syringe 09/06/18 subcutaneous pen injector hydralazine 10 mg tablet 10 mg PO BID #180 tab-cap 06/03/19 losartan 100 mg tablet 100 mg PO DAILY #90 tab 08/12/19 atorvastatin 80 mg tablet 80 mg PO DAILY #90 tab-cap 08/16/19 nitroglycerin 0.4 mg sublingual 0.4 mg SL Q5M PRN #30 tab-cap MDD 08/16/19 tablet 3 doses pantoprazole 20 mg tablet,delayed 20 mg PO DAILY #90 tab-cap 08/16/19 release lancets #100 each 09/05/19 polyethylene glycol 3350 17 17 gm PO DAILY PRN #119 gm 09/05/19 gram/dose oral powder mirabegron 50 mg tablet,extended 50 mg PO Q24H #90 tab 10/04/19 release 24 hr furosemide 20 mg tablet 40 mg PO BID #180 tab-cap 10/10/19 metformin 1,000 mg tablet 1,000 mg PO BID #180 tab-cap 10/21/19 PT (Ge) #1 ea 11/05/19 isosorbide mononitrate 60 mg PO DAILY #30 tab 01/22/20 metoprolol succinate 100 mg PO DAILY #30 tab 01/22/20 ranolazine 500 mg tablet,extended 500 mg PO BID #180 tab 02/03/20 release,12 hr clopidogrel 75 mg tablet 75 mg PO DAILY #90 tab-cap 03/06/20 triamcinolone acetonide 0.5 % 1 applic TP .BID-QID #15 gm 03/06/20 topical cream alfuzosin 10 mg tablet,extended 10 mg PO DAILY #90 tab-cap 03/24/20 release 24 hr finasteride 5 mg tablet 5 mg PO HS #90 tab-cap 03/24/20 spironolactone 25 mg tablet 12.5 mg PO DAILY #45 tab-cap 04/14/20 cephalexin 500 mg PO QID #40 cap 04/15/20 mupirocin 1 applic TP TID #15 gm 04/15/20 Allergies Allergy/AdvReac Type Severity Reaction Status Date / Time No Known Allergies Allergy Verified 04/15/20 11:53 General Stated Complaint: Cellulitis EDUARDO: 3 Review of Systems All systems reviewed & are unremarkable except as noted in HPI and below [facility] Medical History Actinic keratosis (Resolved 08/04/17) scattered on face Anemia (Acute) ASCVD (arteriosclerotic cardiovascular disease) (Chronic) Stenting in 2004 and 2005; 04/02/14 NSTEMI: KECIA to LCX and LAD ([facility], Dr. Watkins); 03/16/16 NSTEMI: KEC[place] (85% [place]) [place] 61[place] [facility]: no ischemic changes on post stress echo. LVEF 60% mild LVH; no change in resting regional wall motion abnormalities (see details under diastolic CHF heading); 06/14/19 stent x2 and angioplastyx1; another NSTEMI 07/2019 (cardiac cath repeated but no additional stents placed) 2019: INDEFINITE DAPT with ASA and Plavix! Atopic dermatitis (Acute) Basal cell carcinoma of back (Resolved 08/04/17) midline upper back BPH (benign prostatic hyperplasia) (Chronic) Carpal tunnel syndrome on both sides (Chronic 03/28/18) Chronic low back pain without sciatica (Acute) Diabetic peripheral neuropathy (Chronic 02/21/18) Diastolic heart failure (Chronic 02/27/15) Most recent [place]2019 [place] [place] EF ~55% with no new wall motion abnormalities Erectile dysfunction (Chronic 12/15/11) Essential hypertension (Chronic 02/05/13) GERD (gastroesophageal reflux disease) (Chronic) 05/15/2012 EGD (Dr. Baird): chronic gastritis and esophagitis Hearing loss, conductive (Chronic) Hearing loss, sensorineural (Chronic) Hyperlipidemia, unspecified (Chronic) Hypoxemia (Chronic 04/02/17) [place] [facility] [place] Interstitial lung disease (Chronic 07/28/16) LBBB (left bundle branch block) (Chronic) Left upper lobe pulmonary nodule (Chronic) [facility] [place] Pulm: 4mm w.adjacent groundglass. 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) NSTEMI (non-ST elevated myocardial infarction) (Resolved ~06/13/19) 06/14/19: [facility] x2 and angioplasty; 08/05/2019: [facility] with stable vessel dz & no additional stents placed; dual antiplatelet therapy indefinitely Obesity (BMI 30-39.9) (Chronic) Polymyalgia rheumatica (Chronic 08/17/16) [facility]Dr Villalta): Prednisone Rx Severe obstructive sleep apnea (Chronic 04/10/17) [facility]: BiPAP Type 2 diabetes mellitus with diabetic neuropathy, with long-term current use of insulin (Chronic) Co-managed with [facility] [place] (Dr. Reis); HbA1c goal </= 7.5-8% Social History Smoking/Tobacco Use Status: Former Tobacco Use Quit Date: 10/23/84 Pack-years: 25 Tobacco: How many years used: 25 Alcohol Intake: current Alcohol Intake frequency: 0-2 drinks per day Drug use: Never Substance use type: does not use Caregiver/Support person: No Household members: spouse Number of Children: 2 Communication Needs: Hard of Hearing Education Level: high school Pets and animals: Yes Pets and animals: cat(s) Current gender identity: male What type of physical activity do you participate in: other Details: cardiac rehab Frequency: 3-4 times per week Seatbelt use: always Do you feel safe at home: Yes Do you feel safe in your relationship?: Yes Exam Narrative Exam Narrative: CONST: Healthy appearing patient, in no acute distress. Well hydrated. Alert and oriented. HENMT: Head nomocephalic, normal to inspection. Atraumatic. Hearing grossly normal. EYES: General normal appearance. Alignment normal. Eyelids normal. Conjunctiva normal. NECK: Normal visual inspection. FROM. Trachea midline. No Midline tenderness. CHEST: Normal insepection of the chest. RESP: Normal respiratory effort. Speaking full sentences. No cough. No audible wheezing. No retractions. CARDIO: No JVD. MUSCULOSKELETAL: Normal Gait. FROM of all extremities. Patient with a left uriarte wound of the mid pretibial uriarte noted on the left which is approximately 1.5 cm in diameter. The skin is somewhat inverted which was reapproximated with tweezers. Patient does have a surrounding erythema which is well demarcated surrounding the wound. No significant drainage is present. No pain with palpation of the lower extremity. Consistent with focal cellulitis due to skin tear SKIN: Normal. Dry. No rashes. NEURO: Alert and awake. Speech clear. PSYCH: Normal affect. Cooperative. Course Vital Signs Vital signs: Vital Signs Temperature 36.6 C 04/15/20 11:47 Pulse 82 04/15/20 11:47 Respiratory Rate 18 04/15/20 11:47 Blood Pressure 117/58 L 04/15/20 11:47 Pulse Oximetry 95 04/15/20 11:47 Temperature 36.6 C 04/15/20 11:47 Temperature Source Skin 04/15/20 11:47 Pulse 82 04/15/20 11:47 Respiratory Rate 18 04/15/20 11:47 Respiratory Effort 04/15/20 11:52 Blood Pressure 117/58 L 04/15/20 11:47 Blood Pressure Position Sitting 04/15/20 11:47 Pulse Oximetry 95 04/15/20 11:47 Oxygen Delivery Method Room Air 04/15/20 11:47 Oxygen Flow Rate 0 04/15/20 11:47 Pain Level 2 04/15/20 11:47
== END 2020-04-15 12:34 | disposition home or self-care (01) ==
PROVIDERS: Emergency Provider Physician Assistant; PCP Nurse Practitioner Family
DX: L03.116 Cellulitis of left lower limb (principal); S81.812A Laceration without foreign body, left lower leg, initial encounter; W22.8XXA Striking against or struck by other objects, initial encounter; E11.40 Type 2 diabetes mellitus with diabetic neuropathy, unspecified; Z79.4 Long term (current) use of insulin; Z95.5 Presence of coronary angioplasty implant and graft; I10 Essential (primary) hypertension; I25.10 Atherosclerotic heart disease of native coronary artery without angina pectoris
CPT/HCPCS: 99283; 99284

== ENCOUNTER 2020-05-12 10:02 | Emergency (ER) | payer MEDICARE, OTHER, SELFPAY ==
--- NOTE | 2020-05-12 10:00 | DI.RAD_ITS ---
EXAM: 2D digital imaging was performed. CLINICAL HISTORY: constipation. COMPARISON: No exams were available for comparison TECHNIQUE: Supine and uprightSupine and Lateral views of the abdomen was performed. FINDINGS: LUNG BASES: Clear. BOWEL GAS PATTERN: There is stool seen throughout the colon suggesting constipation. No findings to suggest obstruction. FREE AIR: None. CALCIFICATIONS: Vascular calcifications are present. OSSEOUS STRUCTURES: Degenerative changes are seen in the spine. OTHER FINDINGS: None. IMPRESSION: 1. Constipation. 2. No evidence of bowel obstruction. DATA REPOSITORY: RADIATION DOSE DELIVERED:
[2020-05-12 10:08] VITALS: BP 124/51; PULSE 92; RESP 16; TEMP 36.4; O2SAT 96
--- NOTE | 2020-05-12 10:26 | W.ED.GENAD ---
Discharge Plan Disposition Patient Disposition: HOME Condition: Stable Discharge Details Chief Complaint: Abd Prob Clinical Impression: Constipation Primary Care Provider: Michell Bishop ED Provider: Ron Bird Home Meds and New Rx's Prescriptions: Continued dulaglutide 0.75 mg/0.5 mL pen injector 0.75 mg subcut QWEEK Qty: 12 RF: 0 Lantus Solostar U-100 Insulin 100 unit/mL (3 mL) insulin pen 61 unit subcut HS Qty: 2 RF: 11 ranolazine 500 mg tablet extended release 12 hr 500 mg PO BID Qty: 180 RF: 3 polyethylene glycol 3350 [Miralax] 17 gram/dose powder 17 gm PO DAILY PRN (Reason: constipation) Qty: 119 RF: 0 (DME) lancets Misc See Rx Instructions .ROUTE .MEDSUPPLY Qty: 100 RF: 3 triamcinolone acetonide 0.5 % cream 1 applic TP .BID-QID Qty: 15 RF: 0 clopidogrel [Plavix] 75 mg tablet 75 mg PO DAILY Qty: 90 RF: 3 alfuzosin 10 mg tablet extended release 24 hr 10 mg PO DAILY Qty: 90 RF: 4 finasteride 5 mg tablet 5 mg PO HS Qty: 90 RF: 4 multivitamin [One Daily Multivitamin] 1 EACH tablet 1 ea PO DAILY RF: 0 aspirin [Aspirin Low-Strength] 81 MG tablet,chewable 81 mg PO DAILY RF: 0 (DME) blood sugar diagnostic [[employer] Ultra Test] 1 EACH strip 1 ea Miscellaneous BID RF: 0 cholecalciferol (vitamin D3) 2,000 UNIT tablet 2,000 unit PO DAILY RF: 0 ezetimibe [Zetia] 10 MG tablet 10 mg PO DAILY Qty: 90 RF: 4 acetaminophen 500 mg tablet 1,000 mg PO BID PRNRF: 0 hydralazine 10 mg tablet 10 mg PO BID Qty: 180 RF: 3 losartan 100 mg tablet 100 mg PO DAILY Qty: 90 RF: 3 atorvastatin 80 mg tablet 80 mg PO DAILY Qty: 90 RF: 3 pantoprazole 20 mg tablet,delayed release (DR/EC) 20 mg PO DAILY Qty: 90 RF: 3 nitroglycerin 0.4 mg tablet, sublingual 0.4 mg SL Q5M MDD 3 doses PRN (Reason: chest pain) Qty: 30 RF: 3 Myrbetriq 50 mg tablet extended release 24 hr 50 mg PO Q24H Qty: 90 RF: 4 Hold Instructions: Home Medication placed on hold at Doctor's office furosemide 20 mg tablet 40 mg PO BID Qty: 180 RF: 3 metformin 1,000 mg tablet 1,000 mg PO BID Qty: 180 RF: 3 (DME) PT (Eg) Qty: 1 RF: 0 spironolactone 25 mg tablet 12.5 mg PO DAILY Qty: 45 RF: 6 isosorbide mononitrate 60 mg tablet extended release 24 hr 60 mg PO DAILY Qty: 30 RF: 0 metoprolol succinate 100 mg tablet extended release 24 hr 100 mg PO DAILY Qty: 30 RF: 0 mupirocin 2 % ointment 1 applic TP TID Qty: 15 RF: 0 Discharge Instructions Instructions: Constipation (ED) Additional Instructions: Home to rest today. Continue efforts to increase fiber in the diet and may consider daily Metamucil. Follow-up with cardiology as planned. Return for any acute concerns or if you develop a fever, abdominal bloating, or abdominal pain. Medical Decision Making 80-year-old male presents from home with day 5 of constipation which he states happens somewhat frequently. He is not had any fever, bloating, or vomiting. He denies to me chest pain or shortness of breath. He is afebrile, blood pressure 124/51. Abdomen is soft and his rectal examination is unremarkable. Screening x-ray obtained which reveals constipation but no free air or obstruction. Patient was given a soapsuds enema and had 2 large bowel movements with subjective improvement. He stable and improved, appropriate for discharge to home. HPI General Mode of arrival: ambulatory. Date/Time Provider Initiated Documentation: 05/12/20 10:04. Limitations to Documentation: no limitations. Information obtained by: patient. History of Present Illness 80 year old M presents to the emergency department with the chief complaint of Constipation x4+ days, described as moderate, Quality is described as dull and constant, and is localized to the abdomen. Patient reports no radiation. Patient started experiencing this day(s) and it has been constant. No relieving factors improve symptom(s), No exacerbating factors reported . Patient notes denies fever/chills, loss of appetite and nausea/vomiting. Patient did receive the following treatments prior to arrival, other (Ms. placed enema at home) Related Data Home Medications Medication Instructions Recorded Confirmed multivitamin [One Daily 1 ea PO DAILY 01/23/13 05/12/20 Multivitamin] aspirin [Aspirin Low-Strength] 81 mg PO DAILY tab 04/03/14 05/12/20 blood sugar diagnostic [OneTouch strip 12/24/14 03/27/20 Ultra Test] cholecalciferol (vitamin D3) 2,000 unit PO DAILY 08/17/16 05/12/20 ezetimibe [Zetia] 10 mg PO DAILY #90 tab-cap 05/21/18 05/12/20 dulaglutide 0.75 mg/0.5 mL 0.75 mg SUBCUT QWEEK #12 syringe 09/06/18 05/12/20 subcutaneous pen injector acetaminophen 500 mg tablet 1,000 mg PO BID PRN tab 03/29/19 05/12/20 hydralazine 10 mg tablet 10 mg PO BID #180 tab-cap 06/03/19 05/12/20 insulin glargine 100 unit/mL (3 61 unit SUBCUT HS #2 ml 07/30/19 05/12/20 mL) subcutaneous pen losartan 100 mg tablet 100 mg PO DAILY #90 tab 08/12/19 05/12/20 atorvastatin 80 mg tablet 80 mg PO DAILY #90 tab-cap 08/16/19 05/12/20 nitroglycerin 0.4 mg sublingual 0.4 mg SL Q5M PRN #30 tab-cap MDD 08/16/19 05/12/20 tablet 3 doses pantoprazole 20 mg tablet,delayed 20 mg PO DAILY #90 tab-cap 08/16/19 05/12/20 release lancets #100 each 09/05/19 03/27/20 polyethylene glycol 3350 17 17 gm PO DAILY PRN #119 gm 09/05/19 05/12/20 gram/dose oral powder mirabegron 50 mg tablet,extended 50 mg PO Q24H #90 tab 10/04/19 05/12/20 release 24 hr furosemide 20 mg tablet 40 mg PO BID #180 tab-cap 10/10/19 05/12/20 metformin 1,000 mg tablet 1,000 mg PO BID #180 tab-cap 10/21/19 05/12/20 PT ([place]) #1 ea 11/05/19 03/27/20 isosorbide mononitrate 60 mg PO DAILY #30 tab 01/22/20 05/12/20 metoprolol succinate 100 mg PO DAILY #30 tab 01/22/20 05/12/20 ranolazine 500 mg tablet,extended 500 mg PO BID #180 tab 02/03/20 05/12/20 release,12 hr clopidogrel 75 mg tablet 75 mg PO DAILY #90 tab-cap 03/06/20 05/12/20 triamcinolone acetonide 0.5 % 1 applic TP .BID-QID #15 gm 03/06/20 05/12/20 topical cream alfuzosin 10 mg tablet,extended 10 mg PO DAILY #90 tab-cap 03/24/20 05/12/20 release 24 hr finasteride 5 mg tablet 5 mg PO HS #90 tab-cap 03/24/20 05/12/20 spironolactone 25 mg tablet 12.5 mg PO DAILY #45 tab-cap 04/14/20 05/12/20 mupirocin 1 applic TP TID #15 gm 04/15/20 05/12/20 Previous Rx's Medication Instructions Recorded ezetimibe [Zetia] 10 mg PO DAILY #90 tab-cap 05/21/18 dulaglutide 0.75 mg/0.5 mL 0.75 mg SUBCUT QWEEK #12 syringe 09/06/18 subcutaneous pen injector hydralazine 10 mg tablet 10 mg PO BID #180 tab-cap 06/03/19 losartan 100 mg tablet 100 mg PO DAILY #90 tab 08/12/19 atorvastatin 80 mg tablet 80 mg PO DAILY #90 tab-cap 08/16/19 nitroglycerin 0.4 mg sublingual 0.4 mg SL Q5M PRN #30 tab-cap MDD 08/16/19 tablet 3 doses pantoprazole 20 mg tablet,delayed 20 mg PO DAILY #90 tab-cap 08/16/19 release lancets #100 each 09/05/19 polyethylene glycol 3350 17 17 gm PO DAILY PRN #119 gm 09/05/19 gram/dose oral powder mirabegron 50 mg tablet,extended 50 mg PO Q24H #90 tab 10/04/19 release 24 hr furosemide 20 mg tablet 40 mg PO BID #180 tab-cap 10/10/19 metformin 1,000 mg tablet 1,000 mg PO BID #180 tab-cap 10/21/19 PT ([place]) #1 ea 11/05/19 isosorbide mononitrate 60 mg PO DAILY #30 tab 01/22/20 metoprolol succinate 100 mg PO DAILY #30 tab 01/22/20 ranolazine 500 mg tablet,extended 500 mg PO BID #180 tab 02/03/20 release,12 hr clopidogrel 75 mg tablet 75 mg PO DAILY #90 tab-cap 03/06/20 triamcinolone acetonide 0.5 % 1 applic TP .BID-QID #15 gm 03/06/20 topical cream alfuzosin 10 mg tablet,extended 10 mg PO DAILY #90 tab-cap 03/24/20 release 24 hr finasteride 5 mg tablet 5 mg PO HS #90 tab-cap 03/24/20 spironolactone 25 mg tablet 12.5 mg PO DAILY #45 tab-cap 04/14/20 mupirocin 1 applic TP TID #15 gm 04/15/20 Allergies Allergy/AdvReac Type Severity Reaction Status Date / Time No Known Allergies Allergy Verified 05/12/20 10:17 General Stated Complaint: Abd Prob EDUARDO: 3 Review of Systems Narrative: 6 systems reviewed and otherwise negative. No bloating, vomiting, fever. Denies abdominal surgery in the past. No weight gain or edematous changes. [facility] Medical History Actinic keratosis (Resolved 08/04/17) scattered on face Anemia (Acute) ASCVD (arteriosclerotic cardiovascular disease) (Chronic) Stenting in 2004 and 2005; 04/02/14 NSTEMI: KECIA to LCX and LAD ([facility], Dr. Watkins); 03/16/16 NSTEMI: KECIA to LCX (85% stenosis) with LVEH 61% ([facility] [place] DSE @ [facility] [place] 04/02/2019: no ischemic changes on post stress echo. LVEF 60% mild LVH; no change in resting regional wall motion abnormalities (see details under diastolic CHF heading); 06/14/19 stent x2 and angioplastyx1; another NSTEMI 07/2019 (cardiac cath repeated but no additional stents placed) 2019: INDEFINITE DAPT with ASA and Plavix! Atopic dermatitis (Acute) Basal cell carcinoma of back (Resolved 08/04/17) midline upper back BPH (benign prostatic hyperplasia) (Chronic) Carpal tunnel syndrome on both sides (Chronic 03/28/18) Chronic low back pain without sciatica (Acute) Diabetic peripheral neuropathy (Chronic 02/21/18) Diastolic heart failure (Chronic 02/27/15) Most recent echo 07/2019 ([facility] [place]): EF ~55% with no new wall motion abnormalities Erectile dysfunction (Chronic 12/15/11) Essential hypertension (Chronic 02/05/13) GERD (gastroesophageal reflux disease) (Chronic) 05/15/2012 EGD (Dr. Baird): chronic gastritis and esophagitis Hearing loss, conductive (Chronic) Hearing loss, sensorineural (Chronic) Hyperlipidemia, unspecified (Chronic) Hypoxemia (Chronic 04/02/17) Per [facility] [place] Sleep Medicine Interstitial lung disease (Chronic 07/28/16) LBBB (left bundle branch block) (Chronic) Left upper lobe pulmonary nodule (Chronic) [facility] [place] Pulm: 4mm w.adjacent groundglass. 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) NSTEMI (non-ST elevated myocardial infarction) (Resolved ~06/13/19) 06/14/19: [facility] [place] cardiac cath w/ stent x2 and angioplasty; 08/05/2019: [facility] [place] cardiac cath with stable vessel dz & no additional stents placed; dual antiplatelet therapy indefinitely Obesity (BMI 30-39.9) (Chronic) Polymyalgia rheumatica (Chronic 08/17/16) [facility] [place] Rheumatology (Dr Villalta): Prednisone Rx Severe obstructive sleep apnea (Chronic 04/10/17) [facility] [place] Sleep Medicine: BiPAP Type 2 diabetes mellitus with diabetic neuropathy, with long-term current use of insulin (Chronic) Co-managed with [facility] [place] Endo (Dr. Reis); HbA1c goal </= 7.5-8% Surgical History History of cataract extraction with lens replacement (Acute) History of heart artery stent (Chronic) repeated 06/14/19 History of repair of retinal defect by laser photocoagulation (Acute) History of YAG laser capsulotomy of lens (Acute) Family History Father , from CHF age 76 Congestive heart failure Brother Congestive heart failure Mother , age 92 old age No problems noted. Sister No problems noted. Social History Smoking/Tobacco Use Status: Former Tobacco Use Quit Date: 10/23/84 Pack-years: 25 Tobacco: How many years used: 25 Alcohol Intake: current Alcohol Intake frequency: 0-2 drinks per day Drug use: Never Substance use type: does not use Caregiver/Support person: No Household members: spouse Number of Children: 2 Communication Needs: Hard of Hearing Education Level: high school Pets and animals: Yes Pets and animals: cat(s) Current gender identity: male What type of physical activity do you participate in: other Details: cardiac rehab Frequency: 3-4 times per week Seatbelt use: always Do you feel safe at home: Yes Do you feel safe in your relationship?: Yes Exam Narrative Exam Narrative: GEN: awake, alert, oriented 3. Pleasant, well groomed, interactive. HEAD: Normocephalic, atraumatic ENT: Mucous membranes moist, oropharynx unremarkable, External ear exam unremarkable EYES: PERRL, EOMI NECK: Full ROM, no SUSAN, no menigismus CHEST/RESP: Nontender, clear to auscultation bilateral, no wheeze/rhonchi/rales CARDIOVASCULAR: RRR, no murmur, rub kassy. 2+ Rad pulse bilateral ABDOMEN: Soft, nontender, no mass. +Bowel sounds. Rectal examination with normal tone, no stool impaction appreciated. Stool present in rectal vault. EXT: Full ROM, no edema, no rash Neuro: Grossly normal neurologic exam, conversant, interactive. Psych: Speech fluent, thoughts congruent, affect normal Course Vital Signs Vital signs: Vital Signs Temperature 36.4 C L 05/12/20 10:08 Pulse 92 H 05/12/20 10:08 Respiratory Rate 16 05/12/20 10:08 Blood Pressure 124/51 L 05/12/20 10:08 Pulse Oximetry 96 05/12/20 10:08 Temperature 36.4 C L 05/12/20 10:08 Temperature Source Skin 05/12/20 10:08 Pulse 92 H 05/12/20 10:08 Respiratory Rate 16 05/12/20 10:08 Respiratory Effort Non-Labored 05/12/20 10:08 Blood Pressure 124/51 L 05/12/20 10:08 Blood Pressure Position Sitting 05/12/20 10:08 Pulse Oximetry 96 05/12/20 10:08 Oxygen Delivery Method Room Air 05/12/20 10:08 Oxygen Flow Rate 0 05/12/20 10:08 Pain Level 0 05/12/20 10:08
--- NOTE | 2020-05-12 11:40 | NUR.NOTE ---
Nursing Note: successful bowel evacuation. Pt reports relief. MD Bird made aware.
[2020-05-12 11:50] VITALS: BP 110/45; PULSE 87; RESP 16; TEMP 36.4; O2SAT 98
== END 2020-05-12 11:51 | disposition home or self-care (01) ==
PROVIDERS: Emergency Provider Emergency Medicine; PCP Nurse Practitioner Family
DX: K59.00 Constipation, unspecified (principal); I10 Essential (primary) hypertension; E11.9 Type 2 diabetes mellitus without complications; Z79.4 Long term (current) use of insulin
CPT/HCPCS: 99283; 74019

== ENCOUNTER → 2020-06-16 11:25 | Outpatient (BNVA) | payer MEDICARE, OTHER, SELFPAY | PROVIDERS: PCP Nurse Practitioner Family; Referring Provider Nurse Practitioner Family; Visit Provider Internal Medicine Cardiovascular Disease | DX: I44.7 Left bundle-branch block, unspecified (principal); I25.10 Atherosclerotic heart disease of native coronary artery without angina pectoris; I50.30 Unspecified diastolic (congestive) heart failure; I11.0 Hypertensive heart disease with heart failure; E78.5 Hyperlipidemia, unspecified; Z95.818 Presence of other cardiac implants and grafts | CPT/HCPCS: 99214; 99443 ==

== ENCOUNTER 2020-08-03 00:49 | Outpatient (CLI) | payer MEDICARE, OTHER, SELFPAY ==
--- NOTE | 2020-08-03 07:00 | DI.US_ITS ---
EXAM: US ABDOMEN CLINICAL HISTORY: RUQ pain, check liver and gall bladder,R10.9 TECHNIQUE: Ultrasound abdomen performed using standard protocol. COMPARISON: No exams were available for comparison FINDINGS: Examination limited by overlying bowel gas. ABDOMINAL AORTA AND IVC: Visualized portions normal caliber. PANCREAS: Normal where visualized. LIVER: Normal. Hepatopedal flow in the Portal Vein. Liver enlarged measuring 20.3 cm in length. GALLBLADDER: No evidence of cholelithiasis. No evidence of wall thickening. No pericholecystic fluid identified. BILIARY SYSTEM: Common bile duct measures < 7 mm. No intrahepatic biliary ductal dilation. ALFARO'S SIGN: Negative. KIDNEYS: Kidneys are symmetric in size. No evidence of renal calculi. No evidence of hydronephrosis. No renal mass or cyst identified. SPLEEN: Not enlarged. ASCITES: None seen. IMPRESSION: 1. Examination limited by patient bowel gas. 2. Hepatomegaly. 3. If there is continued concern a abdominal CT scan may be obtained. DATA REPOSITORY:
== END 2020-08-03 01:09 ==
PROVIDERS: PCP Nurse Practitioner Family; Visit Provider Family Medicine
DX: R10.11 Right upper quadrant pain (principal); R16.0 Hepatomegaly, not elsewhere classified; K59.00 Constipation, unspecified; R10.9 Unspecified abdominal pain; D64.9 Anemia, unspecified
CPT/HCPCS: 36415; 80053; 83690; 76700; 85025

== ENCOUNTER 2020-08-03 02:08 | Outpatient (CLI) | payer MEDICARE, OTHER, SELFPAY ==
[2020-08-03 11:33] LABS: Abs Immature Grans 0.01 10^3/uL (0.0-0.06); Absolute Basophil Count 0.04 10^3/uL (0.0-0.2); Absolute Eosinophil Count 0.18 10^3/uL (0.0-0.7); Absolute Lymphocyte Count 0.94 10^3/uL (1.2-3.4); Absolute Monocyte Count 0.54 10^3/uL (0.1-0.8); Absolute Neutrophil Count 4.66 10^3/uL (1.2-6.7); Basophils % 0.6; Eosinophils % 2.8; HCT 35.1 % (40.0-50.0); HGB 11.6 g/dL (13.5-17.5); Immature Grans % 0.2; Lymphocytes % 14.8; MCV 93.9 fL (80-95); MPV 9.7 fL (8.0-11.0); Monocytes % 8.5; Neutrophils % 73.1; Nucleated RBC 0 %; Platelet Count 218 10^3/uL (130-400); RBC 3.74 10^6/uL (4.36-5.78); RDW 13.5 % (11.8-14.1); RDW-SD 45.7 fL; WBC 6.37 10^3/uL (4.4-10.8)
[2020-08-03 14:25] LABS: ALT 40 U/L (16-63); AST 20 U/L (15-37); Albumin 3.5 g/dL (3.4-5.0); Alkaline Phosphatase 82 U/L (46-116); Anion Gap 6.3 mmol/L (3-11); BUN 27 mg/dL (7-18); Bilirubin, Total 0.6 mg/dL (0.2-1.0); CO2 29.7 mmol/L (21.0-32.0); CREATININE 1.49 mg/dL (0.70-1.30); Calcium 8.4 mg/dL (8.5-10.1); Chloride 102 mmol/L (98-107); Estimated GFR 45.27 (mL/min/1.73m2); Glucose 166 mg/dL (74-106); Lipase 328 U/L (73-393); Potassium 4.7 mmol/L (3.5-5.1); Sodium 138 mmol/L (136-145); Total Protein 6.5 g/dL (6.4-8.2)
== END 2020-08-03 02:28 ==
PROVIDERS: PCP Nurse Practitioner Family; Visit Provider Family Medicine
DX: K59.00 Constipation, unspecified (principal); R10.9 Unspecified abdominal pain; D64.9 Anemia, unspecified
CPT/HCPCS: 36415; 80053; 83690; 85025

== ENCOUNTER 2020-08-19 02:46 | Outpatient (CLI) | payer MEDICARE, OTHER, SELFPAY ==
--- NOTE | 2020-08-19 07:00 | DI.CT_ITS ---
EXAM: CT ABDOMEN PELVIS W CLINICAL HISTORY: ruq abd pain,hepatomegaly,anemia,r10.9,r16.0,d64.9 TECHNIQUE: COMPARISON: CT HR CHEST/CHEST WO from 08/08/2016 CT CTA THORAX from 09/20/2017 CT LUMBAR SPINE WITHOUT CONTRAST from 04/09/2018 FINDINGS: CT examination of the abdomen and pelvis was performed with bolus infusion of 100 cc of Omnipaque 350 . Images obtained through the lung bases are unremarkable. The liver appears normal with no evidence of a focal mass. Spleen is unremarkable in appearance.. Gallbladder and bile ducts are unremarkable. Pancreas is unremarkable in appearance. Adrenals appear normal bilaterally. There is no evidence of hydronephrosis or nephrolithiasis. There is a 16 millimeter in diameter infe rior pole right renal mass with attenuation approximately 44 Hounsfield units, this is an indetermina te lesion. Additional evaluation with ultrasound requested to determine whether this may represent a hyper attenuating cyst versus solid mass.. Urinary bladder is essentially empty. Adrenals are unremarkable in appearance bilaterally. There is no evidence of abdominal or pelvic adenopathy. Abdominal aorta is of normal diameter and no major vascular abnormality is seen. Appendix is normal. No evidence diverticulitis or bowel obstruction. No significant abdominal wall hernia seen. Impression: Indeterminate homogeneous lesion of inferior right renal pole, measuring about 16 millimeters in diam eter. Ultrasound correlation suggested, depending on the results of the ultrasound study additional evaluation with renal protocol MRI may be considered. RADIATION DOSE DELIVERED: 1,158.82mGy.cm Total DLP 1,158.82mGy.cm Total DLP DATA REPOSITORY: All CT scans at this facility are submitted to the National Radiology Data Registry (NRDR) Dose Index Registry (DIR) with the [employer] (A[employer]). RADIATION OPTIMIZATION: All CT scans at this facility use at least one of these dose optimization te chniques: automated exposure control; mA and/or kV adjustment per patient size (includes targeted exa ms where dose is matched to clinical indication); or iterative reconstruction.
[2020-08-19] MEDS: Breeza Beverage 473 ML BTL PO ×2 (08:26→08:27)
[2020-08-19] MEDS: Omnipaque 350 MG/ML 50 ML BTL PO (08:27)
[2020-08-19] MEDS: Omnipaque 350 MG/ML 100 ML BTL IJ (10:09)
== END 2020-08-19 03:06 ==
PROVIDERS: PCP Nurse Practitioner Family; Visit Provider Nurse Practitioner Family
DX: R10.11 Right upper quadrant pain (principal); R16.0 Hepatomegaly, not elsewhere classified; D64.9 Anemia, unspecified; N28.89 Other specified disorders of kidney and ureter
CPT/HCPCS: 74177; J3490; Q9967

== ENCOUNTER 2020-08-26 01:20 | Outpatient (CLI) | payer MEDICARE, OTHER, SELFPAY ==
--- NOTE | 2020-08-26 06:45 | DI.US_ITS ---
EXAM: US RENAL CLINICAL HISTORY: Further eval R renal lesion,abd pain,n28.9,r10.9. TECHNIQUE: Rawls scale, color and spectral Doppler were used. COMPARISON: CT CT ABDOMEN PELVIS W from 08/19/2020 FINDINGS: Renal size in cm: Right: 12.7. Left: 12.1. Echogenicity: Normal. Hydronephrosis: No. Cyst or mass: 2.1 x 1.3 x 2 cm slightly hypoechoic mass the mid to lower right kidney corresponding t o the CT abnormality. No internal blood flow is seen. It does not meet the criteria for simple cyst . Nephrolithiasis: No. Other findings: None. Bladder:Not adequately filled for the examination. Ureteral jets: Right: Not visualized during the examination. Left: Not visualized during the examination. Prevoid vol:40 cc Postvoid vol: Not obtained during the examination. Prostate: 36 cc Renal color flow: Symmetric and within normal limits. IMPRESSION: 2.1 x 1.3 x 2 cm hypoechoic mass in the right kidney corresponding to the CT abnormality. It does no t meet the criteria for simple cyst. A mass cannot be excluded. MRI without and with contrast is re commended for further evaluation. Inadequate distention of the urinary bladder for appropriate evaluation. DATA REPOSITORY:
== END 2020-08-26 01:40 ==
PROVIDERS: PCP Nurse Practitioner Family; Visit Provider Nurse Practitioner Family
DX: N28.89 Other specified disorders of kidney and ureter (principal); R10.9 Unspecified abdominal pain
CPT/HCPCS: 76770

== ENCOUNTER → 2020-08-27 15:11 | Outpatient (BNVA) | payer MEDICARE, OTHER, SELFPAY | PROVIDERS: PCP Nurse Practitioner Family; Referring Provider Nurse Practitioner Family; Visit Provider Urology | DX: N28.89 Other specified disorders of kidney and ureter (principal); E11.42 Type 2 diabetes mellitus with diabetic polyneuropathy; I10 Essential (primary) hypertension | CPT/HCPCS: 99213 ==

== ENCOUNTER → 2020-10-05 11:12 | Outpatient (BNVA) | payer MEDICARE, OTHER, SELFPAY | PROVIDERS: PCP Nurse Practitioner Family; Referring Provider Nurse Practitioner Family; Visit Provider Internal Medicine Cardiovascular Disease | DX: I25.10 Atherosclerotic heart disease of native coronary artery without angina pectoris (principal); I10 Essential (primary) hypertension; G47.33 Obstructive sleep apnea (adult) (pediatric); J84.9 Interstitial pulmonary disease, unspecified; E11.40 Type 2 diabetes mellitus with diabetic neuropathy, unspecified; Z79.4 Long term (current) use of insulin; Z95.828 Presence of other vascular implants and grafts | CPT/HCPCS: 99214; 99442 ==

== ENCOUNTER → 2020-11-17 11:14 | Outpatient (BNVA) | payer MEDICARE, OTHER, SELFPAY | PROVIDERS: PCP Nurse Practitioner Family; Referring Provider Nurse Practitioner Family; Visit Provider Internal Medicine Cardiovascular Disease | DX: D64.9 Anemia, unspecified (principal); G47.33 Obstructive sleep apnea (adult) (pediatric); I25.10 Atherosclerotic heart disease of native coronary artery without angina pectoris; J84.9 Interstitial pulmonary disease, unspecified; I10 Essential (primary) hypertension | CPT/HCPCS: 99214; 99442 ==

== ENCOUNTER 2020-11-27 22:29 | Emergency (ER) | payer MEDICARE, OTHER, SELFPAY ==
[2020-11-27] VITALS (7 sets, daily range): BP systolic 125–164; BP diastolic 64–76; PULSE 77–98; RESP 20; TEMP 36; O2SAT 93–97
--- NOTE | 2020-11-27 22:30 | RT.EKG_ITS ---
APPROVED REPORT Exam: Resting ECG Patient Location: E HR:83 bpm ECG Measurements Heart Rate 83 AXIS NC 259 P 60 QRSd 167 QRS -41 QT 406 T 126 QTc 478 Conclusion Sinus rhythm...normal P axis, V-rate 60- 99 Prolonged NC interval...NC >220, V-rate 50- 90 Left bundle branch block...QRSd>120, broad/notched R ST elevation secondary to IVCD...Multiple VCG criteria There are no significant changes compared to prior EKG performed on 01/22/2020 at 11:59.
--- NOTE | 2020-11-27 22:30 | DI.RAD_ITS ---
EXAM: XR PORTABLE CHEST AP CLINICAL HISTORY: CP TECHNIQUE: 2D digital imaging was performed. COMPARISON: CR XR PORTABLE CHEST AP from 06/12/2019 FINDINGS: MEDIASTINUM: Normal. HEART: Normal. PULMONARY VASCULATURE: Normal. LUNGS: Clear. PLEURAL SPACE: No pleural effusion or pneumothorax. BONE:Within normal limits for the patient's age. OTHER FINDINGS:There is stable elevation of the left hemidiaphragm. IMPRESSION: No acute pulmonary findings. DATA REPOSITORY: RADIATION DOSE DELIVERED:
--- NOTE | 2020-11-27 22:31 | W.ED.GENAD ---
Discharge Plan Disposition Patient Disposition: [facility] Condition: Stable Discharge Details Clinical Impression: Acute non-ST elevation myocardial infarction (NSTEMI) Primary Care Provider: Michell Bishop ED Provider: Tonio Rosenberg [place] Meds and New Rx's Prescriptions: No Action bisacodyl 5 mg tablet,delayed release (DR/EC) 5 mg PO DAILY Qty: 30 RF: 0 polyethylene glycol 3350 [Miralax] 17 gram/dose powder 34 gm PO DAILY Qty: 119 RF: 3 furosemide 20 mg tablet 60 mg PO BID Qty: 180 RF: 3 ranolazine 500 mg tablet extended release 12 hr 500 mg PO BID Qty: 180 RF: 3 (DME) lancets Misc See Rx Instructions .ROUTE .MEDSUPPLY Qty: 100 RF: 3 triamcinolone acetonide 0.5 % cream 1 applic TP .BID-QID Qty: 15 RF: 0 clopidogrel [Plavix] 75 mg tablet 75 mg PO DAILY Qty: 90 RF: 3 Lantus Solostar U-100 Insulin 100 unit/mL (3 mL) insulin pen 60 unit subcut HS Qty: 2 RF: 11 alfuzosin 10 mg tablet extended release 24 hr 10 mg PO DAILY Qty: 90 RF: 4 finasteride 5 mg tablet 5 mg PO HS Qty: 90 RF: 4 cholecalciferol (vitamin D3) 50 mcg (2,000 unit) capsule 50 mcg PO DAILY RF: 0 multivitamin [One Daily Multivitamin] 1 EACH tablet 1 ea PO DAILY RF: 0 aspirin [Aspirin Low-Strength] 81 MG tablet,chewable 81 mg PO DAILY RF: 0 (DME) OneTouch Ultra Test 1 EACH strip 1 ea Miscellaneous BID RF: 0 cholecalciferol (vitamin D3) 2,000 UNIT tablet 2,000 unit PO DAILY RF: 0 ezetimibe [Zetia] 10 MG tablet 10 mg PO DAILY Qty: 90 RF: 4 acetaminophen 500 mg tablet 1,000 mg PO BID PRNRF: 0 hydralazine 10 mg tablet 10 mg PO BID Qty: 180 RF: 3 losartan 100 mg tablet 100 mg PO DAILY Qty: 90 RF: 3 atorvastatin 80 mg tablet 80 mg PO DAILY Qty: 90 RF: 3 nitroglycerin 0.4 mg tablet, sublingual 0.4 mg SL Q5M MDD 3 doses PRN (Reason: chest pain) Qty: 30 RF: 3 Myrbetriq 50 mg tablet extended release 24 hr 50 mg PO Q24H Qty: 90 RF: 4 Hold Instructions: Home Medication placed on hold at Doctor's office spironolactone 25 mg tablet 12.5 mg PO DAILY Qty: 45 RF: 6 pantoprazole 20 mg tablet,delayed release (DR/EC) 40 mg PO DAILY Qty: 180 RF: 3 dulaglutide 0.75 mg/0.5 mL pen injector 0.75 mg subcut QWEEK Qty: 12 RF: 3 metformin 1,000 mg tablet 1,000 mg PO BID Qty: 180 RF: 3 isosorbide mononitrate 60 mg tablet extended release 24 hr 60 mg PO DAILY Qty: 30 RF: 0 metoprolol succinate 100 mg tablet extended release 24 hr 100 mg PO DAILY Qty: 30 RF: 0 mupirocin 2 % ointment 1 applic TP TID Qty: 15 RF: 0 Medical Decision Making Elderly male with known coronary disease 9 stents presenting with left-sided chest pain radiating to the left arm. Initial EKG with left bundle branch block which is old. No change compared to previous. He took aspirin at home. He tried Tums and nitro without much relief. Will give 3 nitros here. Laboratory studies and chest x-ray ordered. 01:45 - Patient's pain resolved with 3 sublingual nitroglycerin. He has remained pain free since then. Initial laboratories unremarkable. Very mild anemia. Normal platelets. Negative D-dimer. Negative troponin. Creatinine a little higher than baseline but he has had diuretic dosing increased lately. Chest x-ray unremarkable. Had discussed patient with hospitalist after initial evaluation. Plan was to keep here for second troponin before admitting. 2-hour troponin and EKG done. EKG remains left bundle branch no changes. Troponin now elevated at 0.17. Patient continues to be pain-free and hemodynamically stable. Case discussed with cardiology at [facility]. Patient will be started on heparin per ACS protocol and transferred to [facility] as an NSTEMI. He is on Plavix daily. He had taken baby aspirin at home prior to coming in. He remains pain-free. Medical Records Medical records reviewed: Yes I reviewed the patient's medical records. Lab Data Lab results reviewed: Yes I reviewed the patient's lab results. ECG Data Attestation: I personally reviewed and interpreted this ECG (s) as follows: Interpretation: see EKG HPI General Mode of arrival: wheelchair. Date/Time Provider Initiated Documentation: 11/27/20 22:31. Limitations to Documentation: no limitations. Information obtained by: patient, RN notes reviewed and old records reviewed. HPI Narrative: Patient presents to the ED with left-sided chest pain that radiates to the left arm. He has a history of cardiac disease with 9 stents in various coronary arteries. Pain started about 60 to 90 minutes ago. He has taken Tums as well as nitroglycerin and continues to have discomfort which is what prompted him to come to the ED. He has no radiation of pain to the back or neck. He has no diaphoresis, shortness of breath, nausea, lightheadedness. He is unable to determine whether this is indigestion or cardiac pain. He denies any fever, cough. He denies history of blood clots, leg pain. Related Data Home Medications Medication Instructions Recorded Confirmed multivitamin [One Daily 1 ea PO DAILY 01/23/13 11/27/20 Multivitamin] aspirin [Aspirin Low-Strength] 81 mg PO DAILY tab 04/03/14 11/27/20 OneTouch Ultra Test strip 12/24/14 09/10/20 cholecalciferol (vitamin D3) 2,000 unit PO DAILY 08/17/16 11/27/20 ezetimibe [Zetia] 10 mg PO DAILY #90 tab-cap 05/21/18 11/27/20 acetaminophen 500 mg tablet 1,000 mg PO BID PRN tab 03/29/19 09/10/20 hydralazine 10 mg tablet 10 mg PO BID #180 tab-cap 06/03/19 11/27/20 losartan 100 mg tablet 100 mg PO DAILY #90 tab 08/12/19 11/27/20 atorvastatin 80 mg tablet 80 mg PO DAILY #90 tab-cap 08/16/19 11/27/20 nitroglycerin 0.4 mg sublingual 0.4 mg SL Q5M PRN #30 tab-cap MDD 08/16/19 11/27/20 tablet 3 doses lancets #100 each 09/05/19 09/10/20 mirabegron 50 mg tablet,extended 50 mg PO Q24H #90 tab 10/04/19 11/27/20 release 24 hr isosorbide mononitrate 60 mg PO DAILY #30 tab 01/22/20 11/27/20 metoprolol succinate 100 mg PO DAILY #30 tab 01/22/20 11/27/20 ranolazine 500 mg tablet,extended 500 mg PO BID #180 tab 02/03/20 11/27/20 release,12 hr clopidogrel 75 mg tablet 75 mg PO DAILY #90 tab-cap 03/06/20 11/27/20 triamcinolone acetonide 0.5 % 1 applic TP .BID-QID #15 gm 03/06/20 11/27/20 topical cream alfuzosin 10 mg tablet,extended 10 mg PO DAILY #90 tab-cap 03/24/20 11/27/20 release 24 hr finasteride 5 mg tablet 5 mg PO HS #90 tab-cap 03/24/20 11/27/20 spironolactone 25 mg tablet 12.5 mg PO DAILY #45 tab-cap 04/14/20 11/27/20 mupirocin 1 applic TP TID #15 gm 04/15/20 11/27/20 bisacodyl 5 mg tablet,delayed 5 mg PO DAILY #30 tab-cap 05/21/20 11/27/20 release polyethylene glycol 3350 17 34 gm PO DAILY #119 gm 05/21/20 11/27/20 gram/dose oral powder cholecalciferol (vitamin D3) 50 50 mcg PO DAILY 08/13/20 09/10/20 mcg (2,000 unit) capsule insulin glargine 100 unit/mL (3 60 unit SUBCUT HS #2 ml 09/10/20 11/27/20 mL) subcutaneous pen dulaglutide 0.75 mg/0.5 mL 0.75 mg SUBCUT QWEEK #12 syringe 09/24/20 11/27/20 subcutaneous pen injector metformin 1,000 mg tablet 1,000 mg PO BID #180 tab-cap 09/24/20 11/27/20 pantoprazole 20 mg tablet,delayed 40 mg PO DAILY #180 tab-cap 09/24/20 11/27/20 release furosemide 20 mg tablet 60 mg PO BID #180 tab-cap 10/05/20 11/27/20 Previous Rx's Medication Instructions Recorded ezetimibe [Zetia] 10 mg PO DAILY #90 tab-cap 05/21/18 hydralazine 10 mg tablet 10 mg PO BID #180 tab-cap 06/03/19 losartan 100 mg tablet 100 mg PO DAILY #90 tab 08/12/19 atorvastatin 80 mg tablet 80 mg PO DAILY #90 tab-cap 08/16/19 nitroglycerin 0.4 mg sublingual 0.4 mg SL Q5M PRN #30 tab-cap MDD 08/16/19 tablet 3 doses lancets #100 each 09/05/19 mirabegron 50 mg tablet,extended 50 mg PO Q24H #90 tab 10/04/19 release 24 hr isosorbide mononitrate 60 mg PO DAILY #30 tab 01/22/20 metoprolol succinate 100 mg PO DAILY #30 tab 01/22/20 ranolazine 500 mg tablet,extended 500 mg PO BID #180 tab 02/03/20 release,12 hr clopidogrel 75 mg tablet 75 mg PO DAILY #90 tab-cap 03/06/20 triamcinolone acetonide 0.5 % 1 applic TP .BID-QID #15 gm 03/06/20 topical cream alfuzosin 10 mg tablet,extended 10 mg PO DAILY #90 tab-cap 03/24/20 release 24 hr finasteride 5 mg tablet 5 mg PO HS #90 tab-cap 03/24/20 spironolactone 25 mg tablet 12.5 mg PO DAILY #45 tab-cap 04/14/20 mupirocin 1 applic TP TID #15 gm 04/15/20 bisacodyl 5 mg tablet,delayed 5 mg PO DAILY #30 tab-cap 05/21/20 release polyethylene glycol 3350 17 34 gm PO DAILY #119 gm 05/21/20 gram/dose oral powder dulaglutide 0.75 mg/0.5 mL 0.75 mg SUBCUT QWEEK #12 syringe 09/24/20 subcutaneous pen injector metformin 1,000 mg tablet 1,000 mg PO BID #180 tab-cap 09/24/20 pantoprazole 20 mg tablet,delayed 40 mg PO DAILY #180 tab-cap 09/24/20 release furosemide 20 mg tablet 60 mg PO BID #180 tab-cap 10/05/20 Allergies Allergy/AdvReac Type Severity Reaction Status Date / Time No Known Allergies Allergy Verified 11/17/20 09:25 General EDUARDO: 3 Review of Systems Narrative: 08/05 Review of Systems completed and is negative except as stated above in HPI (Systems reviewed: Const, Eyes, ENT, Resp, CV, GI, , MSK, Skin, Neuro) [facility] Medical History (Updated 11/28/20 @ 01:52 by Tonio Rosenberg MD) Actinic keratosis (08/04/17) scattered on face Anemia ASCVD (arteriosclerotic cardiovascular disease) Stenting in 2004 and 2005; 04/02/14 NSTEMI: KECIA to LCX and LAD ([facility], Dr. Watkins); 03/16/16 NSTEMI: KECIA to LCX (85% stenosis) with LVEH 61% ([facility]); DSE @ [facility] 04/02/2019: no ischemic changes on post stress echo. LVEF 60% mild LVH; no change in resting regional wall motion abnormalities (see details under diastolic CHF heading); 06/14/19 stent x2 and angioplastyx1; another NSTEMI 07/2019 (cardiac cath repeated but no additional stents placed) 2019: INDEFINITE DAPT with ASA and Plavix! Atopic dermatitis Basal cell carcinoma of back (08/04/17) midline upper back BPH (benign prostatic hyperplasia) Carpal tunnel syndrome on both sides (03/28/18) Chronic low back pain without sciatica Constipation Diabetic peripheral neuropathy (02/21/18) Diastolic heart failure (02/27/15) Most recent echo 07/2019 ([facility]): EF ~55% with no new wall motion abnormalities Erectile dysfunction (12/15/11) Essential hypertension (02/05/13) GERD (gastroesophageal reflux disease) 05/15/2012 EGD (Dr. Baird): chronic gastritis and esophagitis Hearing loss, conductive Hearing loss, sensorineural Hyperlipidemia, unspecified Hypoxemia (04/02/17) Per [facility] Sleep Medicine Interstitial lung disease (07/28/16) LBBB (left bundle branch block) Left upper lobe pulmonary nodule [facility] Pulm: 4mm w.adjacent groundglass. 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 cardiac cath w/ stent x2 and angioplasty; 08/05/2019: [facility] cardiac cath with stable vessel dz & no additional stents placed; dual antiplatelet therapy indefinitely Obesity (BMI 30-39.9) Polymyalgia rheumatica (08/17/16) [facility] Rheumatology (Dr Villalta): Prednisone Rx Severe obstructive sleep apnea (04/10/17) [facility] Sleep Medicine: BiPAP Type 2 diabetes mellitus with diabetic neuropathy, with long-term current use of insulin Co-managed with [facility] Endo (Dr. Reis); HbA1c goal </= 7.5-8% Surgical History History of cataract extraction with lens replacement History of heart artery stent repeated 06/14/19 History of repair of retinal defect by laser photocoagulation History of YAG laser capsulotomy of lens Family History Father , from CHF age 76 Congestive heart failure Brother Congestive heart failure Mother , age 92 old age No problems noted. Sister No problems noted. Social History Smoking/Tobacco Use Status: Former Tobacco Use Quit Date: 10/23/84 Pack-years: 25 Tobacco: How many years used: 25 Smoking risk assessment performed?: Yes Alcohol Intake: current Alcohol Intake frequency: 0-2 drinks per day Drug use: Never Substance use type: does not use Caregiver/Support person: No Household members: spouse Number of Children: 2 Communication Needs: Hard of Hearing Education Level: high school Pets and animals: Yes Pets and animals: cat(s) Current gender identity: male What type of physical activity do you participate in: other Details: cardiac rehab Frequency: 3-4 times per week Seatbelt use: always Do you feel safe at home: Yes Do you feel safe in your relationship?: Yes Exam Narrative Exam Narrative: Const: Elderly, obese male in NAD. HEENT: NC/AT. Normal facial exam. Eyes: Normal conjunctiva and sclera. Neck: Supple. Trachea midline. Lungs: Normal respiratory effort. Lungs are clear. Cor: RRR without murmur/gallop. Good radial pulses. GI: Soft. NT/ND. No guarding or rebound. Neuro: A+O x 3. Normal speech, mentation, gait. Cranial nerves II - XII grossly intact. No gross motor or sensory deficit. Ext: No C/C/E. No calf tenderness. Skin: Warm and dry without rash. Critical Care Time Critical Care Time Critical Care Time: Yes Total Critical Care Time: 45 Attestation: Upon my evaluation, this patient had a high probability of imminent or life-threatening deterioration, which required my direct attention, intervention, and personal management. I have personally provided 45 minutes of critical care time exclusive of time spent on separately billable procedures. Time includes review of laboratory data, radiology results, discussion with consultants, and monitoring for potential decompensation. Interventions were performed as documented above.
[2020-11-27] MEDS: nitroGLYcerin 0.4 MG TAB SL (22:50)
[2020-11-27 23:08] LABS: Abs Immature Grans 0.03 10^3/uL (0.0-0.06); Absolute Basophil Count 0.04 10^3/uL (0.0-0.2); Absolute Eosinophil Count 0.27 10^3/uL (0.0-0.7); Absolute Lymphocyte Count 1.28 10^3/uL (1.2-3.4); Absolute Monocyte Count 0.79 10^3/uL (0.1-0.8); Absolute Neutrophil Count 4.39 10^3/uL (1.2-6.7); Basophils % 0.6; HCT 36.1 % (40.0-50.0); HGB 11.9 g/dL (13.5-17.5); Immature Grans % 0.4; Lymphocytes % 18.8; MCH 30.9 pg (27.0-33.0); MCV 93.8 fL (80-95); MPV 9.9 fL (8.0-11.0); Monocytes % 11.6; Neutrophils % 64.6; Nucleated RBC 0 %; Platelet Count 241 10^3/uL (130-400); RBC 3.85 10^6/uL (4.36-5.78); RDW 13.1 % (11.8-14.1); RDW-SD 44.8 fL
--- NOTE | 2020-11-27 23:19 | DI.VRAD_ITS ---
PROCEDURE INFORMATION: Exam: XR Chest, 1 View Exam date and time: 11/27/2020 11:03 PM Age: 80 years old Clinical indication: Chest pain; Type not specified TECHNIQUE: Imaging protocol: XR of the chest Views: 1 view. Total images: 1 COMPARISON: CR XR CHEST 2V PA LATERAL 01/22/2020 12:39 PM FINDINGS: Lungs: Lungs are clear. Pulmonary elfego: Unremarkable contours. Pleural spaces: There is no effusion or pneumothorax. Heart/Mediastinum: Mediastinal contours are stable. Vasculature: Aorta is mildly tortuous. Diaphragm: There is stable elevation of the left hemidiaphragm. Bones/joints: Unremarkable. Intraperitoneal space: Visualized upper abdomen is unremarkable. IMPRESSION: Stable chest. No acute finding . Dictated and Authenticated by: Ron Leung MD. Ordering:PIO Elizalde MD
[2020-11-27 23:29] LABS: ALT 36 U/L (16-63); AST 15 U/L (15-37); Albumin 3.6 g/dL (3.4-5.0); Alkaline Phosphatase 103 U/L (46-116); Anion Gap 6.9 mmol/L (3-11); BUN 32 mg/dL (7-18); Bilirubin, Total 0.3 mg/dL (0.2-1.0); CO2 30.1 mmol/L (21.0-32.0); CREATININE 1.8 mg/dL (0.70-1.30); Calcium 8.2 mg/dL (8.5-10.1); Chloride 101 mmol/L (98-107); Estimated GFR 36.39 (mL/min/1.73m2); Glucose 316 mg/dL (74-106); Magnesium 2.4 mg/dL (1.8-2.4); Potassium 4.3 mmol/L (3.5-5.1); Sodium 138 mmol/L (136-145); Total Protein 7.3 g/dL (6.4-8.2)
[2020-11-27 23:37] LABS: Troponin I < 0.05 ng/mL (<0.06)
[2020-11-27 23:44] LABS: D-Dimer 447 ng/mlFEU (<500)
[2020-11-28] VITALS (37 sets, daily range): BP systolic 125–157; BP diastolic 50–118; PULSE 68–91; RESP 20; TEMP 36; O2SAT 92–98
--- NOTE | 2020-11-28 00:30 | RT.EKG_ITS ---
APPROVED REPORT Exam: Resting ECG Patient Location: E HR:77 bpm ECG Measurements Heart Rate 77 AXIS NH 253 P 49 QRSd 164 QRS -47 QT 428 T 108 QTc 485 Conclusion Sinus rhythm...normal P axis, V-rate 60- 99 Prolonged NH interval...NH >220, V-rate 50- 90 Left bundle branch block...QRSd>120, broad/notched R ST elevation secondary to IVCD...Multiple VCG criteria There are no significant changes compared to prior EKG performed on 11/27/2020 at 22:38.
[2020-11-28 01:16] LABS: Troponin I 0.17 ng/mL (<0.06)
[2020-11-28 02:25] LABS: PTT Activated 22.5 sec (21.0-27.5); Prothrombin Time 9.9 sec (9.3-11.0)
[2020-11-29 01:26] LABS: COVID-19 RT-PCR UVMMC Result Negative (Negative)
--- NOTE | 2020-11-29 10:11 | NUR.NOTE ---
Nursing Note: Patient transferred to [facility]. COVID result faxed to the cardiac unit he is currently on. Martha Glass .
== END 2020-11-28 04:10 | disposition short-term general hospital (02) ==
PROVIDERS: Emergency Provider Emergency Medicine; PCP Nurse Practitioner Family
DX: I21.4 Non-ST elevation (NSTEMI) myocardial infarction (principal); I25.10 Atherosclerotic heart disease of native coronary artery without angina pectoris; Z95.5 Presence of coronary angioplasty implant and graft; Z03.818 Encounter for observation for suspected exposure to other biological agents ruled out
CPT/HCPCS: 36415; 80053; 93005; 96365; 96366; 96376; 99291; U0003; U0005; 71045; 83735; 84484; 85025; 85379; 85610; 85730; 93010

== ENCOUNTER 2020-12-21 16:33 | Outpatient (REF) | payer MEDICARE, OTHER, SELFPAY ==
[2020-12-21 11:14] LABS: Abs Immature Grans 0.05 10^3/uL (0.0-0.06); Absolute Basophil Count 0.05 10^3/uL (0.0-0.2); Absolute Eosinophil Count 0.16 10^3/uL (0.0-0.7); Absolute Lymphocyte Count 1.05 10^3/uL (1.2-3.4); Absolute Monocyte Count 0.78 10^3/uL (0.1-0.8); Absolute Neutrophil Count 7.57 10^3/uL (1.2-6.7); Basophils % 0.5; Eosinophils % 1.7; HCT 29.2 % (40.0-50.0); HGB 9.3 g/dL (13.5-17.5); Immature Grans % 0.5; Lymphocytes % 10.9; MCH 30.6 pg (27.0-33.0); MCHC 31.8 % (32.0-36.0); MCV 96.1 fL (80-95); MPV 9.4 fL (8.0-11.0); Monocytes % 8.1; Neutrophils % 78.3; Nucleated RBC 0 %; Platelet Count 393 10^3/uL (130-400); RBC 3.04 10^6/uL (4.36-5.78); RDW 15.8 % (11.8-14.1); RDW-SD 53.3 fL; WBC 9.66 10^3/uL (4.4-10.8)
[2020-12-21 11:23] LABS: ALT 30 U/L (16-63); AST 24 U/L (15-37); Albumin 2.3 g/dL (3.4-5.0); Alkaline Phosphatase 91 U/L (46-116); Anion Gap 3.8 mmol/L (3-11); BUN 23 mg/dL (7-18); Bilirubin, Total 0.7 mg/dL (0.2-1.0); CO2 31.2 mmol/L (21.0-32.0); CREATININE 1.6 mg/dL (0.70-1.30); Calcium 8.2 mg/dL (8.5-10.1); Chloride 103 mmol/L (98-107); Estimated GFR 41.69 (mL/min/1.73m2); Glucose 136 mg/dL (74-106); Potassium 4.1 mmol/L (3.5-5.1); Sodium 138 mmol/L (136-145); Total Protein 5.7 g/dL (6.4-8.2)
== END 2020-12-21 16:34 | disposition home or self-care (01) ==
LOC: LBN 16:33
PROVIDERS: PCP Nurse Practitioner Family; Visit Provider Nurse Practitioner Family
DX: R78.81 Bacteremia (principal); T80.29XD Infection following other infusion, transfusion and therapeutic injection, subsequent encounter; B95.61 Methicillin susceptible Staphylococcus aureus infection as the cause of diseases classified elsewhere
CPT/HCPCS: 80053; 85025

== ENCOUNTER 2020-12-31 14:22 | Outpatient (REF) | payer MEDICARE, OTHER, SELFPAY ==
[2020-12-31 16:12] LABS: HCT 29.5 % (40.0-50.0); HGB 9.5 g/dL (13.5-17.5); MCH 30.8 pg (27.0-33.0); MCHC 32.2 % (32.0-36.0); MCV 95.8 fL (80-95); MPV 9.6 fL (8.0-11.0); Platelet Count 362 10^3/uL (130-400); RBC 3.08 10^6/uL (4.36-5.78); RDW 15.9 % (11.8-14.1); RDW-SD 55.1 fL; WBC 6.03 10^3/uL (4.4-10.8)
[2020-12-31 16:50] LABS: Anion Gap 10.5 mmol/L (3-11); BUN 31 mg/dL (7-18); CO2 25.5 mmol/L (21.0-32.0); CREATININE 1.5 mg/dL (0.70-1.30); Calcium 8.5 mg/dL (8.5-10.1); Chloride 99 mmol/L (98-107); Estimated GFR 44.92 (mL/min/1.73m2); Glucose 143 mg/dL (74-106); NT-proBNP 1401 pg/mL (<300); Potassium 4.2 mmol/L (3.5-5.1); Sodium 135 mmol/L (136-145)
[2021-01-01 18:48] LABS: COVID-19 RT-PCR UVMMC Result Negative (Negative)
== END 2020-12-31 14:23 | disposition home or self-care (01) ==
LOC: NCHCN 14:22
PROVIDERS: Nurse Practitioner Adult Health; PCP Nurse Practitioner Family; Visit Provider Nurse Practitioner Family
DX: I21.4 Non-ST elevation (NSTEMI) myocardial infarction (principal); R78.81 Bacteremia; Z20.822 Contact with and (suspected) exposure to COVID-19
CPT/HCPCS: 80048; 85027; U0003; 83880

== ENCOUNTER 2021-01-13 10:21 | Outpatient (RCR) | payer MEDICARE, OTHER, SELFPAY | END 2021-01-20 23:59 | disposition home or self-care (01) | LOC: CR 10:21 | PROVIDERS: PCP Nurse Practitioner Family; Visit Provider Family Medicine ==

== ENCOUNTER 2021-02-19 11:00 | Outpatient (RCR) | payer MEDICARE, OTHER, SELFPAY | END 2021-02-19 23:59 | disposition home or self-care (01) | LOC: CR 11:00 | PROVIDERS: PCP Nurse Practitioner Family; Visit Provider Family Medicine | DX: Z95.1 Presence of aortocoronary bypass graft (principal); Z51.89 Encounter for other specified aftercare; I25.2 Old myocardial infarction; I25.10 Atherosclerotic heart disease of native coronary artery without angina pectoris; Z95.5 Presence of coronary angioplasty implant and graft | CPT/HCPCS: S9472 ==

== ENCOUNTER 2021-03-17 04:34 | Outpatient (RCR) | payer MEDICARE, OTHER, SELFPAY ==
--- NOTE | 2021-03-17 10:15 | HOLTER_ITS ---
APPROVED REPORT Conclusion This is a 24-hour monitor ordered for indication of ASCVD. The patient was in normal sinus rhythm for the majority the recording with an average heart rate of 8 2 bpm. There were no episodes of VT or SVT. There were rare episodes of ectopy. There were no episodes of atrial fibrillation, no pauses greater than 3 seconds and no evidence of hi gh degree heart block. There was 1 patient diary event, low energy which was associated with normal sinus rhythm.
== END 2021-03-22 23:59 | disposition home or self-care (01) ==
LOC: RT 04:34
PROVIDERS: PCP Nurse Practitioner Family; Visit Provider Internal Medicine Cardiovascular Disease
DX: R42 Dizziness and giddiness (principal); I25.10 Atherosclerotic heart disease of native coronary artery without angina pectoris; I48.0 Paroxysmal atrial fibrillation
CPT/HCPCS: 93227; 93225; 93226

== ENCOUNTER 2021-03-19 11:00 | Outpatient (RCR) | payer MEDICARE, OTHER, SELFPAY | END 2021-03-22 23:59 | disposition home or self-care (01) | LOC: CR 11:00 | PROVIDERS: PCP Nurse Practitioner Family; Visit Provider Family Medicine | DX: Z51.89 Encounter for other specified aftercare (principal); Z95.1 Presence of aortocoronary bypass graft; I25.2 Old myocardial infarction | CPT/HCPCS: S9472 ==

== ENCOUNTER → 2021-03-24 13:26 | Outpatient (BNVA) | payer MEDICARE, OTHER, SELFPAY | PROVIDERS: PCP Nurse Practitioner Family; Referring Provider Nurse Practitioner Family; Visit Provider Nurse Practitioner Gerontology | DX: N28.89 Other specified disorders of kidney and ureter (principal); N40.0 Benign prostatic hyperplasia without lower urinary tract symptoms; K59.00 Constipation, unspecified | CPT/HCPCS: 81003; 99214 ==

== ENCOUNTER 2021-04-21 11:00 | Outpatient (RCR) | payer MEDICARE, OTHER, SELFPAY | END 2021-04-21 23:59 | disposition home or self-care (01) | LOC: CR 11:00 | PROVIDERS: PCP Nurse Practitioner Family; Visit Provider Family Medicine | DX: Z51.89 Encounter for other specified aftercare (principal); Z95.1 Presence of aortocoronary bypass graft; I25.2 Old myocardial infarction; I25.10 Atherosclerotic heart disease of native coronary artery without angina pectoris | CPT/HCPCS: S9472 ==

== ENCOUNTER 2021-04-22 03:24 | Outpatient (CLI) | payer MEDICARE, OTHER, SELFPAY ==
--- NOTE | 2021-04-22 07:15 | DI.US_ITS ---
Exam(s) US RENAL EXAM: US RENAL CLINICAL HISTORY: monitoring mass of right kidney, N28.89 TECHNIQUE: Ultrasound of both kidneys performed using standard protocol. COMPARISON: CT CT ABDOMEN PELVIS W from 08/19/[address] ABDOMEN PELVIS W from 08/19/2020 prior ultrasound also reviewed FINDINGS: RIGHT KIDNEY: Measures 13.3 cm in length. No simple cysts evident. Previously described finding-possible nodule aga in noted, measuring approximately 1.5x1.3 x 1.4 cm on today's study. Appears more solid than cystic on these images. MRI recommended No intrarenal calculi nor hydronephrosis. LEFT KIDNEY: Measures 12.8 cm in length. No cysts evident. Normal cortical thickness and corticomedullary differe ntiaion. No solids masses. No intrarenal calculi nor hydonephrosis. URINARY BLADDER: Prevoid volume is 75 cc Postvoid volume is 12 cc No evidence of obvious bladder mass nor diverticuli. Ureterovesical jets: Only left was visualized IMPRESSION: 1. Small nodule in the right kidney does not feel strict criteria for simple cysts. Therefore recom mend contrast infused MRI to determine if this right kidney find is neoplastic. DATA REPOSITORY:
== END 2021-04-22 03:44 ==
PROVIDERS: PCP Nurse Practitioner Family; Visit Provider Nurse Practitioner Gerontology
DX: N28.89 Other specified disorders of kidney and ureter (principal)
CPT/HCPCS: 76770

== ENCOUNTER 2021-05-14 11:00 | Outpatient (RCR) | payer MEDICARE, OTHER, SELFPAY ==
[2021-05-18 11:07] VITALS: BP 131/73; PULSE 74
[2021-05-20 10:51] VITALS: BP 132/63; PULSE 72
== END 2021-05-22 23:59 | disposition home or self-care (01) ==
LOC: CR 11:00
PROVIDERS: PCP Nurse Practitioner Family; Visit Provider Family Medicine
DX: Z51.89 Encounter for other specified aftercare (principal); Z95.1 Presence of aortocoronary bypass graft
CPT/HCPCS: S9472

== ENCOUNTER 2021-05-27 09:19 | Outpatient (CLI) | payer MEDICARE, OTHER, SELFPAY ==
[2021-05-27 10:52] LABS: Reticulocyte 1.2 % (0.5-2.4)
[2021-05-27 12:05] LABS: Iron 143 ug/dL (65-175); Total Iron Binding Capacity 329 ug/dL (250-450); Transferrin Sat 43 % (20-55)
[2021-05-27 12:29] LABS: Ferritin 25 ng/mL (26-388); Vitamin B12 524 pg/mL (193-986)
[2021-05-27 12:30] LABS: Folate > 20.0 ng/mL (8.6-20.0)
[2021-05-27 15:20] LABS: Abs Immature Grans 0.01 10^3/uL (0.0-0.06); Absolute Basophil Count 0.05 10^3/uL (0.0-0.2); Absolute Eosinophil Count 0.22 10^3/uL (0.0-0.7); Absolute Lymphocyte Count 1.16 10^3/uL (1.2-3.4); Absolute Monocyte Count 0.62 10^3/uL (0.1-0.8); Basophils % 0.8; Eosinophils % 3.3; HCT 36.4 % (40.0-50.0); HGB 11.4 g/dL (13.5-17.5); Immature Grans % 0.2; Lymphocytes % 17.4; MCH 28.5 pg (27.0-33.0); MCHC 31.3 % (32.0-36.0); MPV 9.4 fL (8.0-11.0); Monocytes % 9.3; Nucleated RBC 0 %; Platelet Count 270 10^3/uL (130-400); RDW 14.7 % (11.8-14.1); RDW-SD 49.2 fL; WBC 6.66 10^3/uL (4.4-10.8)
[2021-05-28 17:35] LABS: Erythropoietin 26.7 mIU/mL (2.6 - 18.5)
== END 2021-05-27 09:20 | disposition home or self-care (01) ==
LOC: LBO 09:21
PROVIDERS: PCP Nurse Practitioner Family; Visit Provider Nurse Practitioner Family
DX: D64.9 Anemia, unspecified (principal)
CPT/HCPCS: 36415; 82668; 82607; 82728; 82746; 83540; 83550; 85025; 85045

== ENCOUNTER 2021-06-22 11:00 | Outpatient (RCR) | payer SELFPAY ==
[2021-05-23 00:10] VITALS: BP 132/63; PULSE 72
[2021-05-25 10:56] VITALS: BP 138/74; PULSE 86
[2021-06-01 11:06] VITALS: BP 130/60; PULSE 79
[2021-06-03 11:02] VITALS: BP 142/71; PULSE 85; O2SAT 91
[2021-06-08 11:06] VITALS: BP 134/70; PULSE 62
[2021-06-17 10:54] VITALS: BP 151/77; PULSE 69
[2021-06-22 13:56] VITALS: BP 132/67; PULSE 77
== END 2021-06-22 23:59 | disposition home or self-care (01) ==
LOC: CR 11:00
PROVIDERS: PCP Nurse Practitioner Family; Visit Provider Family Medicine
DX: Z51.89 Encounter for other specified aftercare (principal)

== ENCOUNTER 2021-07-22 11:00 | Outpatient (RCR) | payer SELFPAY ==
[2021-06-23 00:19] VITALS: BP 132/67; PULSE 77
[2021-06-24 11:32] VITALS: BP 142/68; PULSE 75
[2021-06-29 13:21] VITALS: BP 153/68; PULSE 72
[2021-07-01 11:12] VITALS: BP 151/64; PULSE 73
[2021-07-06 11:17] VITALS: BP 153/76; PULSE 81
[2021-07-13 10:57] VITALS: BP 136/65; PULSE 69; O2SAT 95
[2021-07-15 11:08] VITALS: BP 139/74; PULSE 67
[2021-07-20 11:29] VITALS: BP 157/79; PULSE 73
[2021-07-22 10:48] VITALS: BP 141/75; PULSE 71
[2021-07-27 11:05] VITALS: BP 164/74; PULSE 83
== END 2021-07-22 23:59 | disposition home or self-care (01) ==
LOC: CR 11:00
PROVIDERS: PCP Nurse Practitioner Family; Visit Provider Family Medicine
DX: Z51.89 Encounter for other specified aftercare (principal)

== ENCOUNTER 2021-08-19 11:00 | Outpatient (RCR) | payer SELFPAY ==
[2021-07-23 00:24] VITALS: BP 141/75; PULSE 71
[2021-07-29 10:40] VITALS: BP 146/74; PULSE 74
[2021-08-03 11:26] VITALS: BP 155/76; PULSE 74
[2021-08-05 12:51] VITALS: BP 159/77; PULSE 85
[2021-08-10 10:49] VITALS: BP 157/78; PULSE 73
[2021-08-12 10:47] VITALS: BP 153/69; PULSE 80
[2021-08-17 10:52] VITALS: BP 137/70; PULSE 82
[2021-08-19 10:50] VITALS: BP 126/70; PULSE 80
== END 2021-08-22 23:59 | disposition home or self-care (01) ==
LOC: CR 11:00
PROVIDERS: PCP Nurse Practitioner Family; Visit Provider Family Medicine
DX: Z51.89 Encounter for other specified aftercare (principal); R69 Illness, unspecified

== ENCOUNTER 2021-08-23 01:55 | Outpatient (CLI) | payer MEDICARE, OTHER, SELFPAY ==
--- NOTE | 2021-08-23 06:30 | DI.US_ITS ---
Exam(s) US RENAL EXAM: US RENAL CLINICAL HISTORY: monitoring kidney mass,N28.89 TECHNIQUE: Ultrasound of both kidneys performed using standard protocol. COMPARISON: US US RENAL from 04/22/2021 US US RENAL from 04/22/2021 FINDINGS: RIGHT KIDNEY: Measures 13.3 cm in length. Towards the inferior pole is again noted the previously described solid cortical nodule which presently measures 1.8 x 1.7 cm, slightly larger measurements than previous. T his is not a simple cyst and cannot exclude neoplasm. LEFT KIDNEY: Measures 12.8 cm in length. No cysts evident. Normal cortical thickness and corticomedullary differe ntiaion. No solids masses. No intrarenal calculi nor hydonephrosis. URINARY BLADDER: Prevoid volume is 56 cc Postvoid volume is cc No evidence of bladder mass nor diverticuli. Ureterovesical jets: Neither identified IMPRESSION: 1. Slight increase in size of what is either complex cysts or solid nodule in the lateral cortex of the right kidney. This is not a simple cyst. Possible neoplasm recommend either triple phase CT sca n or MRI for further specificity. 2. No significant findings in the opposite-left kidney. Urinary bladder not well study. Only 56 cc therein. DATA REPOSITORY:
== END 2021-08-23 02:15 ==
PROVIDERS: PCP Nurse Practitioner Family; Visit Provider Nurse Practitioner Gerontology
DX: N28.89 Other specified disorders of kidney and ureter (principal)
CPT/HCPCS: 76770

== ENCOUNTER → 2021-08-25 10:14 | Outpatient (BNVA) | payer MEDICARE, OTHER, SELFPAY | PROVIDERS: PCP Nurse Practitioner Family; Visit Provider Nurse Practitioner Gerontology | DX: N28.89 Other specified disorders of kidney and ureter (principal); N40.0 Benign prostatic hyperplasia without lower urinary tract symptoms; K59.00 Constipation, unspecified | CPT/HCPCS: 99214 ==

== ENCOUNTER 2021-08-31 11:00 | Outpatient (RCR) | payer SELFPAY ==
[2021-08-23 00:12] VITALS: BP 126/70; PULSE 80
[2021-08-24 11:45] VITALS: BP 154/71; PULSE 79
[2021-08-26 10:46] VITALS: BP 154/68; PULSE 79
[2021-08-31 13:07] VITALS: BP 151/77; PULSE 71
== END 2021-09-21 23:59 | disposition home or self-care (01) ==
LOC: CR 11:00
PROVIDERS: PCP Nurse Practitioner Family; Visit Provider Family Medicine
DX: Z51.89 Encounter for other specified aftercare (principal); R69 Illness, unspecified

== ENCOUNTER 2021-09-22 13:36 | Outpatient (RCR) | payer SELFPAY ==
[2021-09-22 00:04] VITALS: BP 151/77; PULSE 71
== END 2021-10-22 23:59 | disposition home or self-care (01) ==
LOC: CR 13:36
PROVIDERS: PCP Nurse Practitioner Family; Visit Provider Family Medicine

== ENCOUNTER 2021-10-14 16:30 | Emergency (ER) | payer MEDICARE, OTHER, SELFPAY ==
[2021-10-14 16:33] VITALS: BP 159/61; PULSE 72; RESP 18; TEMP 36.2; O2SAT 97
[2021-10-14 16:56] VITALS: RESP 17
--- NOTE | 2021-10-14 16:56 | ED.GENADUL_ITS ---
Discharge Plan Disposition Patient Disposition: HOME Condition: Stable Discharge Details Clinical Impression: Infection following a procedure, deep incisional surgical site, initial encounter Primary Care Provider: Michell Bishop ED Provider: Catrina Berumen Home Meds and New Rx's Prescriptions: New cephalexin 500 mg tablet 500 mg PO QID 10 Days Qty: 40 RF: 0 No Action finasteride 5 mg tablet 5 mg PO HS Qty: 90 RF: 4 alfuzosin 10 mg tablet extended release 24 hr 10 mg PO DAILY Qty: 90 RF: 4 bisacodyl 5 mg tablet,delayed release (DR/EC) 5 mg PO DAILY Qty: 30 RF: 0 polyethylene glycol 3350 [Miralax] 17 gram/dose powder 34 gm PO DAILY Qty: 119 RF: 3 niacinamide 500 mg tablet 500 mg PO DAILY RF: 0 Trulicity 0.75 mg/0.5 mL pen injector 0.75 mg subcut QWEEK RF: 0 metformin 1,000 mg tablet 1,000 mg PO BID Qty: 180 RF: 3 pantoprazole 20 mg tablet,delayed release (DR/EC) 40 mg PO DAILY Qty: 180 RF: 3 Lantus Solostar U-100 Insulin 100 unit/mL (3 mL) insulin pen 50 unit subcut HS Qty: 2 RF: 11 multivitamin [One Daily Multivitamin] 1 EACH tablet 1 ea PO DAILY RF: 0 aspirin [Aspirin Low-Strength] 81 MG tablet,chewable 81 mg PO DAILY RF: 0 cholecalciferol (vitamin D3) 2,000 UNIT tablet 2,000 unit PO DAILY RF: 0 ezetimibe [Zetia] 10 MG tablet 10 mg PO DAILY Qty: 90 RF: 4 acetaminophen 500 mg tablet 1,000 mg PO BID PRNRF: 0 nitroglycerin 0.4 mg tablet, sublingual 0.4 mg SL Q5M MDD 3 doses PRN (Reason: chest pain) Qty: 30 RF: 3 ferrous sulfate 325 mg (65 mg iron) tablet 325 mg PO DAILY RF: 0 folic acid 1 mg tablet 1 mg PO DAILY RF: 0 atorvastatin 40 mg tablet 40 mg PO DAILY Qty: 90 RF: 3 furosemide 40 mg tablet 40 mg PO BID Qty: 180 RF: 3 metoprolol tartrate 50 mg tablet 50 mg PO BID Qty: 180 RF: 3 spironolactone 25 mg tablet 12.5 mg PO DAILY Qty: 45 RF: 3 Myrbetriq 50 mg tablet extended release 24 hr 50 mg PO Q24H Qty: 90 RF: 4 Hold Instructions: Home Medication placed on hold at Doctor's office (DME) [facility] See Rx Instructions .ROUTE .MEDSUPPLY Qty: 100 RF: 3 Xarelto 2.5 mg tablet 2.5 mg PO BID Qty: 90 RF: 3 Discharge Instructions Instructions: Surgical Site Infections (ED) Additional Instructions: Take the antibiotics 4 times a day as prescribed. Keep incisions clean and dry. If continued increasing redness, fever, body ache or feeling worse at any time please return to the emergency department. Please [place] [facility] [place]. Follow up with primary care provider in 3-5 days. Return to ED sooner if any worsening or concerns. Increase oral fluids. Please follow the rest of the postop instructions previously given. Referrals: Michell Bishop NP [Primary Care Provider] - 3 days Medical Decision Making 81-year-old male presents to the ER with chief complaint of possible cellulitis. Patient had surgical procedure at [facility] on Monday. He had a mass biopsy to his mid chest and lymph node excised and also onto his left axillary area. He does have 2 drains noted in approximately 15 cm long incision noted to his left axillary. He does have some surrounding erythema warmth noted. He was instructed [place] [facility] [place] here for evaluation and possible antibiotics. He denies any fever, chills, body aches or any other associated symptoms. At this time ceftriaxone 500 mg IM ordered and will place patient on 500 mg Keflex 4 times a day for the next 10 days. Instructed on strict return instructions and follow-up with surgeon at [facility] [place]. This text was generated using [employer] dictation system, please disregard any oddities of phrase or misspellings. HPI General Mode of arrival: ambulatory . Date/Time Provider Initiated Documentation: 10/14/21 16:38 . Limitations to Documentation: no limitations . Information obtained by: patient, RN notes reviewed and old records reviewed . HPI Narrative: 81-year-old male presents to the ER with chief complaint of possible cellulitis. Patient had surgical procedure at [facility] on Monday. He had a mass biopsy to his mid chest and lymph node excised and also onto his left axillary area. He does have 2 drains noted in approximately 15 cm long incision noted to his left axillary. He does have some surrounding erythema warmth noted. He was instructed [place] [facility] [place] here for evaluation and possible antibiotics. He denies any fever, chills, body aches or any other associated symptoms. Related Data Home Medications Medication Instructions Recorded Confirmed multivitamin [One Daily 1 ea PO DAILY 01/23/13 10/14/21 Multivitamin] aspirin [Aspirin Low-Strength] 81 mg PO DAILY tab 04/03/14 10/14/21 cholecalciferol (vitamin D3) 2,000 unit PO DAILY 08/17/16 10/14/21 ezetimibe [Zetia] 10 mg PO DAILY #90 tab-cap 05/21/18 10/14/21 acetaminophen 500 mg tablet 1,000 mg PO BID PRN tab 03/29/19 10/14/21 nitroglycerin 0.4 mg sublingual 0.4 mg SL Q5M PRN #30 tab-cap MDD 08/16/19 10/14/21 tablet 3 doses bisacodyl 5 mg tablet,delayed 5 mg PO DAILY #30 tab-cap 05/21/20 10/14/21 release polyethylene glycol 3350 17 34 gm PO DAILY #119 gm 05/21/20 10/14/21 gram/dose oral powder ferrous sulfate 325 mg (65 mg 325 mg PO DAILY tab 12/28/20 10/14/21 iron) tablet folic acid 1 mg tablet 1 mg PO DAILY 12/28/20 10/14/21 alfuzosin 10 mg tablet,extended 10 mg PO DAILY #90 tab-cap 03/25/21 10/14/21 release 24 hr finasteride 5 mg tablet 5 mg PO HS #90 tab-cap 03/25/21 10/14/21 atorvastatin 40 mg tablet 40 mg PO DAILY #90 tab 04/14/21 10/14/21 furosemide 40 mg tablet 40 mg PO BID #180 tab 04/14/21 10/14/21 metoprolol tartrate 50 mg tablet 50 mg PO BID #180 tab 04/14/21 10/14/21 niacinamide 500 mg tablet 500 mg PO DAILY 04/29/21 10/14/21 insulin glargine 100 unit/mL (3 50 unit SUBCUT HS #2 ml 05/27/21 10/14/21 mL) subcutaneous pen spironolactone 25 mg tablet 12.5 mg PO DAILY #45 tab 06/16/21 10/14/21 mirabegron 50 mg tablet,extended 50 mg PO Q24H #90 tab 06/21/21 10/14/21 release 24 hr lancets #100 each 08/12/21 09/03/21 rivaroxaban 2.5 mg tablet 2.5 mg PO BID #90 tab 09/01/21 10/14/21 dulaglutide 0.75 mg/0.5 mL 0.75 mg SUBCUT QWEEK 09/03/21 10/14/21 subcutaneous pen injector metformin 1,000 mg tablet 1,000 mg PO BID #180 tab-cap 09/03/21 10/14/21 pantoprazole 20 mg tablet,delayed 40 mg PO DAILY #180 tab-cap 09/03/21 10/14/21 release cephalexin 500 mg PO QID 10 Days #40 tab 10/14/21 Previous Rx's Medication Instructions Recorded ezetimibe [Zetia] 10 mg PO DAILY #90 tab-cap 05/21/18 nitroglycerin 0.4 mg sublingual 0.4 mg SL Q5M PRN #30 tab-cap MDD 08/16/19 tablet 3 doses bisacodyl 5 mg tablet,delayed 5 mg PO DAILY #30 tab-cap 05/21/20 release polyethylene glycol 3350 17 34 gm PO DAILY #119 gm 05/21/20 gram/dose oral powder alfuzosin 10 mg tablet,extended 10 mg PO DAILY #90 tab-cap 03/25/21 release 24 hr finasteride 5 mg tablet 5 mg PO HS #90 tab-cap 03/25/21 atorvastatin 40 mg tablet 40 mg PO DAILY #90 tab 04/14/21 furosemide 40 mg tablet 40 mg PO BID #180 tab 04/14/21 metoprolol tartrate 50 mg tablet 50 mg PO BID #180 tab 04/14/21 spironolactone 25 mg tablet 12.5 mg PO DAILY #45 tab 06/16/21 mirabegron 50 mg tablet,extended 50 mg PO Q24H #90 tab 06/21/21 release 24 hr lancets #100 each 08/12/21 rivaroxaban 2.5 mg tablet 2.5 mg PO BID #90 tab 09/01/21 metformin 1,000 mg tablet 1,000 mg PO BID #180 tab-cap 09/03/21 pantoprazole 20 mg tablet,delayed 40 mg PO DAILY #180 tab-cap 09/03/21 release cephalexin 500 mg PO QID 10 Days #40 tab 10/14/21 Allergies Allergy/AdvReac Type Severity Reaction Status Date / Time No Known Allergies Allergy Verified 10/14/21 16:40 General Stated Complaint: GenMedical EDUARDO: 3 Review of Systems All systems reviewed & are unremarkable except as noted in HPI and below Constitutional Constitutional: Reports as per HPI, Denies body ache(s), Denies fever(s) and Denies malaise PFSH All Active Problems (Updated 10/14/21 @ 17:06 by Catrina Berumen) Infection following a procedure, deep incisional surgical site, initial encounter (Acute) 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 Song, proliferation not noted in report. 04/30/19 Left upper lobe pulmonary nodule (Chronic) [facility] Pulm: 4mm w.adjacent groundglass. Considering 3 mo low radiation dose non contrast chest CT to see if resolves; Follow with yearly Chest CT LBBB (left bundle branch block) (Chronic) BPH (benign prostatic hyperplasia) (Chronic) Type 2 diabetes mellitus with diabetic neuropathy, with long-term current use of insulin (Chronic) Co-managed with [facility] [place]Dr. Reis); HbA1c goal </= 7.5-8% Hearing loss, conductive (Chronic) ASCVD (arteriosclerotic cardiovascular disease) (Chronic) Stenting in 2004 and 2005; 04/02/14 NSTEMI: KECIA to LCX and LAD ([facility], Dr. Watkins); 03/16/16 NSTEMI: KECIA to LCX (85% stenosis) with LVEH 61% [place] [place] [facility] [place]: no ischemic changes on post stress echo. LVEF 60% mild LVH; no change in resting regional wall motion abnormalities (see details under diastolic CHF heading); 06/14/19 stent x2 and angioplastyx1; another NSTEMI 07/2019 (cardiac cath repeated but no additional stents placed); NSTEMI 11/2020 with s/p 4v CABG 2019: INDEFINITE DAPT with ASA and Plavix! 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) Migraine (Chronic 12/15/11) Interstitial lung disease (Chronic 07/28/16) Hypoxemia (Chronic 04/02/17) Per [facility] [place] Essential hypertension (Chronic 02/05/13) Erectile dysfunction (Chronic 12/15/11) Diastolic heart failure (Chronic 02/27/15) Most recent echo 07/2019 ([facility] [place] EF ~55% with no new wall motion abnormalities Diabetic peripheral neuropathy (Chronic 02/21/18) Carpal tunnel syndrome on both sides (Chronic 03/28/18) GERD (gastroesophageal reflux disease) (Chronic) 05/15/2012 EGD (Dr. Baird): chronic gastritis and esophagitis Hearing loss, sensorineural (Chronic) Medical History Actinic keratosis (08/04/17) scattered on face Acute non-ST elevation myocardial infarction (NSTEMI) (~11/2020) S/p CABG 12/11/20 [facility] [place] Basal cell carcinoma of back (08/04/17) midline upper back H/O squamous cell carcinoma of skin Multiple pulmonary emboli S/p anticoagulation -- d/c'ed by cardiology NSTEMI (non-ST elevated myocardial infarction) (~06/13/19) 06/14/19: [facility] [place] w/ stent x2 and angioplasty; 08/05/2019: [facility] [place] cath with stable vessel dz & no additional stents placed; dual antiplatelet therapy indefinitely SCC (squamous cell carcinoma), leg (~2018) [facility] Surgical History History of cataract extraction with lens replacement History of heart artery stent repeated 06/14/19 History of repair of retinal defect by laser photocoagulation History of YAG laser capsulotomy of lens Status post coronary artery bypass graft (~12/11/20) [facility] [place] Family History Father , from CHF age 76 Congestive heart failure Brother Congestive heart failure Mother , age 92 old age No problems noted. Sister No problems noted. Social History Smoking/Tobacco Use Status: Former Tobacco Use Quit Date: 10/23/84 Pack-years: 25 Tobacco: How many years used: 25 Smoking risk assessment performed?: Yes Alcohol Intake: current Alcohol Intake frequency: 0-2 drinks per day Drug use: Never Substance use type: does not use Caregiver/Support person: No Household members: spouse Number of Children: 2 Communication Needs: Hard of Hearing Education Level: high school Pets and animals: Yes Pets and animals: cat(s) Current gender identity: male What type of physical activity do you participate in: other Details: cardiac rehab Duration: 45-60 minutes/day Frequency: 3-4 times per week Seatbelt use: always Do you feel safe at home: Yes Do you feel safe in your relationship?: Yes Exam Skin Full body images: 1. Approximately 6 cm vertical incision noted. Approximately 4 cm of this is new with some clear drainage noted from the area. 2. Approximately 15 cm curved laceration noted to the left axilla which is swollen, erythemic and warm to the touch. No drainage noted. However patient does have 2 drains with serosanguineous drainage. Course Vital Signs Vital signs: Vital Signs Temperature 36.2 C L 10/14/21 16:33 Pulse 72 10/14/21 16:33 Respiratory Rate 18 10/14/21 16:33 Blood Pressure 159/61 H 10/14/21 16:33 Pulse Oximetry 97 10/14/21 16:33 Temperature 36.2 C L 10/14/21 16:33 Temperature Source Temporal Artery Scan 10/14/21 16:33 Pulse 72 10/14/21 16:33 Respiratory Rate 18 10/14/21 16:33 Respiratory Effort Non-Labored 10/14/21 16:40 Blood Pressure 159/61 H 10/14/21 16:33 Blood Pressure Position Sitting 10/14/21 16:33 Pulse Oximetry 97 10/14/21 16:33 Oxygen Delivery Method Room Air 10/14/21 16:33 Oxygen Flow Rate 0 10/14/21 16:33 PAWSS Have you Been Recently Intoxicated or Drunk Within the Last 30 days?: No Have you Ever Experienced Previous Episodes of Alcohol Withdrawal?: No Have you ever Experienced Withdrawal Seizures?: No Have you ever Experienced Delirium Tremens(DT)s?: No Have you ever undergone Alcohol Rehabilitation Treatment (i.e, inpt ot outpatient treatment programs)?: No Have you ever Experienced Blackouts?: No Have you ever Combined Alcohol with other Downers within the last 90 days?: No Have you ever Combined Alcohol with any other Substance of Abuse during the last 90 days?: No Positive Blood Alcohol level on Presentation? [PCS.BAL]: No Evidence of Increased Autonomic Activity (i.e. HR>120, tremor, sweating, agitation, nausea)?: No Result: 0
[2021-10-14] MEDS: Cephalexin 500 MG CAP PO (17:11)
[2021-10-14] MEDS: Cephalexin 500 MG CAP, 4 CAPS/BTL PO (17:12)
[2021-10-14] MEDS: cefTRIAXone 500 MG VIAL IM (17:35)
== END 2021-10-14 17:42 | disposition home or self-care (01) ==
PROVIDERS: Emergency Provider Registered Nurse Emergency; PCP Nurse Practitioner Family
DX: T81.42XA Infection following a procedure, deep incisional surgical site, initial encounter (principal); L04.2 Acute lymphadenitis of upper limb
CPT/HCPCS: 96372; 99284; 99283; J0696

== ENCOUNTER 2021-10-25 16:38 | Outpatient (REF) | payer MEDICARE, OTHER, SELFPAY ==
[2021-10-25 19:14] LABS: HCT 39.6 % (40.0-50.0); HGB 12.8 g/dL (13.5-17.5); MCHC 32.3 % (32.0-36.0); MPV 9.3 fL (8.0-11.0); Platelet Count 269 10^3/uL (130-400); RBC 4.26 10^6/uL (4.36-5.78); RDW 13.5 % (11.8-14.1); RDW-SD 45.6 fL; WBC 7.67 10^3/uL (4.4-10.8)
[2021-10-25 19:36] LABS: Anion Gap 7.4 mmol/L (3-11); BUN 29 mg/dL (7-18); CO2 29.6 mmol/L (21.0-32.0); CREATININE 1.2 mg/dL (0.70-1.30); Calcium 8.6 mg/dL (8.5-10.1); Chloride 105 mmol/L (98-107); Estimated GFR 57.96 (mL/min/1.73m2); Glucose 152 mg/dL (74-106); Magnesium 2.1 mg/dL (1.8-2.4); NT-proBNP 398 pg/mL (<300); Potassium 4.4 mmol/L (3.5-5.1); Sodium 142 mmol/L (136-145)
== END 2021-10-25 16:39 | disposition home or self-care (01) ==
LOC: LBN 16:38
PROVIDERS: PCP Nurse Practitioner Family; Visit Provider Nurse Practitioner Adult Health
DX: D64.9 Anemia, unspecified (principal); I25.10 Atherosclerotic heart disease of native coronary artery without angina pectoris; I50.30 Unspecified diastolic (congestive) heart failure; N18.9 Chronic kidney disease, unspecified; R06.02 Shortness of breath; R63.5 Abnormal weight gain
CPT/HCPCS: 80048; 85027; 83735; 83880

== ENCOUNTER → 2022-02-23 00:57 | Outpatient (CLI) | payer MEDICARE, OTHER, SELFPAY ==
--- OUTSIDE RECORDS SUMMARY | 2022-02-23 01:00 | XMS_ITS | Continuity of Care Document ---
:1940 Author Organization [facility] Care Team Providers Name Role Phone DOD-VA Unavailable Unavailable Problems Combined list of problems from Department of Defense and Veterans Affairs facilities. It does not include entries that were removed or entered in error. 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 [place] [facility] (SNOMED CT 37022404) GERD - Active Condition [place] R Gastro-esophageal MIS T VAM[facility]OC reflux disease Health Maintenance Active Condition [place] (ICD-9-CM V65.9) [place] [facility] HTN - Hypertension Active Condition [place] (SNOMED CT [place] [facility] 99198308) Hyperlipidemia Active Condition [place] (SNOMED CT [place] [facility] 77074359) PE - Pulmonary Active Condition [place] embolism [place] [facility] Subjective tinnitus Active Condition [place] (SNOMED CT [place] [facility] 60748212) Type 2 diabetes Active Condition [place] mellitus (SNOMED CT [place] [facility] 02503119) SENSORINEURAL Inactive Condition 05/30/2019 [place] HEARING [...] Provider Comments: Type 2 diabetes mellitus (SCT 84944073) Diagnosis: active Diagnosis [place] ER ICD-10-CM [...] Provider Comments: PE - Pulmonary embolism (SCT 18317030) Diagnosis: active Diagnosis ST. ICD-10-CM I25.10 [facility]scl heart [facility]OC disease of [place] coronary artery w/o ang pctrswith Provider Comments: Atherosclerotic Heart Disease of [place] Coronary Artery without Angina Pectoris Medications Combined list of outpatient medications from Department of Defense and Veterans Affairs facilities. Medications provided include 1) outpatient medications from the last 15 months, and 2) patient-reported medications. Medication Details Route Status Patient Prescription Prescription Last Ordering Order Source Instructions Expires Number Dispense Provider Date Date ALFUZOSIN TAKE ONE ORAL ACTIVE 03/26/2022 [id number] Pat CROWLEY 03/29/ ST. HCL 10MG TABLET 2 GAGE K 2020 [place] TAB,SA BY MOUTH RY CBOC EVERY DAY FOR URINARY VOIDING SYMPTOMS ALFUZOSIN TAKE ONE ORAL DISCONT 03/05/2022 [id number] PACO DEJESUS 05/04/ ST. HCL 10MG TABLET INUE 1 UREN P 2020 [place] TAB,SA BY MOUTH RY CBOC EVERY DAY FOR URINARY VOIDING SYMPTOMS - DR. BENZ ALFUZOSIN TAKE ONE ORAL DISCONT 03/26/2021 [id number] PACO DEJESUS 04/08/ WHITE HCL 10MG TABLET INUE 1 UREN P 2019 [place] TAB,SA BY MOUTH [place] EVERY [facility]OC DAY FOR URINARY VOIDING SYMPTOMS - DR. BENZ APIXABAN TAKE ONE ORAL DISCONT 03/06/2022 [id number] Nemesio JIMENEZ 03/08/ WHITE 5MG TAB TABLET INUED 1 ENEL L 2020 [place] BY MOUTH [place] EVERY [facility]OC TWELVE HOURS TO HELP PREVENT BLOOD CLOTS (ANTICOA GULATION ) ASPIRIN CHEW ONE ORAL ACTIVE LABARTHE, 03/20/ ST. 81MG TABLET TADEO Butt 2015 [place] TAB,CHEWABL BY MOUTH RY CB OC E EVERY DAY ATORVASTATI TAKE ONE ORAL ACTIVE 02/05/2023 [id number] EVERE ARIEC 02/07/ Departm N CA 40MG TABLET 2 2021 ent of TAB BY MOUTH [place] EVERY s DAY TO Affairs LOWER CHOLESTE ROL ATORVASTATI TAKE ONE ORAL DISCONT 04/15/2022 [id number] E PAYTONAdrian 04/19/ WHITE N CA 40MG TABLET INUED 2 ROSELIA 2020 [place] TAB BY MOUTH [place] EVERY [facility]OC DAY TO LOWER CHOLESTE ROL CHOLECALCIF TAKE TWO ORAL ACTIVE [place] 08/14/ WHITE KRYSTLE 25MCG TABLETS UREN P 2016 [place] (1,000UNIT) BY MOUTH [place] TAB EVERY VAM[facility]OC DAY CLOTRIMAZOL APPLY TOPICA ACTIVE 03/05/2022 [id number] RODSRI, PACO 03/04/ ST. E 1% THIN LLY 1 UREN P 2020 [place] CREAM,TOP FILM RY CBOC TOPICALL Y TWICE A DAY FOR FUNGAL INFECTIO N DULAGLUTIDE INJECT SUBCUT ACTIVE 10/27/2022 [id number] YESSICA ,JO 10/26/ WHITE 0.75MG/0.5M 0.75MG/0 ANEOUS 2 2021 RIVE R L .5ML JCT INJ,SOLN,PE SUBCUTAN VAMRO C N EOUSLY ONCE A WEEK FOR DIABETES DULAGLUTIDE INJECT SUBCUT 10/09/2021 [id number] VO ,STEFANI P 10/11/ ST. 0.75MG/0.5M 0.75MG/0 ANEOUS 1 2019 MANUEL SBU L .5ML RY CBOC INJ,SOLN,PE SUBCUTAN N EOUSLY ONCE A WEEK FOR DIABETES DULAGLUTIDE INJECT SUBCUT ACTIVE [place]IER,LA 08/14/ WHITE 1.5MG/0.5ML 1.5MG/0. ANEOUS UREN P 2016 [place] ER INJ,SOLN,PE 5ML [place]CT N SUBCUTAN VAMROC EOUSLY ONCE A WEEK EZETIMIBE TAKE ONE ORAL ACTIVE 02/23/2022 [id number] [place], [place] 02/24/ WHITE 10MG TAB TABLET 2 UREN P 2020 [place] BY MOUTH [place] EVERY [facility]OC DAY TO LOWER CHOLESTE ROL FERROUS SO4 TAKE ONE ORAL ACTIVE 03/05/2022 [id number] RODIE R,LA 03/04/ ST. 325MG TAB TABLET 2 UREN P 2020 [place] BY MOUTH RY CBOC EVERY DAY TO SUPPLEME NT IRON FINASTERIDE TAKE ONE ORAL ACTIVE 2023 [id number] KANNAN SH,A Departm 5MG TAB TABLET 2 CALLIISABELA Tracey 2021 ent of BY MOUTH AT BEDTIME Affairs FOR PROSTATE FINASTERIDE TAKE ONE ORAL DISCONT 03/26/2022 [id number] G ERRISH,A 03/29/ WHITE 5MG TAB TABLET INUED 2 ISABELA K 2020 [place] BY M[place]TH [place] AT [facility] BEDTIME FOR PROSTATE FINASTERIDE TAKE ONE ORAL DISCONT 03/05/2022 [id number] [place],LA 03/12/ ST. 5MG TAB TABLET INUE 1 UREN P 2020 [place] BY MOUTH RY CBOC EVERY DAY FOR PROSTATE FINASTERIDE TAKE ONE ORAL DISCONT 03/26/2021 [id number] [place],LA 03/27/ WHITE 5MG TAB TABLET INUE 1 UREN P 2020 [place] BY MOUTH [place] EVERY [facility] DAY FOR PROSTATE FOLIC ACID TAKE TWO ORAL ACTIVE 03/05/2022 [id number] [place]IER ,LA 03/04/ ST. 1MG TAB TABLETS 2 UREN P 2020 [place] BY MOUTH RY CBOC EVERY DAY VITAMIN/ NUTRITIO N SUPPLEME NT FUROSEMIDE TAKE ONE ORAL ACTIVE 02/05/2023 [id number] EVERET T,C Departm 40MG TAB TABLET 2 2021 ent of BY MOUTH TWICE A s DAY TO Affairs REMOVE FLUID/CO NTROL BLOOD PRESSURE FUROSEMIDE TAKE ONE ORAL DISCONT 04/15/2022 [id number] JOSE TT,C 04/19/ WHITE 40MG TAB TABLET INUED 2 ROSELIA2020 [place] BY MOUTH [place] TWICE A [facility] DAY TO REMOVE FLUID/CO NTROL BLOOD PRESSURE FUROSEMIDE TAKE ONE ORAL ACTIVE [place] 08/14/ WHITE 40MG TAB TABLET UREN P 2018 [place] BY MOUTH [place] TWICE A [facility] DAY HYDRALAZINE TAKE ONE ORAL DISCONT 06/23/2021 [id number] OVI,S 06/22/ ST. HCL 10MG TABLET INUED 1 TACEY K 2019 [place] TAB BY MOUTH RY CBOC TWICE A DAY FOR BLOOD PRESSURE INSULIN,GLA INJECT SUBCUT 11/18/2021 [id number] RO DIER,LA 11/18/ ST. RGINE,HUMAN 55UNITS ANEOUS [...] DAY METFORMIN TAKE ONE ORAL ACTIVE 09/04/2022 [id number] Adrian HAYES 09/09/ WHITE HCL 1000MG TABLET 2 2020 [place] TAB BY MOUTH [place] TWICE A [facility] DAY FOR DIABETES METFORMIN TAKE ONE ORAL ACTIVE JULIO CÉSAR BERNABE 04/19/ S T. HCL 1000MG TABLET RISTOPHER 2010 MANUEL SBU TAB BY MOUTH RY CBOC TWICE DAILY WITH MEALS METOPROLOL TAKE ONE ORAL ACTIVE 02/05/2023 [id number] Adrian ZALDIVAR 02/07/ Departm TARTRATE TABLET 2 2021 ent of 50MG TAB BY MOUTH [place] TWICE A s DAY FOR Affairs BLOOD PRESSURE /HEART METOPROLOL TAKE ONE ORAL DISCONT 04/15/2022 [id number] Adrian BONE 04/19/ WHITE TARTRATE TABLET INUED 2 2020 [place] 50MG TAB BY MOUTH [place] TWICE A [facility] DAY FOR BLOOD PRESSURE /HEART MIRABEGRON TAKE ONE ORAL ACTIVE [place],LA 08/14/ WHITE 25MG TAB,SA TABLET UREN P 2017 [place] BY MOUTH [place] EVERY VAMR DAY MIRABEGRON TAKE ONE ORAL SUSPEND 06/22/2022 [id number] BENZ ,EUG 07/02/ WHITE 50MG TAB,SA TABLET ED 2 REUBEN J 2020 [place] BY MOUTH [place] EVERY VAMR DAY MIRABEGRON TAKE ONE ORAL 06/02/2021 [id number] RODIE R,LA ST. 50MG TAB,SA TABLET 1 N P 2019 [place] U BY MOUTH RY CBOC EVERY DAY MULTIVITAMI TAKE BY ORAL ACTIVE POLICH, ST. N/MIN, MOUTH RISTOPHER 2010 THERAPEUTIC RY CBOC UD TAB NITROGLYCER TAKE ONE SUBLIN ACTIVE [facility], 04/19 ST. IN 0.4MG TABLET GUAL RISTOPHER 2010 U TAB,SUBLING UNDER RY CBOC UAL THE TONGUE NEEDED PANTOPRAZOL TAKE TWO ORAL ACTIVE 09/04/2022 [id number] EVERE TT,C WHITE E NA 20MG TABLETS 1 2020 [place] TAB,EC BY MOUTH [place] EVERY [facility]AM[facility]OC MORNING FOR STOMACH ACID (TAKE HALF-TAMMY R BEFORE A MEAL(S) PANTOPRAZOL TAKE ONE ORAL DISCONT 09/15/2021 [id number] RODIER,[place] ST. E NA 20MG TABLET INUE 1 P 2019 [place] TAB,EC BY MOUTH RY CBOC EVERY MORNING FOR STOMACH ACID (TAKE 20-30 MINUTES BEFORE FIRST MEAL) RIVAROXABAN TAKE ONE ORAL ACTIVE 09/02/2022 [id number] EVERE TT,C WHITE 2.5MG TAB TABLET 2 2020 [place] BY MOUTH [place] TWICE A [facility]OC DAY TO HELP PREVENT BLOOD CLOTS (ANTICOA GULATION ) RIVAROXABAN TAKE ONE ORAL DISCONT 08/28/2022 [id number] E Adrian CAIN WHITE 2.5MG TAB TABLET INUE 1 2020 [place] BY MOUTH [place] TWICE A [facility] DAY TO HELP PREVENT BLOOD CLOTS (ANTICOA GULATION CCNRX) RIVAROXABAN TAKE ONE ORAL 08/13/2021 [id number] R ODIER,LA ST. 2.5MG TAB TABLET 1 N P 2020 [place] BY MOUTH RY CBOC EVERY 12 HOURS TO HELP PREVENT BLOOD CLOTS (ANTICOA GULATION ) RIVAROXABAN TAKE ONE ORAL ACTIVE RIENDEAU, 06/09/ WHITE 2.5MG TAB TABLET ALEN Pat 2020 [place] BY MOUTH [place] EVERY [facility]OC TWELVE HOURS SPIRONOLACT TAKE ORAL ACTIVE 06/17/2022 [id number] Adrian HAYES WHITE ONE 25MG ONE-HALF 2 [...] atus Comments Source Given By Number Code Customer Acquisition Specialist INFLUENZA, complet WHITE UNSPECIFIED 2019 ed RI RAKESH FORMULATION MIS T VAMROC INFLUENZA, complet DYLON SEASONAL, 2018 ed RIVE R INJECTABLE [place] [facility] INFLUENZA, complet Kaley [place] SEASONAL, 2017 ed drugs in R [facility]ER INJECTABLE [facility]. J [place] [facility] INFLUENZA, complet Done a carlos [place] SEASONAL, 2016 ed Alberto BARBARA ER [facility]JECT[facility] [place] [facility], complet Dr. [place] UNSPECIFIED 2015 ed Meierdie r [place] FORMULATION cks MIS T VAMROC INFLUENZA, complet Dolly [place] UNSPECIFIED 2014 ed Drug RI RAKESH FORMULATION MIS T VAM[facility]OC PNEUMOCOCCAL complet Dr.M kat [place] CONJUGATE PCV 2014 ed iercks [place] 13 office [place] V[facility] INFLUENZA, complet [...] NOVEL complet WHITE INFLUENZA-H1N 2009 ed RIVER 1-, ALL [place] FORMULATIONS V AMROC ZOSTER complet [...] TD(ADULT) complet aventis ST. UNSPECIFIED 2002 ed [id number] [place] FORMULATION 0.5cc RY CBOC given IM [...] 2021 03:14 PM AUTOMATED Reporting Lab: [facility] [facility]ETOMROC COUNT [address] [place] [facility] [place] [place] [address] Performing Lab: [place] [facility] [address] [facility] [place] [address] CBC NO ERYTHROCYT 3.99 4.23 - 08 L Specimen Type : BLOOD WHITE DIFF ES 5.66 /2020 No comment enter ed. [place] [#/VOLUME] Ordering Provider: LEANDRO JIMENEZ IN BLOOD Report Released Date/Time: March 05, 2021 03:14 PM BY Reporting Lab: [place] [facility] AUTOMATED [address] [facility] [address] COUNT Performing Lab: [place] [facility] [address] [facility] [address] CBC NO HEMOGLOBIN 11.6 12.8 - 17 06/08 L Specimen Ty pe: BLOOD WHITE DIFF [MASS/VOLU /2020 No comment en tered. [place] ME] IN Ordering Provider: LEANDRO JIMENEZ BLOOD Report Released Date/Time: March 05, 2021 03:14 PM Reporting Lab: [place] [facility] [address] [facility] [address] Performing Lab: [place] [facility] [address] [facility] [address] CBC NO HEMATOCRIT 37.9 39.2 - 06/08 L Specimen Type : BLOOD WHITE DIFF [VOLUME 50.4 No comment enter ed. [place] FRACTION] Ordering Provider: LEANDRO JIMENEZ OF BLOOD Report Released Date/Time: March 05, 2021 03:14 PM BY Reporting Lab: [place] [facility] AUTOMATED [address] [facility] [address] COUNT Performing Lab: [place] [facility] [address] [facility] [place] [address] CBC NO MCV 95.0 82 - 99 06/08 Specimen Type: BLOOD WHITE DIFF [ENTITIC /2020 No comment ente red. [place] VOLUME] BY Ordering Provider: LEANDRO JIMENEZOC AUTOMATED Report Released Date/Time: March 05, 2021 03:14 PM COUNT Reporting Lab: [place] [facility] [address] [facility] [address] Performing Lab: [place] [facility] [address] [facility] [address] CBC NO MCH 29.1 26.2 - 06/08 Specimen Type: BLOOD WHITE DIFF [ENTITIC 32.6 /2020 No comment ente red. [place] MASS] BY Ordering Provider: LEANDRO JIMENEZ AUTOMATED Report Released Date/Time: March 05, 2021 03:14 PM COUNT Reporting Lab: [place] [facility] [address] [facility] [address] Performing Lab: [place] [facility] [address] [facility] [address] CBC NO MCHC 30.6 30.8 - 06/08 L Specimen Type: BLOOD WHITE DIFF [MASS/VOLU 35.1 /2020 No comment en tered. [place] ME] BY Ordering Provider: LEANDRO JIMENEZ AUTOMATED Report Released Date/Time: March 05, 2021 03:14 PM COUNT Reporting Lab: [place] [facility] [address] [facility] [address] Performing Lab: [place] [facility] [address] [facility] [address] CBC NO PLATELETS 225 140 - 360 06/08 Specimen Typ e: BLOOD WHITE DIFF [#/VOLUME] /2020 No comment en tered. [place] IN BLOOD Ordering Provider: LEANDRO JIMENEZ BY Report Released Date/Time: March 05, 2021 03:14 PM AUTOMATED Reporting Lab: [place] [facility] COUNT [address] [facility] [address] Performing Lab: [place] [facility] [address] [facility] [address] CBC NO PLATELET 9.4 9.2 - 12.4 06/08 Specimen Typ e: BLOOD WHITE DIFF MEAN /2020 No comment enter ed. [place] VOLUME Ordering Provider: LEANDRO JIMENEZ [ENTITIC Report Released Date/Time: March 05, 2021 03:14 PM VOLUME] IN Reporting Lab: [place] [facility] BLOOD BY [address] [facility] [address] AUTOMATED Performing Lab: [place] [facility] COUNT [address] [facility] [address] CBC NO ERYTHROCYT 15.3 12.0 - 06/08 Specimen Type : BLOOD WHITE DIFF E 16.0 /2020 No comment enter ed. [place] DISTRIBUTI Ordering Provider: LEANDRO JIMENEZ ON WIDTH Report Released Date/Time: March 05, 2021 03:14 PM [RATIO] BY Reporting Lab: [place] [facility] AUTOMATED [address] [place] [facility] [place] [address] COUNT Performing Lab: [place] [facility] [address] [place] [facility] [place] [place] [address] CREATINI CREATININE 1.13 0.5 - 1.5 06/08 Specimen T ype: PLASMA WHITE NE WITH [MASS/VOLU /2020 Comment: Tests performed on M[employer]za Nail Feeder (405) SN:[id number] [place] eGFR ME] IN Ordering Provider: LEANDRO JIMENEZ PANEL SERUM OR Report Released Date/Time: March 05, 2021 03:14 PM PLASMA Reporting Lab: [place] [facility] [address] [place] [facility] [place] [address] Performing Lab: [place] [facility] [address] [facility] [place] [address] CREATINI GLOMERULAR 62 60 06/08 Specimen Typ e: PLASMA WHITE NE WITH FILTRATION /2020 Comment: Tests performed on M[employer]za Nail Feeder (405) SN:[id number] [place] eGFR RATE/1.73 Ordering Provider: LEANDRO JIMENEZ PANEL SQ Report Released Date/Time: March 05, 2021 03:14 PM M.PREDICTE Reporting Lab: [place] [facility] D [VOLUME [address] [place] [facility] [place] [address] RATE/AREA] Performing Lab: [place] [facility] IN SERUM [address] [place] [facility] [place] [place] [address] OR PLASMA BY CREATININE -BASED FORMULA (MDRD) URINALYS COLOR OF Yellow 03/04 Specimen Type: URINE [address] IS URINE /2020 No comment enter ed. [facility] W/REFLEX Ordering Provider: EMANI URIOSTEGUI CBOC TO Report Released Date/Time: March 04, 2021 09:41 AM CULTURE Reporting Lab: [place] [facility] [address] [place] [facility] [place] [place] [address] Performing Lab: [place] [facility] [address] [facility] [place] [address] URINALYS SPECIFIC 1.014 1.003 - 03/04 Specimen Type: URINE [address]. IS GRAVITY OF 1.030 /2020 No comment en tered. [place] W/REFLEX URINE BY Ordering Provider: EMANI URIOSTEGUI TO REFRACTOME Report Released Date/Time: March 04, 2021 09:41 AM CULTURE TRY Reporting Lab: [place] [facility] [address] [place] [facility] [place] [facility] [place] [address] Performing Lab: [place] [facility] [address] [place] [facility] [place] [facility] [place] [address] URINALYS UROBILINOG <2.0 <2.0 - 2.0 03/04 Specimen Type: URINE ST. IS EN /2020 No comment enter ed. [place] W/REFLEX [MASS/VOLU Ordering Provider: EMANI URIOSTEGUI TO ME] IN Report Released Date/Time: March 04, 2021 09:41 AM CULTURE URINE Reporting Lab: [place] [facility] [address] [place] [facility] [place] [facility] [place] [address] Performing Lab: [place] [facility] [address] [place] [facility] [place] [facility] [place] [address] URINALYS BILIRUBIN. NEG 03/04 Specimen Typ e: URINE ST. IS TOTAL /2020 No comment enter ed. [place] W/REFLEX [PRESENCE] Ordering Provider: EMANI URIOSTEGUI TO IN URINE Report Released Date/Time: March 04, 2021 09:41 AM CULTURE BY TEST Reporting Lab: [place] [facility] STRIP [address] [place] [facility] [place] [place] [address] Performing Lab: [place] [facility] [address] [place] [facility] [place] [facility] [place] [address] URINALYS KETONES NEG 03/04 Specimen Type: URINE ST. IS [PRESENCE] /2020 No comment en tered. [place] W/REFLEX IN URINE Ordering Provider: EMANI URIOSTEGUI TO Report Released Date/Time: March 04, 2021 09:41 AM CULTURE Reporting Lab: [place] [facility] [address] [place] [facility] [place] [address] Performing Lab: [place] [facility] [address] [place] [facility] [place] [address] URINALYS GLUCOSE NEG 03/04 Specimen Type: URINE ST. IS [MASS/VOLU /2020 No comment en tered. [place] W/REFLEX ME] IN Ordering Provider: EMANI URIOSTEGUI CBOC TO URINE BY Report Released Date/Time: March 04, 2021 09:41 AM CULTURE TEST STRIP Reporting Lab: [place] [facility] [address] [facility] [place] [address] Performing Lab: [place] [facility] [address] [place] [facility] [place] [address] URINALYS PROTEIN NEG 03/04 Specimen Type: URINE [address]. IS [MASS/VOLU /2020 No comment en tered. [place] W/REFLEX ME] IN Ordering Provider: EMANI URIOSTEGUI CBOC TO URINE BY Report Released Date/Time: March 04, 2021 09:41 AM CULTURE TEST STRIP Reporting Lab: [place] [facility] [address] [facility] [place] [address] Performing Lab: [place] [facility] [address] [place] [facility] [place] [place] [address] URINALYS PH OF 5.0 5 - 8 03/04 Specimen Type: URINE ST. IS URINE BY /2020 No comment ente red. KADE W/REFLEX TEST STRIP Ordering Provider: EMANI URIOSTEGUI CBOC TO Report Released Date/Time: March 04, 2021 09:41 AM CULTURE Reporting Lab: [place] [facility] [address] [facility] [place] [address] Performing Lab: [place] [facility] [address] [facility] [place] [address] URINALYS APPEARANCE HAZY 03/04 Specimen Typ e: URINE ST. IS OF URINE /2020 No comment ente red. [place] W/REFLEX Ordering Provider: EMANI URIOSTEGUI CBOC TO Report Released Date/Time: March 04, 2021 09:41 AM CULTURE Reporting Lab: [place] [facility] [address] [facility] [place] [address] Performing Lab: [place] [facility] [address] [facility] [place] [address] URINALYS HEMOGLOBIN NEG 03/04 Specimen Typ e: URINE ST. IS [PRESENCE] /2020 No comment en tered. [place] W/REFLEX IN URINE Ordering Provider: EMANI URIOSTEGUI CBOC TO Report Released Date/Time: March 04, 2021 09:41 AM CULTURE Reporting Lab: [place] [facility] [address] [place] [facility] [place] [address] Performing Lab: [place] [facility] [address] [facility] [address] URINALYS NITRITE NEG 03/04 Specimen Type: URINE ST. IS [PRESENCE] /2020 No comment en tered. KADE W/REFLEX IN URINE Ordering Provider: EMANI URIOSTEGUI TO BY TEST Report Released Date/Time: March 04, 2021 09:41 AM CULTURE STRIP Reporting Lab: [facility] [facility] [address] [place] [facility] [place] [address] Performing Lab: [facility] [address] [facility] [address] URINALYS LEUKOCYTES NEG 03/04 Specimen Typ e: URINE ST. IS [PRESENCE] /2020 No comment en tered. KADE W/REFLEX IN URINE Ordering Provider: EMANI URIOSTEGUI TO Report Released Date/Time: March 04, 2021 09:41 AM CULTURE Reporting Lab: [facility] [address] [place] [facility] [place] [place] [address] Performing Lab: [facility] [address] [facility] [place] [address] VIT D CALCIFEROL 44.4 20 - 50 03/04 Specimen Type : SERUM ST. 25-OH(WR (VIT D2) /2020 Comment: Tests performed on Mendoza Nail Feeder (405) SN:[id number] TSH within normal limits. Reflex testing not required. KADE J) [MASS/VOLU Ordering Provider: EMANI URIOSTEGUI ME] IN Report Released Date/Time: March 04, 2021 09:41 AM SERUM OR Reporting Lab: [facility] VAOC PLASMA [address] [place] [facility] [place] [place] [address] Performing Lab: [facility] [address] [facility] [address] THYROID THYROTROPI 2.06 0.35 - 03/04 Specimen Type : SERUM ST. TESTING N 5.00 Comment: Tests performed on Mendoza Nail Feeder (405) SN:[id number] TSH within normal limits. Reflex testing not required. KADE CASCADE [UNITS/VOL Ordering Provider: EMANI URIOSTEGUI UME] IN Report Released Date/Time: March 04, 2021 09:41 AM SERUM OR Reporting Lab: [facility] PLASMA [address] [facility] [place] [address] Performing Lab: [facility] [address] [facility] [place] [address] THYROID REFLEX comment 03/04 Specimen Type: SERUM ST. TESTING TESTING /2020 Comment: Tests performed on Craftistas (405) SN:[id number] TSH within normal limits. Reflex testing not required. [facility] Ordering Provider: EMANI URIOSTEGUI [facility] Report Released Date/Time: March 04, 2021 09:41 AM Reporting Lab: [facility] [address] [facility] [place] [address] Performing Lab: [facility] [address] [facility] [address] LIPOPROT CHOLESTERO 99 0 - 199 03/04 Specimen Typ e: PLASMA ST. EIN L /2020 Comment: Tests performed on Craftistas (405) SN:[id number] [facility] CHOLESTE [MASS/VOLU Ordering Provider: EMANI URIOSTEGUI [facility]] IN Report Released Date/Time: March 04, 2021 09:41 AM FRACT. SERUM OR Reporting Lab: [facility] PANEL PLASMA [address] [place] [facility] [place] [facility] [place] [address] Performing Lab: [facility] [address] [facility] [place] [address] LIPOPROT TRIGLYCERI 105 0 - 149 03/04 Specimen Typ e: PLASMA ST. EIN DE /2020 Comment: Tests performed on [employer]istas (405) SN:[id number] [facility] CHOLESTE [MASS/VOLU Ordering Provider: EMANI URIOSTEGUI [facility]] IN Report Released Date/Time: March 04, 2021 09:41 AM FRACT. SERUM OR Reporting Lab: [facility] [address] [place] [facility] [place] [place] [address] Performing Lab: [facility] [address] [facility] [place] [address] LIPOPROT CHOLESTERO 33 40 05/ L Specimen Typ e: PLASMA ST. EIN L IN HDL /2020 Comment: Tests performed on [employer] (405) SN:[id number] [facility] CHOLESTE [MASS/VOLU Ordering Provider: EMANI URIOSTEGUI [facility]] IN Report Released Date/Time: March 04, 2021 09:41 AM FRACT. SERUM OR Reporting Lab: [facility] [address] [facility] [address] Performing Lab: [facility] [address] [facility] [address] LIPOPROT CHOLESTERO 45 0 - 129 03/04 Specimen Typ e: PLASMA ST. EIN L IN LDL /2020 Comment: Tests performed on [employer] (405) SN:[id number] [facility] CHOLESTE [MASS/VOLU Ordering Provider: EMANI URIOSTEGUI [facility]] IN Report Released Date/Time: March 04, 2021 09:41 AM FRACT. SERUM OR Reporting Lab: [facility] PAN[facility]AS[facility] BY [address] [facility] [address] CALCULATIO Performing Lab: [facility] N [address] [facility] [address] ALT(SGPT ALANINE 26 7 - 52 03/04 Specimen Type: PLASMA WHITE ) AMINOTRANS /2020 Comment: Tests performed on [employer] (405) SN:[id number] [place] [facility] Ordering Provider: LEANDRO JIMENEZ [ENZYMATIC Report Released Date/Time: Feb 04, 2021 01:39 PM ACTIVITY/V Reporting Lab: [facility] OLUME] IN [address] [facility] [address] SERUM OR Performing Lab: [facility] PLASMA [address] [facility] [address] AST(SGOT ASPARTATE 17 5 - 34 03/04 Specimen Type : PLASMA WHITE ) AMINOTRANS /2020 Comment: Tests performed on M[employer]za Nail Feeder (405) SN:[id number] [place] Ordering Provider: LEANDRO JIMENEZ [ENZYMATIC Report Released Date/Time: Feb 04, 2021 01:39 PM ACTIVITY/V Reporting Lab: [facility] OLUME] IN [address] [facility] [address] SERUM OR Performing Lab: [facility] PLASMA [address] [facility] [address] CREATINI CREATININE 1.38 0.5 - 1.5 05/13 Specimen T ype: PLASMA WHITE NE WITH [MASS/VOLU /2020 Comment: Tests performed on Mendoza Nail Feeder (405) SN:[id number] [place] eGFR ME] IN Ordering Provider: LEANDRO JIMENEZMROC PANEL SERUM OR Report Released Date/Time: Feb 04, 2021 01:39 PM PLASMA Reporting Lab: [facility] [place] [facility] [address] [facility] [address] Performing Lab: [facility] [place] [address] [facility] [address] CREATINI GLOMERULAR 49 60 03/04 L Specimen Typ e: PLASMA WHITE NE WITH FILTRATION /2020 Comment: Tests performed on M[employer]za Nail Feeder (405) SN:[id number] [place] eGFR RATE/1.73 Ordering Provider: LEANDRO JIMENEZOC PANEL SQ Report Released Date/Time: Feb 04, 2021 01:39 PM M.PREDICTE Reporting Lab: [facility] [place] [facility] D [VOLUME [address] [facility] [address] RATE/AREA] Performing Lab: [facility] [place] [facility] IN SERUM [address] [facility] [address] OR PLASMA BY CREATININE -BASED FORMULA (MDRD) CBC NO LEUKOCYTES 7.5 4.5 - 11.0 03/04 Specimen T ype: BLOOD WHITE DIFF [#/VOLUME] /2020 No comment en tered. [place] IN BLOOD Ordering Provider: LEANDRO JIMENEZOC BY Report Released Date/Time: Feb 04, 2021 01:39 PM AUTOMATED Reporting Lab: [facility] [place] [facility] COUNT [address] [facility] [place] [address] Performing Lab: [facility] [place] [facility] [address] [facility] [place] [address] CBC NO ERYTHROCYT 3.98 4.23 - 03/04 L Specimen Type : BLOOD WHITE DIFF ES 5.66 /2020 No comment enter ed. [place] [#/VOLUME] Ordering Provider: LEANDRO JIMENEZMROC IN BLOOD Report Released Date/Time: Feb 04, 2021 01:39 PM BY Reporting Lab: [facility] [place] [facility] [facility] AUTOMATED [address] [place] [facility] [place] [address] COUNT Performing Lab: [facility] [place] [address] [facility] [address] CBC NO HEMOGLOBIN 11.7 12.8 - 17 03/04 L Specimen Ty pe: BLOOD WHITE DIFF [MASS/VOLU /2020 No comment en tered. [place] ME] IN Ordering Provider: LEANDRO JIMENEZ BLOOD Report Released Date/Time: Feb 04, 2021 01:39 PM Reporting Lab: [facility] [place] [address] [facility] [address] Performing Lab: [facility] [place] [facility] [address] [facility] [address] CBC NO HEMATOCRIT 38.7 39.2 - 03/04 L Specimen Type : BLOOD WHITE DIFF [VOLUME 50.4 No comment enter ed. [place] FRACTION] Ordering Provider: LEANDRO JIMENEZ OF BLOOD Report Released Date/Time: Feb 04, 2021 01:39 PM BY Reporting Lab: [facility] [place] AUTOMATED [address] [facility] [address] COUNT Performing Lab: [facility] [place] [address] [facility] [address] CBC NO MCV 97.2 82 - 99 03/04 Specimen Type: BLOOD WHITE DIFF [ENTITIC /2020 No comment ente red. [place] VOLUME] BY Ordering Provider: LEANDRO JIMENEZ AUTOMATED Report Released Date/Time: Feb 04, 2021 01:39 PM COUNT Reporting Lab: [facility] [address] [facility] [address] Performing Lab: [facility] [place] [address] [facility] [address] CBC NO MCH 29.4 26.2 - 03/04 Specimen Type: BLOOD WHITE DIFF [ENTITIC 32.6 No comment ente red. [place] MASS] BY Ordering Provider: LEANDRO JIMENEZ AUTOMATED Report Released Date/Time: Feb 04, 2021 01:39 PM COUNT Reporting Lab: [facility] [address] [facility] [address] Performing Lab: [facility] [place] [address] [facility] [address] CBC NO MCHC 30.2 30.8 - 03/04 L Specimen Type: BLOOD WHITE DIFF [MASS/VOLU 35.1 /2020 No comment en tered. [place] ME] BY Ordering Provider: LEANDRO JIMENEZ AUTOMATED Report Released Date/Time: Feb 04, 2021 01:39 PM COUNT Reporting Lab: [facility] [address] [facility] [place] [address] Performing Lab: [facility] [place] [address] [facility] [place] [address] CBC NO PLATELETS 283 140 - 360 03/04 Specimen Typ e: BLOOD WHITE DIFF [#/VOLUME] /2020 No comment en tered. [place] IN BLOOD Ordering Provider: LEANDRO JIMENEZ BY Report Released Date/Time: Feb 04, 2021 01:39 PM AUTOMATED Reporting Lab: [facility] [place] COUNT [address] [facility] [place] [address] Performing Lab: [facility] [address] [facility] [place] [address] CBC NO PLATELET 9.0 9.2 - 12.4 03/04 L Specimen Typ e: BLOOD WHITE DIFF MEAN /2020 No comment enter ed. [place] VOLUME Ordering Provider: LEANDRO JIMENEZ [ENTITIC Report Released Date/Time: Feb 04, 2021 01:39 PM VOLUME] IN Reporting Lab: [facility] BLOOD BY [address] [place] [facility] [place] [place] [address] AUTOMATED Performing Lab: [facility] [place] COUNT [address] [facility] [place] [address] CBC NO ERYTHROCYT 13.5 12.0 - 03/04 Specimen Type : BLOOD WHITE DIFF E 16.0 /2020 No comment enter ed. [place] DISTRIBUTI Ordering Provider: LEANDRO JIMENEZ ON WIDTH Report Released Date/Time: Feb 04, 2021 01:39 PM [RATIO] BY Reporting Lab: [facility] AUTOMATED [address] [facility] [place] [address] COUNT Performing Lab: [facility] [place] [address] [facility] [place] [address] Vital Signs Combined list of inpatient and outpatient Vital Signs from Department of Defense and Veterans Affairs, ranging from 12 months to all on record, depending upon the facility. Vital Sign Value Date Comments Source SYSTOLIC BLOOD 135 03/04/2021 [facility] PRESSURE 08:15:05 DIASTOLIC BLOOD 68 03/04/2021 [facility] PRESSURE 08:15:05 PULSE OXIMETRY 98 03/04/2021 [facility] 08:15:05 WEIGHT 215 03/04/2021 [facility] 08:15:05 BMI 29kg/m2 03/04/2021 [facility] 08:15:05 PAIN 0 03/04/2021 [facility] 08:15:05 TEMPERATURE 96.7 03/04/2021 [facility] 08:15:05 PULSE 76 03/04/2021 [facility] 08:15:05 RESPIRATION 16 03/04/2021 [facility] 08:15:05 Encounters Combined list of: [...] Number For Provider Date Date Visit Outpatient [id number] 09/14 WHIT E Encounter [id number] /2020 [place] [facility] 24759-1.40 10/07 WHIT E Encounter [id number] [place] [facility] Out[facility] 36229-1.40 10/30 WHIT E Encounter [id number] /2021 [place] [facility] Out[facility] 18466-4.40 11/02 WHIT E Encounter [id number] /2021 [place] [facility] Outpatient 19136-0.40 11/17 WHIT E Encounter [id number] /2020 [place] [facility] Out[facility] 72794-6.40 11/26 WHIT E Encounter [id number] /2020 [place] [facility] Outpatient 81072-1.40 12/16 WHIT E Encounter [id number] /2020 [place] [facility] Outpatient 50472-8.40 12/16 WHIT E Encounter [id number] [place] [facility] Outpatient 52482-2.40 01/23 [facility] Encounter [id number] [facility] 31631-5.40 01/25 WHIT E Encounter [id number] /2020 [facility] 39430-7.40 01/27 WHIT E Encounter [id number] /2020 [facility] HC PRO 63685-9.40 Diagnos CLINTONANA, 02/04 W [facility] PHONE CALL [id number] is: DESIREE L RIVE R 21-30 MIN ICD-10- [place] [facility] I26.99 Other pulmona ry embolis m without acute cor pulmona le
with Provide r Comment s: PE - Pulmona ry embolis m (SCT [id number]) Outpatient 85916-4.40 02/22 WHIT E Encounter [id number] /2021 [facility] OFFICE O/P 84157-8.40 Diagnos PACO URIOSTEGUIU 03/04 [facility] [id number] is: RASHAD P JOHNS 40-54 MIN 61 ICD-10- [facility] CM I25.10 Athscl heart disease of [place] coronar y artery w/o ang pctrs<b r/>with Provide r Comment s: Atheros cleroti c Heart Disease of [place] Coronar y Artery without Angina Pectori s HC PRO 98564-8.40 Diagnos IRWIN JIMENEZ 03/05 W [facility] PHONE CALL [id number] is: DESIREE L RIVE R 21-30 MIN ICD-10- [place] [facility] I26.99 Other pulmona ry embolis m without acute cor pulmona le
with Provide r Comment s: PE - Pulmona ry embolis m (SCT [id number]) Outpatient 14502-8.40 03/10 WH[facility] E Encounter [id number] [facility] 76449-7.40 03/17 WHIT E Encounter [id number] /2021 [facility] HEARING 25496-3.40 Diagnos SWETHA, 04/21 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
with Provide r Comment s: Type 2 diabete s mellitu s with mild nonprol iferati ve diabeti c retinop athy without macular edema, bilater al Outpatient 75341-3.40 09/01 WHIT E Encounter [id number] [place] [facility] Outpatient 18794-2.40 12/29 WH[facility] E Encounter [id number] [facility] Social History Combined list of available smoking, tobacco, and other social history from Department of Defense andVeterans Affairs facilities. Social History Response Date Comment Source Type Tobacco smoking VA-TOBACCO FORMER 03/04/2021 [facility] status NHIS USER History of VA-TOBACCO QUIT 03/04/2021 [facility] tobacco use YRS OR MORE History of VA-TOBACCO QUIT 15 02/11/2020 [facility] tobacco use YRS OR MORE History of VA-TOBACCO FORMER 08/14/2018 [facility] tobacco use USER History of QUIT TOBACCO USE > 08/14/2017 quit 31 years ago [facility] tobacco use 7 YEARS AGO CLINIC History of QUIT TOBACCO USE > 08/11/[address] [facility] use 7 YEARS AGO 30 years History of HISTORY OF SMOKING 02/07/2005 [facility] History of HISTORY OF SMOKING 02/23/[address] [facility] tobacco use History of HISTORY OF SMOKING 01/29/2003 [facility] tobacco use History of HISTORY OF SMOKING 02/11/2002 [facility] tobacco use History of LIFETIME 01/22/2001 [facility] tobacco use NON-SMOKER Plan of Care List of future care activities from Department of Veterans Affairs facilities. Additional future care activities may be listed in the Assessment and Plan section. Date/Time Care Activity Care Activity Detail Facility 08/10/2022 AMBULATORY - SURGERY AMBULATORY - SURGERY [facility]
== END ==
PROVIDERS: PCP Nurse Practitioner Family; Visit Provider Nurse Practitioner Gerontology

== ENCOUNTER 2022-03-22 10:48 | Outpatient (RCR) | payer SELFPAY ==
[2022-02-20 00:10] VITALS: BP 155/71; PULSE 76
--- OUTSIDE RECORDS SUMMARY | 2022-02-20 01:23 | XMS_ITS | Encounter Summary ---
:[address] [facility] Address [address] [place] [address] Care Team Providers Name Role Phone EMANI URIOSTEGUI Primary Care Provider Unavailable Insurance Providers: All historical and current Section Date Range: From patient's date of to the date document was created.This section includes the names of all active insurance providers for the patient. Insurance Type of Plan Start of End of Group Member Insurance Policy P atient's Provider Coverage Name Policy Policy Number ID Provider's Carcamo's Relationship Coverage Coverage Telephone Name to Policy Number Carcamo [employer] MEDIC Mar 23, PLAND [id number] [phone] [place] , PATIENT LIFE & PLAN D ARE 2003 73 4 DIONNE CASUALTY SUPPL CO [employer]ERS MEDIGAP PLAND Mar 23, PLAND [id number] [phone] [place] , PATIENT LIFE AND PLAN D 2003 73 0 DIONNE CASUALTY MEDICARE MEDICARE PART Jan 21, PART B [id number] THURST ON, PATIENT (WNR) (M) B 2003 31A 2 DIONNE MEDICARE MEDICARE PART Jan 21, PART A [id number] [place]URST [place], PATIENT (WNR) (M) A 2003 31B 2 DIONNE MEDICARE MEDICARE PART Jan 21, PART A [id number] THURST ON, PATIENT (WNR) (M) A 2003 [id number] 2 DIONNE MEDICARE MEDICARE PART Jan 21, PART B [id number] THURST ON, PATIENT (WNR) (M) B [id number] 2 DIONNE MEDICARE MEDICARE PART Jan 21, PART B [id number] THURST ON, PATIENT (WNR) (M) B 2003 [id number] 2 DIONNE MEDICARE MEDICARE PART Jan 21, PART A [id number] THURST ON, PATIENT (WNR) (M) A 2003 [id number] 2 DIONNE Selected Encounter This section includes the information [facility] for [facility]. Date/Time Encounter Type Encounter Reason Provider Source Description March 04, 2021 OFFICE O/P EST PRIMARY ICD-10-CM I25.10 EMANI URIOSTEGUI 08:30 AM HI 40-54 MIN CARE/MEDICINE Athscl heart disease P of cheesh-na coronary artery w/o ang pctrs with Provider Comments: Atherosclerotic Heart Disease of [place] Coronary Artery without Angina Pectoris IHE Encounter Template Text not used by [facility] Assessments - Encounter Diagnoses This section includes the primary and secondary diagnoses documented forthe Encounter. Date/Time Primary/Secondary Diagnosis Name Provider Source Diagnosis March 04, 2021 PRIMARY Athscl heart EMANI URIOSTEGUI 09:49 AM disease of cheesh-na P [facility] coronary artery w/o ang pctrs March 04, 2021 SECONDARY Benign prostatic EMANI URIOSTEGUI URY 09:49 AM hyperplasia with P [facility] lower urinary tract symp March 04, 2021 SECONDARY Benign prostatic EMANI URIOSTEGUI URY 09:49 AM hyperplasia P [facility] without lower urinry tract symp March 04, 2021 SECONDARY Constipation, EMANI URIOSTEGUI 09:49 AM unspecified P [facility] March 04, 2021 SECONDARY Essential EMANI URIOSTEGUI 09:49 AM (primary) P [facility] hypertension March 04, 2021 SECONDARY Hyperlipidemia, EMANI URIOSTEGUIBU RY 09:49 AM unspecified P [facility] March 04, 2021 SECONDARY Obstructive sleep EMANI URIOSTEGUI BURY 09:49 AM apnea (adult) P [facility] (pediatric) March 04, 2021 SECONDARY 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 P [facility] March 04, 2021 SECONDARY Personal history EMANI URIOSTEGUI URY 09:49 AM of diseases of the P [facility] ms sys and conn tiss March 04, 2021 SECONDARY Personal history EMANI URIOSTEGUI URY 09:49 AM of nicotine P [facility] dependence March 04, 2021 SECONDARY Presence of EMANI URIOSTEGUI 09:49 AM coronary P [facility] angioplasty implant and graft March 04, 2021 SECONDARY Type 2 diabetes EMANI URIOSTEGUI RY 09:49 AM mellitus with P [facility] hypoglycemia without coma March 04, 2021 SECONDARY Umbilical hernia EMANI URIOSTEGUI URY 09:49 AM without P [facility] obstruction or gangrene Plan of Treatment: Future Appointments (+ 6 months) and Future Tests (+/- 45 days) The Plan of Treatment section includes future care activities for the patient from all [place] treatment facilities. This section includes future appointments and future orders which are active, pending or scheduled.Future Appointments This section includes appointments that were scheduled to occur 6 months from the date of the Encounter, up to a maximum of 20 appointments. The data comes from all [facility]. Appointment Date/Time Appointment Type Appointment Facili ty Name March 05, 2021 02:45 PM AMBULATORY - MEDICINE [facility] March 08, 2021 08:00 AM AMBULATORY - NONE [facility] Apr 07, 2021 09:00 AM AMBULATORY - REHAB MEDICINE [facility] Apr 21, 2021 02:00 PM AMBULATORY - REHAB MEDICINE [facility] Jun 08, 2021 08:30 AM AMBULATORY - NONE [facility] Jun 09, 2021 06:15 PM AMBULATORY - MEDICINE [facility] Jun 15, 2021 09:00 AM AMBULATORY - NONE [facility] Aug 18, 2021 09:30 AM AMBULATORY - SURGERY [facility] Active, Pending, and Scheduled Orders This section includes a listing of several types of active, pending, and scheduled orders, including clinic medications orders, diagnostic test orders, procedure orders and consult orders; where the start date of the order is 45 days before the date of the Encounter or 45 days after the date of the Encounter. The data comes from all [place] treatment facilities. Test Date/Time Test Type Test Details Facility Name March 04, 2021 09:31 AM Consult Order EYE CONSULT OUTPATIENT Con s [facility] [employer] Furnace Operator's Choice March 04, 2021 09:38 AM Consult Order COMMUNITY CARE-CARDIAC [facility] REHABILITATION Cons [employer] Operator's Choice Lab Results: +/- 30 days of the encounter This section includes the Chemistry and Hematology Lab Results on record with [facility] for the patient. Radiology Reports and Pathology Reports are provided separately, in subsequent sections.Lab Results This section contains the Chemistry/Hematology Results that were resulted 30 days before or 30 days after the date of the Encounter. Date/Time Source Result Type Result - Unit Interpretation Reference Range Comment March 04, 2021 09:51 [facility] URINALYSIS W/REFLEX TO Specimen Type: URINE AM CULTURE No comment enter ed. Ordering Provider: EMANI URIOSTEGUI Report Released Date/Time: March 04, 2021 09:41 AM Reporting Lab: [facility] [address] [facility] [address] Performing Lab: [facility] [address] [facility] [address] URINE COLOR Yellow YELLOW SPECIFIC GRAVITY 1.014 1.003-1.030 UROBILINOGEN <2.0 <2.0 URINE BILIRUBIN NEG NEG URINE KETONES NEG NEG URINE GLUCOSE NEG NEG PROTEIN, URINE NEG NEG URINE PH 5.0 5-8 CLARITY HAZY Clear URINE BLOOD NEG NEG NITRITE, URINE NEG NEG WBC SCREEN NEG NEG March 04, 2021 09:51 AM [facility] VIT D 25-OH(J) Specimen Type: SERUM Comment: Tests performed on M[employer]za Stove Tender (405) SN:[id number] TSH within normal limits. Reflex testing not required. Ordering Provider: EMANI URIOSTEGUI Report Released Date/Time: March 04, 2021 09:41 AM Reporting Lab: [facility] [address] [facility] [address] Performing Lab: [facility] [address] [facility] [address] VIT D 25-OH([facility]) 44.4 20-50 March 04, 2021 09:51 [facility] THYROID TESTING Specimen Type: SERUM AM CASCADE Comment: Tests performed on [employer] Stove Tender (405) SN:[id number] TSH within normal limits. Reflex testing not required. Ordering Provider: EMANI URIOSTEGUI Report Released Date/Time: March 04, 2021 09:41 AM Reporting Lab: [place] [facility] [address] [facility] [address] Performing Lab: [facility] [address] [facility] [address] TSH 2.06 0.35-5.00 REFLEX TESTING comment March 04, 2021 09:51 [facility] CB LIPOPROTEIN CHOLESTEROL Specimen Type: PLASMA AM FRACT. PANEL Comment: Tests performed on [employer] Stove Tender (405) SN:[id number] Ordering Provider: EMANI URIOSTEGUI Report Released Date/Time: March 04, 2021 09:41 AM Reporting Lab: [facility] [address] [facility] [address] Performing Lab: [facility] [address] [facility] [address] CHOLESTEROL 99 0-199 TRIGLYCERIDE 105 0-149 HDL CHOLESTEROL 33 L >40 LDL CHOLESTEROL (CALC) 45 0-129 March 04, 2021 09:51 AM [facility] ALT(SGPT) Specimen Type: PLASMA Comment: Tests performed on [employer] Stove Tender (405) SN:[id number] Ordering Provider: LEANDRO JIMENEZ Report Released Date/Time: Feb 04, 2021 01:39 PM Reporting Lab: [facility] [address] [facility] [address] Performing Lab: [facility] [address] [facility] [address] ALT(SGPT) 26 7-52 March 04, 2021 09:51 AM [facility] [place] [facility] [facility] AST(SGOT) Specimen Type: PLASMA Comment: Tests performed on [employer] Stove Tender (405) SN:[id number] Ordering Provider: LEANDRO JIMENEZ Report Released Date/Time: Feb 04, 2021 01:39 PM Reporting Lab: [facility] [address] [facility] [address] Performing Lab: [facility] [place] [facility] [address] [facility] [address] AST(SGOT) 17 5-34 March 04, 2021 09:51 [place] [facility] WITH eGFR Specimen Type: PLASMA AM [facility] PANEL Comment: Tests performed on [employer] Stove Tender (405) SN:[id number] Ordering Provider: LEANDRO JIMENEZ Report Released Date/Time: Feb 04, 2021 01:39 PM Reporting Lab: [facility] [address] [facility] [address] Performing Lab: [facility] [address] [facility] [address] CREATININE 1.38 0.5-1.5 eGFR 49 L >60 March 04, 2021 09:51 AM [facility] CBC NO DIFF Specimen Type: BLOOD No comment enter ed. Ordering Provider: LEANDRO JIMENEZ Report Released Date/Time: Feb 04, 2021 01:39 PM Reporting Lab: [facility] [address] [facility] [address] Performing Lab: [facility] [address] [facility] [address] WBC 7.5 4.5-11.0 RBC 3.98 L 4.23-5.66 HGB 11.7 L 12.8-17 HEMATOCRIT 38.7 L 39.2-50.4 MCV 97.2 82-99 MCH 29.4 26.2-32.6 MCHC 30.2 L 30.8-35.1 PLT 283 140-360 MPV 9.0 L 9.2-12.4 RDW 13.5 12.0-16.0 March 04, 2021 [facility] GLYCOHEMOGLOBIN (A1C ONLY) Specimen Type: BLOOD 09:51 AM Comment: Tests performed on M[employer]za ActionRun (405) SN:[id number] Ordering Provider: EMANI URIOSTEGUI Report Released Date/Time: March 04, 2021 09:31 AM Reporting Lab: [facility] [address] [facility] [address] Performing Lab: [facility] [address] [facility] [address] HEMOGLOBIN A1C 6.1 H 4.0-5.6 March 04, 2021 [facility] MICROALBUMIN/CREATININE RATIO Specimen Type: URINE 09:51 AM PANEL Comment: Tests performed on [employer] Stove Tender (405) SN:[id number] Ordering Provider: EMANI URIOSTEGUI Report Released Date/Time: March 04, 2021 09:41 AM Reporting Lab: [facility] [address] [facility] [address] Performing Lab: [facility] [address] [facility] [address] CREATININE (URINE,RANDOM) 87.3 MICROALBUMIN, QUANTITATIVE 0.8 0.0 -29.9 MICROALBUMIN/CREATININE RATIO 9.2 0.0-29.9 Vital Signs: All taken on the encounter date This section contains inpatient and outpatient Vital Signs collected on the date of the Encounter. Date/Time Temperature Pulse Blood Respiratory SP02 Pain Height Weight Alen dy Source Pressure Rate Mass Index March 04, 96.7 F 76 135/68 16 /min 98 % 0 215 lb 29 2020 08:15 /min mm[Hg] [facility] Social History: Smoking Status (Most current) and Tobacco Use (All prior to encounter date) This section includes the most current, and the historical, smoking and tobacco-related health factors from the [place] facility where the Encounter took place.Current Smoking Status This section includes the most current smoking, or tobacco-related health factor, from the [place] facility where the Encounter took place. Date/Time Current Smoking Status Comment Facility March 04, 2021 08:30 AM VA-TOBACCO FORMER USER [facility] CB Tobacco Use History This section includes a history of the smoking, or tobacco-related health factors, that were collected on or before the date of the Encounter. The data comes from the [place] facility where the Encounter took place. Date/Time Smoking Status/Tobacco Use Comment [facility] March 04, 2021 08:30 AM VA-TOBACCO QUIT [address] [facility] MORE Feb 11, 2020 03:52 PM VA-TOBACCO FORMER USER [facility] Feb 11, 2020 03:52 PM VA-TOBACCO QUIT [address] [facility] MORE Aug 14, 2018 08:49 AM VA-TOBACCO FORMER USER [facility] Aug 14, 2018 08:49 AM VA-TOBACCO QUIT [address] [facility] MORE Aug 11, 2016 09:50 AM QUIT TOBACCO USE > [address] [facility] AGO hasn't smoked for 30 years Feb 07, 2005 10:[address] [facility] February 23, 2004 09:[address] [facility] [address] [facility] quit 20 years ago Jan 29, 2003 01:[address] [facility] Feb 11, 2002 01:51 [address] [facility]MO[facility] Jan 22, 2001 08:40 [address]ETIME NON-SMOKER [facility] Encounter Notes: All associated encounter notes This section contains the clinical notes associated to the Encounter. Date/Time Encounter Note(s) Provider Source Jul 20, 2021 06:12 PM LETTERS: EMANI URIOSTEGUI [facility] LOCAL TITLE: Letter to Patient [facility] TITLE: LETTERS DATE OF NOTE: JUL 20, 2021@18:12 ENTRY DATE: JUL 20, 2021@18:12:52 AUTHOR: EMANI URIOSTEGUI EXP COSIGNER: URGENCY: STATUS: COMPLETED JUL 20, 2021 MR. DIONNE PEDRO [address] [place] [id number] Dear Mr. Pedro, I ordered your initial blood thinner (rivoraoxab an) to cover your hospital discharge, however, further prescriptions will need to be faxed to [facility] pharmacy by your [facility] PCP. Please see the anti coag note below. Please don't hesitate to call if you have any qu estions or concerns, . Sincerely, EMANI URIOSTEGUI, CARLOS, DRILL OPERATOR PNEUMATIC-BC NURSE PRACTITIONER [address] [address] Pt is approved under [facility], this primary care pro vider should be able to freely prescribe at the [place], including 's anticoagulant. Rx's should be sent directly to the pharmacy at [phone]. March 04, 2021 06:13 PM LETTERS: EMANI [facility]OSTEGUI [facility] LOCAL TITLE: Letter to Patient [facility] TITLE: LETTERS DATE OF NOTE: MARCH 04, 2021@18:13 ENTRY DATE: MARCH 04, 2021@18:13:59 AUTHOR: EMANI URIOSTEGUI EXP COSIGNER: URGENCY: STATUS: COMPLETED Letter to Patient [facility] Has ADDENDA MARCH 04, 2021 MR. DIONNE PEDRO [address] [place] [id number] Dear Willis, I am writing to let you know the results of your recent lab tests. Your HgA1c indicates too tight diabetic control and an increased risk of low blood sugar. Please follow up with Martha gonzalez APRN. Your decreased kidney function may also be a result of your recent surgery and will need to be monitored. Please maintain hydr ation. Your anemia most likely is due to your surgery. Please continue taking the iron. Complete Blood Counts = ABNORMAL (looking for infection, anemia, ability to clot) WBC: 7.5 (03/04/21 09:51) Ref range 4.5 - 11.0 RBC: 3.98 (03/04/21 09:51) Ref range 4.23 - 5.66 PLT: 283 (03/04/21 09:51) Ref range 140 - 360 HCT: 38.7 (03/04/21 09:51) HGB: 11.7 (03/04/21 09:51) Ref range HGB 12.8 - 17 Ref range HCT 39.2 - 50.4 Kidney, electrolytes = ABNORMAL GLU: 266 (10/17/19 09:22) Ref range 65 - 100 BUN: 26 (10/17/19 09:22) Ref range 7 - 25 CREATI: 1.38 (03/04/21 09:51) Ref range 0.5 - 1.5 NA: 135 (10/17/19 09:22) Ref range 135 - 145 K: 4.7 (10/17/19 09:22) Ref range 3.5 - 5.0 CL: 99 (10/17/19 09:22) Ref range 100 - 110 CO2: 27 (10/17/19 09:22) Ref range 20 - 30 eGFR 03/04/21 09:51 4 9 L Ref range Ref: >=60 Liver function = NORMAL LFT: Collection DT Spec ALT AST 03/04/2021 09:51 PLASM 26 17 Ref range ALB 3.2 - 5.0 TBIL 0.2 - 1.2 ALP 40 - 150 ALT 7 -52 AST 5 - 34 Diabetes screening = NORMAL HGB A1C: 6.1 (03/04/21 09:51) Reference: 4.0-5.6 normal / 5.7-6.4 pre-diabetes / >= 6.5% diabetic range Thyroid = NORMAL TSH: 2.06 (03/04/21 09:51) Ref range 0.35 5.00 VITAMIN B12 = NORMAL Ref Range 200 - 900 VITAMIN D = NORMAL 25OH-D 03/04/21 @ 0951 44. 4 Ref range 20 - 50 Cholesterol panel = NORMAL CHOL: 99 (03/04/21 09:51) Goal < 199 TRI (03/04/21 09:51) Goal < 1 50 HDL: 33 (03/04/21 09:51) Goal > 40 LDL: 45 (03/04/21 09:51) Goal < 129 Please don't hesitate to call if you have any qu estions or concerns, . Sincerely, EMANI URIOSTEGUI DNP, [facility] NURSE PRACTITIONER [address] [address] 03/05/2021 ADDENDUM STATUS: COMPLETED please send letter to patient and fax copy of la b results to: Martha Bishop APRN [facility] Internal Medicine /es/ EMANI URIOSTEGUI DNP, [facility] NURSE PRACTITIONER Signed: 03/05/2021 20:32 Receipt Acknowledged By: * AWAITING SIGNATURE * PINKY DESHPANDE March 04, 2021 08:29 AM PRIMARY CARE NOTE: EMANI URIOSTEGUI [facility] LOCAL TITLE: Primary Care Clinic Note STANDARD TITLE: PRIMARY CARE NOTE DATE OF NOTE: MARCH 04, 2021@08:29 ENTRY DATE: MARCH 04, 2021@08:29:15 AUTHOR: EMANI URIOSTEGUI EXP COSIGNER: URGENCY: STATUS: COMPLETED DIONNE PEDRO Assessment/Plan: 1. CAD-had ME 05/2019 -2 new stents, 11/2020 CABG x4 had PE post ME-on apix x 6 m ? if will re-start clopidogrel after d/c [facility] cardiac rehab-has re-started -is doing much bet ter 2. HTN-normotensive today home BP 130's/60-70's is having some lightheadedness 3. DM2-bg running 60's lows occuring plan is to drop lantus to 46U need to review discharge [place] [facility]commendation was even lower pt to f/u with PCP pt notes onset of pruritis in genital area-has b een self treating with using antifungal cream plan: tc to nonVA PCP to notify of persistent sx Pt advised this is a SE of the medication pt has noted some sensitivity end of penis and i tching. Plan to treat initially with clotrimazole bid, p t to f/u with PCP in August. -diab foot consult for new shoes and pod care 4. Hyperlipidemia-on hi dose atorvastatin will check lipids today 5. BPH-controlled on meds have mild incont will trial male guards 6. hx of pulmonary fibrosis-seems to be stable a t present to be followed by PCP prior notes: confirmed by CT scan-cannot walk wi thout 100-200 ft-is worse this year than last year -has occ xray, annual PFT-not ordered today-states had at [facility] 2 months ago 7. polymyalgia-stable 8. untreated KYLIE-pt will discuss with nonVA PCP doesn ot want to do it-declines consult cannot find a mask that fits, doesn't use, has some SOB on awakening-discussed talking with nonVAPCP re nelda luating for oxygen needs at night 9. umbilical hernia-cont 4 cm states not bigger, no pain BPH--controlled on meds. followed by [facility] urology 10. mnnckhsojekj-mhpbjh-xl B M x 5 d today-has been using miralx; stool softener. plan: increase fluids prunes f/u with PCP no pushing if possible consults entered: [facility] podiatry CC cardiac [facility] request [facility] cardiac rehab eye [facility] RTC n/a routine labs today CC-I just had a CABG and was in the hos for a month due to infection and blood clots NON-VA PCP - Martha Bishop APRN [id number] I nternal Mediciine-NEXT VISIT 09/20 NON-VA Specialists - Final Inspector Motorcyles - every 3 months by local C ardiologist - who comes [place] [facility] [place] [facility] (Dr. Plaafox). Traffic Maintenance Supervisor Dr. Brown as needed-eval yesterday, had a few skin lesion [facility]-annual optometry-last visit this summer , only goes to retina spec if recommended by optGarret [facility] urology-Dr. Arteaga-prostate Immunizations:Up to date [x] Smoking [] yes [x] NO quit smoking (), 1.5 ppd for 25 years; quit 1984 Alcohol [x] yes [] no [2] drinks/day Depression screen: []neg []pos Dental Exam: has appt next week Eye Exam-recently Colonoscopy: [facility]: Dr. Light: 2006: Repeat 1 0 years-pt informed he is due now-prefers to use non VA. HPI- 81 y/o with hx of CAD: stents x 5 (03/07-[facility], has 9 now, priors at [facility]). Active problems - Computerized Problem List is t he source for the followin. PE - Pulmonary embolism 2. GERD - Gastro-esophageal reflux disease 3. Benign prostatic hypertrophy 4. Asymmetrical sensorineural hearing loss (SNO MED CT 518490151) 5. Subjective tinnitus (SNOMED CT 02060484) 6. HTN - Hypertension (SNOMED CT 07890973) 7. Hyperlipidemia (SNOMED CT 53450113) 8. Health Maintenance 9. BACKGROUND DIABETIC RETINOPATHY 10. Type 2 diabetes mellitus (SNOMED CT 13306931 ) 11. 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 BENZ 3) ATORVASTATIN CALCIUM 80MG TAB TAKE ONE TABL ET BY ACTIVE MOUTH EVERY DAY TO LOWER CHOLESTEROL 4) CLOPIDOGREL BISULFATE 75MG TAB TAKE ONE TAB LET BY ACTIVE MOUTH EVERY DAY TO PREVENT BLOOD CLOTS 5) DULAGLUTIDE 0.75MG/0.5ML INJ PEN INJECT 0.7 5MG/0.5ML ACTIVE SUBCUTANEOUSLY ONCE A WEEK FOR DIABETES 6) EZETIMIBE 10MG TAB TAKE ONE TABLET BY MOUTH EVERY DAY ACTIVE TO LOWER CHOLESTEROL 7) FAMOTIDINE 20MG TAB TAKE ONE-HALF TABLET BY MOUTH ACTIVE TWICE A DAY FOR STOMACH ACID 8) FINASTERIDE 5MG TAB TAKE ONE TABLET BY MOUT H EVERY ACTIVE DAY FOR PROSTATE 9) FUROSEMIDE 40MG TAB TAKE ONE TABLET BY MOUT H TWICE A ACTIVE DAY TO REMOVE FLUID/CONTROL BLOOD PRESSUR E 10) HYDRALAZINE HCL 10MG TAB TAKE ONE TABLET BY MOUTH ACTIVE TWICE A DAY FOR BLOOD PRESSURE 11) INSULIN,GLARGINE 100 UNT/ML 3ML SOLOSTAR IN JECT ACTIVE 55UNITS SUBCUTANEOUSLY EVERY DAY -DISCARD 28 DAYS AFTER FIRST USE. REFRIGERATE UNOPENED PEN S. 12) LANCET,SOFTCLIX USE LANCET NEEDED WITH L ANCET ACTIVE DEVICE, USE ONE TIME, DISPOSE OF PROPERLY . 13) LOSARTAN 100MG TAB TAKE ONE TABLET BY MOUTH EVERY DAY ACTIVE FOR BLOOD PRESSURE/HEART; NOTE DOSE INCRE ASE 14) MIRABEGRON 50MG SA TAB TAKE ONE TABLET BY M OUTH EVERY ACTIVE DAY 15) NEEDLE,PEN 31G,5MM USE ONE NEEDLE EVERY DAY - DO NOT ACTIVE REUSE. DISPOSE OF PROPERLY 16) PANTOPRAZOLE NA 20MG EC TAB TAKE ONE TABLET BY MOUTH ACTIVE EVERY MORNING FOR STOMACH ACID (TAKE 20-3 0 MINUTES BEFORE FIRST MEAL) Inactive Outpatient Medications Status 1) EZETIMIBE 10MG TAB TAKE ONE TABLET BY MOUTH EVERY DAY TO LOWER CHOLESTEROL 2) RANOLAZINE 500MG SA TAB TAKE ONE TABLET BY MOUTH TWICE A DAY TO PREVENT ANGINA Active Non-VA Medications Status 1) Non-VA ASPIRIN 81MG CHEW TAB 81MG MOUTH JORGE RY DAY ACTIVE 2) Non-VA CHOLECALCIF 25MCG (D3-1,000UNIT) TAB 2000UNIT ACTIVE BY MOUTH EVERY DAY 3) Non-VA CLOPIDOGREL BISULFATE 75MG TAB 75MG MOUTH ACTIVE EVERY DAY 4) Non-VA DULAGLUTIDE 1.5MG/0.5ML INJ PEN 1.5M G/0.5ML ACTIVE SUBCUTANEOUSLY ONCE A WEEK 5) Non-VA FUROSEMIDE 40MG TAB 40MG BY MOUTH TW ICE A DAY ACTIVE 6) Non-VA ISOSORBIDE MONONITRATE 30MG SA TAB 3 0MG MOUTH ACTIVE EVERY DAY 7) Non-VA METFORMIN HCL 1000MG TAB 1000MG MOUT H TWICE ACTIVE DAILY WITH MEALS 8) Non-VA MIRABEGRON 25MG SA TAB 25MG BY MOUTH EVERY DAY ACTIVE 9) Non-VA MULTIVITAMIN/MIN, THERAPEUTIC UD TAB MOUTH ACTIVE 10) Non-VA NITROGLYCERIN 0.4MG SL TAB 0.4MG UND ER THE ACTIVE TONGUE NEEDED 11) Non-VA SPIRONOLACTONE 25MG TAB 25MG BY MOUT H EVERY ACTIVE DAY 29 Total Medications ALLERGIES: Patient has answered NKA ROS: Constitutional: No fever, fatigue, unexpected we ight change Resp: No cough, wheezing Cardiac: No chest pain, edema, dyspnea on exerti on GI: No heartburn, nausea, change in jacqueline ls-severe constipation despite usie of lax, abdominal pain : No dysuria-has occ dribbing Musculoskeletal: No new joint pain or weakness. Neurologic: No headache, dizziness OBJ: BP:135/68 (03/04/2021 08:15) HR:76 (03/04/2021 08:15) WT:215 lb [97.7 kg] (03/04/2021 08:15) HT: 72 in [182.9 cm] (08/14/2018 09:24) BMI: BODY MASS INDEX - NO HEIGHTS FOUND Pain: 0 (03/04/2021 08:15) R:16 (03/04/2021 08:15) SaO2:03/04/21 @ 0815 PULSE OXIMETRY: 98 T:96.7 F [35.9 C] (03/04/2021 08:15) GENERAL: Well-appearing, comfortable. HEENT: Conjunctiva clear, no scleral icterus. M ucous memb moist. TMs normal. NECK: Supple. No cervical adenopathy. No thyro megaly or palpable nodules. CARDIOVASCULAR: RRR. No murmurs or gallops. No c arotid bruits. tr+ PT pulses. RESP: Lungs clear. ABD: Normal BS. Soft, nonte nder, no masses, umg hernia unchanged; liver/spleen nonpalpable. SKIN: No rash. No suspicious lesions on upper alen dy exam. EXTREMITIES/FEET: No edema. MSK: normal gait. No focal muscle wasting. Neurological: Alert. Memory appears intact. CN 2-12 grossly intact. ASSESSMENT/PLAN -see top of note RTC - n/a months or PRN Counseling/coordination of care dominates over 5 0% of 60__ min encounter Tobacco Use Screening: The patient is a former tobacco user. The patient quit fifteen or more years ago . Diabetic Eye Exam: Order Eye Clinic consult. DM/PVD/ESRD Foot Exam: Patient had a complete visual exam ination of the feet at this encounter. Result of Exam: Abnormal-small scab righ tfoot 2nd ant mid toe Patient's feet were ex amined for presence of dorsalis pedis and posterior tibial pulses. Results of Exam: Severely Diminished/A bsent-left dorsal; ok by dopplar pedal Patient had a monofilament examination of sensation in feet at this encounter. Results of Exam: Normal The patient's foot risk was calculated, an d the patient was educated on proper footwear and foot care. Please calculate the patient's Foot Risk S core (FRS) - 1 Required: (RATE the foot with the HIGHEST risk!) 2 = MODERATE RISK Podiatry/PAVE consult placed. Hemoglobin A1C: Order for HBA1C placed. Falls & Incontinence Screen: Falls Screen: 4. No falls within the past year. Incontinence Screen: YES - Incontinence is a problem for this p atient. Is urinary incontinence NEW for this pat ient? YES - Incontinence is a new problem. Check all symptoms that are present: Mild, moderate, or severe incontinen ce? Mild Influenza Immunization: The patient has received the seasonal infl uenza vaccine for the current season at another location. Date: July, Exact date is unkn own Location: Non VA Facility Home Telehealth (CCHT) Referral: Patient not a candidate for CCHT Program at this time. Medication Reconciliation: Outpatient: Has the patient been taking medications as documented in the EMLR? YES: The patient has been taking medicatio ns as documented in the EMLR. Essential Medication List for Review used to complete this medication reconciliation. INCLUDED IN THIS LIST: Alphabetical list o f active outpatient prescriptions dispensed from this [facility] (loca l) and dispensed from another VA or DoD facility (remote) as well as inp atient orders (local, pending and active), local clinic medications, loc ally documented non-VA medications, and local prescriptions that have or been discontinued in the past 90 days. - All changes in medic ations, including all non-VA/Herbal/OTC medications were entered into CPRS. - If there were any medications the patien t should no longer take, they were discontinued. - The patient/caregiver was instructed to update this list, discard old lists, and take this list to the next appo intment, whether with a VA or non-VA provider. Suicide Screen: C-SSRS Screening [place]-Suicide Severity Rating Scale (C- SSRS Screener) 1. Over the past month, have you wished you were or wished you could go to sleep and not wake up? No 2. Over the past month, have you had any actual thoughts of killing yourself? No 3. Over the past month, have you been th inking about how you might do this? Response not required due to responses t o other questions. 4. Over the past month, have you had the se thoughts and had some intention of acting on them? Response not required due to responses t o other questions. 5. Over the past month, have you started to work out or worked out the details of how to kill yourself? Response not required due to responses t o other questions. 6. If yes, at any time in the past month did you intend to carry out this plan? Response not required due to responses t o other questions. 7. In your lifetime, have you ever done anything, started to do anything, or prepared to do anything to end your life (for example, collected pills, obtained a gun, gave away valuables, went to the roof but didn't jump)? No 8. If YES, was this within the past 3 mo nths? Response not required due to responses t o other questions. /angela/ EMANI URIOSTEGUI DNP, DRILL OPERATOR PNEUMATIC- NURSE PRACTITIONER Signed: 03/04/2021 09:49 March 04, 2021 08:24 AM PRIMARY CARE ANNUAL EVALUATION NOTE: MIKHAIL HUNTER [facility] LOCAL TITLE: Preventive Health Annual Review STANDARD TITLE: PRIMARY CARE ANNUAL EVALUATION N OTE DATE OF NOTE: MARCH 04, 2021@08:24 ENTRY DATE: MARCH 04, 2021@08:24:55 AUTHOR: MIKHAIL ASCENCIO EXP COSIGNER: URGENCY: STATUS: COMPLETED Advance Directive Screen: Patient has an up-to-date Advance Directiv e document, but it is not on file at this [facility]. Patient has been reque sted to forward a copy to his/her clinician. The patient received education about advan ce directives as well as written notification of his/her rights. Homelessness/Food Insecurity Screen: In the past 2 months, have you been living in stable housing that you own, rent, or stay in as part of a househo ? Yes - Living in stable housing. Are you worried or c oncerned that in the next 2 months you may NOT have stable housing that you own, rent, or st ay in as part of a household? No - Not worried about housing near [facility] The reports the following: Within the past 12 months, you worried wheth er your food would run out before you got money to buy more. Never true Within the past 12 months, the food you boug ht just didn't last and you didn't have money to get more. Never true Alcohol Use Screen (AUDIT-C): Alcohol Screen: SCREEN FOR ALCOHOL (AUDIT-C) An alcohol screening test (AUDIT-C ) was negative (score=1). 1. How often did you have a drink containing alcohol in the past year? Monthly or less 2. How many drinks containing alco hol did you have on a typical day when you were drinking in the past year? One or two drinks 3. How often did you have six or m ore drinks on one occasion in the past year? Never Depression Screening: Perform PHQ-2 A PHQ-2 screen was performed. The sc ore was 0 which is a negative screen for depression. Over the past two weeks, how often h ave you been bothered by the following problems? 1. Little interest or pleasure in do ing things Not at all 2. Feeling down, depressed, or hopel ess Not at all /angela/ MIKHAIL ASCENCIO Health Lead Signed: 03/04/2021 08:29
--- OUTSIDE RECORDS SUMMARY | 2022-02-20 01:23 | XMS_ITS ---
:[address] [facility] Address [address] [place] [id number] Care Team Providers Name Role Phone MOODY EMANI Primary Care Provider Unavailable Insurance Providers: All [...] [place] [employer] Mar 23, PLAND [id number] [phone] [place] , PATIENT LIFE & PLAN D ARE 2003 73 4 DIONNE CASUAL[employer] PLAND Mar 23, PLAND [id number] [phone] [place] , PATIENT LIFE AND PLAN D 2003 73 0 [employer] CASUALTY MEDICARE MEDICARE PART Jan 21, PART B [id number] [place], PATIENT (WNR) (M) B 2003 31A 2 [employer] MEDICARE MEDICARE PART Jan 21, PART A [id number] [place], PATIENT (WNR) (M) A 2003 31B 2 [place] MEDICARE MEDICARE PART Jan 21, PART A [id number] [place], PATIENT (WNR) (M) A 2003 CD13 2 [place] MEDICARE MEDICARE PART Jan 21, PART B [id number] [phone] [place], PATIENT (WNR) (M) B 2003 CD13 2 [place] MEDICARE MEDICARE PART Jan 21, PART B [id number] [place], PATIENT (WNR) (M) B 2003 CD13 2 [place] MEDICARE MEDICARE PART Jan 21, PART A [id number] [place], PATIENT (WNR) (M) A 2003 CD13 2 DIONNE Selected Encounter This section includes the information on record at [place] for the Encounter. Date/Time Encounter Type Encounter Reason Provider Source Description March 05, 2021 HC PRO PHONE TELEPHONE/ANCILLA ICD-10-CM LEANDRO JIMENEZ 02:45 PM CALL 21-30 MIN RY I26.99 Other L pulmonary embolism without acute cor pulmonale with Provider Comments: PE - Pulmonary embolism (SCT [id number]) IHE Encounter Template Text not used by [place] Assessments - Encounter Diagnoses This section includes the primary and secondary diagnoses documented forthe Encounter. Date/Time Primary/Secondary Diagnosis Name Provider Source Diagnosis March 05, 2021 PRIMARY Other pulmonary [facility] 02:45 PM embolism without [facility] acute cor pulmonale Plan of Treatment: Future Appointments (+ 6 months) and Future Tests (+/- 45 days) The Plan of Treatment section includes future care activities for the patient from all [place] treatment facilities. This section includes future appointments and future orders which are active, pending or scheduled.Future Appointments This section includes appointments that were scheduled to occur 6 months from the date of the Encounter, up to a maximum of 20 appointments. The [facility] Appointment Date/Time Appointment Type Appointment Facili ty Name March 08, 2021 08:00 AM AMBULATORY - NONE [facility] Apr 07, 2021 09:00 AM AMBULATORY - REHAB MEDICINE [facility] Apr 21, 2021 02:00 PM AMBULATORY - REHAB MEDICINE [facility] Jun 08, 2021 08:30 AM AM[facility]ULATORY - NONE [facility] Jun 09, 2021 06:15 PM [facility] Jun 15, 2021 09:00 AM [facility] Aug 18, 2021 09:30 AM AMBULATORY - SURGERY [place] [facility] Active, Pending, and Scheduled Orders This section includes a listing of several types of active, pending, and scheduled orders, including clinic medications orders, diagnostic test orders, procedure orders and consult orders; where the start date of the order is 45 days before the date of the Encounter or 45 days after the date of the Encounter. The data comes from all [place] treatment facilities. Test Date/Time Test Type Test Details Facility Name March 04, 2021 09:31 AM Consult Order EYE CONSULT OUTPATIENT Con s [facility] Manager Employee Relations's Choice March 04, 2021 09:38 AM Consult Order COMMUNITY CARE-CARDIAC [facility]ILIT[facility] Cons Manager Employee Relations's Choice Surgical Procedures: All associated to the encounter This section includes all Surgical Procedures and Surgical Procedure Notes associated to the Encounter.Surgical Procedures This section includes all Surgical Procedures associated to the Encounter.Surgical Procedure Date/Time Procedure Procedure Type Procedure Provider Source Qualifiers March 05, 2021 PHONE CALL BY HC PRO PHONE CLEANALEANDRO HERNANDEZ 02:45 PM HC PROF 21-30 CALL 21-30 MIN L [facility] MIN Surgical Notes There are no notes associated with this procedure. Lab Results: +/- 30 days of the encounter This section includes the Chemistry and Hematology Lab Results on record with [place] for the patient. Radiology Reports and Pathology Reports are provided separately, in subsequent sections.Lab Results This section contains the Chemistry/Hematology Results that were resulted 30 days before or 30 days after the date of the Encounter. Date/Time Source Result Type Result - Unit Interpretation Reference Range Comment March 04, 2021 09:51 [facility] URINALYSIS W/REFLEX TO Specimen Type: URINE AM CULTURE No comment enter ed. Ordering Provider: EMANI URIOSTEGUI Report Released Date/Time: March 04, 2021 09:41 AM Reporting Lab: [facility] [address] [address] Performing Lab: [facility] [address] [address] URINE COLOR Yellow YELLOW SPECIFIC GRAVITY 1.014 1.003-1.030 UROBILINOGEN <2.0 <2.0 URINE BILIRUBIN NEG NEG URINE KETONES NEG NEG URINE GLUCOSE NEG NEG PROTEIN, URINE NEG NEG URINE PH 5.0 5-8 CLARITY HAZY Clear URINE BLOOD NEG NEG NITRITE, URINE NEG NEG WBC SCREEN NEG NEG March 04, 2021 09:51 AM [facility] VIT D 25-OH(J) Specimen Type: SERUM Comment: Tests performed on [place] Roll Former (405) SN:[id number] TSH within normal limits. Reflex testing not required. Ordering Provider: EMANI URIOSTEGUI Report Released Date/Time: March 04, 2021 09:41 AM Reporting Lab: [facility] [facility] [address] [address] Performing Lab: [facility] [address] [address] VIT D 25-OH([facility]) 44.4 20-50 March 04, 2021 09:51 [facility] THYROID TESTING Specimen Type: SERUM AM CASCADE Comment: Tests performed on [place] Roll Former (405) SN:[id number] TSH within normal limits. Reflex testing not required. Ordering Provider: EMANI URIOSTEGUI Report Released Date/Time: March 04, 2021 09:41 AM Reporting Lab: [facility] [address] [address] Performing Lab: [facility] [address] [address] TSH 2.06 0.35-5.00 REFLEX TESTING comment March 04, 2021 09:51 [facility] LIPOPROTEIN CHOLESTEROL Specimen Type: PLASMA AM FRACT. PANEL Comment: Tests performed on [place] Roll Former (405) SN:[id number] Ordering Provider: EMANI URIOSTEGUI Report Released Date/Time: March 04, 2021 09:41 AM Reporting Lab: [facility] [address] [address] Performing Lab: [place] [facility] [address] [address] CHOLESTEROL 99 0-199 TRIGLYCERIDE 105 0-149 HDL CHOLESTEROL 33 L >40 LDL CHOLESTEROL (CALC) 45 0-129 March 04, 2021 09:51 AM [place] [facility] ALT(SGPT) Specimen Type: PLASMA Comment: Tests performed on [place] Roll Former (405) SN:[id number] Ordering Provider: LEANDRO JIMENEZ Report Released Date/Time: Feb 04, 2021 01:39 PM Reporting Lab: [place] [facility] [address] [address] Performing Lab: [place] [facility] [address] [address] ALT(SGPT) 26 7-52 March 04, 2021 09:51 AM [facility] AST(SGOT) Specimen Type: PLASMA Comment: Tests performed on Busap (405) SN:[id number] Ordering Provider: LEANDRO JIMENEZ Report Released Date/Time: Feb 04, 2021 01:39 PM Reporting Lab: [facility] [address] [address] Performing Lab: [place] [facility] [address] [address] AST(SGOT) 17 5-34 March 04, 2021 09:51 [place] CREATININE WITH eGFR Specimen Type: PLASMA AM [facility] PANEL Comment: Tests performed on [place] SoundFocus (405) SN:[id number] Ordering Provider: LEANDRO JIMENEZ Report Released Date/Time: Feb 04, 2021 01:39 PM Reporting Lab: [facility] [address] [address] Performing Lab: [facility] [address] [address] CREATININE 1.38 0.5-1.5 eGFR 49 L >60 March 04, 2021 09:51 AM [place] [facility] [facility] CBC NO DIFF Specimen Type: BLOOD No comment enter ed. Ordering Provider: LEANDRO JIMENEZ Report Released Date/Time: Feb 04, 2021 01:39 PM Reporting Lab: [facility] [address] [address] Performing Lab: [facility] [address] [address] WBC 7.5 4.5-11.0 RBC 3.98 L 4.23-5.66 HGB 11.7 L 12.8-17 HEMATOCRIT 38.7 L 39.2-50.4 MCV 97.2 82-99 MCH 29.4 26.2-32.6 MCHC 30.2 L 30.8-35.1 PLT 283 140-360 MPV 9.0 L 9.2-12.4 RDW 13.5 12.0-16.0 March 04, 2021 [facility] GLYCOHEMOGLOBIN (A1C ONLY) Specimen Type: BLOOD 09:51 AM Comment: Tests performed on [place] Roll Former (405) SN:[id number] Ordering Provider: EMANI URIOSTEGUI Report Released Date/Time: March 04, 2021 09:31 AM Reporting Lab: [facility] [address] [address] [facility]forming [facility] [address] [address] HEMOGLOBIN A1C 6.1 H 4.0-5.6 March 04, 2021 [facility] CB MICROALBUMIN/CREATININE RATIO Specimen Type: URINE 09:51 AM PANEL Comment: Tests performed on [place] Roll Former (405) SN:[id number] Ordering Provider: EMANI URIOSTEGUI Report Released Date/Time: March 04, 2021 09:41 AM Reporting Lab: [facility] [address] [place] [facility] [place] [address] [facility]: [facility] [address] [address] CREATININE (URINE,RANDOM) 87.3 MICROALBUMIN, QUANTITATIVE 0.8 0.0 -29.9 MICROALBUMIN/CREATININE RATIO 9.2 0.0-29.9 Encounter Notes: All associated encounter notes This section contains the clinical notes associated to the Encounter. Date/Time Encounter Note(s) Provider Source March 05, 2021 01:38 PM E & M OF ANTICOAGULATION NOTE: BENJAMIN JIMENEZ [facility] LOCAL TITLE: Anticoagulation Clinic/Contract Administration Specialist [facility] STANDARD TITLE: E & M OF ANTICOAGULATION NOTE DATE OF NOTE: MARCH 05, 2021@13:38 ENTRY DATE: MARCH 05, 2021@13:38:23 AUTHOR: LEANDRO JIMENEZ EXP COSIGNER: URGENCY: STATUS: COMPLETED MR. DIONNE AGUILLON [address] [place] [id number] Purpose of visit: Follow-up anticoagulation clin ic visit Time spent with patient during this visit: 15 mi nutes Subjective/Objective information: Active Outpatient Medications (excluding Supplie s): Active Outpatient Medications Status 1) ACCU-CHEK FRANCINE PLUS(GLUCOSE) TEST STRIP US E 1 TEST ACTIVE STRIP NEEDED TO TEST BLOOD GLUCOSE LEV EL 2) ALFUZOSIN HCL 10MG SA TAB TAKE ONE TABLET B Y MOUTH ACTIVE (S) EVERY DAY FOR URINARY VOIDING SYMPTOMS - DR. BENZ 3) ATORVASTATIN CALCIUM 80MG TAB TAKE ONE TABL ET BY ACTIVE MOUTH EVERY DAY TO LOWER CHOLESTEROL 4) CLOTRIMAZOLE 1% TOP CREAM APPLY THIN FILM T OPICALLY ACTIVE TWICE A DAY FOR FUNGAL INFECTION 5) DULAGLUTIDE 0.75MG/0.5ML INJ PEN INJECT 0.7 5MG/0.5ML ACTIVE SUBCUTANEOUSLY ONCE A WEEK FOR DIABETES 6) EZETIMIBE 10MG TAB TAKE ONE TABLET BY MOUTH EVERY DAY ACTIVE TO LOWER CHOLESTEROL 7) FERROUS SULFATE 325MG TAB TAKE ONE TABLET B Y MOUTH ACTIVE EVERY DAY TO SUPPLEMENT IRON 8) FINASTERIDE 5MG TAB TAKE ONE TABLET BY MOUT H EVERY ACTIVE (S) DAY FOR PROSTATE 9) FOLIC ACID 1MG TAB TAKE TWO TABLETS BY MOUT H EVERY ACTIVE DAY VITAMIN/NUTRITION SUPPLEMENT 10) FUROSEMIDE 40MG TAB TAKE ONE TABLET BY MOUT H TWICE A ACTIVE DAY TO REMOVE FLUID/CONTROL BLOOD PRESSUR E 11) INSULIN,GLARGINE 100 UNT/ML 3ML SOLOSTAR IN JECT ACTIVE 55UNITS SUBCUTANEOUSLY EVERY DAY -DISCARD 28 DAYS AFTER FIRST USE. REFRIGERATE UNOPENED PEN S. 12) LOSARTAN 100MG TAB TAKE ONE TABLET BY MOUTH EVERY DAY ACTIVE FOR BLOOD PRESSURE/HEART; NOTE DOSE INCRE ASE 13) MIRABEGRON 50MG SA TAB TAKE ONE TABLET BY M OUTH EVERY ACTIVE DAY 14) PANTOPRAZOLE NA 20MG EC TAB TAKE ONE TABLET BY MOUTH ACTIVE EVERY MORNING FOR STOMACH ACID (TAKE 20-3 0 MINUTES BEFORE FIRST MEAL) Active Non-VA Medications Status 1) Non-VA ASPIRIN [...] 25MG BY MOUT H EVERY ACTIVE DAY 25 Total Medications [X] Medication reconciliation completed, any dif ferences are listed below: Factors affecting anticoagulation: Medication change none Alcohol change none Acute illness none Medication compliance denies missing doses Bleeding/thromboembolic complications: Bruising denies Gingival bleeding denies Nosebleeds denies Hematuria denies Blood in stools denies Signs of CVA/TIA denies LE swelling/pain denies Shortness of breath denies Other side effects: denies Falls/injuries denies Tests/Procedures n one - having US on kidney for cyst in a week or two Other issues: none noted Indication for anticoagulati on: Bilateral pulmonary embolii 12/22/2020, provoked s/p cardiac surg radha (CABGx4 on 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 No VM (doesn't check voicemail); letter OK Lab Results: (CrCl calculation: Cockcroft-Gault and actual body weight) Date Hct Hgb Plt Creat Weight Calc CrCl AST ALT 12/26/20([facility]) 33.3 10.7 444 1.14 99kg 70ml/min 03/04/21 38.7 11.7 283 1.38 98kg 57ml/min 17 26 Assessment: anticoagulated with apixaban for PE without complication. H&H improved sin ce last visit. SCr increased and will monitor. Dose is appropriate for indication at any degree of kidney impairment. Plan: CONTINUE current regimen DOAC Regimen: apixaban 5mg BID Future follow-up: Recheck CBC/SCr in 3 months on 06/07/21 @ [facility] Patient Education: [X] s/sx bleeding/thrombosis and ER precautio ns [X] importance of correct dose/dosing schedul e [X] importance of medication compliance [X] importance of reporting medication change s, planned procedures, change in health care status to clinic [X] TC to patient/spouse/caregiver who was able to verbalize understanding of above instructions. [ ] Voice mail left for patient with instruction s [ ] Written instructions mailed to patient [X] Rx ordered [ ] Rx/Lab orders faxed to: /angela/ LEANDRO JIMENEZ Clinical Pharmacist Signed: 03/05/2021 15:22
--- OUTSIDE RECORDS SUMMARY | 2022-02-20 01:23 | XMS_ITS | Continuity of Care Document ---
:[address] [facility] Care Team Providers Name Role Phone DOD-VA Unavailable Unavailable Problems Combined list of problems from Department of Defense and Veterans Affairs facilities. It does not include entries that were removed or entered in error. 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 (SNOMED CT 285774560) BACKGROUND DIABETIC Active Condition [place] RETINOPATHY [place] [facility] Benign prostatic Active Condition WH[place] hypertrophy [place] [facility] CAD - Coronary Active Condition [place] artery disease [place] [facility] (SNOMED CT 56561039) GERD - Active Condition [place] R Gastro-esophageal MIS T [facility] reflux disease Health Maintenance Active Condition W [place] (ICD-9-CM V65.9) [place] [facility] HTN - Hypertension Active Condition [place] (SNOMED CT [place] [facility] 23759620) Hyperlipidemia Active Condition [place] (SNOMED CT [place] [facility] 26298461) PE - Pulmonary Active Condition [place] embolism [place] [facility] Subjective tinnitus Active Condition [place] (SNOMED CT [place] [facility] 25773354) Type 2 diabetes Active Condition [place] mellitus (SNOMED CT [place] [facility] 40283153) SENSORINEURAL Inactive Condition 05/30/2019 [place] HEARING LOSS, [place] [facility] BILATERAL Diagnosis: active Diagnosis [place] ER ICD-10-CM E11.[address] [facility] Type 2 diab with mild nonp rtnop without macular edema, biwith Provider Comments: Type 2 diabetes mellitus with mild nonproliferative diabetic retinopathy without macular edema, bilateral Diagnosis: active Diagnosis [place] ER ICD-10-CM E11.319 MIS T [facility] Type 2 diabetes w unsp diabetic rtnop w/o macular edemawith Provider Comments: Type 2 diabetes mellitus (SCT 64088402) Diagnosis: active Diagnosis [place] ER ICD-10-CM Z51.81 [place] [facility] Encounter for therapeutic drug level monitoringwith Provider Comments: Encounter for Therapeutic Drug Level Monitoring Diagnosis: active Diagnosis ST. ICD-10-CM Z46.1 MANUEL YOUSSEF Encounter for CBOC fitting and adjustment of hearing aidwith Provider Comments: Encounter for Fitting and Adjustment of Hearing Aid Diagnosis: active Diagnosis [place] ER ICD-10-CM I26.99 [place] [facility] Other pulmonary embolism without acute cor pulmonalewith Provider Comments: PE - Pulmonary embolism (SCT 34077114) Diagnosis: active Diagnosis ST. ICD-10-CM I25.10 [facility] Athscl heart CBOC disease of andreafski coronary artery w/o ang pctrswith Provider Comments: Atherosclerotic Heart Disease of [place] Coronary Artery without Angina Pectoris Medications Combined list of outpatient medications from Department of Defense and Veterans Affairs facilities. Medications provided include 1) outpatient medications from the last 15 months, and 2) patient-reported medications. Medication Details Route Status Patient Prescription Prescription Last Ordering Order Source Instructions Expires Number Dispense Provider Date Date ALFUZOSIN TAKE ONE ORAL ACTIVE 03/26/2022 [id number] Pat CROWLEY 03/29/ ST. HCL 10MG TABLET 2 GAGE K 2020 [place] TAB,SA BY MOUTH RY CBOC EVERY DAY FOR URINARY VOIDING SYMPTOMS ALFUZOSIN TAKE ONE ORAL DISCONT 03/05/2022 [id number] PACO DEJESUS 05/04/ ST. HCL 10MG TABLET INUE 1 UREN P 2020 [place] TAB,SA BY MOUTH RY CBOC EVERY DAY FOR URINARY VOIDING SYMPTOMS - DR. BENZ ALFUZOSIN TAKE ONE ORAL DISCONT 03/26/2021 [id number] PACO DEJESUS 04/08/ WHITE HCL 10MG TABLET INUE 1 UREN P 2019 [place] TAB,SA BY MOUTH [place] EVERY [facility]OC DAY FOR URINARY VOIDING SYMPTOMS - DR. BENZ APIXABAN TAKE ONE ORAL DISCONT 03/06/2022 [id number] Nemesio JIMENEZ 03/08/ WHITE 5MG TAB TABLET INUED 1 ENEL L 2020 [place] BY MOUTH [place] EVERY [facility] TWELVE HOURS TO HELP PREVENT BLOOD CLOTS (ANTICOA GULATION ) ASPIRIN CHEW ONE ORAL ACTIVE LABARTHE, 03/20/ ST. 81MG TABLET TADEO Butt 2015 [place] TAB,CHEWABL BY MOUTH RY CB OC E EVERY DAY ATORVASTATI TAKE ONE ORAL ACTIVE 02/05/2023 [id number] EVERE ARIEC 02/07/ Departm N CA 40MG TABLET 2 2021 ent of TAB BY MOUTH [place] EVERY s DAY TO Affairs LOWER CHOLESTE ROL ATORVASTATI TAKE ONE ORAL DISCONT 04/15/2022 [id number] E PAYTONAdrian 04/19/ WHITE N CA 40MG TABLET INUED 2 ROSELIA 2020 [place] TAB BY MOUTH [place] EVERY [facility]OC DAY TO LOWER CHOLESTE ROL CHOLECALCIF TAKE TWO ORAL ACTIVE [place]ODIER,[place] 08/14/ WHITE KRYSTLE 25MCG TABLETS UREN P 2016 [place] (1,000UNIT) BY MOUTH [place] TAB EVERY VAMROC DAY CLOTRIMAZOL APPLY TOPICA ACTIVE 03/05/2022 [id number] RODSRI, PACO 03/04/ ST. E 1% THIN LLY 1 UREN P 2020 [place] CREAM,TOP FILM RY CBOC TOPICALL Y TWICE A DAY FOR FUNGAL INFECTIO N DULAGLUTIDE INJECT SUBCUT ACTIVE 10/27/2022 [id number] LEONARDO JUAN 10/26/ WHITE 0.75MG/0.5M 0.75MG/0 ANEOUS 2 2021 RIVE R L .5ML JCT INJ,SOLN,PE SUBCUTAN VAMRO C N EOUSLY ONCE A WEEK FOR DIABETES DULAGLUTIDE INJECT SUBCUT 10/09/2021 [id number] VO ,STEFANI P 10/11/ ST. 0.75MG/0.5M 0.75MG/0 ANEOUS 1 2019 MANUEL SBU L .5ML RY CBOC INJ,SOLN,PE SUBCUTAN N EOUSLY ONCE A WEEK FOR DIABETES DULAGLUTIDE INJECT SUBCUT ACTIVE RODIER,LA 08/14/ WHITE 1.5MG/0.5ML 1.5MG/0. ANEOUS UREN P 2016 BARBARA ER INJ,SOLN,PE 5ML JCT N SUBCUTAN VAMROC EOUSLY ONCE A WEEK EZETIMIBE TAKE ONE ORAL ACTIVE 02/23/2022 [id number] [place], [place] 02/24/ WHITE 10MG TAB TABLET 2 UREN P 2020 [place] BY MOUTH [place] EVERY V[facility]OC DAY TO LOWER CHOLESTE ROL FERROUS SO4 TAKE ONE ORAL ACTIVE 03/05/2022 [id number] RODIE R,LA 03/04/ ST. 325MG TAB TABLET 2 UREN P 2020 [place] BY MOUTH RY CBOC EVERY DAY TO SUPPLEME NT IRON FINASTERIDE TAKE ONE ORAL ACTIVE 2023 [id number] KANNAN SH,A Departm 5MG TAB TABLET 2 CALLIISABELA Tracey 2021 ent of BY MOUTH AT BEDTIME Affairs FOR PROSTATE FINASTERIDE TAKE ONE ORAL DISCONT 03/26/2022 [id number] G ERRISH,A 03/29/ WHITE 5MG TAB TABLET INUED 2 ISABELA K 2020 [place] BY MOUTH [place] AT [facility] BEDTIME FOR PROSTATE FINASTERIDE TAKE ONE ORAL DISCONT 03/05/2022 [id number] RODIER,LA 03/12/ ST. 5MG TAB TABLET INUE 1 UREN P 2020 [place] BY MOUTH RY CBOC EVERY DAY FOR PROSTATE FINASTERIDE TAKE ONE ORAL DISCONT 03/26/2021 [id number] RODIER,LA 03/27/ WHITE 5MG TAB TABLET INUE 1 UREN P 2020 [place] BY MOUTH [place] [facility] DAY FOR PROSTATE FOLIC ACID TAKE TWO ORAL ACTIVE 03/05/2022 [id number] RODIER ,LA 03/04/ ST. 1MG TAB TABLETS 2 UREN P 2020 [place] BY MOUTH RY CBOC EVERY DAY VITAMIN/ NUTRITIO N SUPPLEME NT FUROSEMIDE TAKE ONE ORAL ACTIVE 02/05/2023 [id number] EVERET T,C Departm 40MG TAB TABLET 2 2021 ent of BY MOUTH TWICE A s DAY TO Affairs REMOVE FLUID/CO NTROL BLOOD PRESSURE FUROSEMIDE TAKE ONE ORAL DISCONT 04/15/2022 [id number] OJSE TT,C 04/19/ WHITE 40MG TAB TABLET INUED 2 ROSELIA2020 [place] BY MOUTH [place] TWICE A [facility] DAY TO REMOVE FLUID/CO NTROL BLOOD PRESSURE FUROSEMIDE TAKE ONE ORAL ACTIVE RODIER,LA 08/14/ WHITE 40MG TAB TABLET UREN P 2018 [place] BY MOUTH [place] TWICE A [facility] DAY HYDRALAZINE TAKE ONE ORAL DISCONT 06/23/2021 [id number] OVI,S 06/22/ ST. HCL 10MG TABLET INUED 1 TACEY K 2019 [place] TAB BY MOUTH RY CBOC TWICE A DAY FOR BLOOD PRESSURE INSULIN,GLA INJECT SUBCUT 11/18/2021 [id number] RO DIER,LA 11/18/ ST. RGINE,HUMAN 55UNITS ANEOUS 2 UREN P 2020 MANUEL SBU 100 UNIT/ML SUBCUTAN RY CB OC INJ,SOLOSTA EOUSLY R,3ML EVERY DAY -DISCARD 28 DAYS AFTER FIRST USE. REFRIGER ATE UNOPENED PENS. ISOSORBIDE TAKE ONE ORAL ACTIVE LABARTHE, 09/22/ ST. MONONITRATE TABLET TADEO S 2015 POOLE BU 30MG TAB,SA BY MOUTH RY CB OC EVERY DAY METFORMIN TAKE ONE ORAL ACTIVE 09/04/2022 [id number] Adrian HAYES 09/09/ WHITE HCL 1000MG TABLET 2 2020 [place] TAB BY MOUTH [place] TWICE A [facility] DAY FOR DIABETES METFORMIN TAKE ONE ORAL ACTIVE JULIO CÉSAR BERNABE 04/19/ S T. HCL 1000MG TABLET RISTOPHER 2010 MANUEL SBU TAB BY MOUTH RY CBOC TWICE DAILY WITH MEALS METOPROLOL TAKE ONE ORAL ACTIVE 02/05/2023 [id number] Adrian ZALDIVAR 02/07/ Departm TARTRATE TABLET 2 2021 ent of 50MG TAB BY MOUTH [place] TWICE A s DAY FOR Affairs BLOOD PRESSURE /HEART METOPROLOL TAKE ONE ORAL DISCONT 04/15/2022 [id number] Adrian BONE 04/19/ WHITE TARTRATE TABLET INUED 2 2020 [place] 50MG TAB BY MOUTH [place] [facility]ICE [facility] DAY FOR [facility]LO[facility] /HEART MIRABEGRON TAKE ONE ORAL ACTIVE RODIER,LA 08/14/ WHITE 25MG TAB,SA TABLET UREN P 2016 [place] BY MOUTH [place] EVERY [facility] DAY MIRABEGRON TAKE ONE ORAL ACTIVE 06/22/2022 [id number] BENZ, EUG 07/02/ WHITE 50MG TAB,SA TABLET 2 REUBEN J 2020 [place] BY MOUTH [place] EVERY [facility] DAY MIRABEGRON TAKE ONE ORAL 06/02/2021 [id number] RODIE R,LA ST. 50MG TAB,SA TABLET 1 N P 2019 [place] U BY MOUTH RY CBOC EVERY DAY MULTIVITAMI TAKE BY ORAL ACTIVE POLICH, ST. N/MIN, MOUTH RISTOPHER 2010BU THERAPEUTIC RY CBOC UD TAB NITROGLYCER TAKE ONE SUBLIN ACTIVE [facility], 04/19 ST. IN 0.4MG TABLET GUAL RISTOPHER 2010B U TAB,SUBLING UNDER RY CBOC UAL THE TONGUE NEEDED PANTOPRAZOL TAKE TWO ORAL ACTIVE 09/04/2022 [id number] EVERE TT,C 09/09/ WHITE E NA 20MG TABLETS 1 2020 [place] TAB,EC BY MOUTH [place] EVERY [facility] MORNING FOR STOMACH ACID (TAKE HALF-TAMMY R BEFORE A MEAL(S) PANTOPRAZOL TAKE ONE ORAL DISCONT 09/15/2021 [id number] RODIER,LA ST. E NA 20MG TABLET INUE 1 P 2019 [place] TAB,EC BY MOUTH RY CBOC EVERY MORNING FOR STOMACH ACID (TAKE 20-30 MINUTES BEFORE FIRST MEAL) RIVAROXABAN TAKE ONE ORAL ACTIVE 09/02/2022 [id number] EVERE TT,C WHITE 2.5MG TAB TABLET 2 2020 [place] BY MOUTH [place] TWICE A [facility]OC DAY TO HELP PREVENT BLOOD CLOTS (ANTICOA GULATION ) RIVAROXABAN TAKE ONE ORAL DISCONT 08/28/2022 [id number] E Adrian CAIN WHITE 2.5MG TAB TABLET INUE 1 2020 [place] BY MOUTH [place] TWICE A [facility]OC DAY TO HELP PREVENT BLOOD CLOTS (ANTICOA GULATION CCNRX) RIVAROXABAN TAKE ONE ORAL 08/13/2021 [id number] R ODIER,PACO ST. 2.5MG TAB TABLET 1 N P 2020 [place] BY MOUTH RY CBOC EVERY 12 HOURS TO HELP PREVENT BLOOD CLOTS (ANTICOA GULATION ) RIVAROXABAN TAKE ONE ORAL ACTIVE RIENDEAU, 06/09/ WHITE 2.5MG TAB TABLET ALEN Pat 2020 [place] BY MOUTH [place] EVERY [facility] TWELVE HOURS SPIRONOLACT TAKE ORAL ACTIVE 06/17/2022 [id number] Adrian HAYES WHITE ONE 25MG ONE-HALF 2 ROSELIA 2020 [place] TAB TABLET [place] BY MOUTH VAM[facility]OC EVERY DAY TO CONTROL BLOOD PRESSURE SPIRONOLACT TAKE ONE ORAL ACTIVE PACO URIOSTEGUI WHITE ONE 25MG TABLET UREN P 2019 [place] TAB BY MOUTH [place] EVERY [facility] DAY Immunizations Combined list of available immunizations from the Department of Defense and Veterans Affairs facilities. Immunization Series Date Administered Site Reaction Lot CVX Drug St atus Comments Source Given By Number Code Vending Machine Refiller INFLUENZA, complet WHITE UNSPECIFIED 2019 ed RI RAKESH FORMULATION MIS T VAM[facility]OC INFLUENZA, complet DYLON SEASONAL, 2018 ed RIVE R INJECTABLE [place] [facility] INFLUENZA, complet Kaley [place] SEASONAL, 2017 ed drugs in R IVER INJECTABLE [facility]. J [place] [facility] INFLUENZA, complet Done a t DYLON SEASONAL, 2016 ed Alberto BARBAR[facility], complet Dr. [place] UNSPECIFIED 2015 ed Meierdie r RIVER FORMULATION cks MIS T VAM[facility]OC INFLUENZA, complet Dolly [place] UNSPECIFIED 2014 ed Drug RI RAKESH FORMULATION MIS T V[facility] PNEUMOCOCCAL complet Dr.M kat [place] CONJUGATE PCV 2014 ed iercla [place] 13 office [place] [facility] INFLUENZA, complet Dolly [place] UNSPECIFIED [address] [place] FORMULATION [place] [facility] INFLUENZA, complet WHITE UNSPECIFIED 2012 ed RI RAKESH FORMULATION MIS T VAM[facility]OC TDAP complet Site: ST. 2012 ed Left [place] Deltoid RY CBO C INFLUENZA, complet Site: WHITE UNSPECIFIED 2011 ed Right RI RAKESH FORMULATION Deltoid [place] [facility] INFLUENZA, complet WHITE UNSPECIFIED 2010 ed RI RAKESH FORMULATION MIS T VAM[facility]OC PNEUMOCOCCAL complet Dr.M kat [place] POLYSACCHARID 2010 ed iercks RIVER E PPV23 office [place] [facility] INFLUENZA, complet WHITE UNSPECIFIED 2009 ed RI RAKESH FORMULATION MIS T V[facility] PNEUMOCOCCAL, complet Sit e: ST. UNSPECIFIED 2009 ed Left LEONARDO HNSBU FORMULATION Deltoid RY CBOC INFLUENZA, complet WHITE UNSPECIFIED 2009 ed RI RAKESH FORMULATION MIS T VAM[facility]OC NOVEL complet WHITE INFLUENZA-H1N 2009 ed RIVER -, ALL [place] FORMULATIONS V AMROC ZOSTER complet WHIT E (HISTORICAL) 2009 ed R IVER [place] [facility] INFLUENZA, 08/20/ , complet WHITE UNSPECIFIED 2007 ed RI RAKESH FORMULATION MIS T V[facility] INFLUENZA, complet Site: ST. UNSPECIFIED 2006 ed Left LEONARDO HNSBU FORMULATION Deltoid RY CBOC INFLUENZA, complet WHITE UNSPECIFIED 2005 ed RI RAKESH FORMULATION MIS T VAM[facility]OC INFLUENZA, complet ST. UNSPECIFIED 2003 ed LEONARDO HNSBU FORMULATION RY CBOC INFLUENZA, complet ST. UNSPECIFIED 2002 ed LEONARDO HNS[place] FORMULATION RY CBOC TD(ADULT) complet aventis ST. UNSPECIFIED 2002 ed [id number] [place] FORMULATION 0.5cc RY CBOC given IM in left deltoid PNEUMOCOCCAL, complet LITTLET UNSPECIFIED 2001 ed ON FORMULATION HO SPITA L INFLUENZA complet Site:Le ft WHITE (HISTORICAL) 2001 ed Deltoid [place] [facility] INFLUENZA complet Site:Le ft WHITE (HISTORICAL) 2000 ed Deltoid [place] [facility] FLU* complet WHITE (HISTORICAL) 1999 ed R IVER [place] [facility] TD(ADULT) complet W HAY UNSPECIFIED 1992 ed RI RAKESH FORMULATION MIS T VAM[facility] Results Combined list of recent chemistry, hematology and other laboratory results from Department of Defense and Veterans Affairs, ranging from 15 months to all on record, depending upon the facility. Order Results Value Reference Date Interpretation Specimen Commen ts Source Name Range CBC NO LEUKOCYTES 6.2 4.5 - 11.0 06/08 Specimen T ype: BLOOD WHITE DIFF [#/VOLUME] /2020 No comment en tered. [place] IN BLOOD Ordering Provider: LEANDRO JIMENEZ BY Report Released Date/Time: March 05, 2021 03:14 PM AUTOMATED Reporting Lab[facility] COUNT [address] [place] [facility] [place] [place] [address] Performing Lab: [place] [facility] [address] [place] [facility] [place] [address] CBC NO ERYTHROCYT 3.99 4.23 - 08 L Specimen Type : BLOOD WHITE DIFF ES 5.66 /2020 No comment enter ed. [place] [#/VOLUME] Ordering Provider: LEANDRO JIMENEZ IN BLOOD Report Released Date/Time: March 05, 2021 03:14 PM BY Reporting Lab: [place] [facility] AUTOMATED [address] [facility] [address] COUNT Performing Lab: [place] [facility] [address] [facility] [address] CBC NO HEMOGLOBIN 11.6 12.8 - 17 06/08 L Specimen Ty pe: BLOOD WHITE DIFF [MASS/VOLU /2020 No comment en tered. [place] ME] IN Ordering Provider: LEANDRO JIMENEZ BLOOD Report Released Date/Time: March 05, 2021 03:14 PM Reporting Lab: [place] [facility] [address] [facility] [address] Performing Lab: [place] [facility] [address] [facility] [address] CBC NO HEMATOCRIT 37.9 39.2 - 06/08 L Specimen Type : BLOOD WHITE DIFF [VOLUME 50.4 No comment enter ed. [place] FRACTION] Ordering Provider: LEANDRO JIMENEZ OF BLOOD Report Released Date/Time: March 05, 2021 03:14 PM BY Reporting Lab: [place] [facility] AUTOMATED [address] [facility] [address] COUNT Performing Lab: [place] [facility] [address] [place] [facility] [place] [address] CBC NO MCV 95.0 82 - 99 06/08 Specimen Type: BLOOD WHITE DIFF [ENTITIC /2020 No comment ente red. [place] VOLUME] BY Ordering Provider: LEANDRO JIMENEZ AUTOMATED Report Released Date/Time: March 05, 2021 03:14 PM COUNT Reporting Lab: [place] [facility] [address] [facility] [address] Performing Lab: [place] [facility] [address] [facility] [address] CBC NO MCH 29.1 26.2 - 06/08 Specimen Type: BLOOD WHITE DIFF [ENTITIC 32.6 /2020 No comment ente red. [place] MASS] BY Ordering Provider: LEANDRO JIMENEZ AUTOMATED Report Released Date/Time: March 05, 2021 03:14 PM COUNT Reporting Lab: [place] [facility] [address] [place] [facility] [place] [address] Performing Lab: [place] [facility] [address] [facility] [address] CBC NO MCHC 30.6 30.8 - 06/08 L Specimen Type: BLOOD WHITE DIFF [MASS/VOLU 35.1 /2020 No comment en tered. [place] ME] BY Ordering Provider: LEANDRO JIMENEZ AUTOMATED Report Released Date/Time: March 05, 2021 03:14 PM COUNT Reporting Lab: [place] [facility] [address] [facility] [address] Performing Lab: [place] [facility] [address] [facility] [address] CBC NO PLATELETS 225 140 - 360 06/08 Specimen Typ e: BLOOD WHITE DIFF [#/VOLUME] /2020 No comment en tered. [place] IN BLOOD Ordering Provider: LEANDRO JIMENEZ BY Report Released Date/Time: March 05, 2021 03:14 PM AUTOMATED Reporting Lab: [place] [facility] COUNT [address] [place] [facility] [place] [address] Performing Lab: [place] [facility] [address] [place] [facility] [place] [address] CBC NO PLATELET 9.4 9.2 - 12.4 06/08 Specimen Typ e: BLOOD WHITE DIFF MEAN /2020 No comment enter ed. [place] VOLUME Ordering Provider: LEANDRO JIMENEZ [ENTITIC Report Released Date/Time: March 05, 2021 03:14 PM VOLUME] IN Reporting Lab: [place] [facility] BLOOD BY [address] [place] [facility] [place] [address] AUTOMATED Performing Lab: [place] [facility] COUNT [address] [place] [facility] [place] [address] CBC NO ERYTHROCYT 15.3 12.0 - 06/08 Specimen Type : BLOOD WHITE DIFF E 16.0 /2020 No comment enter ed. [place] DISTRIBUTI Ordering Provider: LEANDRO JIMENEZ ON WIDTH Report Released Date/Time: March 05, 2021 03:14 PM [RATIO] BY Reporting Lab: [place] [facility] AUTOMATED [address] [facility] [place] [address] COUNT Performing Lab: [place] [facility] [address] [facility] [address] CREATINI CREATININE 1.13 0.5 - 1.5 06/08 Specimen T ype: PLASMA WHITE NE WITH [MASS/VOLU /2020 Comment: Tests performed on [employer] (405) [id number] [place] eGFR ME] IN Ordering Provider: LEANDRO JIMENEZ PANEL SERUM OR Report Released Date/Time: March 05, 2021 03:14 PM PLASMA Reporting Lab: [place] [facility] [address] [facility] [address] Performing Lab: [place] [facility] [address] [place] [facility] [place] [address] CREATINI GLOMERULAR 62 60 06/08 Specimen Typ e: PLASMA WHITE NE WITH FILTRATION /2020 Comment: Tests performed on [employer] (405) SN:[id number] [place] eGFR RATE/1.73 Ordering Provider: LEANDRO JIMENEZ PANEL SQ Report Released Date/Time: March 05, 2021 03:14 PM M.PREDICTE Reporting Lab: [place] [facility] D [VOLUME [address] [facility] [place] [address] RATE/AREA] Performing Lab: [place] [facility] IN SERUM [address] [facility] [place] [address] OR PLASMA BY CREATININE -BASED FORMULA (MDRD) URINALYS COLOR OF Yellow 03/04 Specimen Type: URINE [address] IS URINE /[address] [facility] W/REFLEX Ordering Provider: EMANI URIOSTEGUI CBOC TO Report Released Date/Time: March 04, 2021 09:41 AM CULTURE Reporting Lab: [place] [facility] [address] [facility] [place] [address] Performing Lab: [place] [facility] [address] [facility] [place] [address] URINALYS SPECIFIC 1.014 1.003 - 03/04 Specimen Type: URINE [address] IS GRAVITY OF 1.030 /2020 No comment en tered. ZULEMABURY W/REFLEX URINE BY Ordering Provider: EMANI URIOSTEGUI TO REFRACTOME Report Released Date/Time: March 04, 2021 09:41 AM CULTURE TRY Reporting Lab: [place] [facility] [address] [facility] [place] [address] Performing Lab: [place] [facility] [address] [facility] [place] [address] URINALYS UROBILINOG <2.0 <2.0 - 2.0 03/04 Specimen Type: URINE ST. IS EN /2020 No comment enter ed. [place] W/REFLEX [MASS/VOLU Ordering Provider: EMANI URIOSTEGUI TO ME] IN Report Released Date/Time: March 04, 2021 09:41 AM CULTURE URINE Reporting Lab: [place] [facility] [address] [facility] [place] [address] Performing Lab: [place] [facility] [address] [facility] [place] [address] URINALYS BILIRUBIN. NEG 03/04 Specimen Typ e: URINE ST. IS TOTAL /2020 No comment enter ed. [place] W/REFLEX [PRESENCE] Ordering Provider: EMANI URIOSTEGUI TO IN URINE Report Released Date/Time: March 04, 2021 09:41 AM CULTURE BY TEST Reporting Lab: [place] [facility] STRIP [address] [facility] [place] [address] Performing Lab: [place] [facility] [address] [facility] [place] [address] URINALYS KETONES NEG 03/04 Specimen Type: URINE [address] IS [PRESENCE] /2020 No comment en tered. ZULEMABURY W/REFLEX IN URINE Ordering Provider: EMANI URIOSTEGUI TO Report Released Date/Time: March 04, 2021 09:41 AM CULTURE Reporting Lab: [place] [facility] [address] [facility] [place] [address] Performing Lab: [place] [facility] [address] [facility] [place] [address] URINALYS GLUCOSE NEG 03/04 Specimen Type: URINE [address] IS [MASS/VOLU /2020 No comment en tered. [place] W/REFLEX ME] IN Ordering Provider: EMANI URIOSTEGUI CBOC TO URINE BY Report Released Date/Time: March 04, 2021 09:41 AM CULTURE TEST STRIP Reporting Lab: [place] [facility] [address] [facility] [place] [address] Performing Lab: [place] [facility] [address] [facility] [place] [address] URINALYS PROTEIN NEG 03/04 Specimen Type: URINE [address] IS [MASS/VOLU /2020 No comment en tered. ZULEMABURY W/REFLEX ME] IN Ordering Provider: EMANI URIOSTEGUI CBOC TO URINE BY Report Released Date/Time: March 04, 2021 09:41 AM CULTURE TEST STRIP Reporting Lab: [place] [facility] [address] [facility] [place] [address] Performing Lab: [place] [facility] [address] [facility] [place] [address] URINALYS PH OF 5.0 5 - 8 03/04 [address]: [address] IS URINE BY /2020 No comment ente red. KADE W/REFLEX TEST STRIP Ordering Provider: EMANI URIOSTEGUI CBOC TO Report Released Date/Time: March 04, 2021 09:41 AM CULTURE Reporting Lab: [place] [facility] [address] [facility] [place] [address] Performing Lab: [place] [facility] [address] [facility] [place] [facility] [place] [address] URINALYS APPEARANCE HAZY 03/04 Specimen Typ e: URINE ST. IS OF URINE /2020 No comment ente elmira. ZULEMABURY W/REFLEX Ordering Provider: EMANI URIOSTEGUI CBOC TO Report Released Date/Time: March 04, 2021 09:41 AM CULTURE Reporting Lab: [place] [facility] [address] [facility] [place] [address] Performing Lab: [place] [facility] [address] [facility] [place] [address] URINALYS HEMOGLOBIN NEG 03/04 Specimen Typ e: URINE ST. IS [PRESENCE] /2020 No comment en thanh. ZULEMABURY W/REFLEX IN URINE Ordering Provider: EMANI URIOSTEGUI [facility] TO Report Released Date/Time: March 04, 2021 09:41 AM CULTURE Reporting Lab: [facility] [address] [facility] [place] [address] Performing Lab: [facility] [address] [facility] [address] URINALYS NITRITE NEG 03/04 Specimen Type: URINE [address] IS [PRESENCE] /2020 No comment en tered. KADE W/REFLEX IN URINE Ordering Provider: EMANI URIOSTEGUI TO BY TEST Report Released Date/Time: March 04, 2021 09:41 AM CULTURE STRIP Reporting Lab: [facility] [address] [facility] [address] Performing Lab: [facility] [address] [facility] [address] URINALYS LEUKOCYTES NEG 03/04 Specimen Typ e: URINE ST. IS [PRESENCE] /2020 No comment en tered. KADE W/REFLEX IN URINE Ordering Provider: EMANI URIOSTEGUI TO Report Released Date/Time: March 04, 2021 09:41 AM CULTURE Reporting Lab: [facility] [address] [facility] [address] Performing Lab: [facility] [address] [facility] [address] VIT D CALCIFEROL 44.4 20 - 50 03/04 Specimen Type : SERUM ST. 25-OH(WR (VIT D2) /2020 Comment: Tests performed on [employer] (405) SN:[id number] TSH within normal limits. Reflex testing not required. KADE J) [MASS/VOLU Ordering Provider: EMANI URIOSTEGUI [place]] IN Report Released Date/Time: March 04, 2021 09:41 AM SERUM OR Reporting [facility] [address] [facility] [address] Performing Lab: [facility] [address] [facility] [address] THYROID THYROTROPI 2.06 0.35 - 03/04 Specimen Type : SERUM ST. TESTING N 5.00 Comment: Tests performed on [employer] (405) SN:[id number] TSH within normal limits. Reflex testing not required. KADE CASCADE [UNITS/VOL Ordering Provider: EMANI URIOSTEGUI UME] IN Report Released Date/Time: March 04, 2021 09:41 AM SERUM OR Reporting Lab: [facility] PLASMA [address] [place] [facility] [place] [address] Performing Lab: [facility] [place] [facility] [address] [place] [facility] [place] [address] THYROID REFLEX comment 03/04 Specimen Type: SERUM ST. TESTING TESTING /2020 Comment: Tests performed on [employer] (405) SN:[id number] TSH within normal limits. Reflex testing not required. [facility] Ordering Provider: EMANI URIOSTEGUI Report Released Date/Time: March 04, 2021 09:41 AM Reporting Lab: [facility] [address] [place] [facility] [place] [address] Performing Lab: [facility] [address] [facility] [address] LIPOPROT CHOLESTERO 99 0 - 199 03/04 Specimen Typ e: PLASMA ST. E[facility] L /2020 Comment: Tests performed on [employer] (405) SN:[id number] [facility] CHOLESTE [MASS/VOLU Ordering Provider: EMAIN URIOSTEGUI [facility]] IN Report Released Date/Time: March 04, 2021 09:41 AM FRACT. SERUM OR Reporting Lab: [facility] PANEL PLASMA [address] [facility] [place] [address] Performing Lab: [facility] [address] [place] [facility] [place] [address] LIPOPROT TRIGLYCERI 105 0 - 149 03/04 Specimen Typ e: PLASMA [facility] DE /2020 Comment: Tests performed on [employer] (405) SN:[id number] [facility] CHOLESTE [MASS/VOLU Ordering Provider: EMANI URIOSTEGUI [facility]] IN Report Released Date/Time: March 04, 2021 09:41 AM FRACT. SERUM OR Reporting Lab: [facility] PANEL PLASMA [address] [facility] [place] [address] Performing Lab: [facility] [address] [place] [facility] [place] [address] LIPOPROT CHOLESTERO 33 40 05/ L Specimen Typ e: PLASMA ST. EIN L IN HDL /2020 Comment: Tests performed on [employer] (405) SN:[id number] [facility] CHOLESTE [MASS/VOLU Ordering Provider: EMANI URIOSTEGUI [facility] ROL ME] IN Report Released Date/Time: March 04, 2021 09:41 AM FRACT. SERUM OR Reporting Lab: [facility] PANEL PLASMA [address] [facility] [address] Performing Lab: [facility] [address] [facility] [address] LIPOPROT CHOLESTERO 45 0 - 129 03/04 Specimen Typ e: PLASMA ST. EIN L IN LDL /2020 Comment: Tests performed on [employer] (405) SN:[id number] [facility] CHOLESTE [MASS/VOLU Ordering Provider: EMANI URIOSTEGUI [facility] ROL ME] IN Report Released Date/Time: March 04, 2021 09:41 AM FRACT. SERUM OR Reporting Lab: [facility] PANEL PLASMA BY [address] [facility] [address] CALCULATIO Performing Lab: [facility] N [address] [facility] [address] ALT(SGPT ALANINE 26 7 - 52 03/04 Specimen Type: PLASMA WHITE ) AMINOTRANS /2020 Comment: Tests performed on [employer] (405) SN:[id number] [place] [facility] Ordering Provider: LEANDRO JIMENEZ [ENZYMATIC Report Released Date/Time: Feb 04, 2021 01:39 PM ACTIVITY/V Reporting Lab: [facility] OLUME] IN [address] [facility] [address] SERUM OR Performing Lab: [facility] PLASMA [address] [facility] [address] AST(SGOT ASPARTATE 17 5 - 34 03/04 Specimen Type : PLASMA WHITE ) AMINOTRANS /2020 Comment: Tests performed on [employer] (405) SN:[id number] [place] Ordering Provider: LEANDRO JIMENEZ [ENZYMATIC Report Released Date/Time: Feb 04, 2021 01:39 PM ACTIVITY/V Reporting Lab: [facility] OLUME] IN [address] [facility] [address] SERUM OR Performing Lab: [facility] PLASMA [address] [facility] [address] CREATINI CREATININE 1.38 0.5 - 1.5 03/04 Specimen T ype: PLASMA WHITE NE WITH [MASS/VOLU /2020 Comment: Tests performed on [employer] (405) SN:[id number] [place] eGFR ME] IN Ordering Provider: LEANDRO JIMENEZOC PANEL SERUM OR Report Released Date/Time: Feb 04, 2021 01:39 PM PLASMA Reporting Lab: [facility] [place] [facility] [address] [place] [facility] [place] [address] Performing Lab: [facility] [address] [facility] [address] CREATINI GLOMERULAR 49 60 03/04 L Specimen Typ e: PLASMA WHITE NE WITH FILTRATION /2020 Comment: Tests performed on [employer] (405) SN:[id number] [place] eGFR RATE/1.73 Ordering Provider: LEANDRO JIMENEZOC PANEL SQ Report Released Date/Time: Feb 04, 2021 01:39 PM M.PREDICTE Reporting Lab: [facility] [place] [place] [facility] D [VOLUME [address] [facility] [address] RATE/AREA] Performing Lab: [facility] IN SERUM [address] [facility] [address] OR PLASMA BY CREATININE -BASED FORMULA (MDRD) CBC NO LEUKOCYTES 7.5 4.5 - 11.0 03/04 Specimen T ype: BLOOD WHITE DIFF [#/VOLUME] /2020 No comment en tered. [place] IN BLOOD Ordering Provider: LEANDRO JIMENEZOC BY Report Released Date/Time: Feb 04, 2021 01:39 PM AUTOMATED Reporting Lab: [facility] [place] [place] [facility] COUNT [address] [place] [facility] [place] [address] Performing Lab: [facility] [address] [place] [facility] [place] [address] CBC NO ERYTHROCYT 3.98 4.23 - 03/04 L Specimen Type : BLOOD WHITE DIFF ES 5.66 /2020 No comment enter ed. [place] [#/VOLUME] Ordering Provider: LEANDRO JIMENEZMROC IN BLOOD Report Released Date/Time: Feb 04, 2021 01:39 PM BY Reporting Lab: [facility] [place] [facility] AUTOMATED [address] [facility] [place] [address] COUNT Performing Lab: [facility] [address] [facility] [address] CBC NO HEMOGLOBIN 11.7 12.8 - 17 03/04 L Specimen Ty pe: BLOOD WHITE DIFF [MASS/VOLU /2020 No comment en tered. [place] ME] IN Ordering Provider: LEANDRO JIMENEZ BLOOD Report Released Date/Time: Feb 04, 2021 01:39 PM Reporting Lab: [facility] [address] [facility] [address] Performing Lab: [facility] [address] [facility] [address] CBC NO HEMATOCRIT 38.7 39.2 - 03/04 L Specimen Type : BLOOD WHITE DIFF [VOLUME 50.4 No comment enter ed. [place] FRACTION] Ordering Provider: LEANDRO JIMENEZ OF BLOOD Report Released Date/Time: Feb 04, 2021 01:39 PM BY Reporting Lab: [facility] AUTOMATED [address] [facility] [address] COUNT Performing Lab: [facility] [address] [facility] [address] CBC NO MCV 97.2 82 - 99 03/04 Specimen Type: BLOOD WHITE DIFF [ENTITIC /2020 No comment ente red. [place] VOLUME] BY Ordering Provider: LEANDRO JIMENEZ AUTOMATED Report Released Date/Time: Feb 04, 2021 01:39 PM COUNT Reporting Lab: [facility] [address] [facility] [address] Performing Lab: [facility] [address] [facility] [address] CBC NO MCH 29.4 26.2 - 03/04 Specimen Type: BLOOD WHITE DIFF [ENTITIC 32.6 No comment ente red. [place] MASS] BY Ordering Provider: LEANDRO JIMENEZ AUTOMATED Report Released Date/Time: Feb 04, 2021 01:39 PM COUNT Reporting Lab: [facility] [address] [facility] [address] Performing Lab: [facility] [address] [facility] [address] CBC NO MCHC 30.2 30.8 - 03/04 L Specimen Type: BLOOD WHITE DIFF [MASS/VOLU 35.1 /2020 No comment en tered. [place] ME] BY Ordering Provider: LEANDRO JIMENEZ AUTOMATED Report Released Date/Time: Feb 04, 2021 01:39 PM COUNT Reporting Lab: [facility] [address] [place] [facility] [place] [address] Performing Lab: [facility] [address] [place] [facility] [place] [address] CBC NO PLATELETS 283 140 - 360 03/04 Specimen Typ e: BLOOD WHITE DIFF [#/VOLUME] /2020 No comment en tered. [place] IN BLOOD Ordering Provider: LEANDRO JIMENEZ BY Report Released Date/Time: Feb 04, 2021 01:39 PM AUTOMATED Reporting Lab: [facility] COUNT [address] [place] [facility] [place] [address] Performing Lab: [facility] [address] [place] [facility] [place] [address] CBC NO PLATELET 9.0 9.2 - 12.4 03/04 L Specimen Typ e: BLOOD WHITE DIFF MEAN /2020 No comment enter ed. [place] VOLUME Ordering Provider: LEANDRO JIMENEZ [ENTITIC Report Released Date/Time: Feb 04, 2021 01:39 PM VOLUME] IN Reporting Lab: [facility] [facility] BLOOD BY [address] [place] [facility] [place] [address] AUTOMATED Performing Lab: [facility] COUNT [address] [place] [facility] [place] [address] CBC NO ERYTHROCYT 13.5 12.0 - 03/04 Specimen Type : BLOOD WHITE DIFF E 16.0 /2020 No comment enter ed. [place] DISTRIBUTI Ordering Provider: LEANDRO JIMENEZ ON WIDTH Report Released Date/Time: Feb 04, 2021 01:39 PM [RATIO] BY Reporting Lab: [facility] AUTOMATED [address] [place] [facility] [place] [address] COUNT Performing Lab: [facility] [address] [place] [facility] [place] [address] Vital Signs Combined list of inpatient and outpatient Vital Signs from Department of Defense and Veterans Affairs, ranging from 12 months to all on record, depending upon the facility. Vital Sign Value Date Comments Source SYSTOLIC BLOOD 135 03/04/2021 [facility] PRESSURE 08:15:05 DIASTOLIC BLOOD 68 03/04/2021 [facility] PRESSURE 08:15:05 PULSE OXIMETRY 98 03/04/2021 [facility] 08:15:05 WEIGHT 215 03/04/2021 [facility] 08:[facility]:05 BMI 29kg/m2 03/04/2021 [facility] 08:15:05 PAIN 0 03/04/2021 [facility] C BOC 08:15:05 TEMPERATURE 96.7 03/04/2021 [facility] 08:15:05 PULSE 76 03/04/2021 [facility] C BOC 08:15:05 RESPIRATION 16 03/04/2021 [facility] C BOC 08:15:05 Encounters Combined list of: 1) Encounters from Department of Veterans Affairs facilities going back up to the last 18 months, not all VA inpatient encounters are included; 2) Encounters from the Department of Defense facilities going back up to 280 months. Location Location Encounter Encounter Reason Attending ADM DC Stat us Disposition Source Details Type Number For Provider Date Date Visit Outpatient [id number] 09/14 WHIT E Encounter [id number] /2020 [place] [facility] Out[facility] 12118-4.40 10/07 [facility] Encounter [id number] [place] [facility] Out[facility] 38949-4.40 10/30 [facility] Encounter [id number] [place] [facility] Outpatient [id number] 11/02 WHIT E Encounter [id number] /2021 [place] [facility] Outpatient [id number] 11/17 WHIT E Encounter [id number] /2020 [place] [facility] Outpatient 29963-7.40 11/26 WH[facility] Encounter [id number] [place] [facility] Outpatient 77948-1.40 12/16 [facility] Encounter [id number] [place] [facility] Outpatient 53229-3.40 12/16 [facility] Encounter [id number] [place] [facility] Outpatient 03639-2.40 01/23 [id number] [facility] 07304-3.40 01/25 [facility] Encounter [id number] /2020 [facility] 47474-0.40 01/27 [facility] En[facility] [id number] /2020 [facility] 53784-1.40 Diagnos CLEANA, 02/04 [facility] PHONE CALL [id number] is: DESIREE L RIVE R 21-30 MIN ICD-10- [place] CM [facility] I26.99 Other pulmona ry embolis m without acute cor pulmona le
with Provide r Comment s: PE - Pulmona ry embolis m (SCT [id number]) Outpatient [id number] 02/22 [id number] 30162-6.40 Diagnos PACO URIOSTEGUIU 03/04 [facility] [id number] is: RASHAD P JOHNS 40-54 MIN 61 ICD-10- [facility] CM I25.10 Athscl heart disease of [place] coronar y artery w/o ang pctrs<b r/>with Provide r Comment s: Atheros cleroti c Heart Disease of [place] Coronar y Artery without Angina Pectori s HC PRO 57467-0.40 Diagnos TONY, 03/05 [facility] PHONE CALL [id number] is: DESIREE L RIVE R 21-30 MIN ICD-10- [place] [facility] I26.99 Other pulmona ry embolis m without acute cor pulmona le
with Provide r Comment s: PE - Pulmona ry embolis m (SCT [id number]) Outpatient 25470-6.40 03/10 WH[facility] Encounter [id number] [facility] 25029-5.40 03/17 WHIT E Encounter [id number] /2021 [facility]AR[facility] 71188-3.40 Diagnos SWETHA, 04/[facility] [id number] is: SCAR A JOHNS REPAIR/MOD 00 ICD-10- [facility] IFYING CM Z46.1 Encount er for fitting and adjustm ent of hearing aid<br/ >with Provide r Comment s: Encount er for Fitting and Adjustm ent of Hearing Aid HC PRO 52142-7.40 Diagnos Pat KING 06/09 [facility] PHONE CALL [id number] is: GAGE RI RAKESH 21-30 MIN ICD-10- [place] [facility] Z51.81 Encount er for therape utic drug level monitor ing<br/ >with Provide r Comment s: Encount [place] [address]-3.40 Diagnos MAIKEL RODRIGUES 06/23 [facility] [id number] is: NATHAN [place] 15 MIN ICD-10- [place] [facility] 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
with Provide r Comment s: Type 2 diabete s mellitu s with mild nonprol iferati ve diabeti c retinop athy without macular edema, bilater al Outpatient [id number] 09/01 WH[facility] E Encounter [id number] [place] [facility] Outpatient 91086-1.40 12/29 WH[facility] [place] Encounter [id number] [place] [facility] Social History Combined list of available smoking, tobacco, and other social history from Department of Defense andVeterans Affairs facilities. Social History Response Date Comment Source Type Tobacco smoking VA-TOBACCO FORMER 03/04/2021 [facility] status NHIS USER History of VA-TOBACCO QUIT 15 03/04/2021 [facility] tobacco use YRS OR MORE History of VA-TOBACCO QUIT 15 02/11/2020 [facility] tobacco use YRS OR MORE History of VA-TOBACCO FORMER 08/14/2018 [facility] tobacco use USER History of QUIT TOBACCO USE > 08/14/2017 quit 31 years ago [facility] tobacco use 7 YEARS AGO CLINIC History of QUIT TOBACCO USE > 08/11/2016 hasn't smoked for [facility] YE[facility] A[facility] 30 years History of HISTORY OF SMOKING 02/07/2005 [facility] History of HISTORY OF SMOKING 02/23/2004 quit 20 years ago [facility] History of HISTORY OF SMOKING 01/29/2003 [facility] tobacco use History of HISTORY OF SMOKING 02/11/2002 [facility] tobacco use History of LIFETIME 01/22/2001 [facility] tobacco use NON-SMOKER Plan of Care List of future care activities from Department of Veterans Affairs facilities. Additional future care activities may be listed in the Assessment and Plan section. Date/Time Care Activity Care Activity Detail Facility 08/10/2022 AMBULATORY - SURGERY AMBULATORY - SURGERY [facility]
--- OUTSIDE RECORDS SUMMARY | 2022-02-20 01:24 | XMS_ITS | Encounter Summary ---
:1940 Author Organization Department [facility] Address [address] [place] [id number] Care Team Providers Name Role Phone EMANI [...] Carcamo [employer] MED[employer] Mar 23, PLAND [id number] [phone] [place] , PATIENT LIFE & PLAN D ARE 2003 73 4 DIONNE CASUALTY SUPPL CO [employer] PLAND Mar 23, PLAND [id number] [phone] [place] , PATIENT LIFE AND PLAN D 2003 73 0 [place] CASUALTY MEDICARE MEDICARE PART Jan 21, PART B [id number] [place]UR[place], PATIENT (WNR) (M) B 2003 31A 2 [place] MEDICARE MEDICARE PART Jan 21, PART A [id number] [place], PATIENT (WNR) (M) A 2003 31B 2 [place] MEDICARE MEDICARE PART Jan 21, PART A [id number] [place], PATIENT (WNR) (M) A 2003 CD13 2 [place] MEDICARE MEDICARE PART Jan 21, PART B [id number] [place], PATIENT (WNR) (M) B 2003 CD13 2 [place] MEDICARE MEDICARE PART Jan 21, PART B [id number] [place], PATIENT (WNR) (M) B 2003 CD13 2 [place] MEDICARE MEDICARE PART Jan 21, PART A [id number] [place], PATIENT (WNR) (M) A 2003 CD13 2 DIONNE Selected Encounter This section includes the information on record at [place] for the Encounter. Date/Time Encounter Type Encounter Description Reason Provider Source February 22, 2021 09:14 Outpatient Encounter TELEPHONE TRIAGE AM IHE Encounter Template Text not used by [place] Plan of Treatment: Future Appointments (+ 6 months) and Future Tests (+/- 45 days) The Plan of Treatment section includes future care activities for the patient from all [place] treatment facilities. This section includes future appointments and future orders which are active, pending or scheduled.Future Appointments This section includes appointments that were scheduled to occur 6 months from the date of the Encounter, up to a maximum of 20 appointments. The data comes from all [facility]. Appointment Date/Time Appointment Type Appointment Facili ty Name March 04, 2021 08:30 AM AMBULATORY - MEDICINE [facility] March 05, 2021 02:45 PM AMBULATORY - MEDICINE [facility] March 08, 2021 08:00 AM AMBULATORY - NONE [facility] Apr 07, 2021 09:00 AM AMBULATORY - REHAB MEDICINE [facility] Apr 21, 2021 02:00 PM AMBULATORY - [facility] MEDICINE [facility] Jun 08, 2021 08:30 AM AM[facility]ULATORY - NONE [facility] Jun 09, 2021 06:15 PM [facility] Jun 15, 2021 09:00 AM [facility] Aug 18, 2021 09:30 AM [facility] Active, Pending, and Scheduled Orders This section includes a listing of several types of active, pending, and scheduled orders, including clinic medications orders, diagnostic test orders, procedure orders and consult orders; where the start date of the order is 45 days before the date of the Encounter or 45 days after the date of the Encounter. The data comes from all [place] treatment facilities. Test Date/Time Test Type Test Details Facility Name March 04, 2021 09:31 AM Consult Order EYE CONSULT OUTPATIENT Con s [facility] Architecture Consultant's Choice March 04, 2021 09:38 AM Consult Order COMMUNITY CARE-CARDIAC [facility] REHABILITATION Cons Architecture Consultant's Choice Lab Results: +/- 30 days of [...] Reference Range Comment March 04, 2021 09:51 [facility] URINALYSIS W/REFLEX TO Specimen Type: URINE AM CULTURE No comment enter ed. Ordering Provider: EMANI URIOSTEGUI Report Released Date/Time: March 04, 2021 09:41 AM Reporting Lab: [facility] [address] [facility] [address] Performing Lab: [facility] [address] [facility] [address] URINE COLOR Yellow YELLOW SPECIFIC GRAVITY 1.014 1.003-1.030 UROBILINOGEN <2.0 <2.0 URINE BILIRUBIN NEG NEG URINE KETONES NEG NEG URINE GLUCOSE NEG NEG PROTEIN, URINE NEG NEG URINE PH 5.0 5-8 CLARITY HAZY Clear URINE BLOOD NEG NEG NITRITE, URINE NEG NEG WBC SCREEN NEG NEG March 04, 2021 09:51 AM [facility] VIT D 25-OH(WRJ) Specimen Type: SERUM Comment: Tests performed on Purple (405) SN:[id number] TSH within normal limits. Reflex testing not required. Ordering Provider: EMANI URIOSTEGUI Report Released Date/Time: March 04, 2021 09:41 AM Reporting Lab: [facility] [address] [facility] [address] Performing Lab: [facility] [address] [facility] [address] VIT D 25-OH(WRJ) 44.4 20-50 March 04, 2021 09:51 [facility] THYROID TESTING Specimen Type: SERUM AM CASCADE Comment: Tests performed on Purple (405) SN:[id number] TSH within normal limits. Reflex testing not required. Ordering Provider: EMANI URIOSTEGUI Report Released Date/Time: March 04, 2021 09:41 AM Reporting Lab: [facility] [address] [facility] [address] Performing Lab: [facility] [address] [facility] [address] TSH 2.06 0.35-5.00 REFLEX TESTING comment March 04, 2021 09:51 [facility] LIPOPROTEIN CHOLESTEROL Specimen Type: PLASMA AM FRACT. PANEL Comment: Tests performed on [employer] In Store Marketing Associate (405) SN:[id number] Ordering Provider: EMANI URIOSTEGUI Report Released Date/Time: March 04, 2021 09:41 AM Reporting Lab: [facility] [address] [facility] [address] Performing Lab: [facility] [address] [facility] [address] CHOLESTEROL 99 0-199 TRIGLYCERIDE 105 0-149 HDL CHOLESTEROL 33 L >40 LDL CHOLESTEROL (CALC) 45 0-129 March 04, 2021 09:51 AM [facility] [place] [facility] [facility] ALT(SGPT) Specimen Type: PLASMA Comment: Tests performed on [employer] Associate (405) SN:[id number] Ordering Provider: LEANDRO JIMENEZ Report Released Date/Time: Feb 04, 2021 01:39 PM Reporting Lab: [facility] [place] [facility] [address] [place] [facility] [place] [address] Performing Lab: [facility] [address] [facility] [address] ALT(SGPT) 26 7-52 March 04, 2021 09:51 AM [facility] AST(SGOT) Specimen Type: PLASMA Comment: Tests performed on [employer] In Store Marketing Associate (405) SN:[id number] Ordering Provider: LEANDRO JIMENEZ Report Released Date/Time: Feb 04, 2021 01:39 PM Reporting Lab: [place] [facility] [facility] [address] [facility] [address] Performing Lab: [facility] [place] [place] [facility] [address] [facility] [address] AST(SGOT) 17 5-34 March 04, 2021 09:51 [place] CREATININE WITH eGFR Specimen Type: PLASMA AM [facility] PANEL Comment: Tests performed on [employer] Store Marketing Associate (405) SN:[id number] Ordering Provider: LEANDRO JIMENEZ Report Released Date/Time: Feb 04, 2021 01:39 PM Reporting Lab: [facility] [address] [facility] [address] Performing Lab: [facility] [address] [facility] [address] CREATININE 1.38 0.5-1.5 eGFR 49 L >60 March 04, 2021 09:51 AM [facility] CBC NO DIFF Specimen Type: BLOOD No comment enter ed. Ordering Provider: LEANDRO JIMENEZ Report Released Date/Time: Feb 04, 2021 01:39 PM Reporting Lab: [facility] [address] [facility] [address] Performing Lab: [facility] [address] [facility] [address] WBC 7.5 4.5-11.0 RBC 3.98 L 4.23-5.66 HGB 11.7 L 12.8-17 HEMATOCRIT 38.7 L 39.2-50.4 MCV 97.2 82-99 MCH 29.4 26.2-32.6 MCHC 30.2 L 30.8-35.1 PLT 283 140-360 MPV 9.0 L 9.2-12.4 RDW 13.5 12.0-16.0 March 04, 2021 [facility] GLYCOHEMOGLOBIN (A1C ONLY) Specimen Type: BLOOD 09:51 AM Comment: Tests performed on [employer] Associate (405) SN:[id number] Ordering Provider: EMANI URIOSTEGUI Report Released Date/Time: March 04, 2021 09:31 AM Reporting Lab: [facility] [address] [facility] [address] Performing Lab: [facility] [address] [facility] [address] HEMOGLOBIN A1C 6.1 H 4.0-5.6 March 04, 2021 [facility] MICROALBUMIN/CREATININE RATIO Specimen Type: URINE 09:51 AM PANEL Comment: Tests performed on [employer] In Store Marketing Associate (405) SN:[id number] Ordering Provider: EMANI URIOSTEGUI Report Released Date/Time: March 04, 2021 09:41 AM Reporting Lab: [facility] [address] [facility] [address] Performing Lab: [facility] [address] [facility] [address] CREATININE (URINE,RANDOM) 87.3 MICROALBUMIN, QUANTITATIVE 0.8 0.0 -29.9 MICROALBUMIN/CREATININE RATIO 9.2 0.0-29.9 Encounter Notes: All associated encounter notes This section contains the clinical notes associated to the Encounter. Date/Time Encounter Note(s) Provider Source February 22, 2021 09:14 AM PRIMARY CARE MEDICATION MGT NOTE: MENDY RUIZ [facility] LOCAL TITLE: Medication Note STANDARD TITLE: PRIMARY CARE MEDICATION MGT NOTE DATE OF NOTE: FEBRUARY 22, 2021@09:14 ENTRY DATE: FEBRUARY 22, 2021@09:15:02 AUTHOR: MELLISSA RUIZ EXP COSIGNER: URGENCY: STATUS: COMPLETED Medication Note Has ADDENDA Patient is calling for medication refill or edilberto wal: Medication name: EZETIMIBE TAB 10MG TAKE ONE TABLET BY MOUTH EVERY DAY TO LOWER CHOL ESTEROL [X]Med [X]Med Refill How many days left? week Do you need any other medications renewed? [ X [facility] for REGULAR SUPPLY [ ] Non-VA pharmacy for SHORT SUPPLY only What Pharmacy do you use? Pharmacy phone number? Pharmacy Fax number? FUTURE APPOINTMENTS Future Appointments - February@08:30 LIT PACT C February@14:45 [facility] ANTICO 2 PHONE /angela/ MELLISSA RUIZ AMSA Signed: 02/22/2021 09:16 Receipt Acknowledged By: 02/22/2021 09:33 /es/ GAEL OLIVA * AWAITING SIGNATURE * SHERRI MCCULLOUGH * AWAITING SIGNATURE * ELIO THAO * AWAITING SIGNATURE * EMANI URIOSTEGUI 02/22/2021 ADDENDUM STATUS: COMPLETED please renew /angela/ GAEL OLIVA Signed: 02/22/2021 09:30
--- OUTSIDE RECORDS SUMMARY | 2022-02-20 01:25 | XMS_ITS ---
:1940 Author Organization [facility] Address [address] [place] [address] Care Team Providers Name Role Phone EMANI [...] Carcamo [employer] Mar 23, PLAND [id number] [phone] [place] , PATIENT LIFE & PLAN D ARE 2003 73 4 DIONNE CASUALTY SUPPL CO [employer] PLAND Mar 23, PLAND [id number] [phone] [place] , PATIENT LIFE AND PLAN D 2003 73 0 D[employer]NE CASUALTY MEDICARE MEDICARE PART Jan 21, PART B [id number] [place]URST [place], PATIENT (WNR) (M) B 2003 31A 2 [place] MEDICARE MEDICARE PART Jan 21, PART A [id number] [place], PATIENT (WNR) (M) A 2003 31B 2 [place] MEDICARE MEDICARE PART Jan 21, PART A [id number] [place], PATIENT (WNR) (M) A 2003 CD13 2 [place] MEDICARE MEDICARE PART Jan 21, PART B [id number] [place], PATIENT (WNR) (M) B 2003 CD13 2 [place] MEDICARE MEDICARE PART Jan 21, PART B [id number] [place], PATIENT (WNR) (M) B 2003 CD13 2 [place] MEDICARE MEDICARE PART Jan 21, PART A [id number] [place]URST [place], PATIENT (WNR) (M) A 2003 CD13 2 DIONNE Selected Encounter This section includes the information on record at [place] for the Encounter. Date/Time Encounter Type Encounter Description Reason Provider Source March 10, 2021 01:27 Outpatient Encounter PRIMARY CARE/MEDICINE PM IHE Encounter Template Text not used by [place] Plan of Treatment: Future Appointments (+ 6 months) and Future Tests (+/- 45 days) The Plan of Treatment section includes future care activities for the patient from all [place] treatment facilities. This section includes future appointments and future orders which are active, pending or scheduled.Future Appointments This section includes appointments that were scheduled to occur 6 months from the date of the Encounter, up to a maximum of 20 appointments. The data comes from all [facility]. Appointment Date/Time Appointment Type Appointment Facili ty Name Apr 07, 2021 09:00 AM AMBULATORY - REHAB MEDICINE [facility] Apr 21, 2021 02:00 PM AMBULATORY - REHAB MEDICINE [facility] Jun 08, 2021 08:30 AM AMBULATORY - NONE [facility] Jun 09, 2021 06:15 PM [facility] Jun 15, 2021 09:00 AM AMBULATORY - NONE [facility] Aug 18, 2021 09:30 AM AMBULATORY - SURGERY [facility] Active, Pending, and Scheduled Orders This section includes a listing of several types of active, pending, and scheduled orders, including clinic medications orders, diagnostic test orders, procedure orders and consult orders; where the start date of the order is 45 days before the date of the Encounter or 45 days after the date of the Encounter. The data comes from all [place] treatment facilities. Test Date/Time Test Type Test Details Facility Name March 04, 2021 09:31 AM Consult Order EYE CONSULT OUTPATIENT Con s [facility] Senior Mechanical Development Engineer's Choice March 04, 2021 09:38 AM Consult Order COMMUNITY CARE-CARDIAC [facility] RE[facility]ILITATION Cons Senior Mechanical Development Engineer's Choice Lab Results: +/- 30 days of [...] Reference Range Comment March 04, 2021 09:51 [facility] URINALYSIS W/REFLEX TO Specimen Type: URINE AM CULTURE No comment enter ed. Ordering Provider: EMANI URIOSTEGUI Report Released Date/Time: March 04, 2021 09:41 AM Reporting Lab: [facility] [address] [facility] [address] Performing Lab: [facility] [address] [facility] [address] URINE COLOR Yellow YELLOW SPECIFIC GRAVITY 1.014 1.003-1.030 UROBILINOGEN <2.0 <2.0 URINE BILIRUBIN NEG NEG URINE KETONES NEG NEG URINE GLUCOSE NEG NEG PROTEIN, URINE NEG NEG URINE PH 5.0 5-8 CLARITY HAZY Clear URINE BLOOD NEG NEG NITRITE, URINE NEG NEG WBC SCREEN NEG NEG March 04, 2021 09:[address] [facility] VIT D 25-OH([facility]) Specimen Type: SERUM Comment: Tests performed on [employer] (405) SN:[id number] TSH within normal limits. Reflex testing not required. Ordering Provider: EMANI URIOSTEGUI Report Released Date/Time: March 04, 2021 09:41 AM Reporting Lab: [facility] [address] [facility] [address] Performing Lab: [facility] [address] [facility] [address] VIT D 25-OH([facility]) 44.4 20-50 March 04, 2021 09:51 [facility] THYROID TESTING Specimen Type: SERUM AM CASCADE Comment: Tests performed on [employer] Registered Respiratory Technician (405) SN:[id number] TSH within normal limits. Reflex testing not required. Ordering Provider: EMANI URIOSTEGUI Report Released Date/Time: March 04, 2021 09:41 AM Reporting Lab: [facility] [address] [facility] [address] Performing Lab: [facility] [address] [facility] [place] [address] TSH 2.06 0.35-5.00 REFLEX TESTING comment March 04, 2021 09:51 [facility] LIPOPROTEIN CHOLESTEROL Specimen Type: PLASMA AM FRACT. PANEL Comment: Tests performed on [employer] Registered Respiratory Technician (405) SN:[id number] Ordering Provider: EMANI URIOSTEGUI Report Released Date/Time: March 04, 2021 09:41 AM Reporting Lab: [facility] [address] [facility] [address] Performing Lab: [facility] [address] [facility] [address] CHOLESTEROL 99 0-199 TRIGLYCERIDE 105 0-149 HDL CHOLESTEROL 33 L >40 LDL CHOLESTEROL (CALC) 45 0-129 March 04, 2021 09:51 AM [facility] [facility] ALT(SGPT) Specimen Type: PLASMA Comment: Tests performed on [employer] Registered Respiratory Technician (405) SN:[id number] Ordering Provider: LEANDRO JIMENEZ Report Released Date/Time: Feb 04, 2021 01:39 PM Reporting Lab: [facility] [address] [facility] [place] [address] Performing Lab: [facility] [address] [facility] [address] ALT(SGPT) 26 7-52 March 04, 2021 09:51 AM [facility] AST(SGOT) Specimen Type: PLASMA Comment: Tests performed on [employer] Registered Respiratory Technician (405) SN:[id number] Ordering Provider: LEANDRO JIMENEZ Report Released Date/Time: Feb 04, 2021 01:39 PM Reporting Lab: [facility] [address] [facility] [place] [address] Performing Lab: [facility] [address] [facility] [address] AST(SGOT) 17 5-34 March 04, 2021 09:51 [place] CREATININE WITH eGFR Specimen Type: PLASMA [facility] PANEL Comment: Tests performed on [employer] Registered Respiratory Technician (405) SN:[id number] Ordering Provider: LEANDRO JIMENEZ Report Released Date/Time: Feb 04, 2021 01:39 PM Reporting Lab: [facility] [address] [facility] [address] Performing Lab: [facility] [address] [facility] [address] CREATININE 1.38 0.5-1.5 eGFR 49 L >60 March 04, 2021 09:51 AM [facility] CBC NO DIFF Specimen Type: BLOOD No comment enter ed. Ordering Provider: LEANDRO JIMENEZ Report Released Date/Time: Feb 04, 2021 01:39 PM Reporting Lab: [facility] [address] [facility] [address] Performing Lab: [facility] [address] [facility] [address] WBC 7.5 4.5-11.0 RBC 3.98 L 4.23-5.66 HGB 11.7 L 12.8-17 HEMATOCRIT 38.7 L 39.2-50.4 MCV 97.2 82-99 MCH 29.4 26.2-32.6 MCHC 30.2 L 30.8-35.1 PLT 283 140-360 MPV 9.0 L 9.2-12.4 RDW 13.5 12.0-16.0 March 04, 2021 [facility] GLYCOHEMOGLOBIN (A1C ONLY) Specimen Type: BLOOD 09:51 AM Comment: Tests performed on [employer] (405) SN:[id number] Ordering Provider: EMANI URIOSTEGUI Report Released Date/Time: March 04, 2021 09:31 AM Reporting Lab: [facility] [address] [facility] [address] Performing Lab: [facility] [address] [facility] [address] HEMOGLOBIN A1C 6.1 H 4.0-5.6 March 04, 2021 [facility] MICROALBUMIN/CREATININE RATIO Specimen Type: URINE 09:51 AM PANEL Comment: Tests performed on [employer] (405) SN:[id number] Ordering Provider: EMANI URIOSTEGUI Report Released Date/Time: March 04, 2021 09:41 AM Reporting Lab: [facility] [address] [facility] [address] Performing Lab: [facility] [address] [facility] [address] CREATININE (URINE,RANDOM) 87.3 MICROALBUMIN, QUANTITATIVE 0.8 0.0 -29.9 MICROALBUMIN/CREATININE RATIO 9.2 0.0-29.9 Encounter Notes: All associated encounter notes This section contains the clinical notes associated to the Encounter. Date/Time Encounter Note(s) Provider Source Dec 26, 2020 09:51 AM NONVA NOTE: MIKHAIL ASCENCIO [facility] LOCAL TITLE: NonVA Note STANDARD TITLE: NONVA NOTE DATE OF NOTE: DEC 26, 2020@09:51 ENTRY DATE: MARCH 10, 2021@13:27:54 AUTHOR: MIKHAIL ASCENCIO EXP COSIGNER: URGENCY: STATUS: COMPLETED Date of Service: 12/26/2020 9:[address]: [facility] Treating Provider: Benjamín Richmond PA Event/Procedure: Primary Diagnoses: Acute pulmonary embolism fol lowing cardiac surgery Document sent to [facility] to be scanned. To view this document open the CPRS tools menu and then open the image display viewer. /angela/ MIKHAIL ASCENCIO Finger Buffs Assembler Signed: 03/10/2021 13:38
--- OUTSIDE RECORDS SUMMARY | 2022-02-20 01:25 | XMS_ITS ---
:[address] [facility] Address [address] [place] [id number] Care Team Providers Name Role Phone EAMNI URIOSTEGUI Primary Care Provider Unavailable Insurance Providers: [...] Carcamo [employer] MEDIC Mar 23, PLAND [id number] [phone] [place] , PATIENT LIFE & PLAN D ARE 2003 73 4 D[place]NE CASUALTY SUPPL CO [employer] PLAND Mar 23, PLAND [id number] [phone] [place] , PATIENT LIFE AND PLAN D 2003 73 0 [place] CASUALTY MEDICARE MEDICARE PART Jan 21, PART B [id number] [place], PATIENT (WNR) (M) B 2003 31A 2 [place] MEDICARE MEDICARE PART Jan 21, PART A [id number] [place], PATIENT (WNR) (M) A 2003 31B 2 [place] MEDICARE MEDICARE PART Jan 21, PART A [id number] [place], PATIENT (WNR) (M) A 2003 CD13 2 [place] MEDICARE MEDICARE PART Jan 21, PART B [id number] [place], PATIENT (WNR) (M) B 2003 CD13 2 [place] MEDICARE MEDICARE PART Jan 21, PART B [id number] [place], PATIENT (WNR) (M) B 2003 CD13 2 [place] MEDICARE MEDICARE PART Jan 21, PART A [id number] [place], PATIENT (WNR) (M) A 2003 CD13 2 [place] Selected Encounter This section includes the information on record at [place] for the Encounter. Date/Time Encounter Type Encounter Description Reason Provider Source March 17, 2021 12:48 Outpatient Encounter ADMIN PAT ACTIVTIES PM (MASNONCT) IHE Encounter Template Text not used by [place] Plan of Treatment: Future Appointments (+ 6 months) and Future Tests (+/- 45 days) The Plan of Treatment section includes future care activities for the patient from all [place] treatment facilities. This section includes future appointments and future orders which are active, pending or scheduled.Future Appointments This section includes appointments that were scheduled to occur 6 months from the date of the Encounter, up to a maximum of 20 appointments. The data comes from all [facility]. Appointment Date/Time Appointment Type Appointment Facili ty Name Apr 07, 2021 09:00 AM AMBULATORY - REHAB MEDICINE [facility] Apr 21, 2021 02:00 PM AMBULATORY - REHAB MEDICINE [facility] Jun 08, 2021 08:30 AM AMBULATORY - NONE [facility] Jun 09, 2021 06:15 PM [facility] Jun 15, 2021 09:00 AM AM[facility]ULATORY - NONE [facility] Aug 18, 2021 09:30 AM AMBULATORY - SURGERY [facility] Active, Pending, and Scheduled Orders This section includes a listing of several types of active, pending, and scheduled orders, including clinic medications orders, diagnostic test orders, procedure orders and consult orders; where the start date of the order is 45 days before the date of the Encounter or 45 days after the date of the Encounter. The data comes from all [place] treatment facilities. Test Date/Time Test Type Test Details Facility Name March 04, 2021 09:31 AM Consult Order EYE CONSULT OUTPATIENT Con s [facility] Backend Java Developer's Choice March 04, 2021 09:38 AM Consult Order COMMUNITY CARE-CARDIAC [facility] REHABILITATION Cons Backend Java Developer's Choice Lab Results: +/- 30 days of [...] Reference Range Comment March 04, 2021 09:51 [facility] URINALYSIS W/REFLEX TO Specimen Type: URINE AM CULTURE No comment enter ed. Ordering Provider: EMANI URIOSTEGUI Report Released Date/Time: March 04, 2021 09:41 AM Reporting Lab: [facility] [address] [facility] [address] Performing Lab: [facility] [address] [facility] [address] URINE COLOR Yellow YELLOW SPECIFIC GRAVITY 1.014 1.003-1.030 UROBILINOGEN <2.0 <2.0 URINE BILIRUBIN NEG NEG URINE KETONES NEG NEG URINE GLUCOSE NEG NEG PROTEIN, URINE NEG NEG URINE PH 5.0 5-8 CLARITY HAZY Clear URINE BLOOD NEG NEG NITRITE, URINE NEG NEG WBC SCREEN NEG NEG March 04, 2021 09:51 AM [facility] VIT D 25-OH(WRJ) Specimen Type: SERUM Comment: Tests performed on [employer] (405) SN:[id number] TSH within normal limits. Reflex testing not required. Ordering Provider: EMANI URIOSTEGUI Report Released Date/Time: March 04, 2021 09:41 AM Reporting Lab: [facility] [address] [facility] [address] Performing Lab: [facility] [address] [facility] [address] VIT D 25-OH(WRJ) 44.4 20-50 March 04, 2021 09:51 [facility] THYROID TESTING Specimen Type: SERUM AM CASCADE Comment: Tests performed on [employer] (405) SN:[id number] TSH within normal limits. Reflex testing not required. Ordering Provider: EMANI URIOSTEGUI Report Released Date/Time: March 04, 2021 09:41 AM Reporting Lab: [facility] [address] [facility] [address] Performing Lab: [facility] [address] [facility] [address] TSH 2.06 0.35-5.00 REFLEX TESTING comment March 04, 2021 09:51 [facility] LIPOPROTEIN CHOLESTEROL Specimen Type: PLASMA AM FRACT. PANEL Comment: Tests performed on [employer] Implementation Specialist (405) SN:[id number] Ordering Provider: EMANI URIOSTEGUI Report Released Date/Time: March 04, 2021 09:41 AM Reporting Lab: [facility] [address] [facility] [address] Performing Lab: [facility] [address] [facility] [address] CHOLESTEROL 99 0-199 TRIGLYCERIDE 105 0-149 HDL CHOLESTEROL 33 L >40 LDL CHOLESTEROL (CALC) 45 0-129 March 04, 2021 09:51 AM [facility] ALT(SGPT) Specimen Type: PLASMA Comment: Tests performed on [employer] Special[employer] (405) SN:[id number] Ordering Provider: LEANDRO JIMENEZ Report Released Date/Time: Feb 04, 2021 01:39 PM Reporting Lab: [facility] [address] [facility] [address] Performing Lab: [facility] [address] [facility] [address] ALT(SGPT) 26 7-52 March 04, 2021 09:51 AM [facility] AST(SGOT) Specimen Type: PLASMA Comment: Tests performed on [employer] Implementation Specialist (405) SN:[id number] Ordering Provider: LEANDRO JIMENEZ Report Released Date/Time: Feb 04, 2021 01:39 PM Reporting Lab: [facility] [address] [facility] [address] Performing Lab: [facility] [address] [facility] [address] AST(SGOT) 17 5-34 March 04, 2021 09:51 [place] CREATININE WITH eGFR Specimen Type: PLASMA AM [facility] PANEL Comment: Tests performed on [employer] Implementation Specialist (405) SN:[id number] Ordering Provider: LEANDRO JIMENEZ Report Released Date/Time: Feb 04, 2021 01:39 PM Reporting Lab: [facility] [address] [facility] [address] Performing Lab: [facility] [address] [facility] [address] CREATININE 1.38 0.5-1.5 eGFR 49 L >60 March 04, 2021 09:51 AM [facility] CBC NO DIFF Specimen Type: BLOOD No comment enter ed. Ordering Provider: LEANDRO JIMENEZ Report Released Date/Time: Feb 04, 2021 01:39 PM Reporting Lab: [facility] [address] [facility] [address] Performing Lab: [facility] [address] [facility] [address] WBC 7.5 4.5-11.0 RBC 3.98 L 4.23-5.66 HGB 11.7 L 12.8-17 HEMATOCRIT 38.7 L 39.2-50.4 MCV 97.2 82-99 MCH 29.4 26.2-32.6 MCHC 30.2 L 30.8-35.1 PLT 283 140-360 MPV 9.0 L 9.2-12.4 RDW 13.5 12.0-16.0 March 04, 2021 [facility] GLYCOHEMOGLOBIN (A1C ONLY) Specimen Type: BLOOD 09:51 AM Comment: Tests performed on [employer] (405) SN:[id number] Ordering Provider: EMANI URIOSTEGUI Report Released Date/Time: March 04, 2021 09:31 AM Reporting Lab: [facility] [address] [facility] [address] [facility]forming Lab[facility] [address] [facility] [address] HEMOGLOBIN A1C 6.1 H 4.0-5.6 March 04, 2021 [facility] MICROALBUMIN/CREATININE RATIO Specimen Type: URINE 09:51 AM PANEL Comment: Tests performed on [employer] Implementation Specialist (405) SN:[id number] Ordering Provider: EMANI URIOSTEGUI Report Released Date/Time: March 04, 2021 09:41 AM Reporting Lab: [facility] [facility] [address] [facility] [address] Performing Lab: [facility] [address] [facility] [address] CREATININE (URINE,RANDOM) 87.3 MICROALBUMIN, QUANTITATIVE 0.8 0.0 -29.9 MICROALBUMIN/CREATININE RATIO 9.2 0.0-29.9 Encounter Notes: All associated encounter notes This section contains the clinical notes associated to the Encounter. Date/Time Encounter Note(s) Provider Source March 17, 2021 12:48 PM NONVA NOTE: TYLER LOCKWOOD [facility] LOCAL TITLE: NonVA Medical Records [facility] STANDARD TITLE: NONVA NOTE DATE OF NOTE: MARCH 17, 2021@12:48 ENTRY DATE: MARCH 17, 2021@12:48:46 AUTHOR: TYLER LOCKWOOD EXP COSIGNER: URGENCY: STATUS: COMPLETED NONVA DATES:ADMITTED 12/22/2020, DISCHARGED 12/26/2020 SERVICE/PROCEDURE:ED VISIT/EMERGENCY DOCUMENTATI ON/DISCHARGE SUMMARY LOCATION:[facility] [place] // TYLER LOCKWOOD BUILDING ENERGY CONSULTANT Signed: 03/17/2021 12:53
--- OUTSIDE RECORDS SUMMARY | 2022-02-20 01:25 | XMS_ITS | Encounter Summary ---
:[address] [facility] Address [address] [place] [address] Care Team Providers Name Role Phone EMANI [...] Carcamo [employer] Mar 23, PLAND [id number] [phone] [place] , PATIENT LIFE & PLAN D ARE 2003 73 4 DIONNE CASUALTY SUPPL [employer] PLAND Mar 23, PLAND [id number] [phone] [place] , PATIENT LIFE AND PLAN D 2003 73 0 [place] CASUALTY MEDICARE MEDICARE PART Jan 21, PART B [id number] [place], PATIENT (WNR) (M) B 2003 31A 2 [place] MEDICARE MEDICARE PART Jan 21, PART A [id number] [place], PATIENT (WNR) (M) A 2003 31B 2 [place] MEDICARE MEDICARE PART Jan 21, PART A [id number] [place], PATIENT (WNR) (M) A 2003 CD13 2 [place] MEDICARE MEDICARE PART Jan 21, PART B [id number] [place], PATIENT (WNR) (M) B 2003 CD13 2 [place] MEDICARE MEDICARE PART Jan 21, PART B [id number] [place], PATIENT (WNR) (M) B 2003 CD13 2 [place] MEDICARE MEDICARE PART Jan 21, PART A [id number] [place], PATIENT (WNR) (M) A 2003 CD13 2 [place] Selected Encounter This section includes the information on record at [place] for the Encounter. Date/Time Encounter Type Encounter Reason Provider Source Description Apr 21, 2021 HEARING AID AUDIOLOGY ICD-10-CM Z46.1 ALEN POSADA 02:00 PM REPAIR/MODIFYIN Encounter for A G fitting and adjustment of hearing aid with Provider Comments: Encounter for Fitting and Adjustment of Hearing Aid IHE Encounter Template Text not used by [place] Assessments - Encounter Diagnoses This section includes the primary and secondary diagnoses documented forthe Encounter. Date/Time Primary/Secondary Diagnosis Name Provider Source Diagnosis Apr 21, 2021 PRIMARY Encounter for ALEN POSADA Y 02:18 PM fitting and A [facility] adjustment of hearing aid Apr 21, 2021 SECONDARY Sensorineural ALEN POSADA 02:18 PM hearing loss, A [facility] bilateral Apr 21, 2021 SECONDARY Tinnitus, bilateral [facility] Plan of Treatment: Future Appointments (+ 6 months) and Future Tests (+/- 45 days) The Plan of Treatment section includes future care activities for the patient from all [place] treatment facilities. This section includes future appointments and future orders which are active, pending or scheduled.Future Appointments This section includes appointments that were scheduled to occur 6 months from the date of the Encounter, up to a maximum of 20 appointments. The [facility] Appointment Date/Time Appointment Type Appointment Facili ty Name Jun 08, 2021 08:30 AM AMBULATORY - NONE [facility] Jun 09, 2021 06:15 PM [facility] Jun 15, 2021 09:00 AM AMBULATORY - NONE [facility] Aug 18, 2021 09:30 AM AMBULATORY - SURGERY [facility] Surgical Procedures: All associated to the encounter This section includes all Surgical Procedures and Surgical Procedure Notes associated to the Encounter.Surgical Procedures This section includes all Surgical Procedures associated to the Encounter.Surgical Procedure Date/Time Procedure Procedure Type Procedure Provider Source Qualifiers Apr 21, 2021 [facility] RT-RIGHT SIDE TRUONG POSADA [facility] 02:00 PM Repair/Modific REPAIR/MODIFYI Y A [facility] ation w/ NG mod,Right Side Surgical Notes There are no notes associated with this procedure. Surgical Procedure Date/Time Procedure Procedure Type Procedure Provider Source Qualifiers Apr 21, 2021 [facility] LT-LEFT SIDE TRUONG POSADA [facility] 02:00 PM Repair/Modific REPAIR/MODIFYI Y A [facility] ation w/ NG mod,Left Side Surgical Notes There are no notes associated with this procedure. Surgical Procedure Date/Time Procedure Procedure Type Procedure Provider Source Qualifiers Apr 21, 2021 [facility] TRUONG POSADA [facility] 02:00 PM Check,Binaural CHECK BOTH Y A [facility] EARS Surgical Notes There are no notes associated with this procedure. Social History: Smoking Status (Most current) and Tobacco Use (All prior to encounter date) This section includes the most current, and the historical, smoking and tobacco-related health factors from the [place] facility where the Encounter took place.Current Smoking Status This section includes the most current smoking, or tobacco-related health factor, from the [place] facility where the Encounter took place. Date/Time Current Smoking Status Comment Facility March 04, 2021 08:30 AM VA-TOBACCO FORMER USER [facility] Tobacco Use History This section includes a history of the smoking, or tobacco-related health factors, that were collected on or before the date of the Encounter. The data comes from the [place] facility where the Encounter took place. Date/Time Smoking Status/Tobacco Use Comment [facility] March 04, 2021 08:30 AM VA-TOBACCO QUIT [address] [facility] MORE Feb 11, 2020 03:52 PM VA-TOBACCO FORMER USER [facility] Feb 11, 2020 03:52 PM VA-TOBACCO QUIT 15 YRS OR [facility] MORE Aug 14, 2018 08:49 AM VA-TOBACCO FORMER USER [facility] Aug 14, 2018 08:49 AM [facility] Aug 11, 2016 09:50 AM QUIT TOBACCO USE > [address] [facility] A[facility] hasn't smoked for 30 years Feb 07, 2005 10:[address] [facility] February 23, 2004 09:[address] [facility] quit 20 years ago Jan 29, 2003 01:[address] [facility] Feb 11, 2002 01:[address] [facility] Jan 22, 2001 08:40 AM LIFETIME NON-SMOKER [facility] Encounter Notes: All associated encounter notes This section contains the clinical notes associated to the Encounter. Date/Time Encounter Note(s) Provider Source Apr 21, 2021 02:15 PM AUDIOLOGY NOTE: [facility] POS[facility] LOCAL TITLE: Audiology Note STANDARD TITLE: AUDIOLOGY NOTE DATE OF NOTE: APR 21, 2021@14:15 ENTRY DATE: APR 21, 2021@14:15:54 AUTHOR: ALEN POSADA EXP COSIGNER: URGENCY: STATUS: COMPLETED Date of Contact: APR 21, 2021 S: Neville has bilateral sensorineural hearing l oss and was seen today for a hearing aid repair. 05/30/19 OTICON OPN S 1 MINIRITE-R R [id number] NA 06/13/22 11/11/19 05/30/19 OTICON OPN S 1 MINIRITE-R L [id number] NA 06/13/22 11/11/19 -acrylic canal lock molds, size 3 85 dB bicycle fitter s O/A: requested help pairing his aids to his iPhone. Cleaned and checked aids. Replaced receivers and waxguards. Removed debris from microphones. Bio check showed aids in good working order. Successfully paired aids to his phone and streaming working as expected. [place]igmont repor jake good sound quality and physical fit. Diagnosis: Sensorineural hearing loss Procedures completed: visual/listening check of two aids aid/s office repair otoscopy- clear AU P: will return as needed. /angela/ Shireen DICKERSON Packaging Inspector Signed: 04/21/2021 14:18
--- OUTSIDE RECORDS SUMMARY | 2022-02-20 01:26 | XMS_ITS | Encounter Summary ---
:[address] [facility] Address [address] [place] [address] Care Team Providers Name Role Phone EMANI [...] Carcamo [employer]IC Mar 23, PLAND [id number] [phone] [place] , PATIENT LIFE & PLAN D ARE 2003 73 4 D[place]NE CASUALTY SUP[employer] PLAND Mar 23, PLAND [id number] [phone] [place] , PATIENT LIFE AND PLAN D 2003 73 0 D[employer]NE CASUALTY MEDICARE MEDICARE PART Jan 21, PART B [id number] [place], PATIENT (WNR) (M) B 2003 31A 2 [place] MEDICARE MEDICARE PART Jan 21, PART A [id number] [place], PATIENT (WNR) (M) A 2003 31B 2 [place] MEDICARE MEDICARE PART Jan 21, PART A [id number] [place], PATIENT (WNR) (M) A 2003 CD13 2 [place] MEDICARE MEDICARE PART Jan 21, PART B [id number] [place], PATIENT (WNR) (M) B 2003 CD13 2 [place] MEDICARE MEDICARE PART Jan 21, PART B [id number] [place], PATIENT (WNR) (M) B 2003 CD13 2 [place] MEDICARE MEDICARE PART Jan 21, PART A [id number] [place], PATIENT (WNR) (M) A 2003 CD13 2 [place] Selected Encounter This section includes the information on record at [place] for the Encounter. Date/Time Encounter Type Encounter Description Reason Provider Source Jul 14, 2021 04:59 Outpatient Encounter TELEPHONE TRIAGE PM IHE Encounter Template Text not used by [place] Plan of Treatment: Future Appointments (+ 6 [...] 20 appointments. The [facility] [place] [facility] Appointment Date/Time Appointment Type Appointment Facili ty Name Aug 18, 2021 09:30 AM AMBULATORY - [place] [facility] Encounter Notes: All associated encounter notes This section contains the clinical notes associated to the Encounter. Date/Time Encounter Note(s) Provider Source Jul 14, 2021 04:59 PM TRIAGE NOTE: MELLISSA RUIZ [facility] LOCAL TITLE: Telephone Triage Note STANDARD TITLE: TRIAGE NOTE DATE OF NOTE: JUL 14, 2021@16:59 ENTRY DATE: JUL 14, 2021@16:59:52 AUTHOR: MELLISSA RUIZ EXP COSIGNER: URGENCY: STATUS: COMPLETED Telephone Triage Note Has ADDENDA Call taken by: MELLISSA RUIZ PCP: Patient Phone #: Address: [address] [place] [address] Caller name if different: Phone #: Caller is: [x ] [ ]Spouse [ ]VNA [ ]Other: Pt. is 81 year old MALE who calls today w/ CHIEF COMPLAINT OF: [place] lmom in regards to having some questions in regards to pres cription(s). Asked for a call back at your earliest convenience. Allergies: Patient has answered NKA ASSESSMENT: Protocol Used? [ ]Yes (per [place] [address]) [ ]No [ ]N/A Disposition: [ ] Primary Care Provider Information only. [ ] Request advice. [ ] Primary Care Provider action requested. [ ] Other Provider: [ ] Patient problem resolved during phone call. [ ] Appointment made: Patient agrees with plan? [ ]Yes [ ]No [ ]N/A /angela/ MELLISSA PASCUAL Signed: 07/14/2021 17:00 Receipt Acknowledged By: * AWAITING SIGNATURE * MASTERELIO 07/14/2021 18:00 /angela/ BEL VIZCARRA, BOTTOM SPRAYER-ANTWON NURSE PRACTITIONER 07/14/2021 ADDENDUM STATUS: COMPLETED TC to patient on 07/14/21: Pt staea he has a prescription of xaralto-is req uesting to receive via [facility] pt informed he will be followed by anticoag clin ic at [facility] and is agreeable. 30day rx written /angela/ EMANI URIOSTEGUI DNP, BOTTOM SPRAYER-ANTWON NURSE PRACTITIONER Signed: 07/14/2021 18:09
--- OUTSIDE RECORDS SUMMARY | 2022-02-20 01:26 | XMS_ITS | Encounter Summary ---
:1940 Author Organization Department [facility] Address [address] [place] [id number] Care Team Providers Name Role Phone EMANI [...] [place] [employer] MEDIC Mar 23, PLAND [id number] [phone] [place] , PATIENT LIFE & PLAN D ARE 2003 73 4 DIONNE CASUALTY [employer] PLAND Mar 23, PLAND [id number] [phone] [place] , PATIENT LIFE AND PLAN D 2003 73 0 D[place]NE CASUALTY MEDICARE MEDICARE PART Jan 21, PART B [id number] [place], PATIENT (WNR) (M) B 2003 31A 2 [place] MEDICARE MEDICARE PART Jan 21, PART A [id number] [place], PATIENT (WNR) (M) A 2003 31B 2 [place] MEDICARE MEDICARE PART Jan 21, PART A [id number] [place], PATIENT (WNR) (M) A 2003 CD13 2 [place] MEDICARE MEDICARE PART Jan 21, PART B [id number] [place], PATIENT (WNR) (M) B 2003 CD13 2 [place] MEDICARE MEDICARE PART Jan 21, PART B [id number] [place], PATIENT (WNR) (M) B 2003 CD13 2 [place] MEDICARE MEDICARE PART Jan 21, PART A [id number] [place], PATIENT (WNR) (M) A 2003 CD13 2 DIONNE Selected Encounter This section includes the information on [place] for the Encounter. 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 Date/Time Primary/Secondary Diagnosis Name Provider Source Diagnosis Jun 23, 2021 PRIMARY Type 2 diabetes SE RODRIGUES 09:20 AM w unsp diabetic [facility] rtnop w/o macular edema Plan of Treatment: Future Appointments (+ 6 months) and Future Tests (+/- 45 days) The Plan of Treatment section includes future care activities for the patient from all [place] treatment facilities. This section includes future appointments and future orders which are active, pending or scheduled.Future Appointments This section includes appointments that were scheduled to occur 6 months from the date of the Encounter, up to a maximum of 20 appointments. The [facility] [place] [facility] Appointment Date/Time Appointment Type Appointment Facili ty Name Aug 18, 2021 09:30 AM AMBULATORY - SURGERY [place] [facility] [facility] Surgical Procedures: All associated to the encounter This section includes all Surgical Procedures and Surgical Procedure Notes associated to the Encounter.Surgical Procedures This section includes all Surgical Procedures associated to the Encounter.Surgical Procedure Date/Time Procedure Procedure Type Procedure Provider Source Qualifiers Jun 23, 2021 Chart MTMS BY EWELINA ADAMSSE ROCHE 09:17 AM Consult-New TECHNICAL PROJECT LEAD 15 MIN [facility] Pt,Init 15min Surgical Notes There are no notes associated [...] Result - Unit Interpretation Reference Range Comment Jun 08, 2021 08:16 AM [place] [facility] CBC NO DIFF Specimen Type: BLOOD No comment enter ed. Ordering Provider: LEANDRO JIMENEZ Report Released Date/Time: March 05, 2021 03:14 PM Reporting Lab: [place] [facility] [address] [facility] [address] Performing Lab: [place] [facility] [address] [facility] [address] WBC 6.2 4.5-11.0 RBC 3.99 L 4.23-5.66 HGB 11.6 L 12.8-17 HEMATOCRIT 37.9 L 39.2-50.4 MCV 95.0 82-99 MCH 29.1 26.2-32.6 MCHC 30.6 L 30.8-35.1 PLT 225 140-360 MPV 9.4 9.2-12.4 RDW 15.3 12.0-16.0 Jun 08, 2021 08:16 [place] CREATININE WITH eGFR Specimen Type: PLASMA [facility] PANEL Comment: Tests performed on [employer] Mobile (405) [id number] Ordering Provider: LEANDRO JIMENEZ Report Released Date/Time: March 05, 2021 03:14 PM Reporting Lab: [place] [facility] [address] [facility] [address] Performing Lab: [place] [facility] [address] [facility] [address] CREATININE 1.13 0.5-1.5 eGFR 62 >60 Encounter Notes: All associated encounter notes This section contains the clinical notes associated to the Encounter. Date/Time Encounter Note(s) Provider Source Jun 23, 2021 09:17 AM PHARMACY OUTPATIENT NOTE: SE RODRIGUES T LOCAL TITLE: Pharmacy Outpatient Note [facility] STANDARD TITLE: PHARMACY OUTPATIENT NOTE DATE OF NOTE: JUN 23, 2021@09:17 ENTRY DATE: JUN 23, 2021@09:18:01 AUTHOR: SE RODRIGUES EXP COSIGNER: URGENCY: STATUS: COMPLETED Dulaglutide recall for dose labeling error. Dula glutide is no longer the formulary preferred option f or GLP-1 receptor agonist, and has been replaced by semaglutide. Call to [facility] to explain medicati on recall attempted with no answer. [facility] is not eligible for conv ersion to semaglutide at this time d/t noted PMH of diabetic retino albaro, letter and replacement order for dulaglutide has been mailed to [facility]. /angela/ SE RODRIGUES PharmD Clinical Pharmacist Signed: 06/23/2021 09:20 Receipt Acknowledged By: * AWAITING SIGNATURE * BRAD DAVILA * AWAITING SIGNATURE * VASYL PERALTA
--- OUTSIDE RECORDS SUMMARY | 2022-02-20 01:26 | XMS_ITS | Encounter Summary ---
:[address] [facility] Address [address] [place] [address] Care Team Providers Name Role Phone MOODY [...] [place] [employer] Mar 23, PLAND [id number] [phone] [place] , PATIENT LIFE & PLAN D ARE 2003 73 4 D[employer]NE CASUALTY SUP[employer] PLAND Mar 23, PLAND [id number] [phone] [place] , PATIENT LIFE AND PLAN D 2003 73 0 [place] CASUALTY MEDICARE MEDICARE PART Jan 21, PART B [id number] [place], PATIENT (WNR) (M) B 2003 31A 2 [place] MEDICARE MEDICARE PART Jan 21, PART A [id number] [place], PATIENT (WNR) (M) A 2003 31B 2 [place] MEDICARE MEDICARE PART Jan 21, PART A [id number] [place], PATIENT (WNR) (M) A 2003 CD13 2 [place] MEDICARE MEDICARE PART Jan 21, PART B [id number] [place], PATIENT (WNR) (M) B 2003 CD13 2 [place] MEDICARE MEDICARE PART Jan 21, PART B [id number] [place], PATIENT (WNR) (M) B 2003 CD13 2 [place] MEDICARE MEDICARE PART Jan 21, PART A [id number] [place], PATIENT (WNR) (M) A 2003 CD13 2 [place] Selected Encounter This section includes the [place] for the Encounter. Date/Time Encounter Type Encounter Reason Provider Source Description Jun 09, 2021 HC PRO PHONE TELEPHONE/ANCILLA ICD-10-CM Z51.81 TRUONG KING 06:15 PM CALL 21-30 MIN RY Encounter for Y A therapeutic drug level monitoring with Provider Comments: Encounter for Therapeutic Drug Level Monitoring IHE Encounter Template Text not used by [facility] Assessments - Encounter Diagnoses This section includes the primary and secondary diagnoses documented forthe Encounter. Date/Time Primary/Secondary Diagnosis Name Provider Source Diagnosis Jun 09, 2021 PRIMARY Encounter for ALEN KING 06:15 PM therapeutic drug A [facility] level monitoring Plan of Treatment: Future Appointments (+ 6 [...] appointments. The [facility] [place] [facility] Appointment Date/Time Appointment Type Appointment Facili ty Name Jun 15, 2021 09:00 AM [facility] Aug 18, 2021 09:30 AM [facility] Surgical Procedures: All associated to the encounter This section includes all Surgical Procedures and Surgical Procedure Notes associated to the Encounter.Surgical Procedures This section includes all Surgical Procedures associated to the Encounter.Surgical Procedure Date/Time Procedure Procedure Type Procedure Provider Source Qualifiers Jun 09, 2021 PHONE CALL BY HC PRO PHONE LOAN KING 06:15 PM HC PROF 21-30 CALL 21-30 MIN EY A [facility] [facility] MIN Surgical Notes There [...] 08, 2021 08:16 AM [place] [facility] CBC NO DIFF Specimen Type: BLOOD No comment enter ed. Ordering Provider: LEANDRO JIMENEZ Report Released Date/Time: March 05, 2021 03:14 PM Reporting Lab: [place] [facility] [address] [facility] [address] Performing Lab: [place] [facility] [address] [facility] [address] WBC 6.2 4.5-11.0 RBC 3.99 L 4.23-5.66 HGB 11.6 L 12.8-17 HEMATOCRIT 37.9 L 39.2-50.4 MCV 95.0 82-99 MCH 29.1 26.2-32.6 MCHC 30.6 L 30.8-35.1 PLT 225 140-360 MPV 9.4 9.2-12.4 RDW 15.3 12.0-16.0 Jun 08, 2021 08:16 [place] CREATININE WITH eGFR Specimen Type: PLASMA AM [facility] PANEL Comment: Tests performed on Cover (405) SN:[id number] Ordering Provider: LEANDRO JIMENEZ Report Released Date/Time: March 05, 2021 03:14 PM Reporting Lab: [place] [facility] [address] [facility] [address] Performing Lab: [place] [facility] [address] [facility] [address] CREATININE 1.13 0.5-1.5 eGFR 62 >60 Encounter Notes: All associated encounter notes This section contains the clinical notes associated to the Encounter. Date/Time Encounter Note(s) Provider Source Jun 09, 2021 09:14 AM [facility]: [place] LOCAL TITLE: Anticoagulation Clinic/In [facility] STANDARD TITLE: [facility] OF ANTICOAGULATION NOTE DATE OF NOTE: JUN 09, 2021@09:14 ENTRY DATE: JUN 09, 2021@09:15 AUTHOR: ALEN KING COSIGNER: URGENCY: STATUS: COMPLETED MR. DIONNE AGUILLON [address] [place] [address] Purpose of visit: Follow-up anticoagulation clin ic visit Time spent with patient during this visit: 25 mi nutes Subjective/Objective information: Active Outpatient Medications (excluding Supplie s): Active Outpatient Medications Status 1) ACCU-CHEK FRANCINE PLUS(GLUCOSE) TEST STRIP US E 1 TEST ACTIVE STRIP NEEDED TO TEST BLOOD GLUCOSE LEV EL 2) ALFUZOSIN HCL 10MG SA TAB TAKE ONE TABLET B Y MOUTH ACTIVE EVERY DAY FOR URINARY VOIDING SYMPTOMS 3) APIXABAN 5MG TAB TAKE ONE TABLET BY MOUTH E VERY ACTIVE TWELVE HOURS TO HELP PREVENT BLOOD CLOTS (ANTICOAGULATION) 4) ATORVASTATIN CALCIUM 40MG TAB TAKE ONE TABL ET BY ACTIVE MOUTH EVERY DAY TO LOWER CHOLESTEROL 5) CLOTRIMAZOLE 1% TOP CREAM APPLY THIN FILM T OPICALLY ACTIVE TWICE A DAY FOR FUNGAL INFECTION 6) DULAGLUTIDE 0.75MG/0.5ML INJ PEN INJECT 0.7 5MG/0.5ML ACTIVE SUBCUTANEOUSLY ONCE A WEEK FOR DIABETES 7) EZETIMIBE 10MG TAB TAKE ONE TABLET BY MOUTH EVERY DAY ACTIVE TO LOWER CHOLESTEROL 8) FERROUS SULFATE 325MG TAB TAKE ONE TABLET B Y MOUTH ACTIVE EVERY DAY TO SUPPLEMENT IRON 9) FINASTERIDE 5MG TAB TAKE ONE TABLET BY MOUT H AT ACTIVE BEDTIME FOR PROSTATE 10) FOLIC ACID 1MG TAB TAKE TWO TABLETS BY MOUT H EVERY ACTIVE DAY VITAMIN/NUTRITION SUPPLEMENT 11) FUROSEMIDE 40MG TAB TAKE ONE TABLET BY MOUT H TWICE A ACTIVE DAY TO REMOVE FLUID/CONTROL BLOOD PRESSUR E 12) INSULIN,GLARGINE 100 UNT/ML 3ML SOLOSTAR IN JECT ACTIVE 55UNITS SUBCUTANEOUSLY EVERY DAY -DISCARD 28 DAYS AFTER FIRST USE. REFRIGERATE UNOPENED PEN S. 13) LOSARTAN 100MG TAB TAKE ONE TABLET BY MOUTH EVERY DAY ACTIVE FOR BLOOD PRESSURE/HEART; NOTE DOSE INCRE ASE 14) METOPROLOL TARTRATE 50MG TAB TAKE ONE TABLE T BY MOUTH ACTIVE TWICE A DAY FOR BLOOD PRESSURE/HEART 15) PANTOPRAZOLE NA 20MG EC TAB TAKE ONE TABLET BY MOUTH ACTIVE EVERY MORNING FOR STOMACH ACID (TAKE 20-3 0 MINUTES BEFORE FIRST MEAL) Active Non-VA Medications Status 1) Non-VA ASPIRIN 81MG CHEW TAB 81MG MOUTH JORGE DAY ACTIVE 2) Non-VA CHOLECALCIF 25MCG (D3-1,000UNIT) [...] 25MG BY MOUT H EVERY ACTIVE DAY 26 Total Medications [ ] Medication reconciliation completed, any dif ferences are listed below: Factors affecting anticoagulation: Medication change none Alcohol change none Acute illness none Medication compliance denies missing doses Bleeding/thromboembolic complications: Bruising denies Gingival bleeding denies Nosebleeds denies Hematuria denies Blood in stools denies Signs of CVA/TIA denies LE swelling/pain denies Shortness of breath denies Other side effects: denies Falls/injuries denies Tests/Procedures none Other issues: Indication for anticoagulation: 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 No VM (doesn't check voicemail); letter OK Lab Results: (CrCl calculation: Cockcroft-Gault and actual body weight) Date Hct Hgb Plt Creat Weight Calc CrCl AST ALT 12/26/20([place]) 33.3 10.7 444 1.14 99kg 70ml/min 03/04/21 38.7 11.7 283 1.38 98kg 57ml/min 17 26 06/08/21 37.9 11.6 225 1.13 98kg T/C with and Ceci Assessment: Patient previously anticoagulated wi th apixaban for PE, with intended duration 6 months. Patient reporting that cardiology switched him fro m apixaban to rivaroxaban. Per [facility] records, apixaban was stopped in March and in April quentin ent started rivaroxaban 2.5mg q12hr for indication PAD/CAD. Michael t denies complications. Pertinent labs reviewed and are stab le. Patient does not currently have [facility] PCP listed. Currently, patient is receiving community care. Discussed with patient that the [place] anticoagulation clinic can no longer manage anticoagulation since he now has all community care providers . His Non-VA provider can fax medication orders directly to the [place] pharmacy, gave patient fax number. Patient able to verbalize un derstanding that for anticoagulation needs going forward, should contact Non-VA provider. [place] a [place]tico[place] clinic. Plan: Continue current regimen per Non-VA provid ers DOAC Regimen: rivaroxaban 2.5mg q12hr Future follow-up: n/a Patient Education: [X] s/sx bleeding/thrombosis and ER precautio ns [X] importance of correct dose/dosing schedul e [X] importance of medication compliance [X] importance of reporting medication change s, planned procedures, change in health care status to clinic [x] TC to patient/spouse/caregiver who was able to verbalize understanding of above instructions. [ ] Voice mail left for quentin ent with instructions- - ACC number w/ instructions to call to report s/sx of bleeding, upcoming procedures, or other complications [ ] Written instructions mailed to patient [ ] Rx ordered [ ] Rx/Lab orders faxed to: /angela/ ALEN KING PHARMD PHARMACIST Signed: 06/09/2021 09:59
--- OUTSIDE RECORDS SUMMARY | 2022-02-20 01:27 | XMS_ITS ---
:1940 Author Organization Department [facility] Address [address] [place] [id number] Care Team Providers Name Role Phone EMANI [...] Carcamo [employer] MEDIC Mar 23, PLAND [id number] [phone] [place] , PATIENT LIFE & PLAN D ARE 2003 73 4 DIONNE CASUALTY SUPPL [employer] PLAND Mar 23, PLAND [id number] [phone] [place] , PATIENT LIFE AND PLAN D 2003 73 0 DIONNE CASUALTY MEDICARE MEDICARE PART Jan 21, PART B [id number] [place]URST [place], PATIENT (WNR) (M) B 2003 31A 2 D[place]NE MEDICARE MEDICARE PART Jan 21, PART A [id number] [place]URST [place], PATIENT (WNR) (M) A 2003 31B 2 D[place] MEDICARE MEDICARE PART Jan 21, PART A [id number] [place]URST ON, PATIENT (WNR) (M) A 2003 CD13 2 [place] MEDICARE MEDICARE PART Jan 21, PART B [id number] [place]URST ON, PATIENT (WNR) (M) B 2003 CD13 2 [place] MEDICARE MEDICARE PART Jan 21, PART B [id number] [place]URST [place], PATIENT (WNR) (M) B 2003 CD13 2 [place] MEDICARE MEDICARE PART Jan 21, PART A [id number] [place]URST [place], PATIENT (WNR) (M) A 2003 CD13 2 DIONNE Selected Encounter This section includes the information [facility]. Date/Time Encounter Type Encounter Reason Provider Source Description Aug 18, 2021 OFFICE O/P NEW OPTOMETRY ICD-10-CM E11.3293 LAI YORK 09:30 AM MOD 45-59 MIN Type 2 diab with mild D nonp rtnop without macular edema, bi with Provider Comments: Type 2 diabetes mellitus with mild nonproliferative diabetic retinopathy without macular edema, bilateral IHE Encounter Template Text not used by [facility] Assessments - Encounter Diagnoses This section includes the primary and secondary diagnoses documented forthe Encounter. Date/Time Primary/Secondary Diagnosis Name Provider Source Diagnosis Aug 18, 2021 PRIMARY Type 2 diab with MERLE YORK BARBARA ER 10:19 AM mild nonp rtnop [facility] [facility] without macular edema, bi Aug 18, 2021 PRIMARY Type 2 diabetes LUCIO COHEN DYLON JIMENEZE R 10:19 AM mellitus without [place] [facility] complications Aug 18, 2021 SECONDARY Presbyopia MERLE YORK [place] 10:19 AM [place] [facility] Aug 18, 2021 SECONDARY Presence of MERLE YORK [place] 10:19 AM intraocular lens [place] [facility] Surgical Procedures: All associated to the encounter This section includes all Surgical Procedures and Surgical Procedure Notes associated to the Encounter.Surgical Procedures This section includes all Surgical Procedures associated to the Encounter.Surgical Procedure Date/Time Procedure Procedure Type Procedure Provider Source Qualifiers Aug 18, 2021 DETERMINE DETERMINE MERLE YORK R 09:30 AM REFRACTIVE STATE REFRACTIVE D [place] [facility] STATE Surgical Notes There are no notes associated with this procedure. Encounter Notes: All associated encounter notes This section contains the clinical notes associated to the Encounter. Date/Time Encounter Note(s) Provider Source Aug 18, 2021 09:20 AM EYE E & M NOTE: MERLE YORK R [place] LOCAL TITLE: Eye Exam Template [facility] STANDARD TITLE: EYE E & M NOTE DATE OF NOTE: AUG 18, 2021@09:20 ENTRY DATE: AUG 18, 2021@09:20:46 AUTHOR: LYN CABRALES COSIGNER: MERLE YORK URGENCY: STATUS: COMPLETED Eye Exam Template Has ADDENDA NEW OR ESTABLISHED PATIENT OPHTHALMIC EXAMINATIO N CONSULTATION, SPECIALTY CODE OR E/M SERVICE Active Outpatient Medications (excluding Supplie s): Active Outpatient Medications Status 1) ALFUZOSIN HCL 10MG SA TAB TAKE ONE TABLET B Y MOUTH ACTIVE EVERY DAY FOR URINARY VOIDING SYMPTOMS 2) ATORVASTATIN CALCIUM 40MG TAB TAKE ONE TABL ET BY ACTIVE MOUTH EVERY DAY TO LOWER CHOLESTEROL 3) CLOTRIMAZOLE 1% TOP CREAM APPLY THIN FILM T OPICALLY ACTIVE TWICE A DAY FOR FUNGAL INFECTION 4) DULAGLUTIDE 0.75MG/0.5ML INJ PEN INJECT 0.7 5MG/0.5ML ACTIVE SUBCUTANEOUSLY ONCE A WEEK FOR DIABETES 5) EZETIMIBE 10MG TAB TAKE ONE TABLET BY MOUTH EVERY DAY ACTIVE TO LOWER CHOLESTEROL 6) FERROUS SULFATE 325MG TAB TAKE ONE TABLET B Y MOUTH ACTIVE EVERY DAY TO SUPPLEMENT IRON 7) FINASTERIDE 5MG TAB TAKE ONE TABLET BY MOUT H AT ACTIVE BEDTIME FOR PROSTATE 8) FOLIC ACID 1MG TAB TAKE TWO TABLETS BY MOUT H EVERY ACTIVE DAY VITAMIN/NUTRITION SUPPLEMENT 9) FUROSEMIDE 40MG TAB TAKE ONE TABLET BY MOUT H TWICE A ACTIVE DAY TO REMOVE FLUID/CONTROL BLOOD PRESSUR E 10) INSULIN,GLARGINE 100 UNT/ML 3ML SOLOSTAR IN JECT ACTIVE 55UNITS SUBCUTANEOUSLY EVERY DAY -DISCARD 28 DAYS AFTER FIRST USE. REFRIGERATE UNOPENED PEN S. 11) LOSARTAN 100MG TAB TAKE ONE TABLET BY MOUTH EVERY DAY ACTIVE FOR BLOOD PRESSURE/HEART; NOTE DOSE INCRE ASE 12) METOPROLOL TARTRATE 50MG TAB TAKE ONE TABLE T BY MOUTH ACTIVE TWICE A DAY FOR BLOOD PRESSURE/HEART 13) MIRABEGRON 50MG SA TAB TAKE ONE TABLET BY M OUTH EVERY ACTIVE DAY 14) PANTOPRAZOLE NA 20MG EC TAB TAKE ONE TABLET BY MOUTH ACTIVE EVERY MORNING FOR STOMACH ACID (TAKE 20-3 0 MINUTES BEFORE FIRST MEAL) 15) SPIRONOLACTONE 25MG TAB TAKE ONE-HALF TABLE T BY MOUTH ACTIVE EVERY DAY TO CONTROL BLOOD PRESSURE Active Non-VA Medications Status 1) Non-VA ASPIRIN 81MG CHEW TAB 81MG MOUTH JORGE RY DAY ACTIVE 2) Non-VA CHOLECALCIF 25MCG (D3-1,000UNIT) TAB 2000UNIT ACTIVE BY MOUTH EVERY DAY 3) Non-VA DULAGLUTIDE 1.5MG/0.5ML INJ PEN 1.5M G/0.5ML ACTIVE SUBCUTANEOUSLY ONCE A WEEK 4) Non-VA FUROSEMIDE 40MG TAB 40MG BY MOUTH TW ICE A DAY ACTIVE 5) Non-VA ISOSORBIDE MONONITRATE 30MG SA TAB 3 0MG MOUTH ACTIVE EVERY DAY 6) Non-VA METFORMIN HCL 1000MG TAB 1000MG MOUT H TWICE ACTIVE DAILY WITH MEALS 7) Non-VA MIRABEGRON 25MG SA TAB 25MG BY MOUTH EVERY DAY ACTIVE 8) Non-VA MULTIVITAMIN/MIN, THERAPEUTIC UD TAB MOUTH ACTIVE 9) Non-VA NITROGLYCERIN 0.4MG SL TAB 0.4MG UND ER THE ACTIVE TONGUE NEEDED 10) Non-VA RIVAROXABAN 2.5MG TAB 2.5MG BY MOUTH EVERY ACTIVE TWELVE HOURS 11) Non-VA SPIRONOLACTONE 25MG TAB 25MG BY MOUT H EVERY ACTIVE DAY 26 Total Medications Allergies/Adverse Reactions: Patient has answered NKA HGB A1C: 6.1 (03/04/21 09:51) GLU: 266 (10/17/19 09:22) BUN: 26 (10/17/19 09:22) B/P: 135/68 (03/04/2021 08:15) BODY MASS INDEX - NO HEIGHTS FOUND Active problems - Computerized Problem List is t he source for the followin. PE - Pulmonary embolism 2. GERD - Gastro-esophageal reflux disease 3. Benign prostatic hypertrophy 4. Asymmetrical sensorineural hearing loss (SNO MED CT 124575540) 5. Subjective tinnitus (SNOMED CT 72176052) 6. HTN - Hypertension (SNOMED CT 08956317) 7. Hyperlipidemia (SNOMED CT 17677341) 8. Health Maintenance 9. BACKGROUND DIABETIC RETINOPATHY 10. Type 2 diabetes mellitus (SNOMED CT 79532499 ) 11. CAD - Coronary artery disease (SNOMED CT 537 95072) 81 year old WHITE MALE, new patient CHIEF COMPLAINT AND HISTORY OF PRESENT ILLNESS ( HPI): here for CEE. (+) Type 2 Diabetes Mellitus x ~1990 - Pt reports great adherence wit h medications (metformin, dulaglutide) - Last a1c: 6.1 (03/04/21 09:51) - Last checked BS yesterday mornin mg/dl (+) Mild blur OUcc at near and distance - Pt believes the alignment/fit of the shanda palencia is not accurate in his current PALs, which are 2-3 years old No other ocular or visual complaints at this kervin BRADLEY: ~2 months ago at [facility], where he was dilated . Reports no bleeding from diabetes in the back of the eyes (did not bring exam records with him today) -Per pt, s/p laser f or diabetic retinopathy ~2-3 years ago at [facility] - no laser scars present on exam today, likel y pt was referring to YAG procedure OU Denies: new f/f, CARLEE, pain, diplopia Neurological and Psychiatric Status: Orientation : Oriented to person, time, place Mood and Affect: normal, no agitation, no anxiety, no depressive behaviors in clinic OCULAR HISTORY: [-] Eye Trauma: [+] Surgery: - S/p CE OU ~15 years ago - S/p YAG OU ~3 years ago [-] Eye Pain: [-] Head Trauma: other: SOCIAL HISTORY: [-] tobacco: [-] alcohol: [+] drives car: Other: FAMILY HISTORY: [-] glaucoma: [-] blindness: [-] macular degeneration: Other: VISUAL ACUITY (with correction) OD: 20/30-2 PH: NI OS: 20/30 PH: 20/25- Current Rx OD: -1.50 -1.25 x135 OS: -0.50 -1.00 x070 Add: +2.75 REFRACTION and BEST-CORRECTED VISION OD: -1.75 -1.00 x135 20/25-2 OS: -1.00 -1.00 x070 20/25 Add: +2.75 OCULAR MOTILITY (EOM): Full without diplopia or pain OU, pursuits and saccades intact OU CONFRONTATION VIS RODRIGUEZ: full to finger counti ng OD & OS PUPILS: PERRLA, NO APD PRESENT OU COVER TEST (without correction) DIST: ~6PD exophoria NEAR: ortho ORBITS/ADNEXA: Normal OU ANTERIOR SEGMENT AND SLIT LAMP EXAM: Lids/Lashes: OD: 1+ blepharitis, 1+ MGD, thickened li d margins OS: 1+ blepharitis, 1+ MGD, thickened li d margins Scleral and Conjunctiva: OD: pinguecula N+T OS: pinguecula N+T Cornea: s/p CE OD: clear without staining, arcus 360 OS: clear without staining, arcus 360 Anterior Chamber: clear and free of cells or fl are OU [place] Angle estimation: OD: >1:1 N+T OS: >1:1 N+T Iris: normal/intact OU/ no neovascularization present ou Tonometry: iCare OD 9 OS 9 Time: 0954 DILATION OU: 0956 PATIENT EDUCATED ON SIDE EFFEC TS OF DILATION PRIOR TO DROP INSTILLATION. SIDE EFFECT DISCUSSED INCLUDE LIGH T SENSITIVITY AND BLURRED VISION AT NEAR. 1 gtt 1% Tropicamide 1 gtt 2.5% Phenylephrine INTERNAL EYE EXAMINATION BY SLIT LAMP, FUNDUSCOP Y AND BINOCULAR INDIRECT OPHTHALMOSCOPE: Lens: OD: PCIOL well centered and clear, s/p YA G OS: PCIOL well centered and clear, s/p YA G Vitreous: OD: syneresis present, PVD OS: syneresis present, PVD Nerve: RIM INTACT AND WITHOUT FOCAL DEFECTS OR PALLOR OU OD C/D: 0.40r OS C/D: 0.35r Macula: NO macular edema OU OD: pigment mottling OS: pigment mottling , dot heme inf to ONH, small dot heem inf/keely to ONH Vessels: Normal course and caliber OU Mid-peripheral and Peripheral Retina: Flat and intact 360 degrees OU OD: 2 dot hemes supe rior periphery, 1 dot heme sup/temp periphery, 1 dot heme temp periphery, few dot hemes inf/temp and inf in periphery OS: 1 dot heme temp periphery, scattered heme inf periphery, few dot heme inf/keely periphery ASSESSMENT/PLAN 1. Diabetes Mellitus Type 2 with mild NPDR OU, n o CSME OU -Dx in 1990, last A1c 02/2021 was 6.1, metformin and dulaglutide for control // Pt ed on findings. Emphasized importance of m aintaining good BS control, compliance with medications as well as regular f ollow-ups with PCP. Educated that diabetes is the #1 cause of preventable bli ndness in the [place]. RTC 1 year for DFE. 2. Pseudophakia OU - Stable and well-centered s/p YAG ~3 years ago OU //Noted - no further tx indicated at this time. Monitor prn. 3. Refractive Error with Presbyopia OU // Pt ed on condition. Dispensed new SRx. Monito r RTC ORDER: 1 year for DFE, refraction prn PATIENT EDUCATION: see above STUDENT SUPERVISION: Optometry student Lucio Cohen participated in the care of this patient. Thestudent performed an initial history, review of systems, medication review, andophthalmic examination. T he above note represents care provided by me and is NOT a student note. Supervising Surveillance Sensor Operator: Merle York O.D. Note complete (xx) Total time spent during this encounter, includin g [id number] and non-face time, was 45 min /nida York OD, [facility] Staff Surveillance Sensor Operator Signed: 08/18/2021 11:09 for LYN CABRALES OD OPTOMETRY RESIDENT /es/ Merle York OD, [facility] Staff Surveillance Sensor Operator Cosigned: 08/18/2021 11:09 08/18/2021 ADDENDUM STATUS: COMPLETED I have reviewed the patient's medical history an d above eye exam note. I agree with the assessment and plan. I have discussed these findings with the residen t /angela/ Merle York OD, [facility] Staff Surveillance Sensor Operator Signed: 08/18/2021 11:09
--- OUTSIDE RECORDS SUMMARY | 2022-02-20 01:27 | XMS_ITS | Encounter Summary ---
:1940 Author Organization Department [facility] Address [address] [place] [address] Care Team Providers Name Role Phone EMANI [...] Carcamo [employer] Mar 23, PLAND [id number] [phone] [place] , PATIENT LIFE & PLAN D ARE 2003 73 4 DIONNE CASUALTY SUP[employer] PLAND Mar 23, PLAND [id number] [phone] [place] , PATIENT LIFE AND PLAN D 2003 73 0 DIONNE CASUALTY MEDICARE MEDICARE PART Jan 21, PART B [id number] [place]URST [place], PATIENT (WNR) (M) B 2003 31A 2 D[place]NE MEDICARE MEDICARE PART Jan 21, PART A [id number] [place]URST [place], PATIENT (WNR) (M) A 2003 31B 2 D[place] MEDICARE MEDICARE PART Jan 21, PART A [id number] [place], PATIENT (WNR) (M) A 2003 CD13 2 D[place] MEDICARE MEDICARE PART Jan 21, PART B [id number] [place], PATIENT (WNR) (M) B 2003 CD13 2 D[place] MEDICARE MEDICARE PART Jan 21, PART B [id number] [place], PATIENT (WNR) (M) B 2003 CD13 2 [place] MEDICARE MEDICARE PART Jan 21, PART A [id number] [place], PATIENT (WNR) (M) A 2003 CD13 2 DIONNE Selected Encounter This section includes the information on record at [place] for the Encounter. Date/Time Encounter Type Encounter Description Reason Provider Source Jul 29, 2021 04:02 Outpatient Encounter ADMIN PAT ACTIVTIES PM (MASNONCT) IHE Encounter Template Text not used by [place] Plan of Treatment: Future Appointments (+ 6 months) and Future Tests (+/- 45 days) The Plan of Treatment section includes future care activities for the patient from all [place] treatment facilities. This section includes future appointments and future orders which are active, pending or scheduled.Future Appointments This section includes appointments that were scheduled to occur 6 months from the date of the Encounter, up to a maximum of 20 appointments. The data comes from all [place] [facility] Appointment Date/Time Appointment Type Appointment Facili ty Name Aug 18, 2021 09:30 AM AMBULATORY - SURGERY DYLON HERNANDEZ [place] [facility] Encounter Notes: All associated encounter notes This section contains the clinical notes associated to the Encounter. Date/Time Encounter Note(s) Provider Source Jul 29, 2021 04:03 PM PHARMACY OUTPATIENT NOTE: CORRINA GROSST LOCAL TITLE: Pharmacy Outpatient Note [facility] STANDARD TITLE: PHARMACY OUTPATIENT NOTE DATE OF NOTE: JUL 29, 2021@16:03 ENTRY DATE: JUL 29, 2021@16:03:03 AUTHOR: CORRINA GROSS EXP COSIGNER: URGENCY: STATUS: COMPLETED Pharmacy Outpatient Note Has ADDENDA Fax was sent to Non-VA provider at [facility] requesting they switch the patient over to the formulary preferred sema glutide. /angela/ CORRINA GROSS CLINICAL PHARMACIST Signed: 07/29/2021 16:03 08/17/2021 ADDENDUM STATUS: COMPLETED Following up on the above -- has an rx been rece ived for semaglutide? Thanks! /angela/ CHELSEA ESTRADA Clinical Pharmacist Signed: 08/17/2021 14:02 Receipt Acknowledged By: 08/30/2021 07:52 /angela/ CORRINA GROSS CLINICAL PHARMACIST 08/30/2021 ADDENDUM STATUS: COMPLETED Nothing has been received for this patie nt, I will place a follow up call with the non-VA provider /angela/ CORRINA GROSS CLINICAL PHARMACIST Signed: 08/30/2021 07:53
--- OUTSIDE RECORDS SUMMARY | 2022-02-20 01:27 | XMS_ITS | Encounter Summary ---
:1940 Author Organization Department [facility] Address [address] [place] [address] Care Team Providers Name Role Phone MOODY [...] Carcamo [employer] MEDIC Mar 23, PLAND [id number] [phone] [place] , PATIENT LIFE & PLAN D ARE 2003 73 4 DIONNE CASUALTY SUPPL [employer] PLAND Mar 23, PLAND [id number] [phone] [place] , PATIENT LIFE AND PLAN D 2003 73 0 DIONNE CASUALTY MEDICARE MEDICARE PART Jan 21, PART B [id number] [place], PATIENT (WNR) (M) B 2003 31A 2 DIONNE MEDICARE MEDICARE PART Jan 21, PART A [id number] [place], PATIENT (WNR) (M) A 2003 31B 2 D[place]NE MEDICARE MEDICARE PART Jan 21, PART A [id number] [place], PATIENT (WNR) (M) A 2003 CD13 2 [place] MEDICARE MEDICARE PART Jan 21, PART B [id number] [place], PATIENT (WNR) (M) B 2003 CD13 2 [place] MEDICARE MEDICARE PART Jan 21, PART B [id number] [place], PATIENT (WNR) (M) B 2003 CD13 2 [employer] MEDICARE MEDICARE PART Jan 21, PART A [id number] [place], PATIENT (WNR) (M) A 2003 CD13 2 DIONNE Selected Encounter This section includes the information on record at [place] for the Encounter. Date/Time Encounter Type Encounter Description Reason Provider Source Dec 29, 2021 04:50 Outpatient Encounter COMMUNITY CARE PM CONSULT IHE Encounter Template Text not used by [place] Plan of Treatment: Future Appointments (+ 6 months) and Future Tests (+/- 45 days) The Plan of Treatment section includes future care activities for the patient from all [place] treatment facilities. This section includes future appointments and future orders which are active, pending or scheduled.Active, Pending, and Scheduled Orders This section includes a listing of several types of active, pending, and scheduled orders, including clinic medications orders, diagnostic test orders, procedure orders and cons ult orders; where the start date of the order is 45 days before the date of the Encounter or 45 days after the date of the Encounter. The data comes from all [place] treatment facilities. Test Date/Time Test Type Test Details Facility Name Jan 07, 2022 07:32 AM Consult Order COMMUNITY CARE-PRIMARY WHI ROSALIND HERNANDEZ T [facility] CARE Cons Proration Clerk's Choice Encounter Notes: All associated encounter notes This section contains the clinical notes associated to the Encounter. Date/Time Encounter Note(s) Provider Source Dec 29, 2021 04:50 PM NONVA NOTE: ABI DAILEY FL RAKESH T LOCAL TITLE: COMMUNITY CARE COORDINATION PLAN [facility] STANDARD TITLE: NONVA NOTE DATE OF NOTE: DEC 29, 2021@16:50 ENTRY DATE: DEC 29, 2021@16:50:12 AUTHOR: ABI DAILEY EXP COSIGNER: URGENCY: STATUS: COMPLETED Noted in [facility] report that [facility] PCP consu lt is expiring 01/25/2022. Patient seeing: [facility] Michell Bishop, DRAWING HAND Spoke to nurse, Claudia. Informed if plan of care is to continue with CC PCP, informed of the need for completed Request For Umer miller ([place]) [place] Form [id number], supportive documentation for RFS to be faxed to [facility] [phone]. Kalie mahan stated understanding and agreement. Invited to call this RN PRN questions/concerns. Direct ext provided. /angela/ Abi Dailey DNP, BRITNI, RN-[facility] Clinical Technical Sales Representative Signed: 12/29/2021 17:02
--- OUTSIDE RECORDS SUMMARY | 2022-02-20 01:27 | XMS_ITS | Encounter Summary ---
:1940 Author Organization Department [facility] Address [address] [place] [address] Care Team Providers Name Role Phone EMANI [...] Carcamo [employer] Mar 23, PLAND [id number] [phone] [place] , PATIENT LIFE & PLAN D ARE 2003 73 4 DIONNE CASUALTY SUP[employer] PLAND Mar 23, PLAND [id number] [phone] [place] , PATIENT LIFE AND PLAN D 2003 73 0 DIONNE CASUALTY MEDICARE MEDICARE PART Jan 21, PART B [id number] [place], PATIENT (WNR) (M) B 2003 31A 2 [employer] MEDICARE MEDICARE PART Jan 21, PART A [id number] [place], PATIENT (WNR) (M) A 2003 31B 2 [employer] MEDICARE MEDICARE PART Jan 21, PART A [id number] [place], PATIENT (WNR) (M) A 2003 CD13 2 [place] MEDICARE MEDICARE PART Jan 21, PART B [id number] [place], PATIENT (WNR) (M) B 2003 CD13 2 [employer] MEDICARE MEDICARE PART Jan 21, PART B [id number] [place], PATIENT (WNR) (M) B 2003 CD13 2 [employer] MEDICARE MEDICARE PART Jan 21, PART A [id number] [place], PATIENT (WNR) (M) A 2003 CD13 2 [place] Selected Encounter This section includes the information on record at [place] for the Encounter. Date/Time Encounter Type Encounter Description Reason Provider Source Sep 01, 2021 12:20 Outpatient Encounter TELEPHONE TRIAGE PM IHE Encounter Template Text not used by [place] Encounter Notes: All associated encounter notes This section contains the clinical notes associated to the Encounter. Date/Time Encounter Note(s) Provider Source Sep 01, 2021 12:20 PM PRIMARY CARE ADMINISTRATIVE NOTE: ALEJANDRO JANE [facility] LOCAL TITLE: Administrative Note/Primary Care STANDARD TITLE: PRIMARY CARE ADMINISTRATIVE NOTE DATE OF NOTE: SEP 01, 2021@12:20 ENTRY DATE: SEP 01, 2021@12:20:49 AUTHOR: ALEJANDRO JANE EXP COSIGNER: URGENCY: STATUS: COMPLETED Administrative Note/Primary Care Has ADDE NDA [facility] and [facility] checking on his script for Xarelto - his blood thinner medication - has been working on this now for 10 days and is almost out and cannot be without the medication. would like to know what is going on and when he will be getting this script - call back number [phone] thank you /angela/ ALEJANDRO JANE AMSA Signed: 09/01/2021 12:22 Receipt Acknowledged By: 09/02/2021 17:04 /angela/ LEANDRO JIMENEZ Clinical Pharmacist for CHELSEA ESTRADA * AWAITING SIGNATURE * CORRINA GROSS 09/02/2021 ADDENDUM STATUS: COMPLETED [place] is not followed by [facility] and is being monitored by his [facility] approved PCP. Tracking shows prescriptio n was mailed on 09/01/21 with expected arrival on 09/06/21. /angela/ LEANDRO JIMENEZ Clinical Pharmacist Signed: 09/02/2021 17:12
[2022-02-22 13:18] VITALS: BP 141/68; PULSE 94
[2022-02-24 11:05] VITALS: BP 144/74; PULSE 73
[2022-03-08 11:20] VITALS: BP 141/67; PULSE 64
[2022-03-15 13:38] VITALS: BP 128/71; PULSE 61
[2022-03-17 10:47] VITALS: BP 144/68; PULSE 66
[2022-03-22 10:49] VITALS: BP 137/66; PULSE 61
== END 2022-03-22 23:59 | disposition home or self-care (01) ==
LOC: CR 10:48
PROVIDERS: PCP Nurse Practitioner Family; Visit Provider Internal Medicine Cardiovascular Disease
DX: R69 Illness, unspecified (principal)

== ENCOUNTER 2022-04-14 10:50 | Outpatient (RCR) | payer SELFPAY ==
[2022-03-23 00:05] VITALS: BP 137/66; PULSE 61
--- OUTSIDE RECORDS SUMMARY | 2022-03-24 09:48 | XMS_ITS | Encounter Summary ---
:1940 Author Organization Department [facility] Address [address] [place] [address] Care Team Providers Name Role Phone EMANI [...] [place] [employer] Mar 23, PLAND [id number] [phone] MANTUA , PATIENT LIFE & PLAN D ARE 2003 73 4 DIONNE CASUALTY SUP[employer] PLAND Mar 23, PLAND [id number] [phone] MANTUA , PATIENT LIFE AND PLAN D 2003 73 0 D[facility]NE CASUALTY MEDICARE MEDICARE PART Jan 21, PART B [id number] THURST ON, PATIENT (WNR) (M) B 2003 31A 2 [employer]NE MEDICARE MEDICARE PART Jan 21, PART A [id number] THURST ON, PATIENT (WNR) (M) A 2003 31B 2 [place] MEDICARE MEDICARE PART Jan 21, PART A [id number] THURST ON, PATIENT (WNR) (M) A 2003 CD13 2 D[place]NE MEDICARE MEDICARE PART Jan 21, PART B [id number] THURST ON, PATIENT (WNR) (M) B 2003 CD13 2 [employer] MEDICARE MEDICARE PART Jan 21, PART B [id number] THURST ON, PATIENT (WNR) (M) B 2003 CD13 2 [place] MEDICARE MEDICARE PART Jan 21, PART A [id number] THURST ON, PATIENT (WNR) (M) A 2003 CD13 2 DIONNE Selected Encounter This section includes the information on record at [place] for the Encounter. Date/Time Encounter Type Encounter [...] includes the primary and secondary diagnoses documented for the Encounter. Date/Time Primary/Secondary Diagnosis Name Provider Source Diagnosis Jun 09, 2021 PRIMARY Encounter for ALEN KING 06:15 PM therapeutic drug A [facility] level monitoring Plan of Treatment: Future Appointments (+ 6 months) and Future Tests (+/- 45 days) The Plan of Treatment section includes future care activities for the patient from all [place] treatmentfacilities. This section includes future appointments and future orders which are active, pending orscheduled.Future Appointments This section includes appointments that were scheduled to occur 6 months from the date of the Encounter, up to a maximum of 20 appointments. The data comes from all [place] treatment facilities. Appointment Date/Time Appointment Type Appointment Facili ty Name Jun 15, 2021 09:00 AM AMBULATORY - NONE [facility] Aug 18, 2021 09:30 AM AMBULATORY - SURGERY [facility] Lab Results: +/- 30 days of the encounter This section includes the Chemistry and Hematology Lab Results on record with [place] for the patient. Radiology Reports and Pathology Reports are provided separately, in subsequent sections.Lab Results This section contains the Chemistry/Hematology Results that were resulted 30 days before or 30 daysafter the date of the Encounter. Date/Time Source Result Type Result - Unit Interpretation Reference Range Comment Jun 08, 2021 08:16 AM [facility] CBC NO DIFF Sp ecimen Type: BLOOD No comment enter ed. Ordering Provid er: LEANDRO JIMENEZ Report Released Date/Time: March 05, 2021 03:14 PM Reporting Lab: [facility] [address] [facility] [address] Performing Lab: [facility] [address] [facility] [address] WBC 6.2 10*3/uL 4.5-11.0 RBC 3.99 10*6/uL L 4.23-5.66 HGB 11.6 g/dL L 12.8-17 HEMATOCRIT 37.9 L 39.2-50.4 MCV 95.0 fL 82-99 MCH 29.1 pg 26.2-32.6 MCHC 30.6 g/dL L 30.8-35.1 PLT 225 10*3/uL 140-360 MPV 9.4 fL 9.2-12.4 RDW 15.3 12.0-16.0 Jun 08, 2021 08:16 [facility] [place] CREATININE WITH eGFR Specime n Type: PLASMA AM [facility] PANEL Comment: Tests performed on WonderHowTo (405) SN:[id number] Ordering Provid er: LEANDRO JIMENEZ Report Released Date/Time: March 05, 2021 03:14 PM Reporting Lab: [facility] [address] [facility] [address] Performing Lab: [facility] [address] [facility] [address] CREATININE 1.13 mg/dL 0.5-1.5 eGFR 62 mL/min >60 Encounter Notes: All associated encounter notes This section contains the clinical notes associated to the Encounter. Date/Time Encounter Note(s) Provider Source Jun 09, 2021 09:14 AM [facility]TICO[facility] NOTE: PRIYANKA KING D[facility] HERNANDEZ T LOCAL TITLE: Anticoagulation Clinic/Hot Box Checker [facility] STANDARD TITLE: [facility] OF ANTICOAGULATION NOTE DATE OF NOTE: JUN 09, 2021@09:14 ENTRY DATE: JUN 09, 2021@09:15 AUTHOR: ALEN KING COSIGNER: URGENCY: STATUS: COMPLETED MR. DIONNE AGUILLON [address] [place] [address] Purpose of visit: Follow-up anticoagulation clin ic visit Time spent with patient during this visit: 25 mi nutes Subjective/Objective information: Active Outpatient Medications (excluding Supplie s): Active Outpatient Medications Status 1) ACCU-CHEK FRANCINE PLUS(GLUCOSE) TEST STRIP USE 1 TEST ACTIVE STRIP NEEDED TO TEST BLOOD GLUCOSE LEVEL 2) ALFUZOSIN HCL 10MG SA TAB TAKE ONE TABLET BY MOUTH ACTIVE EVERY DAY FOR URINARY VOIDING SYMPTOMS 3) APIXABAN 5MG TAB TAKE ONE TABLET BY MOUTH JORGE RY ACTIVE TWELVE HOURS TO HELP PREVENT BLOOD CLOTS (ANTICOAGULATION) 4) ATORVASTATIN CALCIUM 40MG TAB TAKE ONE TABLET BY ACTIVE MOUTH EVERY DAY TO LOWER CHOLESTEROL 5) CLOTRIMAZOLE 1% TOP CREAM APPLY THIN FILM TOP ICALLY ACTIVE TWICE A DAY FOR FUNGAL INFECTION 6) DULAGLUTIDE 0.75MG/0.5ML INJ PEN INJECT 0.75M G/0.5ML ACTIVE SUBCUTANEOUSLY ONCE A WEEK FOR DIABETES 7) EZETIMIBE 10MG TAB TAKE ONE TABLET BY MOUTH E VERY DAY ACTIVE TO LOWER CHOLESTEROL 8) FERROUS SULFATE 325MG TAB TAKE ONE TABLET BY MOUTH ACTIVE EVERY DAY TO SUPPLEMENT IRON 9) FINASTERIDE 5MG TAB TAKE ONE TABLET BY MOUTH AT ACTIVE BEDTIME FOR PROSTATE 10) FOLIC ACID 1MG TAB TAKE TWO TABLETS BY MOUTH EVERY ACTIVE DAY VITAMIN/NUTRITION SUPPLEMENT 11) FUROSEMIDE 40MG TAB TAKE ONE TABLET BY MOUTH TWICE A ACTIVE DAY TO REMOVE FLUID/CONTROL BLOOD PRESSURE 12) INSULIN,GLARGINE 100 UNT/ML 3ML SOLOSTAR INJ ECT ACTIVE 55UNITS SUBCUTANEOUSLY EVERY DAY -DISCARD 28 DA YS AFTER FIRST USE. REFRIGERATE UNOPENED PENS. 13) LOSARTAN 100MG TAB TAKE ONE TABLET BY MOUTH EVERY DAY ACTIVE FOR BLOOD PRESSURE/HEART; NOTE DOSE INCREASE 14) METOPROLOL TARTRATE 50MG TAB TAKE ONE TABLET BY MOUTH ACTIVE TWICE A DAY FOR BLOOD PRESSURE/HEART 15) PANTOPRAZOLE NA 20MG EC TAB TAKE ONE TABLET BY MOUTH ACTIVE EVERY MORNING FOR STOMACH ACID (TAKE 20-30 JAMIE CATRACHITA BEFORE FIRST MEAL) Active Non-VA Medications Status 1) Non-VA ASPIRIN 81MG CHEW TAB 81MG MOUTH EVERY DAY ACTIVE 2) Non-VA CHOLECALCIF 25MCG (D3-1,000UNIT) TAB 2 000UNIT ACTIVE BY MOUTH EVERY DAY 3) Non-VA CLOPIDOGREL BISULFATE 75MG TAB 75MG MO UTH ACTIVE EVERY DAY 4) Non-VA DULAGLUTIDE 1.5MG/0.5ML INJ PEN 1.5MG/ 0.5ML ACTIVE SUBCUTANEOUSLY ONCE A WEEK 5) Non-VA FUROSEMIDE 40MG TAB 40MG BY MOUTH TW DAY ACTIVE 6) Non-VA ISOSORBIDE MONONITRATE 30MG SA TAB 30M G MOUTH ACTIVE EVERY DAY 7) Non-VA METFORMIN HCL 1000MG TAB 1000MG MOUTH TWICE ACTIVE DAILY WITH MEALS 8) Non-VA MIRABEGRON 25MG SA TAB 25MG BY MOUTH E DAY ACTIVE 9) Non-VA MULTIVITAMIN/MIN, THERAPEUTIC UD TAB M OUTH ACTIVE 10) Non-VA NITROGLYCERIN 0.4MG SL TAB 0.4MG UNDE R THE ACTIVE TONGUE NEEDED 11) Non-VA SPIRONOLACTONE 25MG TAB 25MG BY MOUTH EVERY ACTIVE DAY 26 Total Medications [ [...] 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 No VM (doesn't check voicemail); letter OK Lab Results: (CrCl calculation: Cockcroft-Gault and actual body weight) Date Hct Hgb Plt Creat Weight Calc CrCl AST ALT 12/26/20([facility] 33.3 10.7 444 1.14 99kg 70ml/min 03/04/21 38.7 11.7 283 1.38 98kg 57ml/min 17 26 06/08/21 37.9 11.6 225 1.13 98kg T/C with and Susan Assessment: Patient previously anticoagulated wi th apixaban for PE, with intended duration 6 months. Patient reporting t hat cardiology switched him from apixaban to rivaroxaban. Per [facility] records, apixaban was stopped in March and in April patient started rivaroxaban 2.5mg q12hr for indication PAD/CAD. Patient denies co mplications. Pertinent labs reviewed and are stable. Patient does not currently have [facility] PCP listed. Currently, patient is receiving community care. Discussed with marybel gonzalez that the [place] anticoagulation clinic can no longer manage ant icoagulation since he now has all community care providers. His Non-V A provider can fax medication orders directly to the [place] pharmacy, gave patient fax number. Patient able to verbalize understanding that for anticoagulation needs going forward, should con tact Non-VA provider. Patient will be discharged from [place] anticoagulat ion clinic. Plan: Continue current regimen per Non-VA provid ers DOAC Regimen: rivaroxaban 2.5mg q12hr Future follow-up: n/a Patient Education: [X] s/sx bleeding/thrombosis and ER precautions [X] importance of correct dose/dosing schedule [X] importance of medication compliance [X] importance of reporting medication changes, planned procedures, change in health care statu s to clinic [x] TC to patient/spouse/caregiver who was able to verbalize understanding of above instructions. [ ] Voice mail left for quentin castillo with instructions- - [facility] number w/ instructions to call to report s/sx of bleeding, upcoming pr ocedures, or other complications [ ] Written instructions mailed to patient [ ] Rx ordered [ ] Rx/Lab orders faxed to: /angela/ ALEN KING PHARMD PHARMACIST Signed: 06/09/2021 09:59
--- OUTSIDE RECORDS SUMMARY | 2022-03-24 09:48 | XMS_ITS | Encounter Summary ---
:1940 Author Organization Department [facility] Address [address] [place] [id number] Care Team Providers Name Role Phone EMANI [...] [place] [employer] MEDIC Mar 23, PLAND [id number] [phone] [place] , PATIENT LIFE & PLAN D ARE 2003 73 4 D[place]NE CASUALTY SUPPL CO [employer] PLAND Mar 23, PLAND [id number] [phone] [place] , PATIENT LIFE AND PLAN D 2003 73 0 [place] CASUALTY MEDICARE MEDICARE PART Jan 21, PART B [id number] [place], PATIENT (WNR) (M) B 2003 31A 2 [place] MEDICARE MEDICARE PART Jan 21, PART A [id number] [place], PATIENT (WNR) (M) A 2003 31B 2 [place] MEDICARE MEDICARE PART Jan 21, PART A [id number] [place], PATIENT (WNR) (M) A 2003 CD13 2 [place] MEDICARE MEDICARE PART Jan 21, PART B [id number] [place], PATIENT (WNR) (M) B 2003 CD13 2 [place] MEDICARE MEDICARE PART Jan 21, PART B [id number] [place], PATIENT (WNR) (M) B 2003 CD13 2 [place] MEDICARE MEDICARE PART Jan 21, PART A [id number] [place], PATIENT (WNR) (M) A 2003 [...] activities for the patient from all [place] treatmentfacilities. This section includes future appointments and future orders which are active, pending orscheduled.Future Appointments This section includes appointments that were scheduled to occur 6 months from the date of the Encounter, up to a maximum of 20 appointments. The data comes from all [place] treatment facilities. Appointment Date/Time Appointment Type Appointment Facili ty Name Aug 18, 2021 09:30 AM AMBULATORY - SURGERY [place] [facility] Encounter Notes: All associated encounter notes This section contains the clinical notes associated to the Encounter. Date/Time Encounter Note(s) Provider Source Jul 14, 2021 04:59 PM TRIAGE NOTE: MELLISSA RUIZ [facility] LOCAL TITLE: Telephone Triage Note STANDARD TITLE: TRIAGE NOTE DATE OF NOTE: JUL 14, 2021@16:59 ENTRY DATE: JUL 14, 2021@16:59:52 AUTHOR: MELLISSA RUIZ EXP COSIGNER: URGENCY: STATUS: COMPLETED Telephone Triage Note Has ADDENDA Call taken by: MELLISSA RUIZ PCP: Patient Phone #: Address: [address] [place] [address] Caller name if different: Phone #: Caller is: [x ][place] [ ]Spouse [ ][facility] [ ]Other: Pt. is 81 year old MALE who calls today w/ CHIEF COMPLAINT OF: [place] lmom in regards to having some questions in regards to pres cription(s). Asked for a call back at your earliest convenience. Allergies: Patient has answered NKA ASSESSMENT: Protocol Used? [ ]Yes (per [place]'s [facility] [address]) [ ]No [ ]N/A Disposition: [ ] Primary Care Provider Information only. [ ] Request advice. [ ] Primary Care Provider action requested. [ ] Other Provider: [ ] Patient problem resolved during phone call. [ ] Appointment made: Patient agrees with plan? [ ]Yes [ ]No [ ]N/A /angela/ MELLISSA PASCUAL Signed: 07/14/2021 17:00 Receipt Acknowledged By: * AWAITING SIGNATURE * THAOELIO 07/14/2021 18:00 /angela/ EMANI URIOSTEGUI DNP, SAULO- ANTWON NURSE PRACTITIONER 07/14/2021 ADDENDUM STATUS: COMPLETED TC to patient on 07/14/21: Pt staea he has a prescription of xaralto-is req uesting to receive via [facility] pt informed he will be followed by anticoag clin ic at [facility] and is agreeable. 30day rx written /angela/ EMANI URIOSTEGUI DNP, SAULO-ANTWON NURSE PRACTITIONER Signed: 07/14/2021 18:09
--- OUTSIDE RECORDS SUMMARY | 2022-03-24 09:48 | XMS_ITS | Encounter Summary ---
:1940 Author Organization Department [facility] Address [address] [place] [address] Care Team Providers Name Role Phone EMANI [...] [place] [employer] Mar 23, PLAND [id number] [phone] [place] , PATIENT LIFE & PLAN D ARE 2003 73 4 DIONNE CASUALTY SUP[employer] PLAND Mar 23, PLAND [id number] [phone] [place] , PATIENT LIFE AND PLAN D 2003 73 0 [place] CASUALTY MEDICARE MEDICARE PART Jan 21, PART B [id number] [place], PATIENT (WNR) (M) B 2003 31A 2 [place] MEDICARE MEDICARE PART Jan 21, PART A [id number] [place], PATIENT (WNR) (M) A 2003 31B 2 [place] MEDICARE MEDICARE PART Jan 21, PART A [id number] [place], PATIENT (WNR) (M) A 2003 CD13 2 [place] MEDICARE MEDICARE PART Jan 21, PART B [id number] [place], PATIENT (WNR) (M) B 2003 CD13 2 [place] MEDICARE MEDICARE PART Jan 21, PART B [id number] [place], PATIENT (WNR) (M) B 2003 CD13 2 [place] MEDICARE MEDICARE PART Jan 21, PART A [id number] [place], PATIENT (WNR) (M) A 2003 CD13 2 D[place] Selected Encounter This section includes the information on record at [place] for the Encounter. Date/Time Encounter Type Encounter [...] Apr 21, 2021 SECONDARY Sensorineural ALEN POSADA Y 02:18 PM hearing loss, [facility] bilateral Apr 21, 2021 SECONDARY Tinnitus, bilateral [facility] Plan of Treatment: Future Appointments (+ 6 months) and Future Tests (+/- 45 days) The Plan of Treatment section includes future care activities for the patient from all [place] treatmentfacilities. This section includes future appointments and future orders which are active, pending orscheduled.Future Appointments This section includes appointments that were scheduled to occur 6 months from the date of the Encounter, up to a maximum of 20 appointments. The data comes from all [place] treatment facilities. Appointment Date/Time Appointment Type Appointment Facili ty Name Jun 08, 2021 08:30 AM AMBULATORY - NONE [facility] Jun 09, 2021 06:15 PM [facility] Jun 15, 2021 09:00 [facility] Aug 18, 2021 09:30 [facility] Social History: Smoking Status (Most current) and Tobacco Use (All prior to encounter date) This section includes the most current, and the historical, smoking and tobacco-related health factors from the [place] facility where the Encounter took place.Current Smoking Status This section includes the most current smoking, or tobacco-related health factor, from the [place] facility where the Encounter took place. Date/Time Current Smoking Status Comment Facility March 04, 2021 08:30 AM VA-TOBACCO FORMER USER [facility] Tobacco Use History This section includes a history of the smoking, or tobacco- related health factors, that were collected on or before the date of the Encounter. The data comes from the [place] facility where the Encounter took place. Date/Time Smoking Status/Tobacco Use Comment [facility] March 04, 2021 08:30 AM VA-TOBACCO QUIT [address] [facility] MORE Feb 11, 2020 03:52 PM VA-TOBACCO FORMER USER [facility] Feb 11, 2020 03:52 PM [facility] Aug 14, 2018 08:49 AM VA-TOBACCO FORMER USER [facility] Aug 14, 2018 08:49 AM VA-TOBACCO QUIT [facility] YRS [facility] Aug 11, 2016 09:50 AM QUIT TOBACCO USE > [address] [facility] hasn't smoked for 30 years Feb 07, 2005 10:[address] [facility] February 23, 2004 09:[address] [facility] 20 years ago Jan 29, 2003 01:[address] OF [facility]MO[facility] Feb 11, 2002 01:51 [address] Jan 22, 2001 08:40 [address]IME NON-SMOKER [facility] Encounter Notes: All associated encounter notes This section contains the clinical notes associated to the Encounter. Date/Time Encounter Note(s) Provider Source Apr 21, 2021 02:15 PM AUDIOLOGY NOTE: ALEN POSADA [facility] LOCAL TITLE: Audiology Note STANDARD TITLE: AUDIOLOGY NOTE DATE OF NOTE: APR 21, 2021@14:15 ENTRY DATE: APR 21, 2021@14:15:54 AUTHOR: ALEN POSADA EXP COSIGNER: URGENCY: STATUS: COMPLETED Date of Contact: APR 21, 2021 S: [place] has bilateral sensorineural hearing l oss and was seen today for a hearing aid repair. 05/30/19 OTICON OPN S 1 MINIRITE-R R [id number] NA 06/13/22 11/11/19 05/30/19 OTICON OPN S 1 MINIRITE-R L [id number] NA 06/13/22 11/11/19 -acrylic canal lock molds, size 3 85 dB warehouse receiver s O/A: requested help pairing his aids to his iPhone. Cleaned and checked aids. Replaced receivers and waxguards. Removed debris from microphones. Bio check showed aids in good working order. Successfully paired aids to his phone and streaming working as expected. [place] repor jake good sound quality and physical fit. Diagnosis: Sensorineural hearing loss Procedures completed: visual/listening check of two aids aid/s office repair otoscopy- clear AU P: [place] will return as needed. /angela/ Shireen DICKERSON Truck Crane Operator Signed: 04/21/2021 14:18
--- OUTSIDE RECORDS SUMMARY | 2022-03-24 09:48 | XMS_ITS ---
:1940 Author Organization [facility] Address [address] [place] [address] Care Team Providers Name Role Phone EMANI [...] [place] [employer] Mar 23, PLAND [id number] [phone] [place] , PATIENT LIFE & PLAN D ARE 2003 73 4 D[place]NE CASUALTY [employer] PLAND Mar 23, PLAND [id number] [phone] [place] , PATIENT LIFE AND PLAN D 2003 73 0 D[place]NE CASUALTY MEDICARE MEDICARE PART Jan 21, PART B [id number] [place], PATIENT (WNR) (M) B 2003 31A 2 [place] MEDICARE MEDICARE PART Jan 21, PART A [id number] [place], PATIENT (WNR) (M) A 2003 31B 2 [place] MEDICARE MEDICARE PART Jan 21, PART A [id number] [place], PATIENT (WNR) (M) A 2003 CD13 2 [place] MEDICARE MEDICARE PART Jan 21, PART B [id number] [place], PATIENT (WNR) (M) B 2003 CD13 2 [place] MEDICARE MEDICARE PART Jan 21, PART B [id number] [place], PATIENT (WNR) (M) B 2003 CD13 2 [place] MEDICARE MEDICARE PART Jan 21, PART A [id number] [place], PATIENT (WNR) (M) A 2003 CD13 2 [place] Selected Encounter This section includes the information on record at [place] for the Encounter. 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 This section includes future appointments and future orders which are active, pending orscheduled.Future Appointments This section includes appointments that were scheduled to occur 6 months from the date of the Encounter, up to a maximum of 20 appointments. The data comes from all [place] treatment facilities. Appointment Date/Time Appointment Type Appointment Facili ty Name Aug 18, 2021 09:30 AM AMBULATORY - SURGERY [place] [facility] Lab Results: +/- 30 days of the encounter This section includes the Chemistry and Hematology Lab Results on record with [place] for the patient. Radiology Reports and Pathology Reports are provided separately, in subsequent sections.Lab Results This section contains the Chemistry/Hematology Results that were resulted 30 days before or 30 daysafter the date of the Encounter. Date/Time Source Result Type Result - Unit Interpretation Reference Range Comment Jun 08, 2021 08:16 AM [facility] CBC NO DIFF Sp ecimen Type: BLOOD No comment enter ed. Ordering Provid er: LEANDRO JIMENEZ Report Released Date/Time: March 05, 2021 03:14 PM Reporting Lab: [facility] HERNANDEZ T [facility] [address] [facility] [address] Performing Lab: [facility]BE[facility] [address] [facility] [address] WBC 6.2 10*3/uL 4.5-11.0 RBC 3.99 10*6/uL L 4.23-5.66 HGB 11.6 g/dL L 12.8-17 HEMATOCRIT 37.9 L 39.2-50.4 MCV 95.0 fL 82-99 MCH 29.1 pg 26.2-32.6 MCHC 30.6 g/dL L 30.8-35.1 PLT 225 10*3/uL 140-360 MPV 9.4 fL 9.2-12.4 RDW 15.3 12.0-16.0 Jun 08, 2021 08:16 [place] CREATININE WITH eGFR Specime n Type: PLASMA [facility] PANEL Comment: Tests performed on Inviragen (405) [id number] Ordering Provid er: LEANDRO JIMENEZ Report Released Date/Time: March 05, 2021 03:14 PM Reporting Lab: [facility] [address] [facility] [address] Performing Lab: [facility] [address] [facility] [address] CREATININE 1.13 mg/dL 0.5-1.5 eGFR 62 mL/min >60 Encounter Notes: All associated encounter notes This section contains the clinical notes associated to the Encounter. Date/Time Encounter Note(s) Provider Source Jun 23, 2021 09:17 AM PHARMACY OUTPATIENT NOTE: SE RODRIGUES DYLON HERNANDEZ [facility] LOCAL TITLE: Pharmacy Outpatient Note [facility] STANDARD TITLE: PHARMACY OUTPATIENT NOTE DATE OF NOTE: JUN 23, 2021@09:17 ENTRY DATE: JUN 23, 2021@09:18:01 AUTHOR: SE RODRIGUES EXP COSIGNER: URGENCY: STATUS: COMPLETED Dulaglutide recall for dose labeling error. Dula glutide is no longer the formulary preferred option f or GLP-1 receptor agonist, and has been replaced by semaglutide. Call to [place] to explain medicati on recall attempted with no answer. [place] is not eligible for conv ersion to semaglutide at this time d/t noted PMH of diabetic retino albaro, letter and replacement order for dulaglutide has been mailed to [place]. /angela/ SE RODRIGUES PharmD Clinical Pharmacist Signed: 06/23/2021 09:20 Receipt Acknowledged By: * AWAITING SIGNATURE * BRAD DAVILA * AWAITING SIGNATURE * VASYL PERALTA
--- OUTSIDE RECORDS SUMMARY | 2022-03-24 09:48 | XMS_ITS | Continuity of Care Document ---
:1940 Author Organization [facility] Care Team Providers Name Role Phone DOD-VA Unavailable Unavailable Problems Combined list of problems from Department of Defense and Veterans Affairs facilities. It does not include entries that were removed or entered in error. 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 (SNOMED CT 539403910) BACKGROUND DIABETIC Active Condition [place] RETINOPATHY [place] [facility] Benign prostatic Active Condition [place] hypertrophy [place] [facility] CAD - Coronary Active Condition [place] artery disease [place] [facility] (SNOMED CT 99839191) GERD - Active Condition [place] Gastro-esophageal MIS T [facility] reflux disease Health Maintenance Active Condition [place] (ICD-9-CM V65.9) [place] [facility] HTN - Hypertension Active Condition [place] (SNOMED CT 29824757) [place] [facility] Hyperlipidemia Active Condition [place] (SNOMED CT 74891553) [place] [facility] PE - Pulmonary Active Condition [place] embolism T [facility] Subjective tinnitus Active Condition [place] (SNOMED CT 10878276) [place] [facility] Type 2 diabetes Active Condition [place] mellitus (SNOMED CT T [facility] 46532107) SENSORINEURAL Inactive Condition 05/30/2019 [place] HEARING LOSS, [place] [facility] BILATERAL Diagnosis: ICD-10-CM active Diagnosis [place] E11.3293 Type 2 diab [place] [facility] with mild nonp rtnop without macular edema, biwith Provider Comments: Type 2 diabetes mellitus with mild nonproliferative diabetic retinopathy without macular edema, bilateral Diagnosis: ICD-10-CM active Diagnosis [place] E11.319 Type 2 [place] [facility] diabetes w unsp diabetic rtnop w/o macular edemawith Provider Comments: Type 2 diabetes mellitus (SCT 55175306) Diagnosis: ICD-10-CM active Diagnosis [place] Z51.81 Encounter for T [facility] therapeutic drug level monitoringwith Provider Comments: Encounter for Therapeutic Drug Level Monitoring Diagnosis: ICD-10-CM active Diagnosis ST. Z46.1 Encounter for [facility] fitting and CBOC adjustment of hearing aidwith Provider Comments: Encounter for Fitting and Adjustment of Hearing Aid Diagnosis: ICD-10-CM active Diagnosis [place] I26.99 Other [place] [facility] MALLIKA pulmonary embolism without acute cor pulmonalewith Provider Comments: PE - Pulmonary embolism (SCT 20712471) Diagnosis: ICD-10-CM active Diagnosis ST. I25.10 Athscl heart [place] disease of [place] [facility] coronary artery w/o ang pctrswith Provider Comments: Atherosclerotic Heart Disease of [place] Coronary Artery without Angina Pectoris Medications Combined list of outpatient medications from Department of Defense and Veterans Affairs facilities. Medications provided include 1) outpatient medications from the last 15 months, and 2) patient-reported medications. Medication Details Route Status Patient Prescription Prescription Last Ordering Order Source Instructions Expires Number Dispense Provider Date Date ALFUZOSIN TAKE ONE ORAL ACTIVE 03/26/2022 [id number] GERDIETERH ,A 03/29/ ST. HCL 10MG TABLET 2 GAGE K 2020 [place] TAB,SA BY MOUTH RY CBOC EVERY DAY FOR URINARY VOIDING SYMPTOMS ALFUZOSIN TAKE ONE ORAL DISCONT 03/05/2022 [id number] RODIE R,LA 05/04/ ST. HCL 10MG TABLET INUE 1 UREN P 2020 [place] TAB,SA BY MOUTH RY CBOC EVERY DAY FOR URINARY VOIDING SYMPTOMS - DR. BENZ ALFUZOSIN TAKE ONE ORAL DISCONT 03/26/2021 [id number] DAVID R,LA 04/08/ WHITE HCL 10MG TABLET INUE 1 UREN P 2020 [place] TAB,SA BY MOUTH [place] EVERY [facility] DAY FOR URINARY VOIDING SYMPTOMS - DR. BENZ APIXABAN TAKE ONE ORAL DISCONT 03/06/2022 [id number] Nemesio JIMENEZ 03/08/ WHITE 5MG TAB TABLET INUED 1 ENEL L 2020 [place] BY MOUTH [place] EVERY [facility] TWELVE HOURS TO HELP PREVENT BLOOD CLOTS (ANTICOA GULATION ) ASPIRIN CHEW ONE ORAL ACTIVE LABARTHE, 03/20/ ST. 81MG TABLET TADEO S 2015 [place] TAB,CHEWABL BY MOUTH RY CB OC E EVERY DAY ATORVASTATI TAKE ONE ORAL ACTIVE 02/05/2023 [id number] Adrian BONE Departm N CA 40MG TABLET 2 ROSELIA2021 ent of TAB BY MOUTH EVERY s DAY TO Affairs LOWER CHOLESTE ROL ATORVASTATI TAKE ONE ORAL DISCONT 04/15/2022 [id number] E Adrian CAIN 04/19/ WHITE N CA 40MG TABLET INUED 2 ROSELIA2020 [place] TAB BY MOUTH [place] EVERY [facility] DAY TO LOWER CHOLESTE ROL CHOLECALCIF TAKE TWO ORAL ACTIVE RODIER,LA 08/14/ WHITE KRYSTLE 25MCG TABLETS UREN P 2016 [place] (1,000UNIT) BY MOUTH [place] TAB EVERY [facility]AM[facility]OC DAY CLOTRIMAZOL APPLY TOPICA 03/05/2022 [id number] RODSRI ,PACO 03/04/ ST. E 1% THIN L 1 UREN P 2020 [place] CREAM,TOP FILM RY CBOC TOPICALL Y TWICE A DAY FOR FUNGAL INFECTIO N DULAGLUTIDE INJECT SUBCUT ACTIVE 10/27/2022 [id number] LEONARDO JUAN 10/26/ WHITE 0.75MG/0.5M 0.75MG/0 ANEOUS 2 2021 R[place] R L .5ML JCT INJ,SOLN,PE SUBCUTAN VAMRO C N EOUSLY ONCE A WEEK FOR DIABETES DULAGLUTIDE INJECT SUBCUT 10/09/2021 [id number] STEFANI LUNDBERG P 10/11/ ST. 0.75MG/0.5M 0.75MG/0 ANEOUS 2019 MANUEL SBU L .5ML RY CBOC INJ,SOLN,PE SUBCUTAN N EOUSLY ONCE A WEEK FOR DIABETES DULAGLUTIDE INJECT SUBCUT ACTIVE RODSRI,LA 08/14/ WHITE 1.5MG/0.5ML 1.5MG/0. ANEOUS UREN P 2016 BARBARA ER INJ,SOLN,PE 5ML [place] N SUBCUTAN VAM[facility]OC EOUSLY ONCE A WEEK EZETIMIBE TAKE ONE ORAL ACTIVE 03/03/2023 [id number] Adrian HAYES Departm 10MG TAB TABLET 2 2021 ent of BY MOUTH [place] EVERY s DAY TO Affairs LOWER CHOLESTE ROL EZETIMIBE TAKE ONE ORAL 02/23/2022 [id number] RODIER ,LA 02/24/ WHITE 10MG TAB TABLET 2 UREN P 2020 [place] BY MOUTH [place] EVERY [facility] DAY TO LOWER CHOLESTE ROL FERROUS SO4 TAKE ONE ORAL 03/05/2022 [id number] R ODIER,LA 03/04/ ST. 325MG TAB TABLET 2 UREN P 2020 [place] BY MOUTH RY CBOC EVERY DAY TO SUPPLEME NT IRON FINASTERIDE TAKE ONE ORAL ACTIVE 2023 [id number] KANNAN SH,A Departm 5MG TAB TABLET 2 [facility] K 2021 ent of BY MOUTH [place] AT BEDTIME Affairs FOR PROSTATE FINASTERIDE TAKE ONE ORAL DISCONT 03/26/2022 [id number] G ERRISH,A 03/29/ WHITE 5MG TAB TABLET INUED 2 [facility] K 2020 [place] BY MOUTH [place] AT [facility] BEDTIME FOR PROSTATE FINASTERIDE TAKE ONE ORAL DISCONT 03/05/2022 [id number] RODIER,LA 03/12/ ST. 5MG TAB TABLET INUE 1 UREN P 2020 [place] BY MOUTH RY CBOC EVERY DAY FOR PROSTATE FOLIC ACID TAKE TWO ORAL 03/05/2022 [id number] RODIE R,LA 03/04/ ST. 1MG TAB TABLETS 2 UREN P 2020 [place] BY MOUTH RY CBOC EVERY DAY VITAMIN/ NUTRITIO N SUPPLEME NT FUROSEMIDE TAKE ONE ORAL ACTIVE 02/05/2023 [id number] EVERET T,C 02/07/ Departm 40MG TAB TABLET 2 2021 ent of BY MOUTH [place] TWICE A s DAY TO Affairs REMOVE FLUID/CO NTROL BLOOD PRESSURE FUROSEMIDE TAKE ONE ORAL DISCONT 04/15/2022 [id number] EVERE TT,C 04/19/ WHITE 40MG TAB TABLET INUED 2 ROSELIA2020 [place] BY MOUTH [place] TWICE A [facility] DAY TO REMOVE FLUID/CO NTROL BLOOD PRESSURE FUROSEMIDE TAKE ONE ORAL ACTIVE RODIER,LA 08/14/ WHITE 40MG TAB TABLET UREN P 2018 [place] BY MOUTH [place] TWICE A [facility] DAY INSULIN,GLA INJECT SUBCUT 11/18/2021 [id number] RO DIER,LA 11/18/ ST. RGINE,HUMAN 55UNITS ANEOUS [...] DAY METFORMIN TAKE ONE ORAL ACTIVE 09/04/2022 [id number] Adrian HAYES 09/09/ WHITE HCL 1000MG TABLET 2 2020 [place] TAB BY MOUTH [place] TWICE A [facility] DAY FOR DIABETES METFORMIN TAKE ONE ORAL ACTIVE POLIC, 04/19/ S T. HCL 1000MG TABLET RISTOPHER 2010 MANUEL SBU TAB BY MOUTH RY CBOC TWICE DAILY WITH MEALS METOPROLOL TAKE ONE ORAL ACTIVE 02/05/2023 [id number] PATRICIA TAdrian 02/07/ Departm TARTRATE TABLET 2 2021 ent of 50MG TAB BY MOUTH TWICE A s DAY FOR Affairs BLOOD PRESSURE /HEART METOPROLOL TAKE ONE ORAL DISCONT 04/15/2022 [id number] Adrian BONE 04/19/ WHITE TARTRATE TABLET INUED 2 2020 [place] 50MG TAB BY MOUTH [place] [facility] /HEART MIRABEGRON TAKE ONE ORAL ACTIVE RODIER,LA 08/14/ WHITE 25MG TAB,SA TABLET UREN P 2016 [place] BY MOUTH [place] EVERY [facility] DAY MIRABEGRON TAKE ONE ORAL ACTIVE 06/22/2022 [id number] BENZ, EUG 07/02/ WHITE 50MG TAB,SA TABLET 2 REUBEN J 2020 [place] BY MOUTH [place] EVERY VAMR DAY MIRABEGRON TAKE ONE ORAL 06/02/2021 [id number] RODIE R,LA 06/02/ ST. 50MG TAB,SA TABLET 1 UREN P 2019 [place] BY MOUTH RY CBOC EVERY DAY MULTIVITAMI TAKE BY ORAL ACTIVE POLICH,CH 04/19/ ST. N/MIN, MOUTH RISTOPHER 2010 [place] THERAPEUTIC RY CBOC UD TAB NITROGLYCER TAKE ONE SUBLIN ACTIVE EDUARDA,JULIO CÉSAR 04/19 / ST. IN 0.4MG TABLET GUAL RISTOPHER 2010 [place] TAB,SUBLING UNDER RY CBOC UAL THE TONGUE NEEDED PANTOPRAZOL TAKE TWO ORAL ACTIVE 09/04/2022 [id number] EVERE TT,C 09/09/ WHITE E NA 20MG TABLETS 1 2020 [place] TAB,EC BY MOUTH [place] EVERY [facility] MORNING FOR STOMACH ACID (TAKE HALF-TAMMY R BEFORE A MEAL(S) PANTOPRAZOL TAKE ONE ORAL DISCONT 09/15/2021 [id number] RODIER,LA 10/21/ ST. E NA 20MG TABLET INUE 1 UREN P 2019 [place] TAB,EC BY MOUTH RY CBOC EVERY MORNING FOR STOMACH ACID (TAKE 20-30 MINUTES BEFORE FIRST MEAL) RIVAROXABAN TAKE ONE ORAL ACTIVE 09/02/2022 [id number] EVERE TT,C 09/09/ WHITE 2.5MG TAB TABLET 2 2020 [place] BY MOUTH [place] TWICE A [facility] DAY TO HELP PREVENT BLOOD CLOTS (ANTICOA GULATION ) RIVAROXABAN TAKE ONE ORAL DISCONT 08/28/2022 [id number] E Adrian CAIN 08/31/ WHITE 2.5MG TAB TABLET INUE 1 2020 [place] BY MOUTH [place] TWICE A [facility] DAY TO HELP PREVENT BLOOD CLOTS (ANTICOA GULATION CCNRX) RIVAROXABAN TAKE ONE ORAL 08/13/2021 [id number] R ODIER,PACO 07/21/ ST. 2.5MG TAB TABLET 1 UREN P 2020 [place] BY MOUTH RY CB[facility] EVERY 12 HOURS TO HELP PREVENT BLOOD CLOTS (ANTICOA GULATION ) RIVAROXABAN TAKE ONE ORAL ACTIVE RIENDEAU, 06/09/ WHITE 2.5MG TAB TABLET ALEN A 2020 [place] BY MOUTH [place] EVERY [facility] TWELVE HOURS SPIRONOLACT TAKE ORAL ACTIVE 06/17/2022 [id number] Adrian HAYES 06/18/ WHITE ONE 25MG ONE-HALF 2 2020 [place] TAB TABLET [place] BY MOUTH [facility]OC EVERY DAY TO CONTROL BLOOD PRESSURE SPIRONOLACT TAKE ONE ORAL ACTIVE RODIER,LA 04/16/ WHITE ONE 25MG TABLET UREN P 2020 [place] TAB BY MOUTH [place] EVERY [facility] DAY Immunizations Combined list of available immunizations from the Department of Defense and Veterans Affairs facilities. Immunization Series Date Administered Site Reaction Lot CVX Drug St atus Comments Source Given By Number Code Laborer Filter Plant INFLUENZA, complet WHITE UNSPECIFIED 2019 ed RI RAKESH FORMULATION MIS T [facility] INFLUENZA, complet WHITE SEASONAL, 2018 ed RIVE R INJECTABLE [place] [facility] INFLUENZA, complet KInnwe y DYLON SEASONAL, 2017 ed drugs in R IVER INJECTABLE [facility]. J [place] [facility] INFLUENZA, complet Done a t WHITE SEASONAL, 2016 ed Alberto BARBARA ER INJECTABLE drug [place] store in [facility]J INFLUENZA, complet Dr. OSBORNE UNSPECIFIED [...] ed R IVER [place] [facility] INFLUENZA, 08/20/ complet WHITE UNSPECIFIED 2007 ed RI RAKESH [...] TD(ADULT) complet aventis ST. UNSPECIFIED 2002 ed [id number] [place] FORMULATION 0.5cc RY CBOC given IM [...] Specimen T ype: BLOOD WHITE DIFF [#/VOLUME] 10*3/uL /2020 No comment en tered. [place] IN BLOOD Ordering Provi asim: LEANDRO JIMENEZ [facility] BY Report Released Date/Time: March 05, 2021 03:14 PM AUTOMATED Reporting Lab : [place] [facility] COUNT [address] [facility] [place] [address] Performing Lab: [place] [facility] [address] [facility] [place] [address] CBC NO ERYTHROCYT 3.99 4.23 - 06/08 L Specimen Type : BLOOD WHITE DIFF ES 10*6/uL 5.66 /2020 No comment enter ed. [place] [#/VOLUME] Ordering Pro vider: LEANDRO JIMENEZ IN BLOOD Report Release d Date/Time: March 05, 2021 03:14 PM BY Reporting Lab: [place] [facility] AUTOMATED [address] [place] [place] [address] COUNT Performing Lab: [place] [facility] [address] [place] [facility] [place] [facility] [place] [address] CBC NO HEMOGLOBIN 11.6 12.8 - 17 06/08 L Specimen Ty pe: BLOOD WHITE DIFF [MASS/VOLU g/dL /2020 No comment en tered. [place] ME] IN Ordering Provid er: LEANDRO JIMENEZ BLOOD Report Released Date/Time: March 05, 2021 03:14 PM Reporting Lab: [place] [facility] [address] [place] [facility] [place] [facility] [place] [address] Performing Lab: [place] [facility] [address] [facility] [place] [place] [address] CBC NO HEMATOCRIT 37.9 39.2 - 06/08 L Specimen Type : BLOOD WHITE DIFF [VOLUME 50.4 No comment enter ed. [place] FRACTION] Ordering Prov ider: LEANDRO JIMENEZ OF BLOOD Report Release d Date/Time: March 05, 2021 03:14 PM BY Reporting Lab: [place] [facility] AUTOMATED [address] [place] [place] [address] COUNT Performing Lab: [place] [facility] [address] [place] [facility] [place] [facility] [place] [address] CBC NO MCV 95.0 fL 82 - 99 06/08 Specimen Type: B LOOD WHITE DIFF [ENTITIC /2020 No comment ente red. [place] VOLUME] BY Ordering Pro vider: LEANDRO JIMENEZOC AUTOMATED Report Releas ed Date/Time: March 05, 2021 03:14 PM COUNT Reporting Lab: [place] [facility] [address] [place] [facility] [place] [facility] [place] [address] Performing Lab: [place] [facility] [address] [place] [facility] [place] [facility] [place] [address] CBC NO MCH 29.1 pg 26.2 - 06/08 Specimen Type: B LOOD WHITE DIFF [ENTITIC 32.6 No comment ente red. [place] MASS] BY Ordering Provi asim: LEANDRO JIMENEZ [facility] AUTOMATED Report Releas ed Date/Time: March 05, 2021 03:14 PM COUNT Reporting Lab: [place] [facility] [address] [facility] [address] Performing Lab: [place] [facility] [address] [facility] [place] [address] CBC NO MCHC 30.6 30.8 - 06/08 L Specimen Type: B LOOD WHITE DIFF [MASS/VOLU g/dL 35.1 /2020 No comment en tered. [place] ME] BY Ordering Provid er: LEANDRO JIMENEZ [facility] AUTOMATED Report Releas ed Date/Time: March 05, 2021 03:14 PM COUNT Reporting Lab: [place] [facility] [address] [facility] [address] Performing Lab: [place] [facility] [address] [facility] [address] CBC NO PLATELETS 225 140 - 360 06/08 Specimen Typ e: BLOOD WHITE DIFF [#/VOLUME] 10*3/uL /2020 No comment en tered. [place] IN BLOOD Ordering Provi asim: LEANDRO JIMENEZ BY Report Released Date/Time: March 05, 2021 03:14 PM AUTOMATED Reporting Lab : [place] [facility] COUNT [address] [facility] [place] [address] Performing Lab: [place] [facility] [address] [facility] [place] [address] CBC NO PLATELET 9.4 fL 9.2 - 12.4 06/08 Specimen Typ e: BLOOD WHITE DIFF MEAN /2020 No comment enter ed. [place] VOLUME Ordering Provid er: LEANDRO JIMENEZMROC [ENTITIC Report Release d Date/Time: March 05, 2021 03:14 PM VOLUME] IN Reporting La b: [place] [facility] BLOOD BY [address] [facility] [address] AUTOMATED Performing La b: [place] [facility] COUNT [address] [facility] [place] [address] CBC NO ERYTHROCYT 15.3 12.0 - 06/08 Specimen Type : BLOOD WHITE DIFF E 16.0 /2020 No comment enter ed. [place] DISTRIBUTI Ordering Pro vider: LEANDRO JIMENEZOC ON WIDTH Report Release d Date/Time: March 05, 2021 03:14 PM [RATIO] BY Reporting La b: [place] [facility] AUTOMATED [address] [place] [place] [address] COUNT Performing Lab: [place] [facility] [address] [place] [facility] [place] [facility] [place] [address] CREATINI CREATININE 1.13 0.5 - 1.5 06/08 Specimen T ype: PLASMA WHITE NE WITH [MASS/VOLU mg/dL /2020 Comment: Tamika ts performed on [place] [employer] (405) SN:[id number] [place] eGFR ME] IN Ordering Provid er: LEANDRO JIMENEZ PANEL SERUM OR Report Release d Date/Time: March 05, 2021 03:14 PM PLASMA Reporting Lab: [place] [facility] [address] [place] [facility] [place] [facility] [place] [address] Performing Lab: [place] [facility] [address] [place] [facility] [place] [facility] [place] [address] CREATINI GLOMERULAR 62 60 06/08 Specimen Typ e: PLASMA WHITE NE WITH FILTRATION mL/min /2020 Comment: Tamika ts performed on [place] [employer] (405) SN:[id number] [place] eGFR RATE/1.73 Ordering Prov ider: LEANDRO JIMENEZMROC PANEL SQ Report Released Date/Time: March 05, 2021 03:14 PM M.PREDICTE Reporting La b: [place] [facility] D [VOLUME [address] [place] [place] [address] RATE/AREA] Performing L ab: [place] [facility] IN SERUM [address] [place] [place] [address] OR PLASMA BY CREATININE -BASED FORMULA (MDRD) URINALYS COLOR OF Yellow 03/04 Specimen Type: UR[address] IS URINE /2020 No comment enter ed. [facility] W/REFLEX Ordering Provi asim: EMANI URIOSTEGUI CBOC TO Report Released Date/Time: March 04, 2021 09:41 AM CULTURE Reporting Lab: [place] [facility] [address] [place] [facility] [place] [place] [address] Performing Lab: [place] [facility] [address] [place] [facility] [place] [facility] [place] [address] URINALYS SPECIFIC 1.014 1.003 - 03/04 Specimen Type: URINE [address] IS GRAVITY OF 1.030 /[address] [facility] W/REFLEX URINE BY Ordering Prov ider: EMANI URIOSTEGUI TO REFRACTOME Report Relea sed Date/Time: March 04, 2021 09:41 AM CULTURE TRY Reporting Lab: [place] [facility] [address] [place] [facility] [facility] [place] [address] Performing Lab: [place] [facility] [address] [place] [facility] [place] [facility] [place] [address] URINALYS UROBILINOG <2.0mg/d <2.0 - 2.0 03/04 Specimen Type: URINE ST. IS EN L /[address] ed[address] [facility] W/REFLEX [MASS/VOLU Ordering Pr ovider: EMANI URIOSTEGUI TO ME] IN Report Released Date/Time: March 04, 2021 09:41 AM CULTURE URINE Reporting Lab: [place] [facility] [address] [place] [facility] [place] [place] [address] Performing Lab: [place] [facility] [address] [place] [facility] [place] [place] [address] URINALYS BILIRUBIN. NEG 03/04 Specimen Typ e: URINE ST. IS TOTAL /[address] ed[address] [facility] W/REFLEX [PRESENCE] Ordering Pr ovider: EMANI URIOSTEGUI TO IN URINE Report Release d Date/Time: March 04, 2021 09:41 AM CULTURE BY TEST Reporting Lab: [place] [facility] STRIP [address] [place] [facility] [facility] [place] [address] Performing Lab: [place] [facility] [address] [place] [facility] [place] [place] [address] URINALYS KETONES NEGmg/dL 03/04 Specimen Type: URINE [address] IS [PRESENCE] /2020 No comment en tered. [place] W/REFLEX IN URINE Ordering Prov ider: EMANI URIOSTEGUI TO Report Released Date/Time: March 04, 2021 09:41 AM CULTURE Reporting Lab: [place] [facility] [address] [place] [facility] [facility] [place] [address] Performing Lab: [place] [facility] [address] [place] [facility] [place] [place] [address] URINALYS GLUCOSE NEGmg/dL 03/04 Specimen Type: URINE [address] IS [MASS/VOLU /2020 No comment en tered. [place] W/REFLEX ME] IN Ordering Provi asim: EMANI URIOSTEGUI CBOC TO URINE BY Report Release d Date/Time: March 04, 2021 09:41 AM CULTURE TEST STRIP Reporting La b: [place] [facility] [address] [facility] [place] [address] Performing Lab: [place] [facility] [address] [place] [facility] [facility] [place] [address] URINALYS PROTEIN NEGmg/dL 03/04 Specimen Type: URINE [address] IS [MASS/VOLU /2020 No comment en tered. [place] W/REFLEX ME] IN Ordering Provi asim: EMANI URIOSTEGUI CBOC TO URINE BY Report Release d Date/Time: March 04, 2021 09:41 AM CULTURE TEST STRIP Reporting La b: [place] [facility] [address] [place] [facility] [place] [address] Performing Lab: [place] [facility] [address] [place] [facility] [facility] [place] [address] URINALYS PH OF 5.0 5 - 8 03/04 Specimen Type: URINE [address] IS URINE BY /2020 No comment ente red. [place] W/REFLEX TEST STRIP Ordering Pr ovider: EMANI URIOSTEGUI TO Report Released Date/Time: March 04, 2021 09:41 AM CULTURE Reporting Lab: [place] [facility] [address] [place] [place] [address] Performing Lab: [place] [facility] [address] [place] [place] [address] URINALYS APPEARANCE HAZY 03/04 Specimen Typ e: URINE ST. IS OF URINE /2020 No comment ente red. [place] W/REFLEX Ordering Provi asim: EMANI URIOSTEGUI TO Report Released Date/Time: March 04, 2021 09:41 AM CULTURE Reporting Lab: [place] [facility] [address] [place] [facility] [place] [address] Performing Lab: [place] [facility] [address] [place] [facility] [place] [facility] [place] [address] URINALYS HEMOGLOBIN NEG 03/04 Specimen Typ e: URINE ST. IS [PRESENCE] /2020 No comment en thanh. [place] W/REFLEX IN URINE Ordering Prov ider: EMANI URIOSTEGUI CBOC TO Report Released Date/Time: March 04, 2021 09:41 AM CULTURE Reporting Lab: [place] [facility] [address] [facility] [place] [address] Performing Lab: [place] [facility] [address] [facility] [place] [address] URINALYS NITRITE NEG 03/04 Specimen Type: URINE [address] IS [PRESENCE] /2020 No comment en tered. [place] W/REFLEX IN URINE Ordering Prov ider: EMANI URIOSTEGUI TO BY TEST Report Released Date/Time: March 04, 2021 09:41 AM CULTURE STRIP Reporting Lab: [facility] [address] [facility] [address] Performing Lab: [facility] [address] [facility] [address] URINALYS LEUKOCYTES NEG 03/04 Specimen Typ e: URINE ST. IS [PRESENCE] /2020 No comment en tered. [place] W/REFLEX IN URINE Ordering Prov ider: EMANI URIOSTEGUI CBWICHO TO Report Released Date/Time: March 04, 2021 09:41 AM CULTURE Reporting Lab: [facility] [address] [facility] [address] Performing Lab: [facility] [address] [facility] [address] VIT D CALCIFEROL 44.4 20 - 50 03/04 Specimen Type : SERUM ST. 25-OH(WR (VIT D2) ng/mL /2020 Comment: Test s performed on [place] [employer] (405) SN:[id number] TSH within normal limits. Reflex testing not required. KADE Herr) [MASS/VOLU Ordering Pro vider: EMANI URIOSTEGUI CBWICHO ME] IN Report Released Date/Time: March 04, 2021 09:41 AM SERUM OR Reporting Lab: [facility] PLASMA [address] [facility] [place] [address] Performing Lab: [facility] [address] [facility] [address] THYROID THYROTROPI 2.06 0.35 - 05/13 Specimen Type : SERUM ST. TESTING N u[IU]/mL 5.00 /2020 Comment: Tests performed on [place] [employer] (405) SN:[id number] TSH within normal limits. Reflex testing not required. Ramamia [UNITS/VOL Ordering Pro vider: EMANI URIOSTEGUI UME] IN Report Released Date/Time: March 04, 2021 09:41 AM SERUM OR Reporting Lab: [facility] PLASMA [address] [facility] [address] Performing Lab: [place] [facility] [address] [facility] [place] [address] THYROID REFLEX comment 03/04 Specimen Type: S [facility] TESTING TESTING /2020 Comment: Tests performed on [employer] (405) SN:[id number] TSH within normal limits. Reflex testing not required. [place] Ordering Provid er: EMANI URIOSTEGUI Report Released Date/Time: March 04, 2021 09:41 AM Reporting Lab: [facility] [address] [facility] [address] Performing [facility]: [facility] [address] [facility] [place] [address] LIPOPROT CHOLESTERO 99 mg/dL 0 - 199 03/04 Specimen Ty pe: PLASMA [facility] L /2020 Comment: Tests performed on [employer] (405) SN:[id number] VOSS CHOLESTE [MASS/VOLU Ordering Pr ovider: EMANI URIOSTEGUI ROL ME] IN Report Released Date/Time: March 04, 2021 09:41 AM FRACT. SERUM OR Reporting Lab: [facility] [address] [facility] [place] [address] Performing [facility]: [facility] [address] [facility] [place] [address] LIPOPROT TRIGLYCERI 105 0 - 149 03/04 Specimen Typ e: PLASMA [facility] DE mg/dL /2020 Comment: Tests performed on [employer] (405) SN:[id number] ZULEMABURY CHOLESTE [MASS/VOLU Ordering Pr ovider: EMANI URIOSTEGUI ROL ME] IN Report Released Date/Time: March 04, 2021 09:41 AM FRACT. SERUM OR Reporting Lab: [facility] [address] [facility] [address] Performing Lab: [place] [address] [facility] [address] LIPOPROT CHOLESTERO 33 mg/dL 40 05/13 L Specimen Ty pe: PLASMA [facility] L IN HDL /2020 Comment: Tests performed on [employer] (405) SN:[id number] [facility] CHOLESTE [MASS/VOLU Ordering Pr ovider: EMANI URIOSTEGUI [facility]OC ROL ME] IN Report Released Date/Time: March 04, 2021 09:41 AM FRACT. SERUM OR [facility] [facility] PANEL PLASMA [address] [facility] [address] [facility]: [facility] [address] [facility] [address] LIPOPROT CHOLESTERO 45 mg/dL 0 - 129 03/04 Specimen Ty pe: PLASMA ST. E[facility] L IN LDL /2020 Comment: Tests performed on ActiveRain (405) SN:[id number] [facility] CHOLESTE [MASS/VOLU Ordering Pr ovider: EMANI URIOSTEGUI CBOC ROL ME] IN Report Released Date/Time: March 04, 2021 09:41 AM FRACT. SERUM OR Reporting Lab: [facility] BY [address] [facility] [address] CALCULATIO Performing L ab: [place] [facility] N [address] [facility] [address] ALT(SGPT ALANINE 26 U/L 7 - 52 03/04 Specimen Type: PLASMA WHITE ) AMINOTRANS Comment: Tamika ts performed on ActiveRain (405) SN:[id number] [facility] FERASE Ordering Provid er: LEANDRO JIMENEZ SDMROC [ENZYMATIC Report Relea sed Date/Time: Feb 04, 2021 01:39 PM ACTIVITY/V Reporting La b: [facility] OLUME] IN [address] [facility] [address] SERUM OR Performing Lab : [facility] PL[facility]MA [address] [facility] [address] AST(SGOT ASPARTATE 17 U/L 5 - 34 03/04 Specimen Type : PLASMA WHITE ) AMINOTRANS Comment: Tamika ts performed on [employer] (405) SN:[id number] [place] FERASE Ordering Provid er: ELANDRO JIMENEZMROC [ENZYMATIC Report Relea sed Date/Time: Feb 04, 2021 01:39 PM ACTIVITY/V Reporting La b: [place] [facility] OLUME] IN [address] [facility] [address] SERUM OR Performing Lab : [place] [facility] PLASMA [address] [facility] [address] CREATINI CREATININE 1.38 0.5 - 1.5 03/04 Specimen T ype: PLASMA WHITE NE WITH [MASS/VOLU mg/dL /2020 Comment: Tamika ts performed on [employer] (405) SN:[id number] [place] eGFR ME] IN Ordering Provid er: LEANDRO JIMENEZ [facility] PANEL SERUM OR Report Release d Date/Time: Feb 04, 2021 01:39 PM PLASMA Reporting Lab: [place] [facility] [address] [facility] [address] Performing Lab: [place] [facility] [address] [facility] [address] CREATINI GLOMERULAR 49 60 03/04 L Specimen Typ e: PLASMA WHITE NE WITH FILTRATION mL/min /2020 Comment: Tamika ts performed on [employer] (405) SN:[id number] [place] eGFR RATE/1.73 Ordering Prov ider: LEANDRO JIMENEZMROC PANEL SQ Report Released Date/Time: Feb 04, 2021 01:39 PM M.PREDICTE Reporting La b: [place] [facility] D [VOLUME [address] [facility] [address] RATE/AREA] Performing L ab: [place] [facility] IN SERUM [address] [facility] [address] OR PLASMA BY CREATININE -BASED FORMULA (MDRD) CBC NO LEUKOCYTES 7.5 4.5 - 11.0 03/04 Specimen T ype: BLOOD WHITE DIFF [#/VOLUME] 10*3/uL /2020 No comment en tered. [place] IN BLOOD Ordering Provi asim: LEANDRO JIMENEZOC BY Report Released Date/Time: Feb 04, 2021 01:39 PM AUTOMATED Reporting Lab : [place] [facility] COUNT [address] [facility] [address] Performing Lab: [place] [facility] [address] [facility] [place] [address] CBC NO ERYTHROCYT 3.98 4.23 - 03/04 L Specimen Type : BLOOD WHITE DIFF ES 10*6/uL 5.66 /2020 No comment enter ed. [place] [#/VOLUME] Ordering Pro vider: LEANDRO JIMENEZ IN BLOOD Report Release d Date/Time: Feb 04, 2021 01:39 PM BY Reporting Lab: [place] [facility] AUTOMATED [address] [facility] [address] COUNT Performing Lab: [place] [facility] [address] [facility] [address] CBC NO HEMOGLOBIN 11.7 12.8 - 17 03/04 L Specimen Ty pe: BLOOD WHITE DIFF [MASS/VOLU g/dL /2020 No comment en tered. [place] ME] IN Ordering Provid er: LEANDRO JIMENEZ BLOOD Report Released Date/Time: Feb 04, 2021 01:39 PM Reporting Lab: [place] [facility] [address] [facility] [place] [address] Performing Lab: [place] [facility] [address] [facility] [place] [place] [address] CBC NO HEMATOCRIT 38.7 39.2 - 03/04 L Specimen Type : BLOOD WHITE DIFF [VOLUME 50.4 /2020 No comment enter ed. [place] FRACTION] Ordering Prov ider: LEANDRO JIMENEZ OF BLOOD Report Release d Date/Time: Feb 04, 2021 01:39 PM BY Reporting Lab: [place] [facility] AUTOMATED [address] [facility] [address] COUNT Performing Lab: [place] [facility] [address] [facility] [place] [address] CBC NO MCV 97.2 fL 82 - 99 03/04 Specimen Type: B LOOD WHITE DIFF [ENTITIC /2020 No comment ente red. [place] VOLUME] BY Ordering Pro vider: LEANDRO JIMENEZOC AUTOMATED Report Releas ed Date/Time: Feb 04, 2021 01:39 PM COUNT Reporting Lab: [place] [facility] [address] [facility] [address] Performing Lab: [place] [facility] [address] [facility] [address] CBC NO MCH 29.4 pg 26.2 - 03/04 Specimen Type: B LOOD WHITE DIFF [ENTITIC 32.6 /2020 No comment ente red. [place] MASS] BY Ordering Provi asim: LEANDRO JIMENEZMROC AUTOMATED Report Releas ed Date/Time: Feb 04, 2021 01:39 PM COUNT Reporting Lab: [place] [facility] [address] [facility] [address] Performing Lab: [place] [facility] [address] [facility] [address] CBC NO MCHC 30.2 30.8 - 03/04 L Specimen Type: B LOOD WHITE DIFF [MASS/VOLU g/dL 35.1 No comment en tered. [place] ME] BY Ordering Provid er: LEANDRO JIMENEZ [facility] AUTOMATED Report Releas ed Date/Time: Feb 04, 2021 01:39 PM COUNT Reporting Lab: [place] [facility] [address] [facility] [address] Performing Lab: [place] [facility] [address] [facility] [address] CBC NO PLATELETS 283 140 - 360 03/04 Specimen Typ e: BLOOD WHITE DIFF [#/VOLUME] 10*3/uL /2020 No comment en tered. [place] IN BLOOD Ordering Provi asim: LEANDRO JIMENEZMROC BY Report Released Date/Time: Feb 04, 2021 01:39 PM AUTOMATED Reporting La b: [place] [facility] COUNT [address] [facility] [address] Performing Lab: [place] [facility] [address] [facility] [address] CBC NO PLATELET 9.0 fL 9.2 - 12.4 03/04 L Specimen Typ e: BLOOD WHITE DIFF MEAN /2020 No comment enter ed. [place] VOLUME Ordering Provid er: LEANDRO JIMENEZOC [ENTITIC Report Release d Date/Time: Feb 04, 2021 01:39 PM VOLUME] IN Reporting La b: [place] [facility] BLOOD BY [address] [facility] [address] AUTOMATED Performing La b: [place] [facility] COUNT [address] [facility] [address] CBC NO ERYTHROCYT 13.5 12.0 - 03/04 Specimen Type : BLOOD WHITE DIFF E . No comment enter ed. [place] DISTRIBUTI Ordering Pro vider: LEANDRO JIMENEZ [facility] ON WIDTH Report Release d Date/Time: Feb 04, 2021 01:39 PM [RATIO] BY Reporting La b: [place] [facility] AUTOMATED [address] [facility] [address] COUNT Performing Lab: [place] [facility] [address] [facility] [address] Encounters Combined list of: 1) Encounters from Department of Veterans Affairs facilities going back up to the last 18 months, not all VA inpatient encounters are included; 2) Encounters from the Department of Defense facilities going back up to 280 months. Location Location Encounter Encounter Reason Attending ADM ME Stat us Disposition Source Details Type Number For Provider Date Date Visit Outpatient 33240-5.40 10/07 WHIT E Encounter [id number] /2019 [place] [facility] Outpatient 38554-8.40 10/30 WHIT E Encounter [id number] /2020 [place] [facility] Outpatient 75142-5.40 11/02 WHIT E Encounter [id number] /2020 [place] [facility] Outpatient 07246-4.40 11/17 WHIT E Encounter [id number] /2020 [place] [facility] Outpatient 23986-2.40 11/26 WHIT E Encounter [id number] /2020 [place] [facility] Outpatient 00168-9.40 12/16 WHIT E Encounter [id number] /2020 [place] [facility] Outpatient 12762-2.40 12/16 WHIT E Encounter [id number] /2020 [place] [facility] Outpatient 05273-8.40 01/23 WHIT E Encounter [id number] /2020 [place] [facility] Outpatient 59686-7.40 01/25 WHIT E Encounter [id number] /2020 [place] [facility] Outpatient 59831-1.40 01/27 WHIT E Encounter [id number] /2021 [place] [facility] HC PRO 82722-2.40 Diagnos TONY,IRWIN 02/04 W HAY PHONE CALL [id number] is: DESIREE L RIVE R 21-30 MIN ICD-10- [place] CM [facility] I26.99 Other pulmona ry embolis m without acute cor pulmona le
with Provide r Comment s: PE - Pulmona ry embolis m (SCT [id number] 3) Outpatient [id number] 02/22 WHIT E Encounter [id number] [facility] OFFICE O/P 31359-2.40 Diagnos PACO URIOSTEGUIU 03/04 [facility] 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
with Provide r Comment s: PE - Pulmona ry embolis m ([facility] [id number] 3) Outpatient 57602-0.40 03/10 WHIT E [id number] [facility] 96221-3.40 03/17 WHIT E Encounter [id number] /2021 [facility] HEARING 05694-6.40 Diagnos [place], 04/21 [facility] [id number] is: HLEY JOHNS REPAIR/MOD 00 ICD-10- R[place] CBOC IFYING CM Z46.1 Encount er for fitting and adjustm ent of hearing aid<br/ >with Provide r Comment s: Encount er for Fitting and Adjustm ent of Hearing Aid HC PRO 04363-9.40 Diagnos Pat KING 06/09 W [facility]AY PHONE CALL [id number] is: GAGE A RI RAKESH 21-30 MIN ICD-10- [place] CM [facility] Z51.81 Encount er for therape utic drug level monitor ing<br/ >with Provide r Comment s: Encount er [place] [address]-1.40 Diagnos MAIKEL RODRIGUES 06/23 [facility] [employer] [id number] is: NATHAN [place] 15 MIN ICD-10- [place] CM [facility] E11.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
with Provide r Comment s: Type 2 diabete s mellitu s with mild nonprol iferati ve diabeti c retinop athy without macular edema, bilater al Outpatient 07307-8.40 09/01 WHIT E Encounter [id number] [facility] [facility] Outpatient 62423-2.40 12/29 WHIT E Encounter [id number] [facility] Social History Combined list of available smoking, tobacco, and other social history from Department of Defense andVeterans Affairs facilities. Social History Response Date Comment Source Type Tobacco smoking VA-TOBACCO FORMER 03/04/2021 [facility] status NHIS USER History of tobacco VA-TOBACCO QUIT 15 03/04/2021 [facility] use YRS OR MORE History of tobacco VA-TOBACCO QUIT 15 02/11/2020 [facility] use YRS OR MORE History of tobacco VA-TOBACCO FORMER 08/14/2018 [facility] use USER History of tobacco QUIT TOBACCO USE > 08/14/[address] quit [address] [facility] use 7 YEARS AGO CLINIC History of tobacco QUIT TOBACCO USE > 08/11/2016 hasn't smoked fo r [facility] use 7 YEARS AGO 30 years History of tobacco HISTORY OF SMOKING 02/07/2005 [facility] use History of tobacco HISTORY OF SMOKING 02/23/2004 quit 20 years ag o [facility] use History of tobacco HISTORY OF SMOKING 01/29/2003 [facility] use History of tobacco HISTORY OF SMOKING 02/11/2002 [facility] use History of tobacco LIFETIME NON-SMOKER 01/22/2001 [facility] use Plan of Care List of future care activities from Department of Veterans Affairs facilities. Additional future care activities may be listed in the Assessment and Plan section. Date/Time Care Activity Care Activity Detail Facility 08/10/2022 AMBULATORY - SURGERY AMBULATORY - SURGERY [facility]
--- OUTSIDE RECORDS SUMMARY | 2022-03-24 09:49 | XMS_ITS | Encounter Summary ---
:[address] [facility] Address [address] [place] [address] Care Team Providers Name Role Phone EMANI [...] [place] [employer] MEDIC Mar 23, PLAND [id number] [phone] [place] , PATIENT LIFE & PLAN D ARE 2003 73 4 [employer] PLAND Mar 23, PLAND [id number] [phone] [place] , PATIENT LIFE AND PLAN D 2003 73 0 [place] CASUAL[employer] MEDICARE MEDICARE PART Jan 21, PART B [id number] [place], PATIENT (WNR) (M) B 2003 31A 2 [place] MEDICARE MEDICARE PART Jan 21, PART A [id number] [place], PATIENT (WNR) (M) A 2003 31B 2 [place] MEDICARE MEDICARE PART Jan 21, PART A [id number] [place], PATIENT (WNR) (M) A 2003 CD13 2 [place] MEDICARE MEDICARE PART Jan 21, PART B [id number] [place], PATIENT (WNR) (M) B 2003 CD13 2 [place] MEDICARE MEDICARE PART Jan 21, PART B [id number] [place], PATIENT (WNR) (M) B 2003 CD13 2 [place] MEDICARE MEDICARE PART Jan 21, PART A [id number] [place], PATIENT (WNR) (M) A 2003 [...] 18, 2021 PRIMARY Type 2 diab with BRENDA YORK BARBARA ER 10:19 AM mild nonp rtnop [place] [facility] without macular edema, bi Aug 18, 2021 PRIMARY Type 2 diabetes MINNIE COHEN [place] IJMENEZE R 10:19 AM mellitus without [place] [facility] complications Aug 18, 2021 SECONDARY Presbyopia BRENDA YORK [place] 10:19 AM [place] [facility] Aug 18, 2021 SECONDARY Presence of BRENDA YORK [place] 10:19 AM intraocular lens [place] [facility] Encounter Notes: All associated encounter notes This section contains the clinical notes associated to the Encounter. Date/Time Encounter Note(s) Provider Source Aug 18, 2021 09:20 AM EYE E & M NOTE: BRENDA YORKE [place] LOCAL TITLE: Eye Exam Template [facility] STANDARD TITLE: EYE E & M NOTE DATE OF NOTE: AUG 18, 2021@09:20 ENTRY DATE: AUG 18, 2021@09:20:46 AUTHOR: LYN CABRALES COSIGNER: LAI YORK URGENCY: STATUS: COMPLETED Eye Exam Template Has ADDENDA NEW OR ESTABLISHED PATIENT OPHTHALMIC EXAMINATIO N CONSULTATION, SPECIALTY CODE OR E/M SERVICE Active Outpatient Medications (excluding Supplie s): Active Outpatient Medications Status 1) ALFUZOSIN HCL 10MG SA TAB TAKE ONE TABLET BY MOUTH ACTIVE EVERY DAY FOR URINARY VOIDING SYMPTOMS 2) ATORVASTATIN CALCIUM 40MG TAB TAKE ONE TABLET BY ACTIVE MOUTH EVERY DAY TO LOWER CHOLESTEROL 3) CLOTRIMAZOLE 1% TOP CREAM APPLY THIN FILM TOP ICALLY ACTIVE TWICE A DAY FOR FUNGAL INFECTION 4) DULAGLUTIDE 0.75MG/0.5ML INJ PEN INJECT 0.75M G/0.5ML ACTIVE SUBCUTANEOUSLY ONCE A WEEK FOR DIABETES 5) EZETIMIBE 10MG TAB TAKE ONE TABLET BY MOUTH E VERY DAY ACTIVE TO LOWER CHOLESTEROL 6) FERROUS SULFATE 325MG TAB TAKE ONE TABLET BY MOUTH ACTIVE EVERY DAY TO SUPPLEMENT IRON 7) FINASTERIDE 5MG TAB TAKE ONE TABLET BY MOUTH AT ACTIVE BEDTIME FOR PROSTATE 8) FOLIC ACID 1MG TAB TAKE TWO TABLETS BY MOUTH EVERY ACTIVE DAY VITAMIN/NUTRITION SUPPLEMENT 9) FUROSEMIDE 40MG TAB TAKE ONE TABLET BY MOUTH TWICE A ACTIVE DAY TO REMOVE FLUID/CONTROL BLOOD PRESSURE 10) INSULIN,GLARGINE 100 UNT/ML 3ML SOLOSTAR INJ ECT ACTIVE 55UNITS SUBCUTANEOUSLY EVERY DAY -DISCARD 28 DA YS AFTER FIRST USE. REFRIGERATE UNOPENED PENS. 11) LOSARTAN 100MG TAB TAKE ONE TABLET BY MOUTH EVERY DAY ACTIVE FOR BLOOD PRESSURE/HEART; NOTE DOSE INCREASE 12) METOPROLOL TARTRATE 50MG TAB TAKE ONE TABLET BY MOUTH ACTIVE TWICE A DAY FOR BLOOD PRESSURE/HEART 13) MIRABEGRON 50MG SA TAB TAKE ONE TABLET BY MO UTH EVERY ACTIVE DAY 14) PANTOPRAZOLE NA 20MG EC TAB TAKE ONE TABLET BY MOUTH ACTIVE EVERY MORNING FOR STOMACH ACID (TAKE 20-30 JAMIE CATRACHITA BEFORE FIRST MEAL) 15) SPIRONOLACTONE 25MG TAB TAKE ONE-HALF TABLET BY MOUTH ACTIVE EVERY DAY TO CONTROL BLOOD PRESSURE Active Non-VA Medications Status 1) Non-VA ASPIRIN 81MG CHEW TAB 81MG MOUTH EVERY DAY ACTIVE 2) Non-VA CHOLECALCIF 25MCG (D3-1,000UNIT) TAB 2 000UNIT ACTIVE BY MOUTH EVERY DAY 3) Non-VA DULAGLUTIDE 1.5MG/0.5ML INJ PEN 1.5MG/ 0.5ML ACTIVE SUBCUTANEOUSLY ONCE A WEEK 4) Non-VA FUROSEMIDE 40MG TAB 40MG BY MOUTH TW E DAY ACTIVE 5) Non-VA ISOSORBIDE MONONITRATE 30MG SA TAB 30M G MOUTH ACTIVE EVERY DAY 6) Non-VA METFORMIN HCL 1000MG TAB 1000MG MOUTH TWICE ACTIVE DAILY WITH MEALS 7) Non-VA MIRABEGRON 25MG SA TAB 25MG BY MOUTH E DAY ACTIVE 8) Non-VA MULTIVITAMIN/MIN, THERAPEUTIC UD TAB M OUTH ACTIVE 9) Non-VA NITROGLYCERIN 0.4MG SL TAB 0.4MG UNDER THE ACTIVE TONGUE NEEDED 10) Non-VA RIVAROXABAN 2.5MG TAB 2.5MG BY MOUTH EVERY ACTIVE TWELVE HOURS 11) Non-VA SPIRONOLACTONE 25MG TAB 25MG BY MOUTH EVERY ACTIVE DAY 26 Total Medications Allergies/Adverse [...] Asymmetrical sensorineural hearing loss (SNO MED CT 935502821) 5. Subjective tinnitus (SNOMED CT 64790556) 6. HTN - Hypertension (SNOMED CT 82582057) 7. Hyperlipidemia (SNOMED CT 43676732) 8. Health Maintenance 9. BACKGROUND DIABETIC RETINOPATHY 10. Type 2 diabetes mellitus (SNOMED CT 09701857 ) 11. CAD - Coronary artery disease (SNOMED CT 535 [address]94) 81 year old WHITE MALE, new patient CHIEF COMPLAINT AND HISTORY OF PRESENT ILLNESS ( HPI): here for CEE. (+) Type 2 Diabetes Mellitus x ~1990 - Pt reports great adherence with medications ( metformin, dulaglutide) - Last a1c: 6.1 (03/04/21 09:51) - Last checked BS yesterday mornin mg/dl (+) Mild blur OUcc at near and distance - Pt believes the alignment/fit of the lenses i s not accurate in his current PALs, which are 2-3 years old No other ocular or visual complaints at this kervin eMaral KIRK: ~[place] [facility] was dilated . Reports no bleeding from diabetes in the back of the eyes (did not bring exam records with him today) -Per pt, s/p laser for diabetic retinopathy ~2- 3 years ago at [facility] - no laser scars present on exam today, likely pt wa s referring to YAG procedure OU Denies: new [...] OU CONFRONTATION VIS RODRIGUEZ: full to finger countin g OD & OS PUPILS: PERRLA, NO APD PRESENT OU COVER TEST (without correction) DIST: ~6PD exophoria NEAR: ortho ORBITS/ADNEXA: Normal OU ANTERIOR SEGMENT AND SLIT LAMP EXAM: Lids/Lashes: OD: 1+ blepharitis, 1+ MGD, thickened lid andres ns OS: 1+ blepharitis, 1+ MGD, thickened lid andres ns Scleral and Conjunctiva: OD: pinguecula N+T OS: pinguecula N+T Cornea: s/p CE OD: clear without staining, arcus 360 OS: clear without staining, arcus 360 Anterior Chamber: clear and free of cells or fl are OU [place] Angle estimation: OD: >1:1 N+T OS: >1:1 N+T Iris: normal/intact OU/ no neovascularization p resent ou Tonometry: iCare OD 9 OS 9 [...] OD: PCIOL well centered and clear, s/p YAG OS: PCIOL well centered and clear, s/p YAG Vitreous: OD: syneresis present, PVD OS: syneresis present, PVD Nerve: RIM INTACT AND WITHOUT FOCAL DEFECTS OR PALLOR OU OD C/D: 0.40r OS C/D: 0.35r Macula: NO macular edema OU OD: pigment mottling OS: pigment mottling, dot heme inf to ONH, smal l dot heem inf/keely to ONH Vessels: Normal course and caliber OU Mid-peripheral and Peripheral Retina: Flat and intact 360 degrees OU OD: 2 dot hemes superior periphery, 1 dot heme sup/temp periphery, 1 dot heme temp periphery, few dot hemes inf/temp and inf in periphery OS: 1 dot heme temp periphery, scattered heme i nf periphery, few dot heme inf/keely periphery ASSESSMENT/PLAN [...] EDUCATION: see above STUDENT SUPERVISION: Optometry student Minnie Cohen participated in the care of this patient. Thestudent performed an initial history, review of systems, medication review, andophthalmic examination. T he above note represents care provided by me and is NOT a student note. Supervising Auto Leasing Manager: Brenda York O.D. Note complete (xx) Total time spent during this encounter, includin g oqbs-uz-llua and non-face time, was 45 min /nida York OD, PAIGE Staff Auto Leasing Manager Signed: 08/18/2021 11:09 for LYN CABRALES OD OPTOMETRY RESIDENT /nida York OD, FAAO Staff Auto Leasing Manager Cosigned: 08/18/2021 11:09 08/18/2021 ADDENDUM STATUS: COMPLETED I have reviewed the patient's medical history an d above eye exam note. I agree with the assessment and plan. I have discussed these findings with the residen t /nida York OD, FAAO Staff Auto Leasing Manager Signed: 08/18/2021 11:09
--- OUTSIDE RECORDS SUMMARY | 2022-03-24 09:49 | XMS_ITS | Encounter Summary ---
:1940 Author Organization Department [facility] Address [address] [place] [address] Care Team Providers Name Role Phone EMANI [...] [place] [employer] Mar 23, PLAND [id number] [phone] [place] , PATIENT LIFE & PLAN D ARE 2003 73 4 [employer] PLAND Mar 23, PLAND [id number] [phone] [place] , PATIENT LIFE AND PLAN D 2003 73 0 [employer] MEDICARE MEDICARE PART Jan 21, PART B [id number] [place], PATIENT (WNR) (M) B 2003 31A 2 [employer] MEDICARE MEDICARE PART Jan 21, PART A [id number] [place], PATIENT (WNR) (M) A 2003 31B 2 [employer] MEDICARE MEDICARE PART Jan 21, PART A [id number] [place], PATIENT (WNR) (M) A 2003 CD13 2 [employer] MEDICARE MEDICARE PART Jan 21, PART B [id number] [place], PATIENT (WNR) (M) B 2003 CD13 2 [employer] MEDICARE MEDICARE PART Jan 21, PART B [id number] [place], PATIENT (WNR) (M) B 2003 CD13 2 [employer] MEDICARE MEDICARE PART Jan 21, PART A [id number] [place], PATIENT (WNR) (M) A 2003 CD13 2 D[place] Selected Encounter This section includes the information on record at NE for the Encounter. Date/Time Encounter Type Encounter Description Reason Provider Source Jul 29, 2021 04:02 Outpatient Encounter ADMIN PAT ACTIVTIES PM (MASNONCT) IHE Encounter Template Text not used by NE Plan of Treatment: Future Appointments (+ 6 months) and Future Tests (+/- 45 days) The Plan of Treatment section includes future care activities for the patient from all [place] treatmentfacilities. This section includes future appointments and future orders which are active, pending orscheduled.Future Appointments This section includes appointments that were scheduled to occur 6 months from the date of the Encounter, up to a maximum of 20 appointments. The data comes from all [place] treatment facilities. Appointment Date/Time Appointment Type Appointment Facili ty Name Aug 18, 2021 09:30 AM AMBULATORY - SURGERY [place] HERNANDEZ [place] [facility] Encounter Notes: All associated encounter notes This section contains the clinical notes associated to the Encounter. Date/Time Encounter Note(s) Provider Source Jul 29, 2021 04:03 PM PHARMACY OUTPATIENT NOTE: CORRINA GROSS LOCAL TITLE: Pharmacy Outpatient Note [facility] STANDARD TITLE: PHARMACY OUTPATIENT NOTE DATE OF [...]
--- OUTSIDE RECORDS SUMMARY | 2022-03-24 09:50 | XMS_ITS | Encounter Summary ---
:1940 Author Organization Department [facility] Address [address] [place] [id number] Care Team Providers Name Role Phone EMANI [...] [place] [employer] Mar 23, PLAND [id number] [phone] [place] , PATIENT LIFE & PLAN D ARE 2003 73 4 [place] PL[employer] Mar 23, PLAND [id number] [phone] [place] , PATIENT LIFE AND PLAN D 2003 73 0 [place] [employer] MEDICARE MEDICARE PART Jan 21, PART B [id number] [place], PATIENT (WNR) (M) B 2003 31A 2 [employer] MEDICARE MEDICARE PART Jan 21, PART A [id number] [place], PATIENT (WNR) (M) A 2003 31B 2 [place] MEDICARE MEDICARE PART Jan 21, PART A [id number] [place], PATIENT (WNR) (M) A 2003 CD13 2 [place] MEDICARE MEDICARE PART Jan 21, PART B [id number] [place], PATIENT (WNR) (M) B 2003 CD13 2 [place] MEDICARE MEDICARE PART Jan 21, PART B [id number] [place], PATIENT (WNR) (M) B 2003 CD13 2 [place] MEDICARE MEDICARE PART Jan 21, PART A [id number] [place], PATIENT (WNR) (M) A 2003 CD13 2 [place] Selected Encounter This section includes the information on record at [place] for the Encounter. Date/Time Encounter Type Encounter Description Reason Provider Source Dec 29, 2021 04:50 Outpatient Encounter COMMUNITY CARE PM CONSULT IHE Encounter Template Text not used by [place] Plan of Treatment: Future Appointments (+ 6 months) and Future Tests (+/- 45 days) The Plan of Treatment section includes future care activities for the patient from all [place] treatmentfacilities. This section includes future appointments and future orders which are active, pending orscheduled.Active, Pending, and Scheduled Orders This section includes a listing of several types of active, pending, and scheduled orders, including clinic medications orders, diagnostic test orders, procedure orders and consult orders; where the start date of the order is 45 days before the date of the Encounter or 45 days after the date of the Encounter. The data comes from all [place] treatment facilities. Test Date/Time Test Type Test Details Facility Name Jan 07, 2022 07:32 AM Consult Order COMMUNITY CARE-PRIMARY [facility] ROSALIND HERNANDEZ T [facility] CARE Cons D[facility] Developer[employer] Choice Encounter Notes: All associated encounter notes This section contains the clinical notes associated to the Encounter. Date/Time Encounter Note(s) Provider Source Dec 29, 2021 04:50 PM NONVA NOTE: [facility] LOC[facility] TITLE: COMMUNITY CARE COORDINATION PLAN [facility] STANDARD TITLE: NONVA NOTE DATE OF NOTE: DEC 29, 2021@16:50 ENTRY DATE: DEC 29, 2021@16:50:12 AUTHOR: ABI DAILEY EXP COSIGNER: URGENCY: STATUS: COMPLETED Noted in [facility] report that [facility]'s [facility] PCP consu lt is expiring 01/25/2022. Patient seeing: [facility] Michell Bishop APRN Spoke to nurse, Claudia. Informed if plan of care is to continue with CC PCP, informed of the need for completed Request For Umer miller (RFS) [place] Form [id number], supportive documentation for RFS to be faxed to [facility] [phone]. [place] a stated understanding and agreement. Invited to call this RN PRN questions/concerns. Direct ext provided. /angela/ Abi Dailey DNP, BRITNI, RN-[facility] Clinical Delivery Associate Signed: 12/29/2021 17:02
--- OUTSIDE RECORDS SUMMARY | 2022-03-24 09:50 | XMS_ITS | Encounter Summary ---
:[address] [facility] Address [address] [place] [id number] Care Team Providers Name Role Phone EMANI [...] [place] [employer] Mar 23, PLAND [id number] [phone] [place] , PATIENT LIFE & PLAN D ARE 2003 73 4 [employer] PLAND Mar 23, PLAND [id number] [phone] [place] , PATIENT LIFE AND PLAN D 2003 73 0 [employer] MEDICARE MEDICARE PART Jan 21, PART B [id number] [place], PATIENT (WNR) (M) B 2003 31A 2 [employer] MEDIC[employer] MEDICARE PART Jan 21, PART A [id number] [place], PATIENT (WNR) (M) A 2003 31B 2 [employer] MEDICARE PART Jan 21, PART A [id number] [place], PATIENT (WNR) (M) A 2003 CD13 2 [employer] MEDICARE MEDICARE PART Jan 21, PART B [id number] [place], PATIENT (WNR) (M) B 2003 CD13 2 [employer] MEDICARE MEDICARE PART Jan 21, PART B [id number] [place], PATIENT (WNR) (M) B 2003 CD13 2 [employer] MEDIC[employer] MEDICARE PART Jan 21, PART A [id number] [place], PATIENT (WNR) (M) A 2003 [...] PM PRIMARY CARE ADMINISTRATIVE NOTE: ALEJANDRO JANE [facility] LOCAL TITLE: Administrative Note/Primary Care STANDARD TITLE: PRIMARY CARE ADMINISTRATIVE NOTE DATE OF NOTE: SEP 01, 2021@12:20 ENTRY DATE: SEP 01, 2021@12:20:49 AUTHOR: ALEJANDRO JANE EXP COSIGNER: URGENCY: STATUS: COMPLETED Administrative Note/Primary Care Has ADDEND A called and left a vo icemail message checking on his script for Xarelto - his blood thinner medication - has been working on this now for 10 days and is almost out and cannot be without the medication. would like to know what is going on and when he will be getting this script - call back number [phone] thank you /angela/ ALEJANDRO JANE AMSA Signed: 09/01/2021 12:22 Receipt Acknowledged By: 09/02/2021 17:04 /angela/ LEANDRO JIMENEZ Clinical Pharmacist for CHELSEA ESTRADA * AWAITING SIGNATURE * CORRINA GROSS 09/02/2021 ADDENDUM STATUS: COMPLETED is not followed by [facility]al[facility] and is being monitored by his [facility] approved PCP. Tracking shows prescriptio n was mailed on 09/01/21 with expected arrival on 09/06/21. /angela/ LEANDRO JIMENEZ Clinical Pharmacist Signed: 09/02/2021 17:12
[2022-03-24 11:06] VITALS: BP 138/68; PULSE 71
[2022-03-29 11:14] VITALS: BP 127/64; PULSE 67; O2SAT 94
[2022-04-05 10:51] VITALS: BP 148/65; PULSE 63
[2022-04-12 10:50] VITALS: BP 140/67; PULSE 67
[2022-04-14 10:53] VITALS: BP 136/68; PULSE 70
== END 2022-04-21 23:59 | disposition home or self-care (01) ==
LOC: CR 10:50
PROVIDERS: PCP Nurse Practitioner Family; Visit Provider Internal Medicine Cardiovascular Disease
DX: R69 Illness, unspecified (principal)

== ENCOUNTER → 2022-04-27 02:19 | Outpatient (CLI) | payer MEDICARE, OTHER, SELFPAY ==
--- NOTE | 2022-04-27 07:15 | DI.US_ITS ---
Exam(s) US RENAL EXAM: US RENAL CLINICAL HISTORY: monitoring size of right renal mass,n28.89. TECHNIQUE: Rawls scale, color and spectral Doppler were used. COMPARISON: CT CT ABDOMEN PELVIS W from 08/19/2020 US US RENAL from 08/23/2021 FINDINGS: Renal size in cm: Right: 11.8 left: 13.0 Echogenicity: Normal Hydronephrosis: No Cyst or mass: Stable size 1.8 centimeter solid nodule lower pole. Nephrolithiasis: No Bladder:Normal Prevoid vol: 49 Postvoid vol: Prostate not visualized. IMPRESSION: Stable 1.8 centimeter lower pole renal mass. DATA REPOSITORY:
== END ==
PROVIDERS: PCP Nurse Practitioner Family; Visit Provider Nurse Practitioner Gerontology
DX: N28.89 Other specified disorders of kidney and ureter (principal)
CPT/HCPCS: 76770

== ENCOUNTER 2022-05-19 11:03 | Outpatient (RCR) | payer SELFPAY ==
[2022-04-28 10:57] VITALS: BP 148/71; PULSE 80
[2022-05-03 10:45] VITALS: BP 118/52; PULSE 74
[2022-05-10 10:39] VITALS: BP 148/67; PULSE 67
[2022-05-12 14:45] VITALS: BP 152/64; PULSE 75
[2022-05-17 11:07] VITALS: BP 135/67; PULSE 68
[2022-05-19 10:46] VITALS: BP 145/71; PULSE 71
== END 2022-05-22 23:59 | disposition home or self-care (01) ==
LOC: CR 11:03
PROVIDERS: PCP Nurse Practitioner Family; Visit Provider Internal Medicine Cardiovascular Disease
DX: R69 Illness, unspecified (principal)

== ENCOUNTER 2022-06-21 10:40 | Outpatient (RCR) | payer SELFPAY ==
[2022-05-23 00:16] VITALS: BP 145/71; PULSE 71
[2022-05-24 11:28] VITALS: BP 143/71; PULSE 74
[2022-05-31 11:33] VITALS: BP 132/67; PULSE 72
[2022-06-02 11:02] VITALS: BP 136/74; PULSE 68
[2022-06-07 10:39] VITALS: BP 145/72; PULSE 72
[2022-06-09 10:46] VITALS: BP 136/70; PULSE 75
[2022-06-16 10:46] VITALS: BP 131/67; PULSE 82; O2SAT 94
[2022-06-21 10:33] VITALS: BP 151/71; PULSE 68
== END 2022-06-22 23:59 | disposition home or self-care (01) ==
LOC: CR 10:40
PROVIDERS: PCP Nurse Practitioner Family; Visit Provider Internal Medicine Cardiovascular Disease
DX: R69 Illness, unspecified (principal)

== ENCOUNTER → 2022-07-01 09:23 | Outpatient (BNVA) | payer MEDICARE, OTHER, SELFPAY | PROVIDERS: PCP Nurse Practitioner Family; Referring Provider Nurse Practitioner Family; Visit Provider Urology | DX: N40.1 Benign prostatic hyperplasia with lower urinary tract symptoms (principal); R39.11 Hesitancy of micturition; N28.89 Other specified disorders of kidney and ureter | CPT/HCPCS: 99213 ==

== ENCOUNTER 2022-07-09 12:05 | Emergency (ER) | payer OTHER, SELFPAY ==
[2022-07-09 12:15] VITALS: BP 143/57; PULSE 67; RESP 16; TEMP 36.2; O2SAT 99
--- NOTE | 2022-07-09 12:30 | DI.RAD_ITS ---
Exam(s) XR TIB/FIB LT EXAM: XR TIB/FIB LT CLINICAL HISTORY: left leg infection, r/o foreign body or fx. TECHNIQUE: 2D digital imaging was performed. COMPARISON: No exams were available for comparison FINDINGS: Four views: There are no fractures of the left tibia-fibula. Bone density is age-appropriate. No osseous lesion s. No radiographic evidence of osteomyelitis. Tibial plateau appears intact. There is soft tissue edema which is most prominent over the lateral aspect of the calf. Vascular calcification is noted in the anterior tibial artery and peroneal artery in the calf. Vascu lar calcification extends into the foot. There is no radiographic evidence of osteomyelitis. Inferi or calcaneal spur is noted. No fracture at the level the ankle joint and no diastasis of the ankle m ortise. Talar dome unremarkable. IMPRESSION: Soft tissue edema. No fracture. No radiographic evidence of osteomyelitis. No radiopaque foreign b derick. DATA REPOSITORY: RADIATION DOSE DELIVERED:
[2022-07-09] MEDS: Cephalexin 500 MG CAP PO (12:41)
[2022-07-09 12:49] LABS: Abs Immature Grans 0.02 10^3/uL (0.0-0.06); Absolute Basophil Count 0.03 10^3/uL (0.0-0.2); Absolute Eosinophil Count 0.15 10^3/uL (0.0-0.7); Absolute Lymphocyte Count 0.75 10^3/uL (1.2-3.4); Absolute Monocyte Count 0.63 10^3/uL (0.1-0.8); Absolute Neutrophil Count 5.04 10^3/uL (1.2-6.7); Basophils % 0.5; Eosinophils % 2.3; HCT 38.8 % (40.0-50.0); HGB 12.9 g/dL (13.5-17.5); Immature Grans % 0.3; Lymphocytes % 11.3; MCH 31.2 pg (27.0-33.0); MCHC 33.2 % (32.0-36.0); MCV 94 fL (80-95); MPV 8.9 fL (8.0-11.0); Monocytes % 9.5; Neutrophils % 76.1; Platelet Count 205 10^3/uL (130-400); RBC 4.14 10^6/uL (4.36-5.78); RDW 12.9 % (11.8-14.1); RDW-SD 44.4 fL; WBC 6.62 10^3/uL (4.4-10.8)
--- NOTE | 2022-07-09 13:04 | W.ED.GENAD ---
Discharge Plan Disposition Patient Disposition: HOME Condition: Stable Discharge Details Clinical Impression: Traumatic open wound of left lower leg with infection Primary Care Provider: Michell Bishop ED Provider: Yancy Keller Home Meds and New Rx's Prescriptions: New cephalexin 500 mg capsule 500 mg PO QID 7 Days Qty: 28 0RF Continued bisacodyl 5 mg tablet,delayed release (DR/EC) 5 mg PO DAILY Qty: 30 0RF polyethylene glycol 3350 [Miralax] 17 gram/dose powder 34 gm PO DAILY Qty: 119 3RF niacinamide 500 mg tablet 500 mg PO DAILY metformin 1,000 mg tablet 1,000 mg PO BID Qty: 180 3RF atorvastatin 40 mg tablet 40 mg PO DAILY Qty: 90 3RF furosemide 40 mg tablet 40 mg PO BID Qty: 180 3RF metoprolol tartrate 50 mg tablet 50 mg PO BID Qty: 180 3RF nitroglycerin 0.4 mg tablet, sublingual 0.4 mg SL Q5M MDD 3 doses PRN (Reason: chest pain) Qty: 30 3RF Rx Instructions: Take 0.4 mg every 5 minutes up to 3 doses; seek emergent medical care if no relief insulin glargine [Lantus Solostar U-100 Insulin] 100 unit/mL (3 mL) insulin pen 50 unit subcut HS Label Comments: 06/30/22- pt states he is on 51 units daily of Lantus as morning dose Myrbetriq 50 mg tablet extended release 24 hr 50 mg PO Q24H Qty: 90 4RF Hold Instructions: Home Medication placed on hold at Doctor's office alfuzosin 10 mg tablet extended release 24 hr 10 mg PO DAILY Qty: 90 4RF multivitamin [One Daily Multivitamin] 1 EACH tablet 1 ea PO DAILY aspirin [Aspirin Low-Strength] 81 MG tablet,chewable 81 mg PO DAILY Rx Instructions: FA s/p cath cholecalciferol (vitamin D3) 2,000 UNIT tablet 2,000 unit PO DAILY Label Comments: Rheumatology [facility] Rx Instructions: 800-2000 iu daily acetaminophen 500 mg tablet 1,000 mg PO BID PRN Label Comments: Milka ALONSO,[facility] Rheumatology ferrous sulfate 325 mg (65 mg iron) tablet 325 mg PO DAILY folic acid 1 mg tablet 1 mg PO DAILY (DME) lancets [facility] See Rx Instructions .ROUTE .MEDSUPPLY Qty: 100 3RF Rx Instructions: As directed to check blood glucose daily. Dispense covered brand. Xarelto 2.5 mg tablet 2.5 mg PO BID Qty: 90 3RF Rx Instructions: Per [facility] Vascular (05/03/2021) Trulicity 0.75 mg/0.5 mL pen injector 0.75 mg subcut QWEEK Qty: 2 12RF finasteride 5 mg tablet 5 mg PO HS Qty: 90 4RF ezetimibe [Zetia] 10 mg tablet 10 mg PO DAILY Qty: 90 3RF spironolactone 25 mg tablet 12.5 mg PO DAILY Qty: 45 3RF (DME) pen needle, diabetic [BD Ultra-Fine Short Pen Needle] 31 gauge x 5/16 needle 1 ea Miscellaneous TID Qty: 100 3RF Rx Instructions: 31x3/16 needle, use QD, to keep HbA1c less than 6.5%, Dx: E11.4 Discharge Instructions Instructions: Cellulitis (ED), Acute Wound Care (ED) Additional Instructions: Your blood tests and imaging today are reassuring and show no evidence of acute concerning or significant findings. It is suspected that your symptoms are secondary to a wound infection. Rest and elevate your leg as much as possible. Be sure to cover the wound if risk of contamination or injury and at bedtime. A prescription for antibiotics has been sent electronically to your pharmacy to take as directed until finished. Call your primary care doctor's office on Monday to schedule a follow-up appointment for reevaluation this week. Return immediately to the emergency department if you develop any worsening or new concerning symptoms such as fever, increased pain, redness or swelling. Discharge Data Discharge Date/Time-TO BE ENTERED AT DEPARTURE: 07/09/22 14:02 Discharge Physician: Yancy Keller Medical Decision Making 82-year-old male with a history of hypertension, hyperlipidemia, obesity, CKD, NSTEMI with h/o of CABG and coronary artery stent presents for an open wound to his left leg sustained when he tripped and fell striking his leg on a coffee table at home 4 days ago now with redness around the area and noted this morning. He denies fever. Patient denies any history of allergies on arrival but states to me that he thinks he has a history of allergy to a cephalosporin. Patient states the reaction was pain . Discussed that this is not an allergic reaction and considering his age and history we have limitations on antibiotic choices including Bactrim due to hyperkalemia, clindamycin due to risk of C. difficile, doxycycline may not be as effective. Patient is agreeable with plan for Keflex. We will give a dose here and obtain screening labs and left tib-fib x-ray. Tetanus up-to-date 2013. Labs and imaging reviewed. Normal white blood cell count. CRP within normal limits. X-ray notes soft tissue edema but no evidence of fracture, foreign body or osteomyelitis. Patient was given Keflex here which he tolerated well without any adverse reaction. He was given Keflex to go and a prescription sent electronically to his pharmacy. A nonadherent dressing was placed and he was given dressings to go. He was advised on the importance of proper wound care, rest and elevation. He was advised to maintain glucose within normal range. Advised to follow up with the primary care doctor for re-evaluation. Usual and customary return precautions given prior to discharge. Medical Records Medical records reviewed: Yes I reviewed the patient's medical records. Imaging Data Radiologic Study: Radiologist's impression: XR TIB/FIB LT CLINICAL HISTORY: ? left leg infection, r/o foreign body or fx. ? TECHNIQUE:? 2D digital imaging was performed. COMPARISON:? No exams were available for comparison FINDINGS: Four views: There are no fractures of the left tibia-fibula.? Bone density is age-appropriate.? No osseous lesions.? No radiographic evidence of osteomyelitis.? Tibial plateau appears intact. There is soft tissue edema which is most prominent over the lateral aspect of the calf. Vascular calcification is noted in the anterior tibial artery and peroneal artery in the calf.? Vascular calcification extends into the foot.? There is no radiographic evidence of osteomyelitis.? Inferior calcaneal spur is noted.? No fracture at the level the ankle joint and no diastasis of the ankle mortise.? Talar dome unremarkable. IMPRESSION: Soft tissue edema.? No fracture.? No radiographic evidence of osteomyelitis.? No radiopaque foreign body. Lab Data Lab results reviewed: Yes I reviewed the patient's lab results. Labs: Laboratory Tests Range/Units 07/09/22 07/09/22 12:45 12:45 WBC (4.4-10.8) 10^3/uL 6.62 RBC (4.36-5.78) 10^6/uL 4.14 L Hgb (13.5-17.5) g/dL 12.9 L Hct (40.0-50.0) % 38.8 L MCV (80-95) fL 94 MCH (27.0-33.0) pg 31.2 MCHC (32.0-36.0) % 33.2 RDW (11.8-14.1) % 12.9 Plt Count (130-400) 10^3/uL 205 MPV (8.0-11.0) fL 8.9 Immature Gran % 0.3 Neutrophils % 76.1 Lymphocytes % 11.3 Monocytes % 9.5 Eosinophils % 2.3 Basophils % 0.5 Nucleated RBC % (0.0-0.3) % 0.0 Absolute Neutrophils (1.2-6.7) 10^3/uL 5.04 Absolute Lymphocytes (1.2-3.4) 10^3/uL 0.75 L Absolute Monocytes (0.1-0.8) 10^3/uL 0.63 Absolute Eosinophils (0.0-0.7) 10^3/uL 0.15 Absolute Basophils (0.0-0.2) 10^3/uL 0.03 Sodium (136-145) mmol/L 138 Potassium (3.5-5.1) mmol/L 4.2 Chloride (98-107) mmol/L 101 Carbon Dioxide (21.0-32.0) mmol/L 29.0 Anion Gap (3-11) mmol/L 8.0 BUN (7-18) mg/dL 28 H Creatinine (0.70-1.30) mg/dL 1.2 Est GFR (CKD-EPI 2020) (mL/min/1.73m2) 60.00 Glucose (74-106) mg/dL 219 H Calcium (8.5-10.1) mg/dL 8.6 Total Bilirubin (0.2-1.0) mg/dL 0.5 AST (15-37) U/L 25 ALT (16-63) U/L 48 Alkaline Phosphatase (46-116) U/L 99 C-Reactive Protein (0.0-0.3) mg/dL 0.06 Total Protein (6.4-8.2) g/dL 6.7 Albumin (3.4-5.0) g/dL 3.4 HPI General Mode of arrival: ambulatory. Date/Time Provider Initiated Documentation: 07/09/22 12:20. Limitations to Documentation: no limitations. Information obtained by: patient. HPI Narrative: Pt is an 82yo M with a history of hypertension, hyperlipidemia, diabetes, GERD, NSTEMI, obesity presents for evaluation of left leg wound with surrounding erythema sustained after he tripped and fell striking his leg on a coffee table 4 days agp. He states he noticed redness of the wound starting today and decided to come to the ER for further evaluation. Patient states he has been washing and dressing the room regularly. He states he has also been cleaning it with peroxide. He denies any fever. He denies any significant bony pain and states he has been ambulating. Related Data Home Medications Medication Instructions Recorded Confirmed multivitamin (One Daily 1 ea PO DAILY 01/23/13 07/09/22 Multivitamin tablet) aspirin 81 mg chewable tablet 81 mg PO DAILY 04/03/14 07/09/22 (Aspirin Low-Strength) cholecalciferol (vitamin D3) 50 2,000 unit PO DAILY 08/17/16 07/09/22 mcg (2,000 unit) tablet acetaminophen 500 mg tablet 1,000 mg PO BID PRN 03/29/19 07/09/22 bisacodyl 5 mg tablet,delayed 5 mg PO DAILY stimulant laxative 05/21/20 07/09/22 release #30 tab-caps polyethylene glycol 3350 17 34 gm PO DAILY constipation #119 05/21/20 07/09/22 gram/dose oral powder (Miralax) grams ferrous sulfate 325 mg (65 mg 325 mg PO DAILY 12/28/20 07/09/22 iron) tablet folic acid 1 mg tablet 1 mg PO DAILY 12/28/20 07/09/22 niacinamide 500 mg tablet 500 mg PO DAILY 04/29/21 07/09/22 lancets #100 ea 08/12/21 07/09/22 rivaroxaban 2.5 mg tablet (Xarelto) 2.5 mg PO BID #90 tabs 09/01/21 07/09/22 metformin 1,000 mg tablet 1,000 mg PO BID #180 tab-caps 09/03/21 07/09/22 nitroglycerin 0.4 mg sublingual 0.4 mg sublingual Q5M PRN chest 10/25/21 07/09/22 tablet pain #30 tab-caps dulaglutide 0.75 mg/0.5 mL 0.75 mg (0.5 mL) subcut QWEEK #2 mL 10/26/21 07/09/22 subcutaneous pen injector (Trulicity) finasteride 5 mg tablet 5 mg PO HS #90 tab-caps 01/31/22 07/09/22 atorvastatin 40 mg tablet 40 mg PO DAILY #90 tabs 02/04/22 07/09/22 furosemide 40 mg tablet 40 mg PO BID #180 tabs 02/04/22 07/09/22 metoprolol tartrate 50 mg tablet 50 mg PO BID #180 tabs 02/04/22 07/09/22 ezetimibe 10 mg tablet (Zetia) 10 mg PO DAILY #90 tab-caps 03/02/22 07/09/22 pen needle, diabetic 31 gauge x #100 ea 06/17/22 07/09/2203/07 (BD Ultra-Fine Short Pen Needle) spironolactone 25 mg tablet 12.5 mg PO DAILY #45 tabs 06/17/22 07/09/22 alfuzosin 10 mg tablet,extended 10 mg PO DAILY #90 tab-caps 07/01/22 07/09/22 release 24 hr insulin glargine 100 unit/mL (3 50 unit subcut HS 07/01/22 07/09/22 mL) subcutaneous pen (Lantus Solostar U-100 Insulin) mirabegron 50 mg tablet,extended 50 mg PO Q24H #90 tabs 07/01/22 07/09/22 release 24 hr (Myrbetriq) cephalexin 500 mg capsule 500 mg PO QID 7 days #28 caps 07/09/22 Previous Rx's Medication Instructions Recorded bisacodyl 5 mg tablet,delayed 5 mg PO DAILY stimulant laxative 05/21/20 release #30 tab-caps polyethylene glycol 3350 17 34 gm PO DAILY constipation #119 05/21/20 gram/dose oral powder (Miralax) grams lancets #100 ea 08/12/21 rivaroxaban 2.5 mg tablet (Xarelto) 2.5 mg PO BID #90 tabs 09/01/21 metformin 1,000 mg tablet 1,000 mg PO BID #180 tab-caps 11/12/21 nitroglycerin 0.4 mg sublingual 0.4 mg sublingual Q5M PRN chest 10/25/21 tablet pain #30 tab-caps dulaglutide 0.75 mg/0.5 mL 0.75 mg (0.5 mL) subcut QWEEK #2 mL 10/26/21 subcutaneous pen injector (Trulicity) finasteride 5 mg tablet 5 mg PO HS #90 tab-caps 01/31/22 atorvastatin 40 mg tablet 40 mg PO DAILY #90 tabs 02/04/22 furosemide 40 mg tablet 40 mg PO BID #180 tabs 02/04/22 metoprolol tartrate 50 mg tablet 50 mg PO BID #180 tabs 02/04/22 ezetimibe 10 mg tablet (Zetia) 10 mg PO DAILY #90 tab-caps 03/02/22 pen needle, diabetic 31 gauge x #100 ea 06/17/22 5/16 (BD Ultra-Fine Short Pen Needle) spironolactone 25 mg tablet 12.5 mg PO DAILY #45 tabs 06/17/22 alfuzosin 10 mg tablet,extended 10 mg PO DAILY #90 tab-caps 07/01/22 release 24 hr mirabegron 50 mg tablet,extended 50 mg PO Q24H #90 tabs 07/01/22 release 24 hr (Myrbetriq) cephalexin 500 mg capsule 500 mg PO QID 7 days #28 caps 07/09/22 Allergies Allergy/AdvReac Type Severity Reaction Status Date / Time No Known Allergies Allergy Verified 07/09/22 12:19 General Stated Complaint: Cellulitis EDUARDO: 3 Review of Systems All systems reviewed & are unremarkable except as noted in HPI and below Constitutional Constitutional: Reports as per HPI, Denies chills and Denies fever(s) Eyes Eyes: Denies blurry vision ENT Ears, Nose, Mouth, and Throat: Denies dizziness, Denies sore throat and Denies throat swelling Cardiovascular Cardiovascular: Denies chest pain and Denies dyspnea Respiratory Respiratory: Denies cough and Denies dyspnea Gastrointestinal Gastrointestinal: Denies abdominal pain, Denies diarrhea and Denies vomiting Genitourinary Genitourinary: Denies hematuria and Denies dysuria Musculoskeletal Musculoskeletal: Denies back pain and Denies numbness Integumentary/Breasts Skin/Breast: Reports lesions and Denies rash Neurologic Neurologic: Denies dizziness, Denies localized weakness and Denies numbness Allergic/Immunologic Allergic/Immunologic: Denies throat swelling PFSH All Active Problems (Updated 07/09/22 @ 13:47 by Yancy Keller DO) Traumatic open wound of left lower leg with infection (Acute) 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 Pulm: 4mm w.adjacent groundglass. Considering 3 mo low radiation dose non contrast chest CT to see if resolves; Follow with yearly Chest CT LBBB (left bundle branch block) (Chronic) BPH (benign prostatic hyperplasia) (Chronic) Hearing loss, conductive (Chronic) ASCVD (arteriosclerotic cardiovascular disease) (Chronic) Stenting in 2004 and 2005; 04/02/14 NSTEMI: KECIA to LCX and LAD ([facility], Dr. Watkins); 03/16/16 NSTEMI: KECIA to LCX (85% stenosis) with LVEH 61% ([facility]); DSE @ [facility] 04/02/2019: no ischemic changes on post stress echo. LVEF 60% mild LVH; no change in resting regional wall motion abnormalities (see details under diastolic CHF heading); 06/14/19 stent x2 and angioplastyx1; another NSTEMI 07/2019 (cardiac cath repeated but no additional stents placed); NSTEMI 11/2020 with s/p 4v CABG 2019: INDEFINITE DAPT with ASA and Plavix! 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) Hypoxemia (Chronic 04/02/17) Per [facility] Sleep Medicine Erectile dysfunction (Chronic 12/15/11) Diastolic heart failure (Chronic 02/27/15) Most recent echo 07/2019 ([facility]): EF ~55% with no new wall motion abnormalities Carpal tunnel syndrome on both sides (Chronic 03/28/18) Hearing loss, sensorineural (Chronic) Medical History (Updated 07/09/22 @ 13:47 by Yancy Keller DO) Actinic keratosis (08/04/17) scattered on face Acute non-ST elevation myocardial infarction (NSTEMI) (~11/2020) S/p CABG 12/11/20 [facility] Anemia Basal cell carcinoma of back (08/04/17) midline upper back CKD (chronic kidney disease) Diabetic peripheral neuropathy (02/21/18) Essential hypertension (02/05/13) GERD (gastroesophageal reflux disease) 05/15/2012 EGD (Dr. Baird): chronic gastritis and esophagitis H/O squamous cell carcinoma of skin Hyperlipidemia, unspecified Interstitial lung disease (07/28/16) Migraine (12/15/11) Multiple pulmonary emboli S/p anticoagulation -- d/c'ed by cardiology NSTEMI (non-ST elevated myocardial infarction) (~06/13/19) 06/14/19: [facility] cardiac cath w/ stent x2 and angioplasty; 08/05/2019: [facility] cardiac cath with stable vessel dz & no additional stents placed; dual antiplatelet therapy indefinitely Obesity (BMI 30-39.9) PAF (paroxysmal atrial fibrillation) Polymyalgia rheumatica (08/17/16) [facility] Rheumatology (Dr Villalta): Prednisone Rx 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 Song, proliferation not noted in report. 04/30/19 SCC (squamous cell carcinoma), leg (~2018) R uriarte Severe obstructive sleep apnea (04/10/17) [facility] Sleep Medicine: BiPAP Type 2 diabetes mellitus with diabetic neuropathy, with long-term current use of insulin Co-managed with [facility] Endo (Dr. Reis); HbA1c goal </= 7.5-8% Surgical History History of cataract extraction with lens replacement History of heart artery stent repeated 06/14/19 History of repair of retinal defect by laser photocoagulation History of YAG laser capsulotomy of lens Status post coronary artery bypass graft (~12/11/20) [facility] Family History Father , from CHF age 76 Congestive heart failure Brother Congestive heart failure Mother , age 92 old age No problems noted. Sister No problems noted. Social History Smoking/Tobacco Use Status: Former Tobacco Use Quit Date: 10/23/84 Pack-years: 25 Tobacco: How many years used: 25 Smoking risk assessment performed?: Yes Alcohol Intake: current Alcohol Intake frequency: 0-2 drinks per day Drug use: Never Substance use type: does not use Caregiver/Support person: No Household members: spouse Number of Children: 2 Communication Needs: Hard of Hearing Education Level: high school Pets and animals: Yes Pets and animals: cat(s) Current gender identity: male What type of physical activity do you participate in: other Details: cardiac rehab Duration: 45-60 minutes/day Frequency: 3-4 times per week Seatbelt use: always Do you feel safe at home: Yes Do you feel safe in your relationship?: Yes Exam Const General: cooperative, healthy appearing and no acute distress Orientation: alert, awake and oriented x3 HENMT Head: normal to inspection Mouth: oral mucosae normal Eyes General: appearance normal, both eyes and all related structures Neck Neck: normal visual inspection Resp Effort & Inspection: normal respiratory effort and able to speak in complete sentences Cardio Rate: regular rate Skin General skin exam: no rashes or lesions noted Neuro General: patient alert, patient awake and patient oriented x3 Motor: muscle tone normal throughout Extrem Ankle/foot/toe images: 1. 2 x 2 centimeter open wound. No drainage. 2. Erythema and mild edema. No significant induration or fluctuance. Other: L DP/PT pulses intact. Psych Appearance: grossly normal Affect: normal affect Course Vital Signs Vital signs: Vital Signs Temperature 97.2 F L 07/09/22 12:15 Pulse 67 07/09/22 12:15 Respiratory Rate 16 07/09/22 12:15 Blood Pressure 143/57 H 07/09/22 12:15 Pulse Oximetry 99 07/09/22 12:15 Temperature 97.2 F L 07/09/22 12:15 Temperature Source Tympanic 07/09/22 12:15 Pulse 67 07/09/22 12:15 Respiratory Rate 16 07/09/22 12:15 Respiratory Effort 07/09/22 12:46 Blood Pressure 143/57 H 07/09/22 12:15 Blood Pressure Position Sitting 07/09/22 12:15 Pulse Oximetry 99 07/09/22 12:15 Oxygen Delivery Method Room Air 07/09/22 12:15 Oxygen Flow Rate 0 07/09/22 12:15 Pain Level 2 07/09/22 12:15 Lab/Test Results Lab/Test Results: Laboratory Tests Range/Units 07/09/22 12:45 WBC (4.4-10.8) 10^3/uL 6.62 RBC (4.36-5.78) 10^6/uL 4.14 L Hgb (13.5-17.5) g/dL 12.9 L Hct (40.0-50.0) % 38.8 L MCV (80-95) fL 94 MCH (27.0-33.0) pg 31.2 MCHC (32.0-36.0) % 33.2 RDW (11.8-14.1) % 12.9 Plt Count (130-400) 10^3/uL 205 MPV (8.0-11.0) fL 8.9 Immature Gran % 0.3 Neutrophils % 76.1 Lymphocytes % 11.3 Monocytes % 9.5 Eosinophils % 2.3 Basophils % 0.5 Nucleated RBC % (0.0-0.3) % 0.0 Absolute Neutrophils (1.2-6.7) 10^3/uL 5.04 Absolute Lymphocytes (1.2-3.4) 10^3/uL 0.75 L Absolute Monocytes (0.1-0.8) 10^3/uL 0.63 Absolute Eosinophils (0.0-0.7) 10^3/uL 0.15 Absolute Basophils (0.0-0.2) 10^3/uL 0.03
[2022-07-09 13:24] LABS: ALT 48 U/L (16-63); AST 25 U/L (15-37); Albumin 3.4 g/dL (3.4-5.0); Alkaline Phosphatase 99 U/L (46-116); BUN 28 mg/dL (7-18); Bilirubin, Total 0.5 mg/dL (0.2-1.0); C-Reactive Protein 0.06 mg/dL (0.0-0.3); CREATININE 1.2 mg/dL (0.70-1.30); Calcium 8.6 mg/dL (8.5-10.1); Chloride 101 mmol/L (98-107); Glucose 219 mg/dL (74-106); Potassium 4.2 mmol/L (3.5-5.1); Sodium 138 mmol/L (136-145); Total Protein 6.7 g/dL (6.4-8.2)
[2022-07-09] MEDS: Cephalexin 500 MG CAP, 4 CAPS/BTL PO (13:53)
--- NOTE | 2022-07-09 13:58 | DI.VRAD_ITS ---
PROCEDURE INFORMATION: Exam: XR Left Tibia and Fibula Exam date and time: 07/09/2022 1:32 PM Age: 82 years old Clinical indication: Other: Left leg infection, R/O foreign body or FX; Additional info: Marker indicating are of open sore TECHNIQUE: Imaging protocol: Radiologic exam of the Left tibia and fibula. Views: 2 views. COMPARISON: CR LEFT KNEE LIMITED 1 OR 2 VIEWS 05/31/2016 11:54 AM FINDINGS: Bones/joints: Small posterior and plantar calcaneal enthesophytes. No acute fracture or dislocation. Soft tissues: Increased density of the subcutaneous tissues of the lower leg, likely edema and or cellulitis. No soft tissue gas or radiopaque foreign body. Vasculature: Atherosclerotic vascular disease. IMPRESSION: 1. No acute fracture or dislocation. 2. Increased density of the subcutaneous tissues of the lower leg, likely edema and or cellulitis. No soft tissue gas or radiopaque foreign body. Dictated and Authenticated by: Sudheer Mccormick MD. Ordering:JENNIFER Haines MD
== END 2022-07-09 14:02 | disposition home or self-care (01) ==
PROVIDERS: Emergency Provider Physician Assistant; PCP Nurse Practitioner Family
DX: S81.802A Unspecified open wound, left lower leg, initial encounter (principal); L08.9 Local infection of the skin and subcutaneous tissue, unspecified; E11.22 Type 2 diabetes mellitus with diabetic chronic kidney disease; I12.9 Hypertensive chronic kidney disease with stage 1 through stage 4 chronic kidney disease, or unspecified chronic kidney disease; N18.9 Chronic kidney disease, unspecified; Z87.891 Personal history of nicotine dependence; W01.190A Fall on same level from slipping, tripping and stumbling with subsequent striking against furniture, initial encounter
CPT/HCPCS: 80053; 99283; 73590; 85025; 86140; 99284

== ENCOUNTER 2022-07-21 10:40 | Outpatient (RCR) | payer SELFPAY ==
[2022-06-23 00:18] VITALS: BP 151/71; PULSE 68
[2022-06-23 11:00] VITALS: BP 126/61; PULSE 72
[2022-06-28 10:36] VITALS: BP 139/77; PULSE 69
[2022-06-30 10:39] VITALS: BP 143/70; PULSE 69
[2022-07-05 10:30] VITALS: BP 146/69; PULSE 76
[2022-07-14 10:37] VITALS: BP 145/63; PULSE 71
[2022-07-19 10:43] VITALS: BP 133/69; PULSE 74
[2022-07-21 10:41] VITALS: BP 126/63; PULSE 77
== END 2022-07-22 23:59 | disposition home or self-care (01) ==
LOC: CR 10:40
PROVIDERS: PCP Nurse Practitioner Family; Visit Provider Internal Medicine Cardiovascular Disease
DX: R69 Illness, unspecified (principal)

== ENCOUNTER 2022-08-05 12:19 | Outpatient (REF) | payer MEDICARE, OTHER, SELFPAY ==
[2022-08-05 17:38] LABS: COMMENT (LAB VIEW ONLY) 36.23 mg/dL; Microalb ug/mg Crea 23.7 ug/mg Cr
== END 2022-08-05 12:20 | disposition home or self-care (01) ==
LOC: LBN 12:19
PROVIDERS: PCP Nurse Practitioner Family; Visit Provider Nurse Practitioner Family
DX: E11.9 Type 2 diabetes mellitus without complications (principal)
CPT/HCPCS: 82043; 82570

== ENCOUNTER → 2022-08-08 11:15 | Outpatient (BNVA) | payer MEDICARE, OTHER, SELFPAY | PROVIDERS: PCP Nurse Practitioner Family; Referring Provider Nurse Practitioner Family; Visit Provider Internal Medicine Cardiovascular Disease | DX: I25.10 Atherosclerotic heart disease of native coronary artery without angina pectoris (principal); I10 Essential (primary) hypertension; I48.0 Paroxysmal atrial fibrillation; I73.9 Peripheral vascular disease, unspecified; Z95.1 Presence of aortocoronary bypass graft; Z79.01 Long term (current) use of anticoagulants | CPT/HCPCS: 93005; 99215 ==

== ENCOUNTER 2022-08-08 11:21 | Outpatient (CLI) | payer MEDICARE, OTHER, SELFPAY ==
--- NOTE | 2022-08-08 11:15 | RT.EKG_ITS ---
APPROVED REPORT Exam: Resting ECG Reason for Exam: CAD Patient Location: O HR:75 bpm ECG Measurements Heart Rate 75 AXIS KY 212 P 10 QRSd 165 QRS -46 QT 445 T 110 QTc 498 Conclusion Sinus rhythm...normal P axis, V-rate 50- 99 Borderline prolonged KY interval...KY >212, V-rate 50- 90 Probable left atrial enlargement...P >50mS, <-0.10mV V1 Left bundle branch block...QRSd>120, broad/notched R I have reviewed and I agree with the emergency room physician's ECG interpretation.
== END 2022-08-08 11:22 | disposition home or self-care (01) ==
LOC: DI.CARD 11:23
PROVIDERS: PCP Nurse Practitioner Family; Visit Provider Internal Medicine Cardiovascular Disease
DX: I25.10 Atherosclerotic heart disease of native coronary artery without angina pectoris (principal); I44.7 Left bundle-branch block, unspecified; R94.31 Abnormal electrocardiogram [ECG] [EKG]
CPT/HCPCS: 93010

== ENCOUNTER 2022-08-18 10:34 | Outpatient (RCR) | payer SELFPAY ==
[2022-07-23 00:22] VITALS: BP 126/63; PULSE 77
[2022-07-26 10:41] VITALS: BP 156/73; PULSE 71; O2SAT 95
[2022-07-28 10:42] VITALS: BP 138/70; PULSE 74
[2022-08-02 10:35] VITALS: BP 148/75; PULSE 72
[2022-08-04 10:37] VITALS: BP 152/78; PULSE 75
[2022-08-11 11:14] VITALS: BP 147/73; PULSE 71
[2022-08-16 10:34] VITALS: BP 140/71; PULSE 78
[2022-08-18 10:33] VITALS: BP 151/77; PULSE 73
== END 2022-08-22 23:59 | disposition home or self-care (01) ==
LOC: CR 10:34
PROVIDERS: PCP Nurse Practitioner Family; Visit Provider Internal Medicine Cardiovascular Disease
DX: R69 Illness, unspecified (principal)
CPT/HCPCS: S9472

== ENCOUNTER 2022-09-13 10:34 | Outpatient (RCR) | payer SELFPAY ==
[2022-08-23 00:20] VITALS: BP 151/77; PULSE 73
[2022-08-23 11:45] VITALS: BP 135/59; PULSE 71
[2022-08-25 10:39] VITALS: BP 143/69; PULSE 74
[2022-08-30 11:07] VITALS: BP 140/71; PULSE 67
[2022-09-06 10:32] VITALS: BP 148/74; PULSE 70
[2022-09-08 10:32] VITALS: BP 147/74; PULSE 71
[2022-09-13 10:33] VITALS: BP 149/68; PULSE 67
== END 2022-09-21 23:59 | disposition home or self-care (01) ==
LOC: CR 10:34
PROVIDERS: PCP Nurse Practitioner Family; Visit Provider Internal Medicine Cardiovascular Disease
DX: R69 Illness, unspecified (principal)

== ENCOUNTER 2022-09-22 10:33 | Outpatient (RCR) | payer SELFPAY ==
[2022-09-22 00:09] VITALS: BP 149/68; PULSE 67
[2022-09-22 10:59] VITALS: BP 158/77; PULSE 74
== END 2022-10-22 23:59 | disposition home or self-care (01) ==
LOC: CR 10:33
PROVIDERS: PCP Nurse Practitioner Family; Visit Provider Internal Medicine Cardiovascular Disease
DX: R69 Illness, unspecified (principal)

== ENCOUNTER 2023-01-19 10:50 | Outpatient (RCR) | payer SELFPAY ==
[2023-01-03 11:01] VITALS: BP 154/73; PULSE 67
[2023-01-05 10:30] VITALS: BP 141/66; PULSE 71
[2023-01-10 10:49] VITALS: BP 154/71; PULSE 74
[2023-01-12 11:11] VITALS: BP 148/68; PULSE 62
[2023-01-17 10:42] VITALS: BP 148/69; PULSE 63
[2023-01-19 10:51] VITALS: BP 158/70; PULSE 73
[2023-01-24 11:14] VITALS: BP 145/75; PULSE 68
== END 2023-01-20 23:59 | disposition home or self-care (01) ==
LOC: CR 10:50
PROVIDERS: PCP Nurse Practitioner Family; Visit Provider Internal Medicine Cardiovascular Disease

== ENCOUNTER 2023-01-24 02:19 | Outpatient (CLI) | payer MEDICARE, OTHER, SELFPAY ==
--- NOTE | 2023-01-24 08:02 | DI.US_ITS ---
Exam(s) US RENAL EXAM: US RENAL CLINICAL HISTORY: monitor size of known renal mass,rt kidney, n28.89. TECHNIQUE: Rawls scale, color and spectral Doppler were used. COMPARISON: CT CTA THORAX from 09/20/[address] ABDOMEN PELVIS W from 08/19/2020 US US RENAL from 08/26/2020 US US RENAL from 04/22/2021 US US RENAL from 08/23/2021 US US RENAL from 04/27/2022 FINDINGS: Renal size in cm: Right: 12.2 left: 11.9 Echogenicity: Normal Hydronephrosis: No Cyst or mass: Stable size and appearance of hypoechoic mass the lower pole of the right kidney measur ing 1.6 by 1.8 x 1.9 cm. Echogenic lesion mid right kidney measuring 11 millimeters. 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 Nephrolithiasis: No Bladder:Normal, both ureteral jets visualized Prevoid vol:253 Postvoid vol:39 Prostate not visualized. IMPRESSION: Stable size and appearance of mass lower pole right kidney. DATA REPOSITORY:
== END 2023-01-24 02:39 ==
LOC: DI 02:19
PROVIDERS: PCP Nurse Practitioner Family; Visit Provider Urology
DX: N28.89 Other specified disorders of kidney and ureter (principal)
CPT/HCPCS: 76770

== ENCOUNTER 2023-01-26 13:11 | Outpatient (CLI) | payer MEDICARE, OTHER, SELFPAY ==
[2023-01-26 13:09] LABS: Abs Immature Grans 0.01 10^3/uL (0.0-0.06); Absolute Basophil Count 0.05 10^3/uL (0.0-0.2); Absolute Eosinophil Count 0.14 10^3/uL (0.0-0.7); Absolute Lymphocyte Count 1.02 10^3/uL (1.2-3.4); Absolute Monocyte Count 0.65 10^3/uL (0.1-0.8); Absolute Neutrophil Count 4.74 10^3/uL (1.2-6.7); Basophils % 0.8; Eosinophils % 2.1; HCT 40.7 % (40.0-50.0); HGB 13.9 g/dL (13.5-17.5); Immature Grans % 0.2; Lymphocytes % 15.4; MCH 31.7 pg (27.0-33.0); MCHC 34.2 % (32.0-36.0); MCV 93 fL (80-95); MPV 8.9 fL (8.0-11.0); Monocytes % 9.8; Neutrophils % 71.7; Platelet Count 200 10^3/uL (130-400); RBC 4.39 10^6/uL (4.36-5.78); RDW 12.8 % (11.8-14.1); RDW-SD 43.9 fL; WBC 6.61 10^3/uL (4.4-10.8)
--- OUTSIDE RECORDS SUMMARY | 2023-01-26 13:15 | XMS_ITS | Continuity of Care Document ---
Author Name Unknown Organization [facility] er Address [address] [place] [address] Encounter [facility] [id number] Date(s): 10/28/22 - 10/28/22 [facility] [address] [place] [address]- Discharge Disposition: Home Outpatient Attending Physician: MAKAYLA KISER MD Admitting Physician: MAKAYLA KISER MD Social History Social History Type Response Sex Male Radiation oncology procedure note * STEFANI URBAN: PERFORM Event Display: Radiation Therapy Authored Date: [id number]
--- OUTSIDE RECORDS SUMMARY | 2023-01-26 13:15 | XMS_ITS | Continuity of Care Document ---
Author Name Unknown Organization [facility] er Address [address] [place] [address] Care Team Providers Care Vp Customer Service Name Role Phone MAKAYLA KISER Primary Care Physician [id number] Date(s): 12/19/22 - 12/19/22 [facility] [address] [place] [address]- Discharge Disposition: Home Outpatient Attending Physician: MAKAYLA KISER MD Admitting Physician: MAKAYLA KISER MD Results Laboratory List Name Date Glucose POCT 12/19/22 Most recent to oldest [Reference Range]: 1 Glucose POC [70-100 mg/dL] 88 mg/dL (12/19/22 7:20 AM) Radiology Reports * Exam Date Time Procedure Performing Provider Status 12/19/22 8:[address] Skull Base to Midthigh Subsequent CARITO LOZANO RT(R); Auth (Verified) Notes: (PET CT Skull Base to Midthigh Subsequent) Reason For Exam: 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 Unenhanced, low dose, non-diagnostic axial CT images were acqui red for attenuation correction, as well as for image fusion and PET images followed from the skull vertex to the mid thigh. The PET and CT images were fused and reconstructed for review in the axial,sagittal and coronal planes. Additional Q clear reconstruction algorithm sequence was obtained. Thepatient's blood glucose level at the time of injection was 88. After IV injection, patient was placed in quiet room to rest for approximately 45 minutes. FINDINGS: Imaging of the visualized portion of the head and neck shows no discrete abnormal FDG activity to suggest FDG-avid malignant process. Within the chest, surgical clips in the left axilla. Again noted is scarring involving the left retropectoral and left axillary region demonstrating minimal FDG activity which may represent post surgical changes. No focal abnormal FDG activity in the mediastinum or hilar regions. New ill-defined airspace opacity in the left lung apex measuring approximately 2.4 cm demonstrating minimal FDG activity with an SUV max of 1.9 which could represent posttreatment changes. Scattered airspace opacities in the mid and lower left lung, inflammatory process not excluded. Below the diaphragm, no definite focal increased FDG activity in the liver or spleen. Nonspecific FDG activity seen throughout the bowel. Review of bone window imaging, in conjunction with PET imaging, shows no definite evidence of FDG-avid osseous metastasis. IMPRESSION: Surgical clips in the left axilla. Again noted is scarring involving the left retropectoral and left axillary regions demonstrating minimal FDG activity which may represent post surgical changes. New ill-defined airspace opacity in the left lung apex measuring approximately 2.4 cm demonstratingminimal FDG activity with an SUV max of 1.9 which could represent posttreatment changes. Scattered airspace opacities in the mid and lower left lung, inflammatory process not excluded. Follow-up chest CT is recommended to assess stability. 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 Unenhanced, low dose, non-diagnostic axial CT images were acqui red for attenuation correction, as well as for image fusion and PET images followed from the skull vertex to the mid thigh. The PET and CT images were fused and reconstructed for review in the axial,sagittal and coronal planes. Additional Q clear reconstruction algorithm sequence was obtained. Thepatient's blood glucose level at the time of injection was 88. After IV injection, patient was placed in quiet room to rest for approximately 45 minutes. FINDINGS: Imaging of the visualized portion of the head and neck shows no discrete abnormal FDG activity to suggest FDG-avid malignant process. Within the chest, surgical clips in the left axilla. Again noted is scarring involving the left retropectoral and left axillary region demonstrating minimal FDG activity which may represent post surgical changes. No focal abnormal FDG activity in the mediastinum or hilar regions. New ill-defined airspace opacity in the left lung apex measuring approximately 2.4 cm demonstrating minimal FDG activity with an SUV max of 1.9 which could represent posttreatment changes. Scattered airspace opacities in the mid and lower left lung, inflammatory process not excluded. Below the diaphragm, no definite focal increased FDG activity in the liver or spleen. Nonspecific FDG activity seen throughout the bowel. Review of bone window imaging, in conjunction with PET imaging, shows no definite evidence of FDG-avid osseous metastasis. IMPRESSION: Surgical clips in the left axilla. Again noted is scarring involving the left retropectoral and left axillary regions demonstrating minimal FDG activity which may represent post surgical changes. New ill-defined airspace opacity in the left lung apex measuring approximately 2.4 cm demonstratingminimal FDG activity with an SUV max of 1.9 which could represent posttreatment changes. Scattered airspace opacities in the mid and lower left lung, inflammatory process not excluded. Follow-up chest CT is recommended to assess stability. Final Dictated by: ZOILA ARREDONDO MD Dictated DT/TM: 12/19/2022 2:26 pm Signed by: ZOILA ARREDONDO MD Signed (Electronic Signature): 12/19/2022 2:24 pm Patient Care team information Care Team Personnel Name: MAKAYLA KISER MD Position: Physician - Acute Member Role: Primary Care Physician Address: Address: [address] [place] [address]- Care Team Related Persons Name: SUSAN AGUILLON Address: [address]
--- OUTSIDE RECORDS SUMMARY | 2023-01-26 13:15 | XMS_ITS | Continuity of Care Document ---
Author Name Unknown Organization [facility] er Address [address] [place] [address] Care Team Providers Care Medical Collections Name Role Phone NAVEEN, PCP Primary Care Physician Encounter DIMITRY JULIA [id number] Date(s): 11/03/22 - 11/22/22 [facility] [address] [place] [address]- [place] Discharge Disposition: Home Outpatient Attending Physician: MAKAYLA KISER MD Admitting Physician: MAKAYLA KISER MD Referring Physician: ADMITTING, PHYSICIAN Social History Social History Type Response Sex Male Occupational therapy Outpatient Note * Event Display: Outpatient OT Plan Note Click on link to see document. * Event Display: Outpatient OT Plan Note Click on link to see document. Patient Care team information Personnel Name: ALBERTO HODGE Address: Address: [address] [place] [address]- [place]
[2023-01-26 13:33] LABS: Hemoglobin A1C 7.2 % (<5.7)
[2023-01-26 14:15] LABS: ALT 42 U/L (16-63); AST 20 U/L (15-37); Albumin 3.6 g/dL (3.4-5.0); Alkaline Phosphatase 84 U/L (46-116); Anion Gap 7.2 mmol/L (3-11); BUN 24 mg/dL (7-18); Bilirubin, Total 0.4 mg/dL (0.2-1.0); CO2 30.8 mmol/L (21.0-32.0); CREATININE 1.3 mg/dL (0.70-1.30); Calcium 8.7 mg/dL (8.5-10.1); Calculated LDL 44 mg/dL (<100); Chloride 105 mmol/L (98-107); Cholesterol 111 mg/dL (<200); Estimated GFR 54.51 (mL/min/1.73m2); Folate > 20.0 ng/mL (8.6-20.0); Glucose 112 mg/dL (74-106); HDL Cholesterol 45 mg/dL (40-60); Potassium 4.4 mmol/L (3.5-5.1); Sodium 143 mmol/L (136-145); Total Protein 7.1 g/dL (6.4-8.2); Triglyceride 110 mg/dL (<150)
== END 2023-01-26 13:12 | disposition home or self-care (01) ==
LOC: LBO 13:13
PROVIDERS: PCP Nurse Practitioner Family; Visit Provider Nurse Practitioner Family
DX: D64.9 Anemia, unspecified (principal); I10 Essential (primary) hypertension; E78.5 Hyperlipidemia, unspecified; E11.40 Type 2 diabetes mellitus with diabetic neuropathy, unspecified; E53.8 Deficiency of other specified B group vitamins; Z79.4 Long term (current) use of insulin
CPT/HCPCS: 36415; 80053; 80061; 82746; 83036; 85025

== ENCOUNTER 2023-01-27 11:42 | Outpatient (CLI) | payer MEDICARE, OTHER, SELFPAY ==
--- NOTE | 2023-01-27 11:30 | DI.RAD_ITS ---
Exam(s) XR SHOULDER RT COMPLETE 2+V EXAM: XR SHOULDER RT COMPLETE 2+V CLINICAL HISTORY: Rt shoulder pain, M25.511, s/p fall, r/o fx. TECHNIQUE: 2D digital imaging was performed of the right shoulder. Five images were obtained. AP, Grashey, Y-view and axillary views were obtained. COMPARISON: CR RIGHT SHOULDER COMPLETE from 03/15/2016 FINDINGS: BONES: No acute fracture is present. No bony destructive lesion is seen. JOINTS: No dislocation present. SOFT TISSUE: Normal. IMPRESSION: No acute fracture or dislocation. DATA REPOSITORY: RADIATION DOSE DELIVERED:
== END 2023-01-27 12:02 ==
LOC: DI 11:43
PROVIDERS: PCP Nurse Practitioner Family; Visit Provider Nurse Practitioner Family
DX: M25.511 Pain in right shoulder (principal)
CPT/HCPCS: 73030

== ENCOUNTER → 2023-02-07 10:01 | Outpatient (BNVA) | payer MEDICARE, OTHER, SELFPAY | PROVIDERS: PCP Nurse Practitioner Family; Referring Provider Nurse Practitioner Family; Visit Provider Urology | DX: N28.89 Other specified disorders of kidney and ureter (principal); R39.89 Other symptoms and signs involving the genitourinary system | CPT/HCPCS: 99213 ==

== ENCOUNTER 2023-02-16 10:42 | Outpatient (RCR) | payer SELFPAY ==
[2023-01-21 00:22] VITALS: BP 158/70; PULSE 73
[2023-01-26 10:42] VITALS: BP 153/77; PULSE 68
[2023-01-31 10:57] VITALS: BP 155/86; PULSE 71
[2023-02-07 11:00] VITALS: BP 136/71; PULSE 67
[2023-02-09 13:23] VITALS: BP 161/74; PULSE 65
[2023-02-16 10:42] VITALS: BP 135/73; PULSE 71
== END 2023-02-19 23:59 | disposition home or self-care (01) ==
LOC: CR 10:42
PROVIDERS: PCP Nurse Practitioner Family; Visit Provider Internal Medicine Cardiovascular Disease
DX: R69 Illness, unspecified (principal)

== ENCOUNTER 2023-03-21 10:38 | Outpatient (RCR) | payer SELFPAY ==
[2023-02-20 00:09] VITALS: BP 135/73; PULSE 71
[2023-02-21 10:53] VITALS: BP 126/66; PULSE 66
[2023-02-23 11:07] VITALS: BP 150/72; PULSE 74
[2023-02-28 10:53] VITALS: BP 145/68; PULSE 67
[2023-03-02 10:37] VITALS: BP 148/74; PULSE 68
[2023-03-07 10:42] VITALS: BP 147/62; PULSE 65
[2023-03-09 11:32] VITALS: BP 138/64; PULSE 67
[2023-03-14 10:46] VITALS: BP 132/66; PULSE 65
[2023-03-21 10:41] VITALS: BP 142/70; PULSE 69
== END 2023-03-22 23:59 | disposition home or self-care (01) ==
LOC: CR 10:38
PROVIDERS: PCP Nurse Practitioner Family; Visit Provider Internal Medicine Cardiovascular Disease

== ENCOUNTER 2023-04-20 10:38 | Outpatient (RCR) | payer SELFPAY ==
[2023-03-23 00:06] VITALS: BP 142/70; PULSE 69
[2023-03-23 11:24] VITALS: BP 139/76; PULSE 66
[2023-03-30 10:40] VITALS: BP 155/66; PULSE 64
[2023-04-04 10:48] VITALS: BP 136/68; PULSE 66
[2023-04-06 10:43] VITALS: BP 136/74; PULSE 62
[2023-04-11 11:10] VITALS: BP 131/67; PULSE 63
[2023-04-20 10:39] VITALS: BP 136/64; PULSE 63
== END 2023-04-21 23:59 | disposition home or self-care (01) ==
LOC: CR 10:38
PROVIDERS: PCP Nurse Practitioner Family; Visit Provider Internal Medicine Cardiovascular Disease
DX: R69 Illness, unspecified (principal)

== ENCOUNTER → 2023-05-02 09:46 | Outpatient (BNVA) | payer MEDICARE, OTHER, SELFPAY | PROVIDERS: PCP Nurse Practitioner Family; Visit Provider Internal Medicine Cardiovascular Disease | DX: I25.810 Atherosclerosis of coronary artery bypass graft(s) without angina pectoris (principal); I13.0 Hypertensive heart and chronic kidney disease with heart failure and stage 1 through stage 4 chronic kidney disease, or unspecified chronic kidney disease; E11.42 Type 2 diabetes mellitus with diabetic polyneuropathy; N18.9 Chronic kidney disease, unspecified; I50.30 Unspecified diastolic (congestive) heart failure | CPT/HCPCS: 99213 ==

== ENCOUNTER 2023-05-11 10:42 | Outpatient (RCR) | payer SELFPAY ==
[2023-04-22 00:14] VITALS: BP 136/64; PULSE 63
[2023-04-27 10:46] VITALS: BP 106/51; PULSE 66; O2SAT 93
[2023-05-02 10:18] VITALS: BP 126/63; PULSE 70
[2023-05-09 10:50] VITALS: BP 144/68; PULSE 67
[2023-05-11 11:08] VITALS: BP 131/69; PULSE 62
== END 2023-05-22 23:59 | disposition home or self-care (01) ==
LOC: CR 10:42
PROVIDERS: PCP Nurse Practitioner Family; Visit Provider Internal Medicine Cardiovascular Disease
DX: R69 Illness, unspecified (principal)

== ENCOUNTER → 2023-06-22 09:42 | Outpatient (BNVA) | payer MEDICARE, OTHER, SELFPAY | PROVIDERS: PCP Nurse Practitioner Family; Referring Provider Nurse Practitioner Family; Visit Provider Internal Medicine Cardiovascular Disease | DX: E11.22 Type 2 diabetes mellitus with diabetic chronic kidney disease (principal); I13.0 Hypertensive heart and chronic kidney disease with heart failure and stage 1 through stage 4 chronic kidney disease, or unspecified chronic kidney disease; N18.9 Chronic kidney disease, unspecified; I50.30 Unspecified diastolic (congestive) heart failure; I25.10 Atherosclerotic heart disease of native coronary artery without angina pectoris | CPT/HCPCS: 99213 ==

== ENCOUNTER 2023-06-22 10:06 | Outpatient (RCR) | payer SELFPAY ==
[2023-05-23 00:14] VITALS: BP 131/69; PULSE 62
[2023-05-23 10:39] VITALS: BP 142/71; PULSE 62
[2023-05-25 10:38] VITALS: BP 137/69; PULSE 64
[2023-05-30 10:40] VITALS: BP 131/64; PULSE 64
[2023-06-01 11:28] VITALS: BP 121/58; PULSE 71
[2023-06-08 10:52] VITALS: BP 136/66; PULSE 67
[2023-06-13 10:43] VITALS: BP 136/70; PULSE 63
[2023-06-20 10:47] VITALS: BP 126/63; PULSE 72
[2023-06-22 10:08] VITALS: BP 128/66; PULSE 66
== END 2023-06-22 23:59 | disposition home or self-care (01) ==
LOC: CR 10:06
PROVIDERS: PCP Nurse Practitioner Family; Visit Provider Internal Medicine Cardiovascular Disease
DX: R69 Illness, unspecified (principal)

== ENCOUNTER 2023-07-20 10:54 | Outpatient (RCR) | payer SELFPAY ==
[2023-06-23 00:20] VITALS: BP 128/66; PULSE 66
[2023-06-27 11:15] VITALS: BP 131/64; PULSE 72
[2023-06-29 13:27] VITALS: BP 122/60; PULSE 69; O2SAT 93
[2023-07-04 10:39] VITALS: BP 127/58; PULSE 81
[2023-07-11 10:52] VITALS: BP 146/64; PULSE 81
[2023-07-11 11:08] VITALS: BP 146/64; PULSE 81
[2023-07-13 11:25] VITALS: BP 131/71; PULSE 67
[2023-07-18 10:54] VITALS: BP 130/65; PULSE 79
[2023-07-20 10:56] VITALS: BP 146/68; PULSE 66
== END 2023-07-22 23:59 | disposition home or self-care (01) ==
LOC: CR 10:54
PROVIDERS: PCP Nurse Practitioner Adult Health; Visit Provider Internal Medicine Cardiovascular Disease
DX: R69 Illness, unspecified (principal)

== ENCOUNTER → 2023-08-02 00:01 | Outpatient (CLI) | payer MEDICARE, OTHER, SELFPAY ==
--- NOTE | 2023-08-02 07:15 | DI.US_ITS ---
Exam(s) US RENAL EXAM: US RENAL CLINICAL HISTORY: monitor known renal mass,N28.89. TECHNIQUE: Rawls scale, color and spectral Doppler were used. COMPARISON: CT CT ABDOMEN PELVIS W from 08/19/2020 US US RENAL from 08/26/2020 US US RENAL from 01/24/2023 FINDINGS: Renal size in cm: Right: Left: Echogenicity: Normal Hydronephrosis: No Cyst or mass: Circumscribed mixed-echogenicity mass is again noted at the mid to lower pole of the ri ght kidney now measured at 2 cm in greatest dimension. This is unchanged when compared with previous exams. A 10 millimeter echogenic focus is noted at the upper pole which may represent artifact. 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 Nephrolithiasis: No Bladder:Not well evaluated due to lack of distention. Both ureteral jets visualized. Prostate not w ell visualized. Prevoid vol:45 cc Postvoid vol:23 cc IMPRESSION: Stable appearance of mass at the mid to lower pole of the right kidney. DATA REPOSITORY:
== END ==
PROVIDERS: PCP Nurse Practitioner Adult Health; Visit Provider Urology
DX: N28.89 Other specified disorders of kidney and ureter (principal)
CPT/HCPCS: 76770

== ENCOUNTER → 2023-08-08 10:00 | Outpatient (BNVA) | payer MEDICARE, OTHER, SELFPAY | PROVIDERS: PCP Nurse Practitioner Adult Health; Visit Provider Urology | DX: N28.89 Other specified disorders of kidney and ureter (principal) | CPT/HCPCS: 99213 ==

== ENCOUNTER 2023-08-22 11:16 | Outpatient (RCR) | payer SELFPAY ==
[2023-07-23 00:07] VITALS: BP 146/68; PULSE 66
[2023-07-27 12:58] VITALS: BP 135/63; PULSE 74
[2023-08-08 10:40] VITALS: BP 142/66; PULSE 72; O2SAT 93
[2023-08-10 14:54] VITALS: BP 152/73; PULSE 75; O2SAT 97
[2023-08-22 10:46] VITALS: BP 138/65; PULSE 68
== END 2023-08-22 23:59 | disposition home or self-care (01) ==
LOC: CR 11:16
PROVIDERS: PCP Nurse Practitioner Adult Health; Visit Provider Internal Medicine Cardiovascular Disease
DX: R69 Illness, unspecified (principal)

== ENCOUNTER → 2023-09-01 03:05 | Outpatient (CLI) | payer MEDICARE, OTHER, SELFPAY ==
--- NOTE | 2023-09-01 10:30 | DI.US_ITS ---
APPROVED REPORT EXAM: Comprehensive 2D, Doppler, and color-flow Echocardiogram Patient Location: Out-Patient Cutter Hot Knife: Xuan Hernandez RDCS (AE) Indications: check LV function, diastolic heart failure, ascvd Other Information Study Quality: Fair. Technically limited study due to body habitus. Conclusion Normal left ventricular wall thickness and chamber size. Ejection fraction is 30 to 35%. There are wall motion abnormalities in the LAD distribution Right ventricle is not well visualized Both atria are normal in size Aortic valve is sclerotic and trileaflet without stenosis or regurgitation Mildly dilated aortic root and ascending aorta Wall motion Left Ventricle The left ventricle is normal size. Left ventricular systolic function is severely decreased. There i s normal left ventricular wall thickness. Regional wall motion abnormalities are noted. There is no v entricular septal defect visualized. LVEF is 30%. Right Ventricle Right ventricle is not well visualized. Right ventricular systolic function could not be assessed. Atria The left atrium size is normal. The right atrium size is normal. The interatrial septum is intact wit h no evidence for an atrial septal defect. Aortic Valve The Aortic valve is sclerotic. Aortic valve is trileaflet. There is no aortic valvular stenosis. No a ortic regurgitation is present. Mitral Valve Mild mitral annular calcification. No evidence of mitral valve stenosis. Trace mitral regurgitation. Tricuspid Valve The tricuspid valve is normal in structure. There is no tricuspid valve stenosis. Mild tricuspid reg urgitation. The RVSP is 28.8_ mmHg. Pulmonic Valve The pulmonary valve is normal in structure. There is no pulmonic valvular stenosis. Trace pulmonic re gurgitation. Great Vessels Aortic root is mildly dilated. The ascending aorta is mildly dilated. Aortic arch is not well visua lized. IVC is normal in size and collapses >50% with inspiration. Pericardium There is no pericardial effusion. 2D Dimensions IVSD d PLAX 1.19 cm M: 0.6-1.2 Ao Root d 3.80 cm M: 3.1 - 3.7 LVPW d PLAX 1.21 cm M: 0.6 - 1.2 Ao Asc Diam d 3.50 cm M: 2.6 - 3.4 LVID d PLAX 5.09 cm M: 4.2 - 5.8 LVDs 4.34 cm M: 2.5 - 4.0 LV EF Teichholz 31.0 % FS 14.70 % LV EDV (Teich) 123.2 mL LV ESV (Teich) 85.0 mL Auto EF LV EDV A4C 143.4 mL LV EDV A2C 120.5 mL LV EDV BP 137.0 mL LV ESV A4C 105.3 mL LV ESV A2C 77.6 mL LV ESV BP 92.7 mL LVEF(%) A4C 26.6 % LVEF(%) A2C 35.6 % LVEF(%) BP 32.3 % LV SV A4C 38.1 ml LV SV A2C 42.9 ml LV SV BP 44.3 ml LV CO A4C 2.4 L/min LV CO A2C 3.1 L/min LV CO BP 2.8 L/min HR A4C 63.47 BPM HR A2C 72.14 BPM LV EDV Index (BP) LV Strain Long Pk Overal Avg (s) 7.42 LA Volume LA Length A4C 4.5 cm LA Length A2C 5.2 cm LA Area A4C s 15.31 cm2 LA Area A2C s 16.91 cm2 LA Vol A4C A-L 44.57 mL LA Vol A2C A-L 47.07 mL LA Vol Biplane A-L 49.2 mL LA Vol/BSA A4C A-L LA Vol/BSA A2C A-L LA Vol/BSA BP A-L 22.7 mL/m2 LA Vol A4C MOD 42.3 mL LA Vol A2C MOD 44.0 mL LA Vol BP MOD 46.2 mL RA Volume RA Area A4C 11.9 cm2 RA ESV A4C (A-L) 26.8mL RA Vol/BSA A4C A-L RA Length A4C 4.5 cm RA ESV A4C (MOD) 25.6mL LV Diastology MV E' medial 0.040 (>0.07 m/s) MV E' lateral 0.039 (>0.1 m/s) Aortic Valve AoV Vmax 0.99 m/s LVOT Vmax 0.80 m/s AoV Peak Grad 3.9 mmHg LVOT Peak Grad 2.5 mmHg AoV Area (Vmax) 2.75 cm2 LVOT VTI 0.167 m AoV VTI 0.216 m LVOT Mean Grad 1.3 mmHg AoV Mean Zak. 0.70 m/s LVOT SV 57.26 mL AoV Mean Grad 2.2 mmHg LVOT Diam s 2.05 cm AoV Area (VTI) 2.65 cm2 Velocity Ratio 0.81 Mitral Valve MV Vmax TIPS 0.87 m/s MV Mean Grad 0.9 (<2mmHg) MV VTI 0.191 m Pulmonary Valve PV Vmax 1.09 (0.5-1.5 m/s) RVOT Vmax 0.43 m/s PV Peak Grad 4.7 mmHg RVOT Peak Gr. 0.7 mmHg PV Mean Zak 0.68 m/s RVOT VTI 0.091 m PV Mean Grad 2.3 mmHg RVOT Mean Gr. 0.4 mmHg Tricuspid Valve RA Pressure 3.00 mmHg TR Vmax 2.54 m/s TV S' 0.09 m/s TR Peak Grad 25.8 mmHg RVSP (TR) 28.8 mmHg
== END ==
PROVIDERS: PCP Nurse Practitioner Adult Health; Visit Provider Internal Medicine Cardiovascular Disease
DX: I25.10 Atherosclerotic heart disease of native coronary artery without angina pectoris (principal); I50.30 Unspecified diastolic (congestive) heart failure
CPT/HCPCS: 93306

== ENCOUNTER 2023-09-21 11:10 | Outpatient (RCR) | payer SELFPAY ==
[2023-08-23 00:06] VITALS: BP 146/68; PULSE 66
[2023-08-29 10:38] VITALS: BP 113/51; PULSE 62
[2023-08-31 11:02] VITALS: BP 128/74; PULSE 64
[2023-09-05 13:56] VITALS: BP 142/70; PULSE 66
[2023-09-07 10:44] VITALS: BP 147/71; PULSE 65
[2023-09-12 10:41] VITALS: BP 134/64; PULSE 57
[2023-09-19 10:44] VITALS: BP 147/67; PULSE 69
== END 2023-09-21 23:59 | disposition home or self-care (01) ==
LOC: CR 11:10
PROVIDERS: PCP Nurse Practitioner Adult Health; Visit Provider Internal Medicine Cardiovascular Disease
DX: R69 Illness, unspecified (principal)

== ENCOUNTER 2023-10-10 10:52 | Outpatient (RCR) | payer SELFPAY ==
[2023-09-22 00:05] VITALS: BP 146/68; PULSE 66
[2023-09-26 10:45] VITALS: BP 132/69; PULSE 67
[2023-09-28 11:29] VITALS: BP 124/68; PULSE 63
[2023-10-05 11:30] VITALS: BP 147/72; PULSE 68
== END 2023-10-22 23:59 | disposition home or self-care (01) ==
LOC: CR 10:52
PROVIDERS: PCP Nurse Practitioner Adult Health; Visit Provider Internal Medicine Cardiovascular Disease
DX: R69 Illness, unspecified (principal)

== ENCOUNTER → 2023-10-13 09:50 | Outpatient (BNVA) | payer MEDICARE, OTHER, SELFPAY | PROVIDERS: PCP Nurse Practitioner Adult Health; Referring Provider Nurse Practitioner Adult Health; Visit Provider Urology | DX: N28.89 Other specified disorders of kidney and ureter (principal) | CPT/HCPCS: 76775 ==

== ENCOUNTER → 2023-12-29 10:56 | Outpatient (BNVA) | payer MEDICARE, OTHER, SELFPAY | PROVIDERS: PCP Nurse Practitioner Adult Health; Referring Provider Nurse Practitioner Adult Health; Visit Provider Internal Medicine Cardiovascular Disease | DX: I25.10 Atherosclerotic heart disease of native coronary artery without angina pectoris (principal); I25.810 Atherosclerosis of coronary artery bypass graft(s) without angina pectoris; I25.5 Ischemic cardiomyopathy | CPT/HCPCS: 99213 ==

== ENCOUNTER → 2024-01-08 00:45 | Outpatient (CLI) | payer MEDICARE, OTHER, SELFPAY ==
--- NOTE | 2024-01-08 07:30 | DI.NM_ITS ---
APPROVED REPORT Exam: Pharmacologic Patient Location: Out-Patient Room/Bed: Stress Nurse: Eli Betancourt RN Ordering Provider:ZAHRA COE, Contact Number: BMI: 38.21 Baseline Rhythm: Sinus Rhythm, LBBB Indications: LV Dysfunction Medical History Medical History: Ischemic cardiomyopathy, CAD, Anemia of chronic disease, KYLIE, ILD, CKD, HTN, HLD, Ob esity, Type 2 DM, Neuropathy, Retinopathy, PAD, Metastatic reynaldo cell carcinoma, BPH, ASCVD, Diastol ic heart failure, Afib, PE Cardiac Medications: Aspirin, Atorvastatin, Vitamin D3, Dulaglutide, Ezetimibe, Ferrous sulfate, elliott steride, furosemide, glargine, metformin, metoprolol tartrate, mirabegron ER, niacinamide, Nitro SL, Rivaroxaban, Spironolactone Allergies: NKA Cardiac Risk Factors: Family Hx, CVD, HTN, DM, HLD, Former Smoker, Obesity Previous Cardiac Procedures: CABG 2020 Pretest Chest Pain Characteristics: None Exercise History: Physically active Lung Sounds: Clear to auscultation Heart Sounds: Regular Stress Test Details Test: Pharmacologic stress testing performed using 0.4 mg of regadenoson per 5 mL given IV over 10 s econds. Nuclear Acquisition: Rest Tc-99m/Stress Tc-99m 1 day Rest Isotope: Tc-99m Sestamibi. Dose: 11 Date: 01/08/2024 Injection Time: 0850 Stress Isotope: Tc-99m Sestamibi. Dose: 31.5 Date: 01/08/2024 Injection Time: 1005 HR Resting HR Supine: 70 bpm Max Heart Rate (APMHR): 136.167200 bpm Target HR (85% APMHR): 115.839303 bpm Max HR Achieved: 92 bpm % of APMHR: 67.65 Recovery HR: 87 bpm BP Resting BP Supine: 142/66 mmHg Max BP: 142/66 mmHg Recovery BP: 118/48 mmHg ECG Resting ECG: Sinus Rhythm, LBBB Ectopy: None Stress ECG: Sinus Rhythm, LBBB ST Change: No significant ST segment changes noted Arrhythmia: None Recovery ECG: Sinus Rhythm, LBBB Recovery ST Change: No significant ST segment changes noted Recovery Arrhythmia: None Clinical Rate Pressure Product: [id number] Stress ECG Conclusion 1. Resting electrocardiogram showed a left bundle branch block 2. Patient underwent testing using pharmacologic stress with regadenoson 3. Peak heart rate achieved was 68% of predicted for age 4. Electrocardiographic portion of the test was nondiagnostic due to inadequate heart rate and LBBB 5. See MPI report Stress Test Summary STAGE HR BP SpO2 Symptoms NOTES Supine 70 142/66 1 min post Lexiscan injection 88 122/46 SOB 3 min post Lexiscan injection 90 122/48 SOB Resolved 6 min post Lexiscan injection 87 118/48 MPI Conclusion Myocardial perfusion is normal. There is no ischemia or evidence of prior infarction EF is 42%. Septal motion is consistent with known LBBB Radiologist Interpretation Radiologist agrees with Candle Wrapper's Interpretation. Radiologist Interpretation by: James Burns MD Interpretation Date/Time: 01/09/2024 08:39:39
[2024-01-08] MEDS: Regadenoson 0.4 MG/5 ML SYR IVP (09:56)
== END ==
PROVIDERS: PCP Nurse Practitioner Adult Health; Visit Provider Internal Medicine Cardiovascular Disease
DX: I25.10 Atherosclerotic heart disease of native coronary artery without angina pectoris (principal); I50.1 Left ventricular failure, unspecified
CPT/HCPCS: 78452; 93016; 93018; 93017; J2785

== ENCOUNTER → 2024-01-23 04:15 | Outpatient (CLI) | payer MEDICARE, OTHER, SELFPAY ==
--- NOTE | 2024-01-23 06:47 | DI.US_ITS ---
APPROVED REPORT EXAM: Comprehensive 2D, Doppler, and color-flow Echocardiogram Patient Location: Out-Patient [place] Artist: Xuan Hernandez RDCS (AE) Indications: Recheck LV function, atherosclerosis of coronary artery bypass, CABG Echo Enhancing Agent Indication: Endocardial border delineation Agent(s) / Amount(s) Used: Definity 6.0 cc Comments: Contrast study was performed with 1 IV injection of 2cc of diluted definity. Other Information Study Quality: Fair. Technically limited study due to body habitus. Conclusion Normal left ventricular wall thickness and chamber size. EF is 40-45%.There is global hypokinesis Normal right ventricualr size and function Both atria are normal in size The aortic valve is sclerotic and trileaflet without stenosisi or regurgitation Estimated RVSP is 33 mmHg Wall motion Left Ventricle The left ventricle is normal size. Left ventricular systolic function is moderately decreased. Defini ty microbubble contrast injection was given. There is normal left ventricular wall thickness. There i s no ventricular septal defect visualized. LVEF is 43%. Right Ventricle Right ventricle is not well visualized. Right ventricular systolic function could not be assessed. Atria The left atrium size is normal. The right atrium size is normal. The interatrial septum is intact wit h no evidence for an atrial septal defect. Aortic Valve The Aortic valve is sclerotic. Aortic valve is trileaflet. There is no aortic valvular stenosis. No a ortic regurgitation is present. Mitral Valve Mild mitral annular calcification. No evidence of mitral valve stenosis. Trace to mild mitral regurg itation. Tricuspid Valve The tricuspid valve is normal in structure. There is no tricuspid valve stenosis. Trace tricuspid reg urgitation. The RVSP is 32.6_ mmHg. Pulmonic Valve The pulmonary valve is normal in structure. There is no pulmonic valvular stenosis. Trace pulmonic r egurgitation. Great Vessels The aortic root is normal in size. The ascending aorta is normal in size. Aortic arch is not well vis ualized. IVC is normal in size and collapses >50% with inspiration. Pericardium There is no pericardial effusion. 2D Dimensions IVSD d PLAX 1.23 cm M: 0.6-1.2 Ao Root d 3.65 cm M: 3.1 - 3.7 LVPW d PLAX 1.20 cm M: 0.6 - 1.2 Ao Asc Diam d 3.33 cm M: 2.6 - 3.4 LVID d PLAX 5.00 cm M: 4.2 - 5.8 LVDs 3.93 cm M: 2.5 - 4.0 LV EF Teichholz 43.0 % FS 21.26 % LV EDV (Teich) 118.0 mL LV ESV (Teich) 67.2 mL LA Volume LA Length A4C 5.7 cm LA Length A2C 5.8 cm LA Area A4C s 21.92 cm2 LA Area A2C s 20.91 cm2 LA Vol A4C A-L 71.81 mL LA Vol A2C A-L 63.62 mL LA Vol Biplane A-L 68.5 mL LA Vol/BSA A4C A-L LA Vol/BSA A2C A-L LA Vol/BSA BP A-L 30.7 mL/m2 LA Vol A4C MOD 69.3 mL LA Vol A2C MOD 60.8 mL LA Vol BP MOD 65.7 mL RA Volume RA Area A4C 15.7 cm2 RA ESV A4C (A-L) 40.0mL RA Vol/BSA A4C A-L RA Length A4C 5.2 cm RA ESV A4C (MOD) 37.2mL LV Diastology MV E' medial 0.056 (>0.07 m/s) MV E Vmax 0.51 (0.4-1.3 m/s) MV E/E' MED 9.22 (<14) MV A Vmax 0.90 (0.4-1.3 m/s) E/A Ratio 0.6 Aortic Valve AoV Vmax 1.09 m/s LVOT Vmax 0.96 m/s AoV Peak Grad 4.8 mmHg LVOT Peak Grad 3.7 mmHg AoV Area (Vmax) 2.65 cm2 LVOT VTI 0.195 m AoV VTI 0.257 m LVOT Mean Grad 1.9 mmHg AoV Mean Zak. 0.74 m/s LVOT SV 58.51 mL AoV Mean Grad 2.6 mmHg LVOT Diam s 1.95 cm AoV Area (VTI) 2.28 cm2 Velocity Ratio 0.88 Mitral Valve MV DT 321 (160-240 msec) MV Vmax TIPS 1.01 m/s MV Mean Grad 1.5 (<2mmHg) MV VTI 0.237 m Pulmonary Valve PV Vmax 1.01 (0.5-1.5 m/s) RVOT Vmax 0.71 m/s PV Peak Grad 4.1 mmHg RVOT Peak Gr. 2.0 mmHg PV Mean Zak 0.66 m/s RVOT VTI 0.138 m PV Mean Grad 2.0 mmHg RVOT Mean Gr. 0.8 mmHg Tricuspid Valve RA Pressure 3.00 mmHg TR Vmax 2.72 m/s TV S' 0.07 m/s TR Peak Grad 29.5 mmHg RVSP (TR) 32.6 mmHg
[2024-01-23] MEDS: Perflutren Lipid Microspheres 1.5 ML VIAL IVP (13:19)
== END ==
PROVIDERS: PCP Nurse Practitioner Adult Health; Visit Provider Internal Medicine Cardiovascular Disease
DX: I25.10 Atherosclerotic heart disease of native coronary artery without angina pectoris (principal)
CPT/HCPCS: 93306; C8929

== ENCOUNTER → 2024-02-01 05:04 | Outpatient (CLI) | payer MEDICARE, OTHER, SELFPAY ==
[2023-08-17 10:49] VITALS: BP 132/72; PULSE 67
[2023-09-05 10:47] VITALS: BP 142/70; PULSE 66
--- NOTE | 2024-02-01 06:45 | DI.US_ITS ---
Exam(s) US RENAL EXAM: US RENAL CLINICAL HISTORY: monitor known renal mass,N28.89. TECHNIQUE: Rawls scale, color and spectral Doppler were used. COMPARISON: US US RENAL from 08/02/2023 US POCUS EXAM from 10/13/2023 FINDINGS: Renal size in cm: Right: . Left: 12.6. Echogenicity: Normal. Hydronephrosis: No. Cyst or mass: The complex cystic and solid mass in the right kidney measures 2.0 AP by 2.3 transverse by 2.5 craniocaudad cm. This compares to 1.9 AP by 2.3 transverse by 2.0 craniocaudad. The echogen ic area in the upper pole of the right kidney is again seen. It is unchanged. Nephrolithiasis: No. Other findings: None. Bladder:The urinary bladder wall is incompletely distended limiting evaluation. The bladder wall is mildly thickened likely due to underdistention. Ureteral jets: Right: Not visualized on this examination. Left: Not visualized on this examination. Prevoid vol:30 cc Postvoid vol:30 cc Prostate: Not well visualized. 7.1 cc Renal color flow: Symmetric and within normal limits. IMPRESSION: 1. Slight increase in size of the craniocaudad dimensions of the complex right renal mass since 08/02. 2. Stable echogenic area in the upper pole of the right kidney. 3. Limited evaluation of the urinary bladder as it was incompletely distended. DATA REPOSITORY:
== END ==
PROVIDERS: PCP Nurse Practitioner Adult Health; Visit Provider Urology
DX: N28.89 Other specified disorders of kidney and ureter (principal)
CPT/HCPCS: 76770

== ENCOUNTER → 2024-02-05 10:37 | Outpatient (BNVA) | payer MEDICARE, OTHER, SELFPAY | PROVIDERS: PCP Nurse Practitioner Adult Health; Visit Provider Internal Medicine Cardiovascular Disease | DX: I25.5 Ischemic cardiomyopathy (principal); I25.810 Atherosclerosis of coronary artery bypass graft(s) without angina pectoris; R06.09 Other forms of dyspnea | CPT/HCPCS: 99213 ==

== ENCOUNTER → 2024-02-19 10:19 | Outpatient (BNVA) | payer MEDICARE, OTHER, SELFPAY | PROVIDERS: PCP Nurse Practitioner Adult Health; Visit Provider Urology | DX: R35.0 Frequency of micturition (principal); N28.89 Other specified disorders of kidney and ureter | CPT/HCPCS: 99214 ==

== ENCOUNTER 2024-03-21 10:57 | Outpatient (RCR) | payer SELFPAY ==
[2024-02-21 00:13] VITALS: BP 147/75; PULSE 72
[2024-03-05 10:42] VITALS: BP 143/67; PULSE 71
[2024-03-07 11:28] VITALS: BP 126/68; PULSE 66
[2024-03-12 11:18] VITALS: BP 133/72; PULSE 69
[2024-03-19 11:19] VITALS: BP 139/71; PULSE 70
[2024-03-21 10:57] VITALS: BP 140/71; PULSE 64
== END 2024-03-22 23:59 | disposition home or self-care (01) ==
LOC: CR 10:57
PROVIDERS: PCP Nurse Practitioner Adult Health; Visit Provider Internal Medicine Cardiovascular Disease
DX: R69 Illness, unspecified (principal)

== ENCOUNTER 2024-04-16 13:35 | Outpatient (RCR) | payer SELFPAY ==
[2023-10-23 00:16] VITALS: BP 146/68; PULSE 66
[2024-03-28 14:19] VITALS: BP 147/69; PULSE 64
[2024-04-02 11:52] VITALS: BP 130/59; PULSE 68
[2024-04-04 12:21] VITALS: BP 134/73; PULSE 74
[2024-04-11 11:22] VITALS: BP 132/71; PULSE 69
[2024-04-16 10:44] VITALS: BP 143/69; PULSE 67
== END 2024-04-21 23:59 | disposition home or self-care (01) ==
LOC: CR 13:35
PROVIDERS: PCP Nurse Practitioner Adult Health; Visit Provider Internal Medicine Cardiovascular Disease
DX: R69 Illness, unspecified (principal)

== ENCOUNTER 2024-04-30 08:18 | Outpatient (CLI) | payer MEDICARE, OTHER, SELFPAY ==
--- NOTE | 2024-04-30 08:15 | RT.EKG_ITS ---
APPROVED REPORT Exam: Resting ECG Reason for Exam: CAD Patient Location: O HR:71 bpm ECG Measurements Heart Rate 71 AXIS NM 241 P 10 QRSd 166 QRS -55 QT 454 T 116 QTc 494 Conclusion Sinus rhythm...normal P axis, V-rate 50- 99 Atrial premature complex...SV complex w/ short R-R interval Prolonged NM interval...NM >220, V-rate 50- 90 Left bundle branch block...QRSd>120, broad/notched R Baseline wander in lead(s) V3,V4,V5,V6
== END 2024-04-30 08:19 | disposition home or self-care (01) ==
LOC: DI.CARD 08:21
PROVIDERS: PCP Nurse Practitioner Adult Health; Visit Provider Internal Medicine Cardiovascular Disease
DX: I25.10 Atherosclerotic heart disease of native coronary artery without angina pectoris (principal); I25.810 Atherosclerosis of coronary artery bypass graft(s) without angina pectoris; I25.5 Ischemic cardiomyopathy; Z95.1 Presence of aortocoronary bypass graft; I44.7 Left bundle-branch block, unspecified
CPT/HCPCS: 93010

== ENCOUNTER → 2024-04-30 09:44 | Outpatient (BNVA) | payer MEDICARE, OTHER, SELFPAY | PROVIDERS: PCP Nurse Practitioner Adult Health; Referring Provider Nurse Practitioner Adult Health; Visit Provider Internal Medicine Cardiovascular Disease | DX: I44.0 Atrioventricular block, first degree (principal); I44.7 Left bundle-branch block, unspecified; I25.5 Ischemic cardiomyopathy; I25.810 Atherosclerosis of coronary artery bypass graft(s) without angina pectoris; Z95.1 Presence of aortocoronary bypass graft | CPT/HCPCS: 93005; 99213 ==

== ENCOUNTER 2024-05-14 11:11 | Outpatient (RCR) | payer SELFPAY ==
[2024-04-23 11:19] VITALS: BP 145/73; PULSE 72
[2024-04-30 10:43] VITALS: BP 133/67; PULSE 67
[2024-05-07 11:22] VITALS: BP 127/66; PULSE 63
[2024-05-09 13:35] VITALS: BP 118/60; PULSE 69
[2024-05-14 14:04] VITALS: BP 140/72; PULSE 61
== END 2024-05-22 23:59 | disposition home or self-care (01) ==
LOC: CR 11:11
PROVIDERS: PCP Nurse Practitioner Adult Health; Visit Provider Internal Medicine Cardiovascular Disease
DX: R69 Illness, unspecified (principal)

== ENCOUNTER → 2024-06-20 08:11 | Outpatient (BNVA) | payer MEDICARE, OTHER, SELFPAY | PROVIDERS: PCP Nurse Practitioner Adult Health; Referring Provider Nurse Practitioner Adult Health; Visit Provider Podiatrist | DX: I73.9 Peripheral vascular disease, unspecified (principal); N18.9 Chronic kidney disease, unspecified; L20.9 Atopic dermatitis, unspecified; E11.42 Type 2 diabetes mellitus with diabetic polyneuropathy; L60.2 Onychogryphosis; C4A.9 Merkel cell carcinoma, unspecified; R25.2 Cramp and spasm | CPT/HCPCS: 11719; 99213 ==

== ENCOUNTER 2024-06-20 11:10 | Outpatient (RCR) | payer SELFPAY ==
[2024-05-23 00:34] VITALS: BP 140/72; PULSE 61
[2024-05-28 13:53] VITALS: BP 145/71; PULSE 70
[2024-05-30 11:41] VITALS: BP 135/64; PULSE 67
[2024-06-04 10:44] VITALS: BP 148/73; PULSE 70
[2024-06-11 10:57] VITALS: BP 153/73; PULSE 68
[2024-06-18 11:23] VITALS: BP 148/76; PULSE 68
[2024-06-20 11:23] VITALS: BP 157/81; PULSE 65
== END 2024-06-22 23:59 | disposition home or self-care (01) ==
LOC: CR 11:10
PROVIDERS: PCP Nurse Practitioner Adult Health; Visit Provider Internal Medicine Cardiovascular Disease
DX: R69 Illness, unspecified (principal)

== ENCOUNTER 2024-07-12 00:56 | Outpatient (CLI) | payer MEDICARE, OTHER, SELFPAY ==
--- NOTE | 2024-07-12 10:05 | DI.RAD_ITS ---
Exam(s) XR KNEE RT 3V AP,LAT,HITESH EXAM: XR KNEE RT 3V AP,LAT,HITESH CLINICAL HISTORY: acute abnormality,rt medial knee pain, m25.561. TECHNIQUE: 2D digital imaging was performed. Three views. COMPARISON: CR LEFT KNEE LIMITED 1 OR 2 VIEWS from 05/31/2016 FINDINGS: BONES: No acute fracture is present. No bony destructive lesion is seen. Enthesophyte at upper pole of patella. JOINTS: Severe narrowing of the medial femoral tibial joint space. Lateral femoral tibial joint spac e is maintained. Minimal periarticular spurring. No joint effusion is seen. SOFT TISSUE: Prominent vascular calcifications. IMPRESSION: Severe degenerative changes of the medial femoral tibial joint. DATA REPOSITORY: RADIATION DOSE DELIVERED:
--- NOTE | 2024-07-12 10:05 | DI.RAD_ITS ---
Exam(s) XR WRIST RT COMPLETE EXAM: XR WRIST RT COMPLETE CLINICAL HISTORY: s/p fall 12/2023--R lat wrist pain; ? old fx,? bony deformith,m25.531. TECHNIQUE: 2D digital imaging was performed. Three views. COMPARISON: CR LEFT WRIST COMPLETE + [place] from 07/09/2016 FINDINGS: BONES: No acute fracture is present. No bony destructive lesion is seen. JOINTS: Severe narrowing of the radial scaphoid joint. Marked widening of the scapholunate distance consistent with ligamentous disruption. Some dorsal tilt of the lunate. SOFT TISSUE: Prominent vascular calcifications. 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 Scapholunate ligament disruption. DATA REPOSITORY: RADIATION DOSE DELIVERED:
== END 2024-07-12 01:16 ==
LOC: DI 00:56
PROVIDERS: PCP Nurse Practitioner Adult Health; Visit Provider Nurse Practitioner Adult Health
DX: M25.531 Pain in right wrist (principal); M25.561 Pain in right knee
CPT/HCPCS: 36415; 73562; 80053; 80061; 73110; 82043; 82570; 83036; 85025

== ENCOUNTER 2024-07-12 10:09 | Outpatient (CLI) | payer MEDICARE, OTHER, SELFPAY ==
[2024-07-12 10:27] LABS: Abs Immature Grans 0.02 10^3/uL (0.0-0.06); Absolute Basophil Count 0.05 10^3/uL (0.0-0.2); Absolute Eosinophil Count 0.15 10^3/uL (0.0-0.7); Absolute Lymphocyte Count 0.81 10^3/uL (1.2-3.4); Absolute Monocyte Count 0.59 10^3/uL (0.1-0.8); Absolute Neutrophil Count 4.79 10^3/uL (1.2-6.7); Basophils % 0.8 %; Eosinophils % 2.3 %; HCT 41.9 % (40.0-50.0); HGB 13.8 g/dL (13.5-17.5); Immature Grans % 0.3 %; Lymphocytes % 12.6 %; MCH 31.3 pg (27.0-33.0); MCHC 32.9 % (32.0-36.0); MCV 95 fL (80-95); MPV 9.1 fL (8.0-11.0); Monocytes % 9.2 %; Neutrophils % 74.8 %; Platelet Count 211 10^3/uL (130-400); RBC 4.41 10^6/uL (4.36-5.78); RDW 13.2 % (11.8-14.1); RDW-SD 46.4 fL; WBC 6.41 10^3/uL (4.4-10.8)
[2024-07-12 11:01] LABS: ALT 50 U/L (16-63); AST 21 U/L (15-37); Albumin 3.7 g/dL (3.4-5.0); Alkaline Phosphatase 96 U/L (46-116); Anion Gap 6.4 mmol/L (3-11); BUN 29 mg/dL (7-18); Bilirubin, Total 0.59 mg/dL (0.2-1.0); CO2 31.6 mmol/L (21.0-32.0); CREATININE 1.3 mg/dL (0.70-1.30); Calcium 9.1 mg/dL (8.5-10.1); Calculated LDL 56 mg/dL (<100); Chloride 102 mmol/L (98-107); Cholesterol 124 mg/dL (<200); Estimated GFR 53.84 (mL/min/1.73m2); Glucose 93 mg/dL (74-106); HDL Cholesterol 46 mg/dL (40-60); Potassium 4.5 mmol/L (3.5-5.1); Sodium 140 mmol/L (136-145); Total Protein 7.4 g/dL (6.4-8.2); Triglyceride 113 mg/dL (<150)
[2024-07-12 11:16] LABS: COMMENT (LAB VIEW ONLY) 131.08 mg/dL; Microalb ug/mg Crea 126.6 ug/mg Cr
== END 2024-07-12 10:10 | disposition home or self-care (01) ==
LOC: LBO 10:10
PROVIDERS: PCP Nurse Practitioner Adult Health; Visit Provider Nurse Practitioner Adult Health
DX: I10 Essential (primary) hypertension (principal); I25.810 Atherosclerosis of coronary artery bypass graft(s) without angina pectoris; E78.5 Hyperlipidemia, unspecified; E11.40 Type 2 diabetes mellitus with diabetic neuropathy, unspecified; Z79.4 Long term (current) use of insulin; N18.9 Chronic kidney disease, unspecified; D63.8 Anemia in other chronic diseases classified elsewhere
CPT/HCPCS: 36415; 80053; 80061; 82043; 82570; 83036; 85025

== ENCOUNTER 2024-07-18 11:31 | Outpatient (RCR) | payer SELFPAY ==
[2024-06-23 00:12] VITALS: BP 140/72; PULSE 61
[2024-06-27 11:41] VITALS: BP 123/70; PULSE 71
[2024-07-02 11:49] VITALS: BP 130/71; PULSE 65
[2024-07-04 13:22] VITALS: BP 135/68; PULSE 71
[2024-07-09 11:53] VITALS: BP 134/72; PULSE 67
[2024-07-16 13:21] VITALS: BP 141/71; PULSE 71
[2024-07-18 11:32] VITALS: BP 147/70; PULSE 68
== END 2024-07-22 23:59 | disposition home or self-care (01) ==
LOC: CR 11:31
PROVIDERS: PCP Nurse Practitioner Adult Health; Visit Provider Internal Medicine Cardiovascular Disease
DX: R69 Illness, unspecified (principal)

== ENCOUNTER → 2024-08-15 13:12 | Outpatient (BNVA) | payer MEDICARE, OTHER, SELFPAY | PROVIDERS: PCP Nurse Practitioner Adult Health; Referring Provider Nurse Practitioner Adult Health; Visit Provider Student in an Organized Health Care Education/Training Program | DX: M19.031 Primary osteoarthritis, right wrist (principal) | CPT/HCPCS: 99213 ==

== ENCOUNTER → 2024-08-20 10:03 | Outpatient (BNVA) | payer MEDICARE, OTHER, SELFPAY | PROVIDERS: PCP Nurse Practitioner Adult Health; Referring Provider Nurse Practitioner Adult Health; Visit Provider Urology | DX: N28.89 Other specified disorders of kidney and ureter (principal) | CPT/HCPCS: 76775; 99214 ==

== ENCOUNTER 2024-08-22 10:46 | Outpatient (RCR) | payer SELFPAY ==
[2024-07-25 10:38] VITALS: BP 152/80; PULSE 66; O2SAT 95
[2024-07-30 14:51] VITALS: BP 130/73; PULSE 72
[2024-08-01 11:00] VITALS: BP 150/77; PULSE 65
[2024-08-08 10:42] VITALS: BP 134/71; PULSE 68; O2SAT 95
[2024-08-13 11:36] VITALS: BP 104/60; PULSE 68
[2024-08-15 10:41] VITALS: BP 130/64; PULSE 69; O2SAT 96
[2024-08-20 13:25] VITALS: BP 128/76; PULSE 70
[2024-08-22 11:03] VITALS: BP 131/71; PULSE 71
== END 2024-08-22 23:59 | disposition home or self-care (01) ==
LOC: CR 10:46
PROVIDERS: PCP Nurse Practitioner Adult Health; Visit Provider Internal Medicine Cardiovascular Disease
DX: R69 Illness, unspecified (principal)

== ENCOUNTER 2024-09-10 10:50 | Outpatient (RCR) | payer SELFPAY ==
[2024-08-23 00:16] VITALS: BP 131/71; PULSE 71
[2024-08-27 10:53] VITALS: BP 142/74; PULSE 69
[2024-08-29 11:23] VITALS: BP 113/63; PULSE 68
[2024-09-03 11:04] VITALS: BP 140/76; PULSE 70
[2024-09-05 10:42] VITALS: BP 152/74; PULSE 67
[2024-09-10 11:16] VITALS: BP 144/68; PULSE 70
== END 2024-09-21 23:59 | disposition home or self-care (01) ==
LOC: CR 10:50
PROVIDERS: PCP Nurse Practitioner Adult Health; Visit Provider Internal Medicine Cardiovascular Disease
DX: R69 Illness, unspecified (principal)

== ENCOUNTER 2024-10-17 10:42 | Outpatient (RCR) | payer SELFPAY ==
[2024-09-22 00:07] VITALS: BP 131/71; PULSE 71
[2024-09-24 10:52] VITALS: BP 169/79; PULSE 77
--- NOTE | 2024-09-24 10:54 | NUR.NOTE ---
Nursing Note: Patient presented to [facility] today and noted he had felt unwell all day yesterday. States he ran out of his insulin 3 or 4 days ago and was [facility] BP noted to be high (169/79) all other VSS. Discussed s/s check glucose and to seek care urgently with patient who stated understanding. Spoke with SUJIT Maloney and updated her on above info.
[2024-09-26 11:06] VITALS: BP 135/72; PULSE 74
[2024-10-01 11:36] VITALS: BP 126/67; PULSE 72
[2024-10-03 10:41] VITALS: BP 138/75; PULSE 70
[2024-10-10 11:12] VITALS: BP 132/74; PULSE 80
[2024-10-17 10:43] VITALS: BP 142/73; PULSE 69; O2SAT 93
== END 2024-10-22 23:59 | disposition home or self-care (01) ==
LOC: CR 10:42
PROVIDERS: PCP Nurse Practitioner Adult Health; Visit Provider Internal Medicine Cardiovascular Disease
DX: R69 Illness, unspecified (principal)

== ENCOUNTER 2025-01-09 11:17 | Outpatient (RCR) | payer SELFPAY ==
[2025-01-07 11:30] VITALS: BP 152/74; PULSE 69
[2025-01-09 11:20] VITALS: BP 148/70; PULSE 70
== END 2025-01-20 23:59 | disposition home or self-care (01) ==
LOC: CR 11:17
PROVIDERS: PCP Nurse Practitioner Adult Health; Visit Provider Internal Medicine Cardiovascular Disease
DX: R69 Illness, unspecified (principal)

== ENCOUNTER → 2025-02-12 08:52 | Outpatient (BNVA) | payer MEDICARE, OTHER, SELFPAY | PROVIDERS: PCP Nurse Practitioner Adult Health; Referring Provider Nurse Practitioner Adult Health; Visit Provider Podiatrist | DX: N18.31 Chronic kidney disease, stage 3a (principal); L20.9 Atopic dermatitis, unspecified; E11.42 Type 2 diabetes mellitus with diabetic polyneuropathy; L60.2 Onychogryphosis; D63.8 Anemia in other chronic diseases classified elsewhere; I73.89 Other specified peripheral vascular diseases; C4A.9 Merkel cell carcinoma, unspecified; R09.89 Other specified symptoms and signs involving the circulatory and respiratory systems; R60.0 Localized edema; I83.93 Asymptomatic varicose veins of bilateral lower extremities; L65.9 Nonscarring hair loss, unspecified; R23.4 Changes in skin texture; L60.8 Other nail disorders; L84 Corns and callosities | CPT/HCPCS: 11719 ==

== ENCOUNTER → 2025-02-18 10:00 | Outpatient (BNVA) | payer MEDICARE, OTHER, SELFPAY | PROVIDERS: PCP Nurse Practitioner Adult Health; Referring Provider Nurse Practitioner Adult Health; Visit Provider Urology | DX: N28.89 Other specified disorders of kidney and ureter (principal) | CPT/HCPCS: 76775 ==

== ENCOUNTER 2025-02-18 10:41 | Outpatient (RCR) | payer SELFPAY ==
[2025-01-21 11:13] VITALS: BP 170/77; PULSE 67
[2025-01-23 10:50] VITALS: BP 145/67; PULSE 74; O2SAT 93
[2025-01-28 11:12] VITALS: BP 162/72; PULSE 66
[2025-02-04 12:31] VITALS: BP 149/76; PULSE 66
[2025-02-06 11:45] VITALS: BP 148/73; PULSE 67
[2025-02-13 11:12] VITALS: BP 149/74; PULSE 68
[2025-02-18 13:18] VITALS: BP 127/68; PULSE 67
== END 2025-02-19 23:59 | disposition home or self-care (01) ==
LOC: CR 10:41
PROVIDERS: PCP Nurse Practitioner Adult Health; Visit Provider Internal Medicine Cardiovascular Disease
DX: R69 Illness, unspecified (principal)

== ENCOUNTER 2025-03-13 11:09 | Outpatient (RCR) | payer SELFPAY ==
[2025-02-20 00:10] VITALS: BP 127/68; PULSE 67
[2025-02-20 11:41] VITALS: BP 145/74; PULSE 63
[2025-02-27 13:11] VITALS: BP 142/72; PULSE 65
[2025-03-06 13:28] VITALS: BP 141/71; PULSE 72
[2025-03-11 13:07] VITALS: BP 166/80; PULSE 67
[2025-03-13 11:18] VITALS: BP 157/79; PULSE 69
== END 2025-03-22 23:59 | disposition home or self-care (01) ==
LOC: CR 11:09
PROVIDERS: PCP Nurse Practitioner Adult Health; Visit Provider Internal Medicine Cardiovascular Disease
DX: R69 Illness, unspecified (principal)

== ENCOUNTER → 2025-03-27 10:48 | Outpatient (BNVA) | payer MEDICARE, OTHER, SELFPAY | PROVIDERS: PCP Nurse Practitioner Adult Health; Referring Provider Nurse Practitioner Adult Health; Visit Provider Nurse Practitioner Gerontology | DX: N48.1 Balanitis (principal); R30.0 Dysuria | CPT/HCPCS: 99213; 81002 ==

== ENCOUNTER 2025-04-17 11:00 | Outpatient (RCR) | payer SELFPAY ==
[2025-03-23 00:08] VITALS: BP 127/68; PULSE 67
[2025-03-27 11:11] VITALS: BP 105/58; PULSE 73
[2025-04-01 14:32] VITALS: BP 123/74; PULSE 68
[2025-04-03 11:23] VITALS: BP 106/54; PULSE 59
[2025-04-08 11:19] VITALS: BP 136/74; PULSE 67
[2025-04-15 14:43] VITALS: BP 142/72; PULSE 71; O2SAT 92
[2025-04-17 11:00] VITALS: BP 128/66; PULSE 72
== END 2025-04-21 23:59 | disposition home or self-care (01) ==
LOC: CR 11:00
PROVIDERS: PCP Nurse Practitioner Adult Health; Visit Provider Internal Medicine Cardiovascular Disease
DX: R69 Illness, unspecified (principal)

== ENCOUNTER 2025-05-20 11:00 | Outpatient (RCR) | payer SELFPAY ==
[2025-04-29 13:38] VITALS: BP 108/65; PULSE 67
[2025-05-01 13:11] VITALS: BP 141/70; PULSE 68
[2025-05-06 11:10] VITALS: BP 147/69; PULSE 70
[2025-05-08 10:50] VITALS: BP 128/69; PULSE 70; O2SAT 92
[2025-05-13 12:53] VITALS: BP 139/70; PULSE 71
[2025-05-20 11:16] VITALS: BP 117/60; PULSE 70
== END 2025-05-22 23:59 | disposition home or self-care (01) ==
LOC: CR 11:00
PROVIDERS: PCP Nurse Practitioner Adult Health; Visit Provider Internal Medicine Cardiovascular Disease
DX: R69 Illness, unspecified (principal)
CPT/HCPCS: S9472

== ENCOUNTER → 2025-06-02 08:20 | Outpatient (BNVA) | payer MEDICARE, OTHER, SELFPAY | PROVIDERS: PCP Nurse Practitioner Adult Health; Referring Provider Nurse Practitioner Adult Health; Visit Provider Podiatrist | DX: E11.42 Type 2 diabetes mellitus with diabetic polyneuropathy (principal); E11.22 Type 2 diabetes mellitus with diabetic chronic kidney disease; N18.31 Chronic kidney disease, stage 3a; L60.2 Onychogryphosis; L20.9 Atopic dermatitis, unspecified; D63.8 Anemia in other chronic diseases classified elsewhere; I73.89 Other specified peripheral vascular diseases; C4A.9 Merkel cell carcinoma, unspecified; R09.89 Other specified symptoms and signs involving the circulatory and respiratory systems; R60.0 Localized edema; I83.93 Asymptomatic varicose veins of bilateral lower extremities; L65.9 Nonscarring hair loss, unspecified; R23.8 Other skin changes; L85.8 Other specified epidermal thickening | CPT/HCPCS: 11719 ==

== ENCOUNTER 2025-06-19 11:00 | Outpatient (RCR) | payer SELFPAY ==
[2025-05-23 00:11] VITALS: BP 117/60; PULSE 70
[2025-06-03 11:00] VITALS: BP 135/72; PULSE 70
[2025-06-05 11:13] VITALS: BP 130/66; PULSE 73
[2025-06-10 11:21] VITALS: BP 135/74; PULSE 65
[2025-06-17 11:19] VITALS: BP 152/74; PULSE 64
[2025-06-19 10:42] VITALS: BP 147/73; PULSE 66; RESP 94
== END 2025-06-22 23:59 | disposition home or self-care (01) ==
LOC: CR 11:00
PROVIDERS: PCP Nurse Practitioner Adult Health; Visit Provider Internal Medicine Cardiovascular Disease
DX: R69 Illness, unspecified (principal)

== ENCOUNTER 2025-07-22 11:00 | Outpatient (RCR) | payer SELFPAY ==
[2025-06-24 11:25] VITALS: BP 129/71; PULSE 63
[2025-06-26 13:01] VITALS: BP 154/82; PULSE 66
[2025-07-03 11:00] VITALS: BP 123/67; PULSE 65
[2025-07-08 15:06] VITALS: BP 141/75; PULSE 65
[2025-07-10 14:56] VITALS: BP 126/64; PULSE 69
[2025-07-17 12:35] VITALS: BP 151/82; PULSE 68
[2025-07-22 12:10] VITALS: BP 133/70; PULSE 67
== END 2025-07-22 23:59 | disposition home or self-care (01) ==
LOC: CR 11:00
PROVIDERS: PCP Nurse Practitioner Adult Health; Visit Provider Internal Medicine Cardiovascular Disease
DX: R69 Illness, unspecified (principal)

== ENCOUNTER 2025-08-21 11:00 | Outpatient (RCR) | payer SELFPAY ==
[2025-07-23 00:21] VITALS: BP 133/70; PULSE 67
[2025-07-24 11:16] VITALS: BP 129/71; PULSE 67
[2025-07-29 11:32] VITALS: BP 125/72; PULSE 67
[2025-08-05 11:29] VITALS: BP 131/68; PULSE 64; O2SAT 92
[2025-08-07 11:23] VITALS: BP 140/75; PULSE 67; O2SAT 92
[2025-08-19 11:27] VITALS: BP 141/71; PULSE 66; O2SAT 94
[2025-08-21 10:58] VITALS: BP 141/76; PULSE 65; O2SAT 94
== END 2025-08-22 23:59 | disposition home or self-care (01) ==
LOC: CR 11:00
PROVIDERS: PCP Nurse Practitioner Adult Health; Visit Provider Internal Medicine Cardiovascular Disease
DX: R69 Illness, unspecified (principal)

== ENCOUNTER → 2025-08-22 09:58 | Outpatient (BNVA) | payer MEDICARE, OTHER, SELFPAY | PROVIDERS: PCP Nurse Practitioner Adult Health; Referring Provider Nurse Practitioner Adult Health; Visit Provider Urology | DX: N40.1 Benign prostatic hyperplasia with lower urinary tract symptoms (principal); N28.89 Other specified disorders of kidney and ureter; R35.0 Frequency of micturition; R39.15 Urgency of urination | CPT/HCPCS: 76775 ==

== ENCOUNTER 2025-09-11 11:00 | Outpatient (RCR) | payer SELFPAY ==
[2025-08-23 00:25] VITALS: BP 141/76; PULSE 65
[2025-08-28 11:28] VITALS: BP 158/76; PULSE 66
[2025-09-09 11:55] VITALS: BP 133/72; PULSE 63
[2025-09-11 14:14] VITALS: BP 109/64; PULSE 64
== END 2025-09-21 23:59 | disposition home or self-care (01) ==
LOC: CR 11:00
PROVIDERS: PCP Nurse Practitioner Adult Health; Visit Provider Internal Medicine Cardiovascular Disease
DX: R69 Illness, unspecified (principal)

== ENCOUNTER → 2025-09-22 08:17 | Outpatient (BNVA) | payer MEDICARE, OTHER, SELFPAY | PROVIDERS: PCP Nurse Practitioner Adult Health; Referring Provider Nurse Practitioner Adult Health; Visit Provider Podiatrist | DX: E11.22 Type 2 diabetes mellitus with diabetic chronic kidney disease (principal); E11.42 Type 2 diabetes mellitus with diabetic polyneuropathy; D63.8 Anemia in other chronic diseases classified elsewhere; N18.31 Chronic kidney disease, stage 3a; L60.2 Onychogryphosis; I73.89 Other specified peripheral vascular diseases; R09.89 Other specified symptoms and signs involving the circulatory and respiratory systems; L60.0 Ingrowing nail; I83.93 Asymptomatic varicose veins of bilateral lower extremities; L65.9 Nonscarring hair loss, unspecified; R23.4 Changes in skin texture; L85.8 Other specified epidermal thickening | CPT/HCPCS: 11719 ==

== ENCOUNTER 2025-10-07 11:00 | Outpatient (RCR) | payer SELFPAY ==
[2025-09-22 00:19] VITALS: BP 109/64; PULSE 64
[2025-09-30 11:47] VITALS: BP 146/78; PULSE 67
[2025-10-02 11:15] VITALS: BP 116/63; PULSE 63; O2SAT 94
[2025-10-07 11:13] VITALS: BP 131/68; PULSE 68
== END 2025-10-22 23:59 | disposition home or self-care (01) ==
LOC: CR 11:00
PROVIDERS: PCP Nurse Practitioner Adult Health; Visit Provider Internal Medicine Cardiovascular Disease
DX: R69 Illness, unspecified (principal)